=== PATIENT | male | born 1970 | race Caucasian/White ===

== ENCOUNTER → 2018-11-25 | Outpatient (CLI) | payer SELFPAY ==
--- NOTE | 2018-11-25 14:25 | Diagnostic Imaging Report ---
INDICATION: Right foot fracture. EXAMINATION: AP, oblique and lateral views of the right foot are obtained. FINDINGS: There is a mildly displaced oblique fracture to the distal shaft of fifth metatarsal. There is surrounding callus indicating partial healing. There is no evidence of intra-articular extension. No other fracture or malalignment is identified. IMPRESSION: Subacute, mildly displaced fracture involving the distal shaft of fifth metatarsal without other complicating feature identified. Dictated by: Dictated on workstation # [id number]
== END ==
LOC: RAD FS 08:48
PROVIDERS: ATTEND Nurse Practitioner
DX: S92.351A Displaced fracture of fifth metatarsal bone, right foot, initial encounter for closed fracture (principal)
CPT/HCPCS: 73630

== ENCOUNTER → 2018-12-16 | Outpatient (CLI) | payer SELFPAY ==
--- NOTE | 2018-12-16 11:23 | Diagnostic Imaging Report ---
INDICATION: Fracture followup. COMPARISON: 11/15/2018. TECHNIQUE: 3 views of right foot were obtained. FINDINGS: The oblique simple fracture in the mid to distal diaphysis of the fifth metatarsal maintain similar alignment and position. No interosseous bridging has occurred. The amount of periosteal callus formation has not substantially changed since prior examination. No new fracture. Bipartite medial hallux sesamoid. Degenerative changes of the tibiotalar joint are partially imaged. IMPRESSION: No progressive healing of the left fifth metatarsal diaphyseal fracture since prior exam. Dictated by: Dictated on workstation # [id number]
== END ==
LOC: RAD FS 10:59
PROVIDERS: ATTEND Nurse Practitioner
DX: S92.351D Displaced fracture of fifth metatarsal bone, right foot, subsequent encounter for fracture with routine healing (principal)
CPT/HCPCS: 73630

== ENCOUNTER → 2019-01-17 | Outpatient (CLI) | payer SELFPAY ==
--- NOTE | 2019-01-17 11:40 | Diagnostic Imaging Report ---
EXAMINATION: Right foot radiographs, 3 views. COMPARISON: December 16, 2017. HISTORY: 48-year-old male, history of fifth metatarsal fracture. Followup exam. FINDINGS: Redemonstrated displaced fracture involving the distal diaphysis of the fifth metatarsal. There is a persistent well visualized fracture line. There is very mild interval increase in periosteal reaction and bony callus bridging. Overall fracture alignment is unchanged. There is adjacent soft tissue swelling. There is a bipartite medial sesamoid. There is degenerative type calcaneal enthesopathy. There are tibiotalar degenerative changes. IMPRESSION: 1. Very mild interval healing response at site of displaced fracture of the fifth metatarsal. Dictated by: Dictated on workstation # [id number]
== END ==
LOC: RAD FS 11:18
PROVIDERS: ATTEND Nurse Practitioner
DX: S92.351D Displaced fracture of fifth metatarsal bone, right foot, subsequent encounter for fracture with routine healing (principal)
CPT/HCPCS: 73630

== ENCOUNTER → 2019-02-15 | Outpatient (CLI) | payer SELFPAY ==
--- NOTE | 2019-02-15 14:14 | Diagnostic Imaging Report ---
EXAMINATION: Right foot at 11:14 a.m. INDICATION: Fracture. FINDINGS: Three views were obtained. The prior exam of 01/17/2019 noted a healing displaced fracture of the distal shaft of the fifth metatarsal. On this study, there has been a slight increase in the amount of healing callus formation about the fracture site and the fracture line is also somewhat less conspicuous than noted on the prior study. The fracture fragments are displaced but unchanged in alignment when compared to the prior study. There is no fracture or acute bony abnormality appreciated. The soft tissues are unremarkable. IMPRESSION: 1. There has been slight further healing of the fracture of the distal third of the fifth metatarsal. The fracture line is still present however. A follow-up exam will be recommended for continued evaluation. 2. There is no sign of an acute bony abnormality. Dictated by: Dictated on workstation # [id number]
== END ==
LOC: RAD FS 10:50
PROVIDERS: ATTEND Nurse Practitioner
DX: S92.351D Displaced fracture of fifth metatarsal bone, right foot, subsequent encounter for fracture with routine healing (principal)
CPT/HCPCS: 73630

== ENCOUNTER 2019-04-28 06:23 | Emergency (ER) | payer SELFPAY, OTHER | END 2019-04-28 08:45 | disposition home or self-care (01) | LOC: ER 06:23 ==

== ENCOUNTER 2019-05-11 18:49 | Emergency (ER) | payer SELFPAY ==
[~2019-05-11] VITALS: Ht 195.6 cm; Wt 106.6 kg
[~2019-05-11 18:49] MED LIST: ONDA4TAB11 PO
[2019-05-11 18:57] VITALS: BP 126/96
--- NOTE | 2019-05-11 19:11 | NUR ---
Pt refuses blood draw from iv site. Pt states, "I can't allow that, its against my confucianism!" Provider notified.
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
[2019-05-11] MEDS ORDERED: LACTATED RINGERS 1,000 ML IV ONE (19:29)
[2019-05-11] MEDS ORDERED: KETOROLAC 30 MG/ML VIAL IVP ONE (19:30)
[2019-05-11] MEDS ORDERED: ONDANSETRON 4 MG/2 ML (SDV) Z0FRAN IVP ONE (19:30)
[2019-05-11] MEDS ORDERED: MECLIZINE 25 MG (ANTIVERT) TAB PO ONE (19:30)
[2019-05-11] MEDS ORDERED: LACTATED RINGERS 1,000 ML IV SCH (19:45)
--- NOTE | 2019-05-11 19:45 | Diagnostic Imaging Report ---
PROCEDURE: CT head without contrast. TECHNIQUE: Multiple contiguous axial images were obtained through the brain without the use of intravenous contrast. Auto Exposure Controls were utilized during the CT exam to meet ALARA standards for radiation dose reduction. INDICATION: Dizziness, syncope, and head pain of one month's duration, worsening today. COMPARISON: 04/28/2019. FINDINGS: There is no hemorrhage, hydrocephalus, edema, mass, mass effect, or evidence for elevated intracranial pressures. The basilar cisterns are patent. There is no sulcal effacement and no loss of the cortical dang-white matter differentiations. Orbits, sinuses, and calvarium appear nonacute. IMPRESSION: Stable CT head. Dictated by: Dictated on workstation # [id number]
[2019-05-11] MEDS ORDERED: MECL-106 PO (19:52)
--- NOTE | 2019-05-11 20:08 | NUR ---
Risks and benefits reviewed by Joseluis Condon APRN. Pt states, "I just can't stay here and wait for that whole bag of fluids to run in." Pt signed AMA form @ 2007 with provider in room. Pt expressed gratitude for care recieved. Pt amb out of ED care w/o difficulty. a&ox4.
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
== END 2019-05-11 20:08 | disposition left against medical advice (07) ==
LOC: EDUNIT# 18:49 → ER 18:51
DX: F07.81 Postconcussional syndrome (principal); G44.309 Post-traumatic headache, unspecified, not intractable; I10 Essential (primary) hypertension; Z77.22 Contact with and (suspected) exposure to environmental tobacco smoke (acute) (chronic)
CPT/HCPCS: 70450; 96374; 96375

== ENCOUNTER 2023-03-02 13:39 | Inpatient (IN) | payer OTHER ==
[~2023-03-02] VITALS: Ht 195 cm; Wt 144.5 kg
[~2023-03-02 13:39] MED LIST changes: +MECL-149 PO
[2023-03-02 14:19] LABS: BASOPHILS # (AUTO) 0.1 10^3/uL (0.0-0.1); BASOPHILS % (AUTO) 1 % (0-10); EOSINOPHILS # (AUTO) 0.1 10^3/uL (0.0-0.3); EOSINOPHILS % (AUTO) 1 % (0-10); HEMATOCRIT 38 % (40-54); LYMPHOCYTES # (AUTO) 1.4 10^3/uL (1.0-4.0); LYMPHOCYTES % (AUTO) 12 % (12-44); MEAN CORPUSCULAR HEMOGLOBIN 31 pg (25-34); MEAN CORPUSCULAR HGB CONC 32 g/dL (32-36); MEAN CORPUSCULAR VOLUME 100 fL (80-99); MEAN PLATELET VOLUME 9.4 fL (9.0-12.2); MONOCYTES # (AUTO) 0.9 10^3/uL (0.0-1.0); MONOCYTES % (AUTO) 7 % (0-12); NEUTROPHILS # (AUTO) 9.4 10^3/uL (1.8-7.8); NEUTROPHILS % (AUTO) 80 % (42-75); PLATELET COUNT 316 10^3/uL (130-400); WHITE BLOOD COUNT 11.8 10^3/uL (4.3-11.0)
--- NOTE | 2023-03-02 14:25 | ED GI ---
General Chief Complaint: Abdominal/GI Problems Stated Complaint: ABD SWELLING Nursing Triage Note: Patient has presented to ER with cc of abd pain and swelling. Patient reports that about a month he woke up with nausea, vomiting, and had diarrhea for about 3 days. Since that time he has had worsening swelling to his abd. The skin on his abd is red, a rash on the right side of his abd, and very swollen abd. Patient reports that he currently has no doctor. His symptoms were getting worse and he came to ER for evaluation. Patient reports that he was diagnosed in with alcoholic hepatitis while in [place]. He reports that he did stop drinking a month ago after he started to the have the swelling on the right side of his abd. He reports that he was drinking 1/5th of vodka, and 6 beers perday daily. He reports heavy drinking for the last 20 years. Source of Information: Patient History of Present Illness Date Seen by Provider: March 02, 2023 Time Seen by Provider: 13:42 Initial Comments [id number] male presenting with complaints of increasing abdominal pain and swelling over the last month. Reports that he had nausea vomiting and diarrhea for about 3 days 1 month ago. Since then he has had increasing swelling to his abdomen. The skin on the right side of his abdomen has erythematous spots to it. He denies any itching or pain to these areas. He typically drinks vodka and chases it with beer every day. He states that a month ago when he started having abdominal swelling he stopped drinking alcohol. He does not have a primary care provider. He also has been having increasing shortness of breath. He smokes at least a pack of cigarettes a day. He felt like he was getting more short of breath with the abdominal swelling. He denies having any dark tarry stools or blood in the stool. He states he had a bowel movement earlier today and it was normal. He denies any pain or burning with urination. He denies having fever but has felt hot. He has intermittently had some chills as well. He denies having nausea, vomiting, chest pain, headache, extremity pain. Timing/Duration: Getting Worse (Getting worse over the last month) Severity/Quality: Moderate, Aching (Left lower quadrant) Location: LLQ Radiation: Other (Generalized abdomen) Activities at Onset: None Modifying Factors: Worsens With Movement, Worsens With Palpation Associated Symptoms: No Back Pain, No Chest Pain, No Diaphoresis; Fever/Chills (Subjective), Fatigue; No Headache, No Heartburn, No Nausea/Vomiting; Rash (Right side of the abdominal wall), Shortness of Air, Swelling/Mass in Abdomen; No Syncope; Weakness (Generalized) Allergies and Home Medications Allergies Coded Allergies: No Known Drug Allergies (Unverified , 04/28/19) Patient Home Medication List Home Medication List Reviewed: Yes Meclizine HCl (Meclizine HCl) 25 Mg Tablet, 25 MG PO TID PRN for DIZZINESS Prescribed by: JUAN C GREEN on [birth year]191951 Ondansetron (Ondansetron Odt) 4 Mg Tab.rapdis, 4 MG PO Q6H PRN for NAUSEA/VOMITING Prescribed by: MANOJ OLIVEIRA on 04/28/19 0840 Review of Systems Review of Systems Constitutional: see HPI EENTM: No Symptoms Reported Respiratory: See HPI Cardiovascular: Denies Chest Pain; Palpitations Gastrointestinal: See HPI, Abdomen Distended, Abdominal Pain (Left lower quadrant); Denies Blood Streaked Stools, Denies Constipated, Denies Diarrhea; Poor Appetite; Denies Rectal Bleeding, Denies Vomiting Genitourinary: Denies Burning, Denies Pain Musculoskeletal: no symptoms reported Skin: see HPI, rash (Erythematous rash along the right side of his abdomen) Psychiatric/Neurological: See HPI Past Nfkyvhl-Wzyynp-Tgjsph Hx Patient Social History Tobacco Use?: Yes Tobacco type used: Cigarettes Smoking Status: Heavy Tobacco Smoker Use of E-Cig and/or Vaping dev: No Substance use?: No Alcohol Use?: Yes Alcohol type: Beer, Hard Liquor Alcohol Frequency: Daily Seasonal Allergies Seasonal Allergies: No Past Medical History Surgery/Hospitalization HX: Hypertension, alcohol hepatitis 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 0oz. 106.897811lp; 39.00 BMI Method:Stated General Appearance: mild distress, obese, other (Chronically ill-appearing) HEENT: PERRL/EOMI, pharynx normal Neck: non-tender, full range of motion, supple, normal inspection Respiratory: chest non-tender, decreased breath sounds, accessory muscle use; No rales, No rhonchi, No stridor, No wheezing Cardiovascular: normal peripheral pulses, tachycardia, irregularly irregular Peripheral Pulses: 2+ Carotid (R), 2+ Carotid (L), 2+ Radial Pulses (R), 2+ Radial Pulses (L) Gastrointestinal: normal bowel sounds, soft, no pulsatile mass, distended (Distended abdomen with fluid wave); No guarding, No rebound; tenderness (Mild diffuse tenderness worse in the left lower quadrant), other (Trace to 1+ pitting edema to the abdominal wall) Rectal: deferred Extremities: normal range of motion, non-tender, normal capillary refill Neurologic/Psychiatric: alert, oriented x 3 Skin: warm/dry, rash (Erythematous rash to the right side of the abdominal wall that appears consistent with a folliculitis appearing rash) Focused Exam Lactate Level 03/02/23 13:49: Lactic Acid Level 1.07 Lactic Acid Level Laboratory Tests Test 03/02/23 13:49 Lactic Acid Level 1.07 MMOL/L (0.50-2.00) Progress/Results/Core Measures Results/Orders Lab Results Laboratory Tests Test 03/02/23 13:49 03/02/23 14:29 Range/Units White Blood Count 11.8 H 4.3-11.0 10^3/uL Red Blood Count 3.82 L 4.30-5.52 10^6/uL Hemoglobin 12.0 L 13.3-17.7 g/dL Hematocrit 38 L 40-54 % Mean Corpuscular Volume 100 H 80-99 fL Mean Corpuscular Hemoglobin 31 25-34 pg Mean Corpuscular Hemoglobin Concent 32 32-36 g/dL Red Cell Distribution Width 15.4 H 10.0-14.5 % Platelet Count 316 130-400 10^3/uL Mean Platelet Volume 9.4 9.0-12.2 fL Immature Granulocyte % (Auto) 0 % Neutrophils (%) (Auto) 80 H 42-75 % Lymphocytes (%) (Auto) 12 12-44 % Monocytes (%) (Auto) 7 0-12 % Eosinophils (%) (Auto) 1 0-10 % Basophils (%) (Auto) 1 0-10 % Neutrophils # (Auto) 9.4 H 1.8-7.8 10^3/uL Lymphocytes # (Auto) 1.4 1.0-4.0 10^3/uL Monocytes # (Auto) 0.9 0.0-1.0 10^3/uL Eosinophils # (Auto) 0.1 0.0-0.3 10^3/uL Basophils # (Auto) 0.1 0.0-0.1 10^3/uL Immature Granulocyte # (Auto) 0.0 0.0-0.1 10^3/uL Prothrombin Time 15.3 H 12.2-14.7 SEC INR Comment 1.2 0.8-1.4 Activated Partial Thromboplast Time 29 24-35 SEC Sodium Level 136 135-145 MMOL/L Potassium Level 4.7 3.6-5.0 MMOL/L Chloride Level 102 98-107 MMOL/L Carbon Dioxide Level 23 21-32 MMOL/L Anion Gap 11 5-14 MMOL/L Blood Urea Nitrogen 20 H 7-18 MG/DL Creatinine 1.39 H 0.60-1.30 MG/DL Estimat Glomerular Filtration Rate 61 BUN/Creatinine Ratio 14 Glucose Level 100 70-105 MG/DL Lactic Acid Level 1.07 0.50-2.00 MMOL/L Calcium Level 9.1 8.5-10.1 MG/DL Corrected Calcium 9.6 8.5-10.1 MG/DL Magnesium Level 1.9 1.6-2.4 MG/DL Total Bilirubin 1.0 0.1-1.0 MG/DL Aspartate Amino Transf (AST/SGOT) 56 H 5-34 U/L Alanine Aminotransferase (ALT/SGPT) 37 0-55 U/L Alkaline Phosphatase 74 40-136 U/L Troponin I < 0.30 <0.30 NG/ML Pro-B-Type Natriuretic Peptide 3163.0 H <125.0 PG/ML Total Protein 7.5 6.4-8.2 GM/DL Albumin 3.4 3.2-4.5 GM/DL Lipase 55 8-78 U/L Serum Alcohol < 10 <10 MG/DL Blood Gas Puncture Site R RADIAL Blood Gas Patient Temperature 36.8C Arterial Blood pH 7.30 *L 7.37-7.43 Arterial Blood Partial Pressure CO2 54 H 35-45 MMHG Arterial Blood Partial Pressure O2 64 L 79-93 MMHG Arterial Blood HCO3 27 23-27 MMOL/L Arterial Blood Total CO2 28.3 21.0-31.0 MMOL/L Arterial Blood Oxygen Saturation 90 L 94-100 % Arterial Blood Base Excess -0.6 -2.5-2.5 MMOL/L [place] Test OK Blood Gas Ventilator Setting NO Blood Gas Inspired Oxygen 2 LITERS My Orders Orders - CORY MATA MD Comprehensive Metabolic Panel (03/02/23 14:09) Lipase (03/02/23 14:09) Ua Culture If Indicated (03/02/23 14:09) Ed Iv/Invasive Line Start (03/02/23 14:09) Cbc With Automated Diff (03/02/23 14:09) Ct Abdomen/Pelvis W (03/02/23 14:09) Protime With Inr (03/02/23 14:09) Partial Thromboplastin Time (03/02/23 14:09) Hepatitis Panel Acute (03/02/23 14:09) Ammonia (03/02/23 14:09) Lactic Acid Analyzer (03/02/23 14:09) Chest 1 View Ap/Pa Only (03/02/23 14:09) O2 (03/02/23 14:09) Ekg Tracing (03/02/23 14:09) Monitor-Rhythm Ecg Trace Only (03/02/23 14:09) Iohexol Injection (Omnipaque 350 Mg/Ml 1 (03/02/23 14:30) Received Contrast (Hold Metformin- Contr (03/02/23 14:30) Ns (Ivpb) (Sodium Chloride 0.9% Ivpb Bag (03/02/23 14:30) Arterial Blood Gas (03/02/23 14:22) Alcohol (03/02/23 14:25) Troponin I Fs (03/02/23 14:29) Probnp Fs (03/02/23 14:29) Magnesium (03/02/23 14:29) Diltiazem Injection (Cardizem Injection) (03/02/23 14:30) Ns (Ivpb) (Sodium C... W/Diltiazem Iv Fo (03/02/23 14:30) Diltiazem Drip Pre-Mix (Cardizem Drip Pr (03/02/23 14:41) Iohexol Injection (Omnipaque 350 Mg/Ml 1 (03/02/23 15:00) Received Contrast (Hold Metformin- Contr (03/02/23 15:00) Ns (Ivpb) (Sodium Chloride 0.9% Ivpb Bag (03/02/23 15:00) Blood Culture (03/02/23 15:07) Ed Admission (Communication) (03/02/23 15:25) Ceftriaxone Pre-Mix (Rocephin Pre-Mix) (03/02/23 15:27) Azithromycin Injection (Zithromax Inject (03/02/23 15:27) Apixaban Tablet (Eliquis Tablet) (03/02/23 15:33) Diltiazem Injection (Cardizem Injection) (03/02/23 15:35) Medications Given in ED Current Medications Medications Dose Ordered Sig/Adeola Route Start Time Stop Time Status Last Admin Dose Admin Diltiazem HCl 125 ml @ ud STK-MED ONCE IV 03/02/23 14:41 03/02/23 14:46 DC 03/02/23 14:48 10 MLS/HR Iohexol 100 ml ONCE ONCE IV 03/02/23 14:30 03/02/23 15:22 DC 03/02/23 15:11 100 ML Sodium Chloride 100 ml ONCE ONCE IV 03/02/23 15:00 03/02/23 15:01 DC 03/02/23 15:11 100 ML Vital Signs/I&O 03/02/23 03/02/23 03/02/23 14:00 14:47 14:48 Temp 36.8 Pulse 106 Resp 24 B/P (MAP) 120/95 (103) 139/115 139/115 Pulse Ox 86 O2 Delivery Room Air Blood Pressure Mean: 103 Admisison Planning May Need Admission (Planning): 13:50 Progress Progress Note #1: Progress Note Potential life-threatening diagnosis of pneumonia, sepsis, liver failure, alcohol cirrhosis, diverticulitis, ischemic bowel, congestive heart failure, myocardial infarction. On arrival patient appears chronically ill and to not be feeling well. His initial oxygen saturation was 86 to 87% on room air. His temperature was afebrile at 36.8. He was tachycardic with heart rate around 110 bpm on my auscultation. Heart rate was fast and irregularly irregular. He was started on supplemental oxygen by nasal cannula for his oxygen saturation. Obtain peripheral IV access and send labs for complete blood count, comprehensive metabolic profile, lipase, alcohol, magnesium, lactic acid, ABG, troponin, proBNP, ammonia, hepatitis panel, coagulation factors. Obtain urinalysis as well. Chest x-ray to look for infiltrate and/or effusion. CT scan of the abdomen pelvis to evaluate his distended abdomen and fluid wave. Ordered cardiac telemetry monitoring and his initial heart rate and rhythm showed in the 140s and irregular with a narrow QRS complex. Electrocardiogram obtained at 1417 and confirms atrial fibrillation with RVR. Will order Diltiazem 10 mg IV bolus and follow with Diltiazem drip starting at 5 mg/hr and titrate for heart rate <100. Hold for SBP <90. Progress Note #2: Time: 14:44 Progress Note On my personal review and interpretation of his 1 view chest x-ray he appears to have pulmonary vascular congestion with a left pleural effusion. His initial complete blood count showed white blood cells at upper limit of normal at 11.8. He had hemoglobin at lower limit of normal at 12. He had normal platelets at 316. His pro time was normal at 15.3 with INR of 1.2. His PTT was in the normal range at 29. His alcohol level was less than 10. His comprehensive metabolic profile showed a sodium of 136 with potassium of 4.7. His BUN was 20 with mild elevation of the creatinine to 1.39. Glucose was normal at 100. Lactic acid was negative at 1.07. His total bilirubin was normal at 1 with AST of 56 and ALT of 37. Lipase was was negative at 55. At 1436 the lab had called with critical results on his ABG as he had a pH that was low at 7.3. His PCO2 was elevated to 54. His PO2 was low at 64. This was on 2 L/min by nasal cannula with oxygen saturation of 90%. 1452 I reviewed the radiologist report on the 1 view chest x-ray. His report shows left pleural effusion and possible left lower lobe pneumonia. We will add on blood cultures with possible pneumonia and treat him with ceftriaxone and azithromycin. We will give ceftriaxone 1 g IV and azithromycin 500 mg IV. Progress Note #3: Time: 15:08 Progress Note Magnesium was normal at 1.9. Troponin was negative at less than 0.3. He does have an elevated proBNP of 3,163. [address] Franz the on-call hospitalist for [facility]. I reviewed the patient's presentation as well as his initial vital signs hypoxia needing supplemental oxygen. His blood gas showing some mild acidosis with elevated CO2 and PO2 level. His x-ray was showing signs of pleural effusion as well as left lower lobe pneumonia. His CT scan was showing ascites with liver cirrhosis on my personal interpretation of the CT scan of the abdomen and pelvis. His heart rate was tachycardic with atrial fibrillation with rapid ventricular response. He is on diltiazem as a drip and was given a 10 mg bolus. There is orders to titrate the diltiazem drip to try and get better control of his heart rate and rhythm. We will start him on Rocephin 1 g IV and azithromycin 500 mg IV for the pneumonia. Will start anticoagulation as well after speaking with Dr. Gonzalez with cardiology. He accepted him for admission to the ICU as inpatient and he will place acute orders. He did request that I speak with Dr. Gonzalez with cardiology so that he was aware of the patient coming in with atrial fibrillation with RVR and on a diltiazem drip. [address] Gonzalez the on-call manager product marketing. I advised him of the patient's presentation with history of noncompliance with blood pressure medicines and chronic alcohol and tobacco use. He has pneumonia with ascites and a left pleural effusion as well as a left lower lobe pneumonia. He is placed on a diltiazem drip and was given 10 mg IV diltiazem bolus. His heart rate was still fluctuating from the 110s to 140s. He recommended continuing Eliquis 5 mg twice daily since this would start working faster would be better than doing 150 mg of Lovenox every 12 hours. He recommended giving an additional 10 mg IV diltiazem bolus and making sure that he was up to 10 mg/h on the diltiazem drip. 1551 I have reviewed the radiologist report on the CT scan of the abdomen and pelvis with IV contrast. They reported cardiomegaly with bilateral pleural effusion and a left basilar infiltrate. They felt that he had nodular contour to his liver concerning for cirrhosis but no discrete liver mass. He has mild to moderate abdominal and pelvic ascites. He has nonspecific fluid-filled small bowel loops in the left lower abdomen there are normal caliber bowel loops in the right abdomen so possibility of a small bowel obstruction cannot be entirely excluded and possibly performing a small bowel study would be useful. He also has cholelithiasis with fluid surrounding the gallbladder. He is not having specific concerns for cholecystitis but they suggested a gallbladder ultrasound if needed for further evaluation. 1600 with his additional dose of diltiazem and increasing his diltiazem drip his heart rate was still fluctuating from 1 10-1 50. He continues to be in atrial fibrillation with RVR. Blood pressure was 145/112. He remains awake and alert. He was agreeable to transfer to [place] for further treatment. Counseled that he would need antibiotics and medication for his heart rate and irregular rhythm as well as the pneumonia. Likely that he will be started on diuretics to help with the ascites. He will be going to the ICU with his diltiazem drip as well as the hypoxia and pneumonia. Initial ECG Impression Date: March 02, 2023 Initial ECG Impression Time: 14:17 Initial ECG Rate: 154 Initial ECG Rhythm: A Fib/Flutter Initial ECG Comparisson: No Previous ECG Available Comment On my initial interpretation and review his electrocardiogram shows atrial fibrillation with rapid ventricular response and a heart rate of 154 bpm. He has low voltage QRS complex in the extremity leads. He had no acute ST elevation. He has global T wave flattening. QT interval 295 ms with a QTc interval 382 ms. He has no prior tracing available for comparison. Diagnostic Imaging Diagonstic Imaging: Xray Plain Films/CT/US/NM/MRI: chest Comments NAME: ANGEL SPENCER [employer] REC#: [id number] PT STATUS: REG ER : 1970 PHYSICIAN: CORY MATA MD ADMIT DATE: 03/02/23/ER FS Draft Date of Exam:03/02/23 CHEST 1 VIEW AP/PA ONLY INDICATION: Shortness of breath and tachycardia. FINDINGS: There is an infiltrate in the left lung base partially obscuring the left diaphragm. There is blunting of the left angle likely owing to a small left effusion. Heart size is mildly enlarged, and there is some prominence of the pulmonary vascularity. IMPRESSION: 1. Upper limits heart size and mild venous congestion but probable pneumonia in the left lower lobe with an adjacent pleural effusion. 2. No pneumothorax. Dictated on workstation # [id number] Dict: 03/02/23 1428 Trans: 03/02/23 1432 [id number] Interpreted by: RIKKI EDWARDS Electronically signed by: Reviewed: Reviewed by Me (I reviewed the radiologist report at 1451. They felt that he had a left lower lobe infiltrate in addition to the pleural effusion.) Diagonstic Imaging: CT Plain Films/CT/US/NM/MRI: abdomen, pelvis Comments NAME: ANGEL SPENCER REC#: [id number] PT STATUS: REG ER : 1970 PHYSICIAN: CORY MATA MD ADMIT DATE: 03/02/23/ER FS Signed Date of Exam:03/02/23 CT ABDOMEN/PELVIS W PROCEDURE: CT abdomen and pelvis with contrast. TECHNIQUE: Multiple contiguous axial images were obtained through the abdomen and pelvis after administration of intravenous contrast. Auto Exposure Controls were utilized during the CT exam to meet ALARA standards for radiation dose reduction. All CT scans use one or more of the following dose optimizing techniques: automated exposure control, MA and/or KvP adjustment based on patient size and exam type or iterative reconstruction. INDICATION: Abdominal swelling as well as left lower quadrant pain. COMPARISON: No prior studies are available for comparison. FINDINGS: Imaging through the lung bases demonstrates the heart to be enlarged. There are small bilateral pleural effusions, slightly greater on the left compared with the right. There are some areas of infiltrate or atelectasis in the left base as well. Liver does demonstrate somewhat of a nodular contour, raising question of cirrhosis. No discrete liver mass is identified. There are several stones in the gallbladder. No definite biliary ductal dilatation is seen. The pancreas and spleen are unremarkable. No adrenal mass is identified. The right kidney contains several cysts, largest in the lower pole at approximately 5 cm in size. There is no hydronephrosis. Aorta is nonaneurysmal. There is some moderate abdominal and pelvic ascites. There are some dilated and fluid-filled small bowel loops in the central and left abdomen. There are some normal-caliber small bowel loops in the right abdomen and the possibility of early small bowel obstruction cannot be entirely excluded. The colon is decompressed. There is a small fat-containing umbilical hernia. There is also a fat-containing left inguinal hernia. The bladder is unremarkable. Prostate is unremarkable. Bony structures are nonacute. IMPRESSION: 1. Cardiomegaly with bilateral pleural effusions and left basilar infiltrate or atelectasis. 2. Questionable nodular contour to the liver. Cirrhosis cannot be entirely excluded. No discrete liver mass is detected. 3. Sagv-aj-qvmdqoyv abdominal and pelvic ascites. 4. Nonspecific fluid-filled small bowel loops in the left abdomen. There are normal-caliber bowel loops in the right abdomen and possibility of small bowel obstruction cannot be entirely excluded. Small bowel study would be useful for further evaluation, if clinically indicated. 5. Cholelithiasis. There is fluid surrounding the gallbladder. If there is concern for cholecystitis, gallbladder ultrasound would be useful for further evaluation. Dictated by: Dictated on workstation # [id number] Dict: 03/02/23 1527 Trans: 03/02/23 1548 [id number] Interpreted by: AURELIANO COTA MD Electronically signed by: AURELIANO COTA MD 03/02/23 1548 Reviewed: Reviewed by Me Critical Care Note Critical Care Total Time (minutes) 60 minutes Progress I spent at least 60 minutes of critical care time with the patient. Time excludes separately billable procedures. Time was spent obtaining history from patient and his mother, ordering test and reviewing results, ordering interve ntions and reviewing response, discussion with consultants, discussion with patient and his mother, documentation in the chart. Patient was at risk of cardiovascular compromise and collapse as well as respiratory collapse due to his pneumonia and atrial fibrillation with rapid ventricular response requiring my immediate and direct intervention and management. Departure Communication (Admissions) Time/Spoke to Admitting Phy: 15:[address] Franz the on-call hospitalist for [facility]. I reviewed the patient's presentation as well as his initial vital signs hypoxia needing supplemental oxygen. His blood gas showing some mild acidosis with elevated CO2 and PO2 level. His x-ray was showing signs of pleural effusion as well as left lower lobe pneumonia. His CT scan was showing ascites with liver cirrhosis on my personal interpretation of the CT scan of the abdomen and pelvis. His heart rate was tachycardic with atrial fibrillation with rapid ventricular response. He is on diltiazem as a drip and was given a 10 mg bolus. There is orders to titrate the diltiazem drip to try and get better control of his heart rate and rhythm. We will start him on Rocephin 1 g IV and azithromycin 500 mg IV for the pneumonia. Will start anticoagulation as well after speaking with Dr. Gonzalez with cardiology. He accepted him for ad mission to the ICU as inpatient and he will place acute orders. He did request that I speak with Dr. Gonzalez with cardiology so that he was aware of the patient coming in with atrial fibrillation with RVR and on a diltiazem drip. Time/Spoke to Consulting Phy: 15:[address] Gonzalez the on-call manager product marketing. I advised him of the patient's presentation with history of noncompliance with blood pressure medicines and chronic alcohol and tobacco use. He has pneumonia with ascites and a left pleural effusion as well as a left lower lobe pneumonia. He is placed on a diltiazem drip and was given 10 mg IV diltiazem bolus. His heart rate was still fluctuating from the 110s to 140s. He recommended continuing Eliquis 5 mg twice daily since this would start working faster would be better than doing 150 mg of Lovenox every 12 hours. He recommended giving an additional 10 mg IV diltiazem bolus and making sure that he was up to 10 mg/h on the diltiazem drip. Impression Primary Impression: Pneumonia of left lower lobe due to infectious organism Additional Impressions: Pleural effusion, left Atrial fibrillation with rapid ventricular response Abdominal distention Hypoxia Left lower quadrant abdominal pain Ascites due to alcoholic cirrhosis Disposition: 30 STILL A PATIENT Condition: Critical Admissions Decision to Admit Reason: Admit from ER (General) Decision to Admit/Date: March 02, 2023 Time/Decision to Admit Time: 15:24 Departure-Patient Inst. Referrals: NO,LOCAL PHYSICIAN (PCP/Family) Primary Care Physician CORY MATA MD March 02, 2023 14:25
[2023-03-02] MEDS ORDERED: IOHEXOL 350 MG/ML 100 ML (OMNIPAQUE 350) VIAL IV ONE ×2 (14:30→15:00)
[2023-03-02] MEDS ORDERED: HOLD METFORMIN - RECEIVED CONTRAST 20 ML VIAL IV SCH ×2 (14:30→15:00)
[2023-03-02] MEDS ORDERED: NS 100 ML (IVPB) BAG IV ONE ×2 (14:30→15:00)
[2023-03-02 14:31] LABS: INR 1.2 (0.8-1.4); PROTHROMBIN TIME PATIENT 15.3 SEC (12.2-14.7)
--- NOTE | 2023-03-02 14:33 | Diagnostic Imaging Report ---
INDICATION: Shortness of breath and tachycardia. FINDINGS: There is an infiltrate in the left lung base partially obscuring the left diaphragm. There is blunting of the left angle likely owing to a small left effusion. Heart size is mildly enlarged, and there is some prominence of the pulmonary vascularity. IMPRESSION: 1. Upper limits heart size and mild venous congestion but probable pneumonia in the left lower lobe with an adjacent pleural effusion. 2. No pneumothorax. Dictated by: Dictated on workstation # [id number]
[2023-03-02 14:36] LABS: ABG PCO2 54 MMHG (35-45); ABG PO2 64 MMHG (79-93); ABG TCO2 28.3 MMOL/L (21.0-31.0)
[2023-03-02 14:37] LABS: ABG BASE EXCESS -0.6 MMOL/L (-2.5-2.5); ABG OXYGEN SATURATION 90 % (94-100); ALLENS TEST OK; INSPIRED O2 2 LITERS
[2023-03-02 14:38] LABS: POTASSIUM 4.7 MMOL/L (3.6-5.0)
[2023-03-02 14:38] LABS: PATIENT TEMP 36.8C; VENTILATOR NO
[2023-03-02 14:39] LABS: ALBUMIN 3.4 GM/DL (3.2-4.5); CALCIUM 9.1 MG/DL (8.5-10.1); CREATININE SERUM 1.39 MG/DL (0.60-1.30); TOTAL PROTEIN 7.5 GM/DL (6.4-8.2)
[2023-03-02] MEDS ORDERED: dilTIAZem DRIP PRE-MIX 125 ML IV ONE (14:41)
[2023-03-02 14:45] LABS: MAGNESIUM 1.9 MG/DL (1.6-2.4)
[2023-03-02] MEDS ORDERED: cefTRIAXone PRE-MIX 50 ML IV STA (15:27)
[2023-03-02] MEDS ORDERED: ENOXAPARIN INJECTION 30 MG/0.3 ML SYR SC STA (15:27)
[2023-03-02] MEDS ORDERED: AZITHROMYCIN INJECTION 500 MG in NS (IVPB) 250 ML IV STA (15:27)
[2023-03-02] MEDS ORDERED: ENOXAPARIN 60 MG/0.6 ML (LOVENOX) SYR SC STA (15:27)
[2023-03-02] MEDS ORDERED: APIXABAN 5 MG (ELIQUIS) TABLET PO STA (15:33)
--- NOTE | 2023-03-02 15:40 | Diagnostic Imaging Report ---
PROCEDURE: CT abdomen and pelvis with contrast. TECHNIQUE: Multiple contiguous axial images were obtained through the abdomen and pelvis after administration of intravenous contrast. Auto Exposure Controls were utilized during the CT exam to meet ALARA standards for radiation dose reduction. All CT scans use one or more of the following dose optimizing techniques: automated exposure control, MA and/or KvP adjustment based on patient size and exam type or iterative reconstruction. INDICATION: Abdominal swelling as well as left lower quadrant pain. COMPARISON: No prior studies are available for comparison. FINDINGS: Imaging through the lung bases demonstrates the heart to be enlarged. There are small bilateral pleural effusions, slightly greater on the left compared with the right. There are some areas of infiltrate or atelectasis in the left base as well. Liver does demonstrate somewhat of a nodular contour, raising question of cirrhosis. No discrete liver mass is identified. There are several stones in the gallbladder. No definite biliary ductal dilatation is seen. The pancreas and spleen are unremarkable. No adrenal mass is identified. The right kidney contains several cysts, largest in the lower pole at approximately 5 cm in size. There is no hydronephrosis. Aorta is nonaneurysmal. There is some moderate abdominal and pelvic ascites. There are some dilated and fluid-filled small bowel loops in the central and left abdomen. There are some normal-caliber small bowel loops in the right abdomen and the possibility of early small bowel obstruction cannot be entirely excluded. The colon is decompressed. There is a small fat-containing umbilical hernia. There is also a fat-containing left inguinal hernia. The bladder is unremarkable. Prostate is unremarkable. Bony structures are nonacute. IMPRESSION: 1. Cardiomegaly with bilateral pleural effusions and left basilar infiltrate or atelectasis. 2. Questionable nodular contour to the liver. Cirrhosis cannot be entirely excluded. No discrete liver mass is detected. 3. [id number] abdominal and pelvic ascites. 4. Nonspecific fluid-filled small bowel loops in the left abdomen. There are normal-caliber bowel loops in the right abdomen and possibility of small bowel obstruction cannot be entirely excluded. Small bowel study would be useful for further evaluation, if clinically indicated. 5. Cholelithiasis. There is fluid surrounding the gallbladder. If there is concern for cholecystitis, gallbladder ultrasound would be useful for further evaluation. Dictated by: Dictated on workstation # [id number]
[2023-03-02] MEDS ORDERED: MELATONIN 3 MG TABLET PO PRN (18:00)
[2023-03-02] MEDS ORDERED: ONDANSETRON 4 MG/2 ML (SDV) Z0FRAN IV PRN (18:00)
[2023-03-02] MEDS ORDERED: ANTACID SUSP 30 ML UDC (MYLANTA) PO PRN (18:00)
[2023-03-02] MEDS ORDERED: NS IV 500 ML 500 ML IV PRN (18:00)
[2023-03-02] MEDS ORDERED: diphenhydrAMINE 25 MG TAB (BENADRYL) PO PRN (18:00)
[2023-03-02] MEDS ORDERED: diphenhydrAMINE 50 MG/ML INJ (BENADRYL) IVP PRN (18:00)
[2023-03-02] MEDS ORDERED: BISACODYL 10 MG SUPP (DULCOLAX) PR PRN (18:00)
[2023-03-02] MEDS ORDERED: polyethylene glycoL POWDER 17 GM (MIRALAX) PACK PO PRN (18:00)
[2023-03-02] MEDS ORDERED: ONDANSETRON 4 MG (ZOFRAN) ORAL DISSOLVE TAB PO PRN (18:00)
[2023-03-02] MEDS ORDERED: NS IV 1000 ML 1,000 ML IV SCH (18:30)
[2023-03-02] MEDS: dilTIAZem DRIP PRE-MIX 125 ML IV SCH ×2 (18:49→22:42)
[2023-03-02] MEDS: DOCUSATE SODIUM 100 MG (COLACE) CAP PO SCH (20:15)
[2023-03-03 04:07] LABS: BASOPHILS # (AUTO) 0.1 10^3/uL (0.0-0.1); BASOPHILS % (AUTO) 0 % (0-10); EOSINOPHILS # (AUTO) 0.1 10^3/uL (0.0-0.3); EOSINOPHILS % (AUTO) 1 % (0-10); HEMATOCRIT 38 % (40-54); HEMOGLOBIN 11.9 g/dL (13.3-17.7); LYMPHOCYTES # (AUTO) 1.5 10^3/uL (1.0-4.0); LYMPHOCYTES % (AUTO) 10 % (12-44); MEAN CORPUSCULAR HEMOGLOBIN 32 pg (25-34); MEAN CORPUSCULAR HGB CONC 31 g/dL (32-36); MEAN CORPUSCULAR VOLUME 101 fL (80-99); MEAN PLATELET VOLUME 9.5 fL (9.0-12.2); MONOCYTES # (AUTO) 1.3 10^3/uL (0.0-1.0); MONOCYTES % (AUTO) 9 % (0-12); NEUTROPHILS # (AUTO) 11.7 10^3/uL (1.8-7.8); NEUTROPHILS % (AUTO) 79 % (42-75); PLATELET COUNT 324 10^3/uL (130-400); WHITE BLOOD COUNT 14.7 10^3/uL (4.3-11.0)
[2023-03-03 04:26] LABS: CALCIUM 8.6 MG/DL (8.5-10.1); CREATININE SERUM 1.66 MG/DL (0.60-1.30); MAGNESIUM 1.8 MG/DL (1.6-2.4); POTASSIUM 4.9 MMOL/L (3.6-5.0)
[2023-03-03] MEDS: MAGNESIUM 1 GM/100 ML IVPB 100 ML IV SCH ×3 (05:01→05:18)
[2023-03-03] MEDS: KCL 20 MEQ TAB (K-DUR) PO SCH (05:01)
[2023-03-03] MEDS: POTASSIUM CL 10MEQ/50ML IVPB 50 ML IV SCH ×3 (05:01→23:22)
[2023-03-03 05:08] LABS: EOSINOPHILS % (MANUAL) 1 %; LYMPHOCYTES % (MANUAL) 11 %; MONOCYTES % (MANUAL) 6 %; NEUTROPHILS % (MANUAL) 82 %
[2023-03-03] MEDS: ACETAMINOPHEN 325 MG TABLET PO PRN (06:17)
[2023-03-03] MEDS: dilTIAZem DRIP PRE-MIX 125 ML IV SCH ×2 (08:19→15:27)
[2023-03-03] MEDS ORDERED: FUROSEMIDE 40 MG/4 ML INJ (LASIX) IVP SCH (08:30)
[2023-03-03 08:31] LABS: ABG BASE EXCESS -2.7 MMOL/L (-2.5-2.5); ABG OXYGEN SATURATION 95 % (94-100); ABG PCO2 57 MMHG (35-45); ABG PO2 81 MMHG (79-93); ABG TCO2 25.6 MMOL/L (21.0-31.0)
--- NOTE | 2023-03-03 08:31 | Consultation-Cardiology ---
HPI-Cardiology Cardiology Consultation Date of Consultation 03/03/23 Date of Admission Time Seen by Provider: 08:25 Indication: Atrial fibrillation HPI 52-year-old gentleman with history of alcoholism, came into the emergency room with increasing abdominal distention and increasing swelling over the past month. Reporting nausea and vomiting and diarrhea. Reported that he has stopped drinking for the past month. He typically drink vodka daily until recently. He denied any chest pain, has been having shortness of breath. He is overall a poor historian. On my evaluation he was fairly short of breath, uncomfortable. Unable to pr ovide full history. Home Medications & Allergies Allergies: Coded Allergies: No Known Drug Allergies (Unverified , 04/28/19) Home Medication List Reviewed: Yes [id number] Hx Patient Social History Marital Status: Smoking Status: Current Everyday Smoker Type Used: Cigarettes 2nd Hand Smoke Exposure: Yes Recent Hopitalizations: No Have you traveled recently?: No Alcohol Use?: Yes Past Medical History Discussed below Family Medical History Significant Family History: No Pertinent Family Hx Review of Systems-General Review of Systems Constitutional: see HPI, malaise, weakness EENTM: see HPI, no symptoms reported Respiratory: see HPI; No cough; dyspnea on exertion; No hemoptysis, No orthopnea, No phlegm; short of breath; No stridor, No wheezing, No other Cardiovascular: see HPI; No chest pain; edema; No Hx of Intervention, No palpitations, No syncope, No vascular heart diseas, No other Gastrointestinal: no symptoms reported, see HPI, diarrhea, nausea, vomiting Genitourinary: no symptoms reported, see HPI Musculoskeletal: no symptoms reported Skin: see HPI, rash (Erythematous rash along the right side of his abdomen) Psychiatric/Neurological: See HPI Reviewed Test Results Reviewed Test Results Lab Laboratory Tests Test 03/02/23 13:49 03/02/23 14:29 03/03/23 03:32 Range/Units White Blood Count 11.8 H 14.7 H 4.3-11.0 10^3/uL Red Blood Count 3.82 L 3.78 L 4.30-5.52 10^6/uL Hemoglobin 12.0 L 11.9 L 13.3-17.7 g/dL Hematocrit 38 L 38 L 40-54 % Mean Corpuscular Volume 100 H 101 H 80-99 fL Mean Corpuscular Hemoglobin 31 32 25-34 pg Mean Corpuscular Hemoglobin Concent 32 31 L 32-36 g/dL Red Cell Distribution Width 15.4 H 15.4 H 10.0-14.5 % Platelet Count 316 324 130-400 10^3/uL Mean Platelet Volume 9.4 9.5 9.0-12.2 fL Immature Granulocyte % (Auto) 0 1 % Neutrophils (%) (Auto) 80 H 79 H 42-75 % Lymphocytes (%) (Auto) 12 10 L 12-44 % Monocytes (%) (Auto) 7 9 0-12 % Eosinophils (%) (Auto) 1 1 0-10 % Basophils (%) (Auto) 1 0 0-10 % Neutrophils # (Auto) 9.4 H 11.7 H 1.8-7.8 10^3/uL Lymphocytes # (Auto) 1.4 1.5 1.0-4.0 10^3/uL Monocytes # (Auto) 0.9 1.3 H 0.0-1.0 10^3/uL Eosinophils # (Auto) 0.1 0.1 0.0-0.3 10^3/uL Basophils # (Auto) 0.1 0.1 0.0-0.1 10^3/uL Immature Granulocyte # (Auto) 0.0 0.1 0.0-0.1 10^3/uL Prothrombin Time 15.3 H 12.2-14.7 SEC INR Comment 1.2 0.8-1.4 Activated Partial Thromboplast Time 29 24-35 SEC Sodium Level 136 131 L 135-145 MMOL/L Potassium Level 4.7 4.9 3.6-5.0 MMOL/L Chloride Level 102 101 98-107 MMOL/L Carbon Dioxide Level 23 18 L 21-32 MMOL/L Anion Gap 11 12 5-14 MMOL/L Blood Urea Nitrogen 20 H 22 H 7-18 MG/DL Creatinine 1.39 H 1.66 H 0.60-1.30 MG/DL Estimat Glomerular Filtration Rate 61 49 BUN/Creatinine Ratio 14 13 Glucose Level 100 117 H 70-105 MG/DL Lactic Acid Level 1.07 0.50-2.00 MMOL/L Calcium Level 9.1 8.6 8.5-10.1 MG/DL Corrected Calcium 9.6 8.5-10.1 MG/DL Magnesium Level 1.9 1.8 1.6-2.4 MG/DL Total Bilirubin 1.0 0.1-1.0 MG/DL Aspartate Amino Transf (AST/SGOT) 56 H 5-34 U/L Alanine Aminotransferase (ALT/SGPT) 37 0-55 U/L Alkaline Phosphatase 74 40-136 U/L Ammonia 43 H 11-32 UMOL/L Troponin I < 0.30 <0.30 NG/ML Pro-B-Type Natriuretic Peptide 3163.0 H <125.0 PG/ML Total Protein 7.5 6.4-8.2 GM/DL Albumin 3.4 3.2-4.5 GM/DL Lipase 55 8-78 U/L Serum Alcohol < 10 <10 MG/DL Blood Gas Puncture Site R RADIAL Blood Gas Patient Temperature 36.8C Arterial Blood pH 7.30 *L 7.37-7.43 Arterial Blood Partial Pressure CO2 54 H 35-45 MMHG Arterial Blood Partial Pressure O2 64 L 79-93 MMHG Arterial Blood HCO3 27 23-27 MMOL/L Arterial Blood Total CO2 28.3 21.0-31.0 MMOL/L Arterial Blood Oxygen Saturation 90 L 94-100 % Arterial Blood Base Excess -0.6 -2.5-2.5 MMOL/L [place] Test OK Blood Gas Ventilator Setting NO Blood Gas Inspired Oxygen 2 LITERS Neutrophils % (Manual) 82 % Lymphocytes % (Manual) 11 % Monocytes % (Manual) 6 % Eosinophils % (Manual) 1 % Macrocytosis SLIGHT Physical Exam Physical Exam Vital Signs Vital Signs - First Documented 03/02/23 03/02/23 14:00 17:00 Temp 36.8 Pulse 106 Resp 24 B/P (MAP) 120/95 (103) Pulse Ox 86 O2 Delivery Room Air O2 Flow Rate 6.00 Capillary Refill : Height, Weight, BMI Height: 6'5.00" Weight: 235lbs. 0oz. 106.823090bm; 39.76 BMI Method:Stated General Appearance: No Apparent Distress, WD/WN Eyes: Bilateral Eye Normal Inspection, Bilateral Eye PERRL, Bilateral Eye EOMI HEENT: PERRL/EOMI, TMs Normal, Normal ENT Inspection, Pharynx Normal, Moist Mucous Membranes Neck: Full Range of Motion, Normal Inspection, Non Tender, Supple, Carotid Bruit Respiratory: Chest Non Tender, Normal Breath Sounds, No Accessory Muscle Use, No Respiratory Distress Cardiovascular: No Gallop, No JVD, Normal Peripheral Pulses, Systolic Murmur, Irregularly Irregular, Tachycardia Gastrointestinal: Normal Bowel Sounds, No Organomegaly, No Pulsatile Mass, Non Tender, Soft Back: Normal Inspection, No CVA Tenderness, No Vertebral Tenderness Extremity: Normal Capillary Refill, Normal Inspection, Normal Range of Motion, Non Tender, No Calf Tenderness, No Pedal Edema Neurologic/Psychiatric: Alert, Oriented x3, No Motor/Sensory Deficits, Normal Mood/Affect Skin: Normal Color, Warm/Dry Lymphatic: No Adenopathy A/P-Cardiology Admission Diagnosis Atrial fibrillation Ascites Acute respiratory insufficiency Acute renal insufficiency Assessment/Plan Atrial fibrillation with rapid ventricular response, unknown duration Patient is asymptomatic with his atrial fibrillation Currently heart rate is better controlled on Cardizem drip I will try to switch him to oral Cardizem and oral Lopressor and evaluate tolerance and response [id number] score 2, started on Eliquis Ascites, nausea and vomiting Questionable underlying alcoholic liver disease. Will evaluate ultrasound of the abdomen and liver Congestive heart failure, unknown etiology, probably alcoholic heart disease Started on beta-norma, will monitor blood pressure and planning to add MACIEL inhibitor or ARB I will evaluate 2D echo Acute respiratory insufficiency. Patient is significantly dyspneic We will start Lasix cautiously and monitor his tolerance and response Planning to add Aldactone if he can tolerate it Morbid obesity, BMI 39 Heavy alcoholism, drinking vodka daily. He has stopped drinking for the past month. Advised to avoid alcohol Acute on chronic renal failure, monitor renal function. CIRA BROWN MD March 03, 2023 08:31
[2023-03-03 08:36] LABS: ABG PH 7.24 (7.37-7.43); INSPIRED O2 12; PATIENT TEMP 36.2; VENTILATOR NO
[2023-03-03] MEDS ORDERED: DexMEDEtomidine 250 ML DRIP 250 ML IV ONE (08:42)
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
[2023-03-03] MEDS: DexMEDEtomidine 250 ML DRIP 250 ML IV SCH ×3 (08:47→23:03)
[2023-03-03] MEDS: DOCUSATE SODIUM 100 MG (COLACE) CAP PO SCH ×2 (09:00→21:52)
[2023-03-03] MEDS: meTOprolol TARTRATE 25 MG (LOPRESSOR) TABLET PO SCH ×2 (09:00→21:52)
[2023-03-03] MEDS ORDERED: meTOprolol TARTRATE 25 MG (LOPRESSOR) TABLET PO SCH (09:00)
[2023-03-03] MEDS ORDERED: APIXABAN 5 MG (ELIQUIS) TABLET PO SCH (09:00)
[2023-03-03] MEDS ORDERED: NS IV 500 ML 500 ML IV SCH (10:15)
[2023-03-03] MEDS ORDERED: FUROSEMIDE 40 MG/4 ML INJ (LASIX) IVP ONE (10:15)
[2023-03-03 10:30] VITALS: BP 92/77
[2023-03-03] MEDS: DOBUTamine DRIP 250 ML IV SCH ×2 (10:49→21:33)
[2023-03-03] MEDS: PROPOFOL DRIP (ICU) 100 ML IV SCH ×3 (10:50→20:43)
--- NOTE | 2023-03-03 11:10 | Anesthesia-Procedure Note ---
Procedures/Interventions Procedure Start/Stop/Diagnosis Date of Procedure: March 03, 2023 Start Time: 10:30 Referring Physician: Maria M Preprocedural Diagnosis: Respiratory Failure, Alt LOC, A Fib Brief History Called by greenhouse florist for emergent intubation. Pt was admitted with A-Fib, Alt LOC and respiratory failure. Pt was on Bi Pap per RT at sats lows 80's and uncooperative. Pt was ventilated with BVM 100% 02 and inducted with Etomidate 10 mg, Propofol 40 mg, and Anectice 140mg. VL X1 attempt with Glidescope Grade 1 view. #8.0 passes easily and secured at 24cm Rt Lip. Color change on EZCap noted as well as coarse BS bilateral. Tube was secured pt RT with Tube south and Cent settings per RT @100% FiO2. Sats remained 80's on 100%. Left radial A-line started x2 attempts with U/S guidance. Good blood return and waveform present on monitor. Report to RN Stop Time: 11:00 Postprocedural Diagnosis: Resp Failure, Alt LOC, A-Fib Intubation RSI: Yes 100% pre-Ox, [id number]: Yes Videoscope used: Yes Medications: Etomidate, Propofol, Rocuronium, Succinylcholine Mask Ventilation: positive Positive End Tide CO2: Yes Breath Sounds after Intubation: bilateral-equal Intubated with ease: Yes Post Intubation Xray-done: Yes Arterial Line Arterial Line Catheter: 20G Type: Radial Location: Left Procedure: prepped, draped in sterile fashion, good wave-form was obtained, patient tolerated procedure well, no immediate complications, post procedure area cleaned, post procedure dressing applied JAYSON CHAVES CRNA March 03, 2023 11:10
--- NOTE | 2023-03-03 11:29 | History & Physical-Hospitalist ---
[facility] 03/03/23 1129: History of Present Illness HPI/Chief Complaint This is a 52 y/o M with PMH untreated HTN and alcohol use disorder who presented to the ED in [place] on 03/02 with LLQ abdominal pain and increasing abdominal distension over the past month. He has been taking Tylenol for the pain frequently over the past month. He has had issues with similar pain in the past and has gone to the hospital but not had anything done reportedly. He had nausea, vomiting and diarrhea for 3 days 1 month ago and swelling in abdomen has been increasing since. Pt quit drinking 1 month ago when abdominal pain started, previously heavy vodka and beer daily for past 20 years. He also has a brandon on right side of abdomen that does not itch or cause pain and has been there for the past few weeks. He notes the rash expands in size if he rubs it. Reports SOB at baseline that improves with sitting in leaned forward position worsening as distension increases. Smokes 1 ppd. Denies dark tarry stools or blood in stool. Denies urinary symptoms. Patient is a poor historian and fairly short of breath so unable to provide full history. Source: patient Exam Limitations: clinical condition Date Seen 03/03/23 Time Seen by a Provider: 08:20 Attending Physician No,Local Physician PCP Admitting Physician: Jose Newberry MD Attending Physician: Jose Newberry MD Referring Physician Date of Admission March 02, 2023 at 17:00 Home Medications & Allergies Home Medications Reviewed patient Home Medication Reconciliation performed by pharmacy medication reconciliations central sterile technician and/or nursing. Patients Allergies have been reviewed. Allergies Allergies Coded Allergies No Known Drug Allergies (Unverified04/28/19) Past Jcehmuk-Kroron-Blczzj Hx Patient Social History Tobacco Use?: Yes Tobacco type used: Cigarettes Smoking Status: Current Everyday Smoker Use of E-Cig and/or Vaping dev: No Substance use?: No Alcohol Use?: Yes Alcohol type: Beer, Hard Liquor (vodka) Alcohol Frequency: Daily Additional Alcohol Comments: Pt states he hasn't drank in a month Pt feels they are or have been: No Seasonal Allergies Seasonal Allergies: No Current Status Advance Directives: No Communicates: Verbally Primary Language: Austrian Preferred Spoken Language: Austrian Is interpretation needed?: No Implanted or Applied Medical D: None Past Medical History 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) Hypertension Family Medical History No Pertinent Family Hx Review of Systems Constitutional: No chills, No fever Respiratory: No cough; short of breath Cardiovascular: No chest pain; edema Gastrointestinal: LLQ, abdominal pain Genitourinary: No dysuria, No hematuria Skin: rash All Other Systems Reviewed Negative Unless Noted: Yes (Negative excepted noted.) Physical Exam Physical Exam Vital Signs Vital Signs - First Documented 03/02/23 03/02/23 14:00 17:00 Temp 36.8 Pulse 106 Resp 24 B/P (MAP) 120/95 (103) Pulse Ox 86 O2 Delivery Room Air O2 Flow Rate 6.00 Capillary Refill : Height, Weight, BMI Height: 6'5.00" Weight: 235lbs. 0oz. 106.862501sj; 39.76 BMI Method:Stated General Appearance: Moderate Distress, Obese HEENT: Pharynx Normal, Moist Mucous Membranes Neck: Non Tender, Supple Respiratory: Accessory Muscle Use, Crackles, Respiratory Distress Cardiovascular: Normal Peripheral Pulses, Irregularly Irregular, Tachycardia Gastrointestinal: Distended, Tenderness (diffuse mild TTP), Other (1+ pitting edema over abdomen) Extremity: Non Tender, Swelling (2+ b/l LE) Neurologic/Psychiatric: Oriented x3, Other (somnolent, easy to wake) Skin: Warm/Dry, Rash (right side of abdomen with petechial rash diffusely, nontender) Lymphatic: No Adenopathy Results Results/Procedures Labs Laboratory Tests 03/02/23 13:49 03/03/23 03:32 Patient resulted labs reviewed. Imaging: Reviewed Imaging Films, Reviewed Imaging Report Assessment/Plan Admission Diagnosis Acute respiratory failure with hypoxia Admission Status: Inpatient Order (span 2 midnights) Reason for Inpatient Admission: ventilatory support Assessment and Plan Acute respiratory failure with hypoxia LLL pneumonia-infiltrate seen on CT Continue antibitoics Intubated and sedated after my exam Afib with RVR Acute HFrER Cardiogenic shock CT with cardiomegaly, bilateral pleural effusions RVR resolved on Cardizem drip Echo with EF <10% Dobutamine drip Cardiology following and recommended transfer to for LVAD evaluation Ascites Alcohol use disorder CT with findings of questionable nodular contour to the liver, nfan-ym-wvqtiumj abdominal and pelvic ascites, fluid-filled small bowel loops in the left abdomen possibility of SBO, cholelithiasis with fluid surrounding the gallbladder Likely alcoholic liver disease, cirrhosis given CT findings Consider abdominal U/S to further categorize Started Lasix Surgery consulted Acute renal insufficiency Continue to monitor CMP DVT Prophylaxis: Eliquis Critical Care Critically Ill Patient JOSE NEWBERRY MD 03/03/23 1740: History of Present Illness Source: patient, family Exam Limitations: clinical condition Time Seen by a Provider: 10:00 Past Seormpn-Oblbbc-Gpcgfi Hx Family Medical History No Pertinent Family Hx Assessment/Plan Admission Diagnosis Admission Status: Inpatient Order (span 2 midnights) Reason for Inpatient Admission: Shock Multiorgan failure Respiratory failure Assessment and Plan Admitted with AFib with RVR and pneumonia. Started on antibiotics, fluids withheld due to hypervolemic status. Requiring minimal oxygen initially, rapidly worsening this morning. Requiring BiPAP on my evaluation, intubated shortly after. Echo with EF <10%. Case discussed with Dr. Gonzalez, recommended transferring to [facility] for advanced heart failure service. Declined transfer due to not being a candidate for advanced therapies with alcohol and tobacco use. Started on Dobutamine for cardiogenic shock. Low urine output, started on Lasix gtt. Rapidly progressing multi-organ failure. Poor prognosis and goals of care discussed with mother at bedside, she would like to continue full code status at this time. Critical Care Critically Ill Patient CC Start/Stop Time : Critical Care Start Date: March 03, 2023 Critical Care Start Time: 10:00 Stop date: March 03, 2023 Stop Time: 10:30 Diagnosis/Problems Diagnosis/Problems (1) Cardiogenic shock Status: Acute (2) Acute HFrEF (heart failure with reduced ejection fraction) Status: Acute (3) Acute respiratory failure with hypoxia and hypercapnia Status: Acute (4) Endotracheally intubated Status: Acute (5) MALIK (acute kidney injury) Status: Acute (6) PNA (pneumonia) Status: Acute (7) Sepsis Status: Acute (8) Alcohol abuse Status: Chronic (9) Tobacco abuse Status: Chronic (10) Obesity Status: Chronic (11) HTN (hypertension) Status: Chronic (12) Atrial fibrillation with rapid ventricular response Status: Acute Supervisory-Addendum Brief Verification & Attestation Participated in pt care: history, MDM, physical Personally performed: exam, history, MDM, supervision of care Care discussed with: Medical Student Procedures: n/a A medical student performed and documented this service in my presence. I reviewed and verified all information documented by the medical student and made modifications to such information, when appropriate. I personally performed the physical exam and medical decision making. CITLALY WICK March 03, 2023 11:29 JOSE NEWBERRY MD March 03, 2023 17:40
[2023-03-03] MEDS: NOREPINEPHRINE 8 MG/250 ML 250 ML IV SCH ×2 (11:56→20:10)
[2023-03-03] MEDS ORDERED: LORazepam INJ 2 MG/ML (ATIVAN) VIAL ONE (12:10)
--- NOTE | 2023-03-03 12:21 | Diagnostic Imaging Report ---
INDICATION: Postintubation. TECHNIQUE: Single view chest 10:54 AM. CORRELATION STUDY: 03/02/2023 FINDINGS: Endotracheal tube is placed tip projects over the trachea. This appears to be approximately 4.5 cm above the lalitha. Gastric tube has also been placed tip in the proximal body of the stomach. Side-port likely just at or proximal to the gastroesophageal junction. Extensive opacities have developed throughout both lung ruiz left greater than right. Given significant interval change is likely edema. Possibility of aspiration not excluded. Heart size largely obscured but appears enlarged and mediastinum is prominent. . IMPRESSION: 1. Interval intubation and placement gastric tube. Gastric tube tip likely in the proximal body stomach. 2. Development of extensive opacities left greater than right. Given significant interval change in a short time frame does raise concern for edema. Could also be reflective infiltrate and/or aspiration. Dictated by: Dictated on workstation # [id number]
[2023-03-03] MEDS ORDERED: LORazepam INJ 2 MG/ML (ATIVAN) VIAL IVP ONE (12:30)
[2023-03-03] MEDS ORDERED: FUROSEMIDE INJECTION 120 MG in D5W 100 ML IVPB 108 ML IV SCH (12:30)
[2023-03-03] MEDS ORDERED: MIDAZOLAM 5 MG/5 ML (VERSED) VIAL ONE ×2 (12:34→16:41)
[2023-03-03] MEDS ORDERED: MIDAZOLAM 5 MG/5 ML (VERSED) VIAL IVP ONE ×2 (12:45→17:00)
[2023-03-03] MEDS ORDERED: ENOXAPARIN 150 MG/ML (LOVENOX) SYR SQ SCH (13:00)
[2023-03-03 13:26] LABS: ABG BASE EXCESS -3.3 MMOL/L (-2.5-2.5); ABG OXYGEN SATURATION 92 % (94-100); ABG PCO2 39 MMHG (35-45); ABG PH 7.36 (7.37-7.43); ABG PO2 57 MMHG (79-93); ABG TCO2 22.8 MMOL/L (21.0-31.0)
[2023-03-03 13:27] LABS: ALLENS TEST ART LINE; INSPIRED O2 100%; PATIENT TEMP 35.5; VENTILATOR YES
[2023-03-03] MEDS: FUROSEMIDE INJECTION 120 MG in D5W 100 ML IVPB 108 ML IV SCH (14:04)
[2023-03-03 14:20] VITALS: BP 126/88
[2023-03-03] MEDS ORDERED: ETOMIDATE IV SOLN 20 MG/10 ML VIAL IV ONE (14:33)
[2023-03-03] MEDS ORDERED: proPOfol 200 MG/20 ML (DIPRIVAN) VIAL IV ONE (14:33)
[2023-03-03] MEDS ORDERED: SUCCINYLCHOLINE INJ 20 MG/1 ML 10 ML VIAL INJ ONE (14:33)
[2023-03-03] MEDS ORDERED: ROCURONIUM 50 MG/5 ML (ZEMURON) VIAL IV ONE (14:33)
--- NOTE | 2023-03-03 14:55 | Consultation - Surgery ---
ST[facility]ACK[facility] 03/03/23 1455: History of Present Illness History of Present Illness Patient Consulted On(star/time) 03/03/23 14:44 Date Seen by Provider: March 03, 2023 Time Seen by Provider: 14:25 Reason for Visit: GI/Abdominal distension History of Present Illness Consult for Dr. Franz CC: abdominal distension/Respiratory failure Pt is 52yo male with history of severe alcohol abuse and liver cirrhosis, pt was intubated when seen and was unable to provide a history. Pts mother was at bedside and said that before coming into the hospital he was not having nausea, vomiting, and was having normal stools and BM frequency for him. She says the abdominal distension and declining respiration was why they came into the hospital. CT shows mstf-zp-sklmkfzy abdominal and pelvic ascites, cholelithiasis, and left sided fluid-filled small bowel loops. 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) Respiratory History of Respiratory Disorde: No Cardiovascular History of Cardiac Disorders: Yes Cardiac Disorders: Hypertension Neurological History of Neurological Disord: No Genitourinary History of Genitourinary Disor: No Gastrointestinal History of Gastrointestinal Di: No Musculoskeletal History of Musculoskeletal Dis: No Endocrine History of Endocrine Disorders: No HEENT History of HEENT Disorders: No Cancer History of Cancer: No Psychosocial History of Psychiatric Problem: No Integumentary History of Skin or Integumenta: No Family Medical History Significant Family History: No Pertinent Family Hx Review of Systems-General ROS-Unable to Obtain: Patient was intubated/sedated Physical Exam-General Problems Physical Exam Vital Signs Vital Signs - First Documented 03/02/23 03/02/23 03/03/23 14:00 17:00 10:30 Temp 36.8 Pulse 106 Resp 24 B/P (MAP) 120/95 (103) Pulse Ox 86 O2 Delivery Room Air O2 Flow Rate 6.00 FiO2 100 Capillary Refill : General Appearance: WD/WN, obese, other (sedated/intubated) Neck: supple, other (on mechanical ventilation) Respiratory: respiratory distress, crackles (heard in LLL) Cardiovascular: no murmur, tachycardia, irregularly irregular Peripheral Pulses: 2+ Dorsalis Pedis (R), 2+ Left Dors-Pedis (L), 2+ Radial Pulses (R), 2+ Radial Pulses (L) Gastrointestinal: No soft; distended, other (abdominal pitting edema) Extremities: No inflammation, No pedal edema, No swelling Neurologic/Psychiatric: No alert; disoriented x 3 Skin: warm/dry, rash (large errythematous macular rash diffusely covering RUQ/RLQ of abdomin) Lymphatic: no adenopathy (anterior cervical) Data Review Labs Laboratory Tests 03/03/23 03:32: White Blood Count 14.7H, Red Blood Count 3.78L, Hemoglobin 11.9L, Hematocrit 38L , Mean Corpuscular Volume 101H, Mean Corpuscular Hemoglobin 32, Mean Corpuscular Hemoglobin Concent 31L, Red Cell Distribution Width 15.4H, Platelet Count 324, Mean Platelet Volume 9.5, Immature Granulocyte % (Auto) 1, Neutrophils (%) (Auto) 79H, Lymphocytes (%) (Auto) 10L, Monocytes (%) (Auto) 9, Eosinophils (%) (Auto) 1, Basophils (%) (Auto) 0, Neutrophils # (Auto) 11.7H, Lymphocytes # (Auto) 1.5, Monocytes # (Auto) 1.3H, Eosinophils # (Auto) 0.1, Basophils # (Auto) 0.1, Immature Granulocyte # (Auto) 0.1, Neutrophils % (Manual) 82, Lymphocytes % (Manual) 11, Monocytes % (Manual) 6, Eosinophils % (Manual) 1, Macrocytosis SLIGHT, Sodium Level 131L, Potassium Level 4.9, Chloride Level 101, Carbon Dioxide Level 18L, Anion Gap 12, Blood Urea Nitrogen 22H, Creatinine 1.66H, Estimat Glomerular Filtration Rate 49, BUN/Creatinine Ratio 13, Glucose Level 117H, Calcium Level 8.6, Magnesium Level 1.8, Troponin I 0.096H, Triglycerides Level 66 03/03/23 08:21: Blood Gas Puncture Site LEFT RADIAL, Blood Gas Patient Temperature 36.2, Arterial Blood pH 7.24*L, Arterial Blood Partial Pressure CO2 57H, Arterial Blood Partial Pressure O2 81, Arterial Blood HCO3 24, Arterial Blood Total CO2 25.6, Arterial Blood Oxygen Saturation 95, Arterial Blood Base Excess -2.7L, Clinton Test NA, Blood Gas Ventilator Setting NO, Blood Gas Inspired Oxygen 12 03/03/23 13:20: Blood Gas Puncture Site LT ART LINE, Blood Gas Patient Temperature 35.5, Arterial Blood pH 7.36L, Arterial Blood Partial Pressure CO2 39, Arterial Blood Partial Pressure O2 57L, Arterial Blood HCO3 22L, Arterial Blood Total CO2 22.8, Arterial Blood Oxygen Saturation 92L, Arterial Blood Base Excess -3.3L, Clinton Test ART LINE, Blood Gas Ventilator Setting YES, Blood Gas Inspired Oxygen 100% 03/03/23 13:35: Troponin I 0.070H, Lactic Acid Level 0.66 Microbiology 03/02/23 MRSA Screen - Final, Complete No growth Assessment/Plan Assessment/Plan Assessment/Plan Ascites Cholelithiasis alcholic liver cirrhosis Possible small bowel obstruction * Order abdominal US to evaluate optimal pocket of abdominal fluid for draining, and better visual of gallstones * Plan for parecentisis at bedside * SBO does not appear to be an issue according to History of recent bowel movements and flatus given by mother at bedside * history lacking n/v/f/c doesnt show real sign or indication of symptomatic gallbladder at this time CHFrEF A-Fib w/ RVR Left lung pnuemonia w/ pleural effusion Luekocytosis(14.7) Acute on Chronic renal disease Chronic substance abuse disorder * will continue to work with Cardiology and Internal Medicine * Pt is currently not a good candidate for surgery NIKKI CRAFT DO 03/03/23 1856: History of Present Illness History of Present Illness History of Present Illness Consult requested by Dr. Franz for cholecystitis possible bowel obstruction. Patient is intubated and sedated. His mother is at bedside. He has long histor y of significant daily alcohol use she states. His abdomen has gotten larger over the last month and then having increasing respiratory issues. She does not know of him having any medical issues prior to being admitted. Patient had 2d echo demonstrating ef less than 10%. Had ct scan abdomen and pelvis reviewed and demonstratin. Cardiomegaly with bilateral pleural effusions and left basilar infiltrate or atelectasis. 2. Questionable nodular contour to the liver. Cirrhosis cannot be entirely excluded. No discrete liver mass is detected. 3. Dezj-ef-kzbfjzst abdominal and pelvic ascites. 4. Nonspecific fluid-filled small bowel loops in the left abdomen. There are normal-caliber bowel loops in the right abdomen and possibility of small bowel obstruction cannot be entirely excluded. Small bowel study would be useful for further evaluation, if clinically indicated. 5. Cholelithiasis. There is fluid surrounding the gallbladder. If there is concern for cholecystitis, gallbladder ultrasound would be useful for further evaluation. Allergies and Home Medications Allergies Coded Allergies: No Known Drug Allergies (Unverified , 04/28/19) Patient Home Medication List Home Medication List Reviewed: Yes No Active Prescriptions or Reported Meds Past Zqsjpgp-Hlmzto-Dzgijh Hx Reviewed Nursing Assessment Reviewed/Agree w Nursing PMH: Yes Family Medical History Significant Family History: No Pertinent Family Hx Review of Systems-General ROS-Unable to Obtain: intubated/sedated Physical Exam-General Problems Physical Exam General Appearance: WD/WN, obese, other (sedated/intubated) HEENT: PERRL/EOMI, normal ENT inspection Neck: non-tender, supple, other (on mechanical ventilation) Respiratory: No respiratory distress; crackles (heard in LLL), other (equal chest rise) Cardiovascular: tachycardia, irregularly irregular Gastrointestinal: distended, other (abdominal pitting edema, rash right abdomen) Rectal: deferred Back: normal inspection Extremities: non-tender; No pedal edema, No swelling Neurologic/Psychiatric: No alert, No oriented x 3; disoriented x 3 (sedated) Skin: warm/dry, rash (large errythematous macular rash diffusely covering RUQ/RLQ of abdomen) Lymphatic: no adenopathy (anterior cervical) Assessment/Plan Assessment/Plan Assessment/Plan Ascites Cholelithiasis alcoholic liver cirrhosis Less likely Possible small bowel obstruction Alochol caridiomyopathy CHFrEF A-Fib w/ RVR Left lung pnuemonia w/ pleural effusion Luekocytosis(14.7) Acute on Chronic renal disease Chronic substance abuse disorder Patient with gallstones and liver cirrhosis. I do noth feel the gallbladder is an issue at this time. WIth his cardiac issues he is not a sugical candidate at this time anyways. He needs a central line for better venous access, a picc line was attempted ear lier but not successful, discussed with mother who is in agreement and consent was obtained. Overall poor prognosis. Ascited i do not feel enough to drain safely at this time. PROCEDURE: RIGHT IJ u/s guided central line placement right neck prepped and draped in sterile fashion u/s used to isolate right IJ. Local anesthetic 3 mL 1% lidocaine injected. Right IJ accessed using u/s guidance. Dark nonlpulsatile blood withdrawn. Wire one inserted and needle removed. 11 blade used to make skin incision. dilator advanced over wire and removed. Triple lumen catheter inserted and wire removed. All ports accessed and flushed withouth difficulty. Sutured in place and sterile bandage applied. Chest x ray pending. Supervisory-Addendum Brief Verification & Attestation Participated in pt care: history, MDM, physical Personally performed: exam, history, MDM, supervision of care Care discussed with: Medical Student Procedures: performed Results interpretation: Verified all documentation Verification and Attestation of Medical Student E/M Service A medical student performed and documented this service in my presence. I reviewed and verified all information documented by the medical student and made modifications to such information, when appropriate. I personally performed the physical exam and medical decision making. Nikki Craft, March 03, 2023,19:07 STU CHACKO March 03, 2023 14:55 NIKKI CRAFT DO March 03, 2023 18:56
[2023-03-03] MEDS: AZITHROMYCIN 250 MG TAB (ZITHROMAX) PO SCH (15:48)
--- NOTE | 2023-03-03 15:59 | Diagnostic Imaging Report ---
INDICATION: 52-year-old male, ascites. Abdominal swelling. TECHNIQUE: Multiple real-time grayscale sonographic images of the abdomen. CORRELATION STUDY: CT 03/02/2023. FINDINGS: LIVER: Liver size 17.7 x 10.7 cm. Slightly coarse heterogeneous echotexture. No definitive focal lesion. There is normal, hepatopetal direction of flow within the main portal vein. Upper abdominal vasculature overall appears to be somewhat dilated. GALLBLADDER: Abnormal gallbladder wall thickening at 1.2 cm. Gallstones are present. Sonographic Richardson's sign unable to be assessed given patient's mechanical ventilated state. COMMON BILE DUCT: Mildly dilated at 0.8 cm. PANCREAS: Somewhat heterogeneous appearance throughout the partially visualized pancreas. Nonspecific. SPLEEN: Mildly enlarged, 13.5 cm. Hyperechoic mass measures 2.9 x 2.2 cm. ABDOMINAL AORTA: Largely obscured by overlying bowel gas. INFERIOR VENA CAVA: Distended at 2.9 cm and non-collapsible. Maybe owing to increased intrathoracic pressure from mechanical ventilation. RIGHT KIDNEY: 12.5 x 6.3 x 5.5 cm. Probable cyst, 3.6 x 4 cm. No hydronephrosis. LEFT KIDNEY: 10.9 x 5.5 cm. Unremarkable. OTHER: Moderate abdominal ascites along with small right pleural effusion. IMPRESSION: 1. Abnormal abdominal ultrasound with multiple findings present. 2. At least moderate severity abdominal ascites with small right pleural effusion. Question early cirrhotic morphology of the liver. 3. Abnormally thickened gallbladder munguia with borderline dilatation of the common bile duct and cholelithiasis. Some of this may be attributed to apparent underlying liver disease and ascites with the possibility of cholecystitis not excluded. 4. Somewhat heterogeneous appearance about the pancreas. Nonspecific. Correlation for potential pancreatitis. 5. Indeterminate nearly 3 cm splenic mass. Not appreciated on recent CT imaging. Attention at short-term follow-up recommended. Dictated by: Dictated on workstation # [id number]
--- NOTE | 2023-03-03 17:22 | Diagnostic Imaging Report ---
EXAMINATION: Chest, one view. HISTORY: Line placement. COMPARISON: 03/03/2023. FINDINGS: Endotracheal tube is 4 cm above the lalitha. Gastric tube terminates below the diaphragm. There is a large left effusion with extensive airspace opacification in the left lung base. The right internal jugular catheter is in the superior vena cava. No pneumothorax is seen. IMPRESSION: 1. Large left effusion with extensive airspace opacities in the left lung. Dictated by: Dictated on workstation # [id number]
[2023-03-03] MEDS: cefTRIAXone IV/IM 1,000 MG in NS (IVPB) 50 ML IV SCH (18:03)
[2023-03-03 18:05] VITALS: BP 135/103
[2023-03-03 18:25] LABS: BILIRUBIN,URINE NEGATIVE (NEGATIVE); CLARITY,URINE CLEAR; COLOR,URINE YELLOW; GLUCOSE, URINE (UA) NEGATIVE (NEGATIVE); KETONES,URINE NEGATIVE (NEGATIVE); LEUKOCYTE ESTERASE ,URINE 1+ (NEGATIVE); NITRITE,URINE NEGATIVE (NEGATIVE); PH,URINE 5.5 (5-9); PROTEIN,URINE NEGATIVE (NEGATIVE)
[2023-03-03 18:39] LABS: BACTERIA,URINE LARGE /HPF; RBC,URINE 0-2 /HPF
--- NOTE | 2023-03-03 21:21 | Diagnostic Imaging Report ---
INDICATION: NG tube placement COMPARISON: Imaging from the same date TECHNIQUE: Two radiographs of the chest dated 03/03/2023. FINDINGS: Enteric catheter is identified. The distal tip is seen extending just inferior to the expected location of the GE junction, likely within the most proximal aspect of the stomach. Endotracheal tube is in place with the distal tip overlying the tracheal air column above the level of the lalitha. Right IJ central venous catheter is present with the distal tip overlying the superior aspect of the superior vena cava. The cardiac silhouette is enlarged. Large left and tiny right pleural parenchymal opacities are present. No pneumothorax. Osseous structures are stable. IMPRESSION: Enteric catheter is present with the distal tip extending to the most proximal aspect of the stomach. Persistent large left and small right pleural parenchymal opacities, related to a combination of pleural fluid with adjacent infiltrate and/or atelectasis. Persistent cardiomegaly. Additional lines and tubes as above, unchanged. Dictated by: Dictated on workstation # [id number]
[2023-03-03 21:44] LABS: CALCIUM 8.2 MG/DL (8.5-10.1); CREATININE SERUM 1.71 MG/DL (0.60-1.30); POTASSIUM 3.8 MMOL/L (3.6-5.0)
[2023-03-03 22:03] VITALS: BP 145/95
[2023-03-03 22:55] LABS: HEPATITIS C ANTIBODY C Reactive (Non-Reactive)
[2023-03-04] MEDS: FUROSEMIDE INJECTION 120 MG in D5W 100 ML IVPB 108 ML IV SCH ×2 (01:10→15:42)
[2023-03-04 01:42] VITALS: BP 117/72
[2023-03-04] MEDS: PROPOFOL DRIP (ICU) 100 ML IV SCH ×7 (01:52→22:45)
[2023-03-04 03:06] LABS: BASOPHILS % (AUTO) 1 % (0-10); EOSINOPHILS # (AUTO) 0.1 10^3/uL (0.0-0.3); EOSINOPHILS % (AUTO) 1 % (0-10); HEMATOCRIT 35 % (40-54); HEMOGLOBIN 11.7 g/dL (13.3-17.7); LYMPHOCYTES # (AUTO) 1.2 10^3/uL (1.0-4.0); LYMPHOCYTES % (AUTO) 16 % (12-44); MEAN CORPUSCULAR HEMOGLOBIN 31 pg (25-34); MEAN CORPUSCULAR HGB CONC 33 g/dL (32-36); MEAN CORPUSCULAR VOLUME 95 fL (80-99); MEAN PLATELET VOLUME 9.2 fL (9.0-12.2); MONOCYTES # (AUTO) 0.6 10^3/uL (0.0-1.0); MONOCYTES % (AUTO) 8 % (0-12); NEUTROPHILS # (AUTO) 5.9 10^3/uL (1.8-7.8); NEUTROPHILS % (AUTO) 75 % (42-75); PLATELET COUNT 229 10^3/uL (130-400); WHITE BLOOD COUNT 7.9 10^3/uL (4.3-11.0)
[2023-03-04 03:27] LABS: ALBUMIN 2.7 GM/DL (3.2-4.5); POTASSIUM 3.8 MMOL/L (3.6-5.0)
[2023-03-04 03:28] LABS: CALCIUM 8.3 MG/DL (8.5-10.1)
[2023-03-04 03:29] LABS: TOTAL PROTEIN 6.5 GM/DL (6.4-8.2)
[2023-03-04 03:32] LABS: PHOSPHORUS 3.4 MG/DL (2.3-4.7)
[2023-03-04 03:33] LABS: CREATININE SERUM 1.64 MG/DL (0.60-1.30)
[2023-03-04 03:36] LABS: MAGNESIUM 1.9 MG/DL (1.6-2.4)
[2023-03-04] MEDS: MAGNESIUM 1 GM/100 ML IVPB 100 ML IV SCH ×3 (04:07→05:49)
[2023-03-04] MEDS: POTASSIUM CL 10MEQ/50ML IVPB 50 ML IV SCH ×5 (04:08→23:06)
[2023-03-04] MEDS: NOREPINEPHRINE 8 MG/250 ML 250 ML IV SCH ×3 (04:09→21:52)
[2023-03-04 05:18] LABS: ABG BASE EXCESS -0.8 MMOL/L (-2.5-2.5); ABG OXYGEN SATURATION 94 % (94-100); ABG PCO2 33 MMHG (35-45); ABG PH 7.45 (7.37-7.43); ABG PO2 62 MMHG (79-93); ABG TCO2 23.9 MMOL/L (21.0-31.0); ALLENS TEST YES-POS; INSPIRED O2 100%; PATIENT TEMP 36.4; VENTILATOR NO
[2023-03-04] MEDS: DexMEDEtomidine 250 ML DRIP 250 ML IV SCH ×4 (05:33→23:42)
[2023-03-04] MEDS: ENOXAPARIN 150 MG/ML (LOVENOX) SYR SQ SCH ×2 (05:33→18:19)
[2023-03-04] MEDS: dilTIAZem DRIP PRE-MIX 125 ML IV SCH ×2 (05:34→18:19)
[2023-03-04] MEDS: KCL 20 MEQ TAB (K-DUR) PO SCH (05:49)
[2023-03-04 06:53] VITALS: BP 84/63
--- NOTE | 2023-03-04 07:20 | Progress Note - Surgery ---
[facility]COSTU 03/04/23 0720: Subjective Date Seen by a Provider: March 04, 2023 Time Seen by a Provider: 06:50 Subjective/Events-last exam Pt still intubated, Central line still in place and functioning, mother was seen sleeping next to bed. No other noticeable changes seen. Review of Systems unable to obtain due to sedation Focused Exam Lactate Level 03/02/23 13:49: Lactic Acid Level 1.07 03/03/23 13:35: Lactic Acid Level 0.66 Objective Exam Vital Signs Date Time Temp Pulse Resp B/P (MAP) Pulse Ox O2 Delivery O2 Flow Rate FiO2 03/04/23 06:53 74 18 94 100 03/04/23 06:00 80 18 93 03/04/23 05:44 69 18 99/89 (92) 90 Mechanical Ventilator 100.00 03/04/23 05:34 75 03/04/23 05:01 84 18 94 Mechanical Ventilator 100.00 03/04/23 04:09 95/65 03/04/23 04:05 36.4 71 118/99 (105) 03/04/23 04:05 03/04/23 04:00 36.4 75 18 93 Mechanical Ventilator 100.00 133/90 (104) 03/04/23 04:00 36.2 03/04/23 04:00 Mechanical Ventilator 100 03/04/23 04:00 100 03/04/23 03:00 64 18 91 03/04/23 02:00 88 18 94 03/04/23 01:42 88 18 94 100 03/04/23 01:00 90 03/04/23 01:00 96 18 94 03/04/23 00:08 36.4 03/04/23 00:00 Mechanical Ventilator 100 03/04/23 00:00 100 03/04/23 00:00 108 18 94 Mechanical Ventilator 100.00 03/03/23 23:00 98 18 94 03/03/23 22:30 98 18 94 03/03/23 22:03 124 18 94 100 03/03/23 22:00 108 18 94 03/03/23 21:33 97 124/84 03/03/23 21:30 117 18 94 03/03/23 21:00 121 18 94 03/03/23 20:30 115 18 94 03/03/23 20:00 100 03/03/23 20:00 109 18 93 Mechanical Ventilator 100.00 03/03/23 19:40 36.4 03/03/23 19:40 Mechanical Ventilator 100 03/03/23 19:30 105 18 93 03/03/23 19:00 123 03/03/23 19:00 124 18 94 Mechanical Ventilator 100.00 03/03/23 18:05 135 18 93 100 03/03/23 18:00 125 18 93 Mechanical Ventilator 100.00 03/03/23 17:00 115 94 Mechanical Ventilator 100.00 03/03/23 16:20 107 94 Mechanical Ventilator 100.00 03/03/23 16:15 110 95 Mechanical Ventilator 100.00 03/03/23 16:10 100 94 Mechanical Ventilator 100.00 03/03/23 16:05 85 94 Mechanical Ventilator 100.00 03/03/23 16:00 94 Mechanical Ventilator 100 03/03/23 16:00 101 94 Mechanical Ventilator 100.00 03/03/23 16:00 100 03/03/23 15:00 98 95 Mechanical Ventilator 100.00 03/03/23 14:20 98 18 93 100 03/03/23 14:00 86 93 Mechanical Ventilator 100.00 03/03/23 13:14 79 03/03/23 13:00 87 86 Mechanical Ventilator 100.00 03/03/23 12:00 88 Mechanical Ventilator 100 03/03/23 12:00 93 87 Mechanical Ventilator 100.00 03/03/23 11:47 35.5 03/03/23 11:45 110 88 Mechanical Ventilator 100.00 03/03/23 11:30 73 88 Mechanical Ventilator 100.00 03/03/23 11:15 66 89 Mechanical Ventilator 100.00 03/03/23 11:00 110 7 83 Mechanical Ventilator 100.00 Automatic Cuff 03/03/23 10:50 67 74/64 03/03/23 10:49 67 74/64 03/03/23 10:45 80 18 88/76 (80) 84 Mechanical Ventilator 100.00 03/03/23 10:30 70 18 85 100 03/03/23 10:30 57 46 95/30 (51) 79 Mechanical Ventilator 100.00 03/03/23 10:30 Mechanical Ventilator 100.00 03/03/23 10:15 67 16 74/64 (67) 96 NIV Bilevel 80.00 03/03/23 10:00 71 16 94/76 (82) 96 NIV Bilevel 80.00 03/03/23 09:45 61 23 91/81 (84) 98 NIV Bilevel 80.00 03/03/23 09:30 68 17 112/82 (92) 94 NIV Bilevel 80.00 03/03/23 09:15 77 19 84/69 (74) 96 NIV Bilevel 80.00 03/03/23 09:00 113 8 142/84 (103) 99 NIV Bilevel 80.00 03/03/23 08:54 89 23 95 80.00 03/03/23 08:53 NIV Bilevel 80.00 03/03/23 08:47 101 131/121 03/03/23 08:45 103 24 131/121 (124) 93 OxyMask 12.00 03/03/23 08:30 91 18 117/93 (101) 93 OxyMask 12.00 03/03/23 08:24 OxyMask 12.00 03/03/23 08:19 97 115/98 03/03/23 08:15 80 30 121/101 (108) 93 High Flow N/C 8.00 03/03/23 08:00 94 Nasal Cannula 6.00 03/03/23 07:48 36.2 03/03/23 07:30 135 15 115/98 (104) 90 High Flow N/C 8.00 03/03/23 07:19 117 I & O 03/04/23 07:00 Intake Total 2555 ml Output Total 3265 ml Balance -710 ml Capillary Refill : General Appearance: No Apparent Distress, WD/WN, Other (intubated) HEENT: Pharynx Normal, Moist Mucous Membranes Neck: Full Range of Motion, Normal Inspection, Non Tender, Supple, Carotid Bruit Respiratory: Chest Non Tender, Normal Breath Sounds, No Accessory Muscle Use, No Respiratory Distress Cardiovascular: Normal Peripheral Pulses, Systolic Murmur, Irregularly Irregular, Tachycardia Peripheral Pulses: 2+ Dorsalis Pedis (R), 2+ Left Dors-Pedis (L), 2+ Radial Pulses (R), 2+ Radial Pulses (L) Gastrointestinal: distended, other (abdominal pitting edema, rash right abdomen) Extremity: Normal Capillary Refill, No Pedal Edema Neurologic/Psychiatric: Aphasia, Other (sedated) Skin: Normal Color, Warm/Dry Lymphatic: No Adenopathy Results Lab Laboratory Tests 03/03/23 08:21: Blood Gas Puncture Site LEFT RADIAL, Blood Gas Patient Temperature 36.2, [place] rial Blood pH 7.24*L, Arterial Blood Partial Pressure CO2 57H, Arterial Blood Partial Pressure O2 81, Arterial Blood HCO3 24, Arterial Blood Total CO2 25.6, Arterial Blood Oxygen Saturation 95, Arterial Blood Base Excess -2.7L, [place] Test NA, Blood Gas Ventilator Setting NO, Blood Gas Inspired Oxygen 12 03/03/23 13:20: Blood Gas Puncture Site LT ART LINE, Blood Gas Patient Temperature 35.5, Arterial Blood pH 7.36L, Arterial Blood Partial Pressure CO2 39, Arterial Blood Partial Pressure O2 57L, Arterial Blood HCO3 22L, Arterial Blood Total CO2 22.8, Arterial Blood Oxygen Saturation 92L, Arterial Blood Base Excess -3.3L, [place] Test ART LINE, Blood Gas Ventilator Setting YES, Blood Gas Inspired Oxygen 100% 03/03/23 13:35: Lactic Acid Level 0.66, Troponin I 0.070H 03/03/23 18:00: Urine Color YELLOW, Urine Clarity CLEAR, Urine pH 5.5, Urine Specific Gillespie <=1.005, Urine Protein NEGATIVE, Urine Glucose (UA) NEGATIVE, Urine Ketones NEGATIVE, Urine Nitrite NEGATIVE, Urine Bilirubin NEGATIVE, Urine Urobilinogen 0.2, Urine Leukocyte Esterase 1+H, Urine RBC (Auto) 1+H, Urine RBC 0-2, Urine WBC 5-10H, Urine Crystals NONE, Urine Bacteria LARGEH, Urine Casts NONE, Urine Mucus NEGATIVE, Urine Culture Indicated YES 03/03/23 18:23: Glucometer 118H 03/03/23 18:45: Potassium Level 4.0, Magnesium Level 2.0 03/03/23 21:15: Potassium Level 3.8, Sodium Level 131L, Chloride Level 101, Carbon Dioxide Level 19L, Anion Gap 11, Blood Urea Nitrogen 24H, Creatinine 1.71H, Estimat Glomerular Filtration Rate 48, BUN/Creatinine Ratio 14, Glucose Level 116H, Calcium Level 8.2L 03/03/23 23:16: Glucometer 108 03/04/23 03:00: White Blood Count 7.9, Red Blood Count 3.73L, Hemoglobin 11.7L, Hematocrit 35L, Mean Corpuscular Volume 95, Mean Corpuscular Hemoglobin 31, Mean Corpuscular Hemoglobin Concent 33, Red Cell Distribution Width 14.8H, Platelet Count 229, Mean Platelet Volume 9.2, Immature Granulocyte % (Auto) 0, Neutrophils (%) (Auto) 75, Lymphocytes (%) (Auto) 16, Monocytes (%) (Auto) 8, Eosinophils (%) (Auto) 1, Basophils (%) (Auto) 1, Neutrophils # (Auto) 5.9, Lymphocytes # (Auto) 1.2, Monocytes # (Auto) 0.6, Eosinophils # (Auto) 0.1, Basophils # (Auto) 0.0, Immature Granulocyte # (Auto) 0.0, Sodium Level 133L, Potassium Level 3.8, Chloride Level 103, Carbon Dioxide Level 19L, Anion Gap 11, Blood Urea Nitrogen 24H, Creatinine 1.64H, Estimat Glomerular Filtration Rate 50, BUN/Creatinine Ratio 15, Glucose Level 116H, Calcium Level 8.3L, Corrected Calcium 9.3, Phosphorus Level 3.4, Magnesium Level 1.9, Total Bilirubin 1.0, Aspartate Amino Transf (AST/SGOT) 63H, Alanine Aminotransferase (ALT/SGPT) 35, Alkaline Phosphatase 55, Total Protein 6.5, Albumin 2.7L 03/04/23 05:00: Blood Gas Puncture Site LR, Blood Gas Patient Temperature 36.4, Arterial Blood pH 7.45H, Arterial Blood Partial Pressure CO2 33L, Arterial Blood Partial Pressure O2 62L, Arterial Blood HCO3 23, Arterial Blood Total CO2 23.9, Arterial Blood Oxygen Saturation 94, Arterial Blood Base Excess -0.8, [place] Test YES-POS, Blood Gas Ventilator Setting NO, Blood Gas Inspired Oxygen 100% 03/04/23 05:02: Glucometer 122H Microbiology 03/02/23 MRSA Screen - Final, Complete No growth 03/02/23 Blood Culture - Preliminary, Resulted No growth Assessment/Plan Assessment/Plan Assessment/Plan Ascites Cholelithiasis alcoholic liver cirrhosis Less likely Possible small bowel obstruction Alochol caridiomyopathy CHFrEF A-Fib w/ RVR Left lung pnuemonia w/ pleural effusion Acute on Chronic renal disease Chronic substance abuse disorder * currently no new indications for surgical procedures * Will continue to monitor and help with Internal Medicine * Continue current treatment plan as is NIKKI CRAFT DO 03/05/23 1014: Subjective Subjective/Events-last exam Intubated and sedated. No family at bedside. Urine output increased.WBC improved. Objective Exam General Appearance: Other (intubated and sedated) HEENT: PERRL/EOMI, Normal ENT Inspection Neck: Normal Inspection, Supple Respiratory: Other (equal chest rise) Cardiovascular: Irregularly Irregular, Tachycardia Gastrointestinal: non tender, distended (minimal), other (abdominal pitting edema, rash right abdomen) Extremity: Normal Capillary Refill, Pedal Edema (minimal) Neurologic/Psychiatric: No Alert, No Oriented x3; Other (sedated) Skin: Normal Color, Warm/Dry Lymphatic: No Adenopathy Assessment/Plan Assessment/Plan Assessment/Plan Ascites Cholelithiasis alcoholic liver cirrhosis Less likely Possible small bowel obstruction Alochol caridiomyopathy CHFrEF A-Fib w/ RVR Left lung pnuemonia w/ pleural effusion Acute on Chronic renal disease Chronic substance abuse disorder overall poor prognosis continue to try and improve overall status not enough fluid for paracentesis at this time will follow. Supervisory-Addendum Brief Verification & Attestation Participated in pt care: history, MDM, physical Personally performed: exam, history, MDM, supervision of care Care discussed with: Medical Student Procedures: n/a Results interpretation: Verified all documentation Verification and Attestation of Medical Student E/M Service A medical student performed and documented this service in my presence. I reviewed and verified all information documented by the medical student and made modifications to such information, when appropriate. I personally performed the physical exam and medical decision making. Nikki Craft, March 04, 2023,18:14 STU CHACKO March 04, 2023 07:20 NIKKI CRAFT DO March 05, 2023 10:14
[2023-03-04] MEDS: DOBUTamine DRIP 250 ML IV SCH ×3 (07:58→21:45)
[2023-03-04] MEDS: AZITHROMYCIN 250 MG TAB (ZITHROMAX) PO SCH (08:36)
[2023-03-04] MEDS: meTOprolol TARTRATE 25 MG (LOPRESSOR) TABLET PO SCH ×2 (08:36→21:08)
[2023-03-04 09:16] LABS: POTASSIUM 4.1 MMOL/L (3.6-5.0)
[2023-03-04 09:18] LABS: CALCIUM 8.3 MG/DL (8.5-10.1)
[2023-03-04 09:22] LABS: CREATININE SERUM 1.76 MG/DL (0.60-1.30)
[2023-03-04] MEDS: DOCUSATE SODIUM 100 MG (COLACE) CAP PO SCH ×2 (09:25→21:08)
--- NOTE | 2023-03-04 09:30 | Cardiology Progress Note ---
Subjective Date Seen by Provider: March 04, 2023 Time Seen by Provider: 09:28 Subjective/Events-last exam Patient was seen and evaluated, sedated and intubated Review of Systems General: Other (Unable to provide review of system) Focused Exam Lactate Level 03/02/23 13:49: Lactic Acid Level 1.07 03/03/23 13:35: Lactic Acid Level 0.66 Objective-Cardiology Exam Last Set of Vital Signs Vital Signs 03/04/23 03/04/23 03/04/23 07:53 07:58 09:00 Temp 36.0 Pulse 105 Resp 22 B/P (MAP) 84/63 Pulse Ox 93 O2 Delivery Mechanical Ventilator O2 Flow Rate 100.00 I&O Intake and Output 03/04/23 00:00 Intake Total 3030 ml Output Total 2915 ml Balance 115 ml Intake Oral 1400 ml IV Total 1550 ml Other 80 ml Output Urine Total 2915 ml General: Moderate Distress, Other (Sedated and intubated) HEENT: Atraumatic, PERRLA Neck: Supple, No JVD Lungs: Normal Air Movement, Other (Bilateral rhonchi) Heart: Normal S1, Normal S2, Other (Atrial fibrillation) Abdomen: Normal Bowel Sounds, Other (Distended abdomen) Extremities: No Clubbing, No Cyanosis Skin: No Rashes, No Breakdown Neuro: Other (Sedated and intubated) Psych/Mental Status: Other (Sedated and intubated) Results Lab Laboratory Tests 03/03/23 18:45 03/03/23 21:15 03/04/23 03:00 03/04/23 08:58 A/P-Cardiology Admission Diagnosis Atrial fibrillation Ascites Acute respiratory insufficiency Acute renal insufficiency Assessment/Plan Acute respiratory failure, flash pulmonary edema Intubated, ventilator dependent Continue with Lasix drip and monitor tolerance and response Atrial fibrillation, persistent Rate is controlled on Cardizem drip. Continue to monitor Congestive heart failure, acute left ventricular systolic dysfunction, unknown etiology Probably alcoholic heart disease, cannot exclude coronary artery disease Continue on diuretics and monitor Large ascites and moderate-sized pleural effusion Recommend paracentesis. CHADVASC score 2, started on Lovenox Morbid obesity, BMI 39 Heavy alcoholism, drinking vodka daily. He has stopped drinking for the past month. Advised to avoid alcohol Acute on chronic renal failure, monitor renal function. CIRA BROWN MD March 04, 2023 09:30
[2023-03-04 10:29] VITALS: BP 110/77
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
--- NOTE | 2023-03-04 13:48 | Progress Note - Hospitalist ---
[facility] 03/04/23 1348: Subjective HPI/CC On Admission Date Seen by Provider: March 04, 2023 Time Seen by Provider: 08:00 This is a 52 y/o M with PMH untreated HTN and alcohol use disorder who presented to the ED on 03/02 with LLQ abdominal pain and increasing abdominal distension over the past month. He had nausea, vomiting and diarrhea for 3 days 1 month ago and swelling in abdomen has been increasing since. Pt quit drinking 1 month ago when abdominal pain started, previously heavy vodka and beer daily for past 20 years. Reports SOB at baseline that improves with sitting in leaned forward position worsening as distension increases. Smokes 1 ppd. Admitted with AFib with RVR and pneumonia. Started on antibiotics, fluids withheld due to hypervolemic status. Requiring minimal oxygen initially, rapidly worsening requiring BiPAP and intubated shortly after. Echo with EF <10%. Case discussed with Dr. Gonzalez, recommended transferring to [facility] for advanced heart failure service. Declined transfer due to not being a candidate for advanced therapies with alcohol and tobacco use. Started on Dobutamine for cardiogenic shock. Low urine output, started on Lasix gtt. Rapidly progressing multi-organ failure. Poor prognosis and goals of care discussed with mother at bedside, she would like to continue full code status at this time. Subjective/Events-last exam Patient remains intubated and sedated. No family at bedside. No changes in status at this time. Review of Systems unable to obtain 2/2 clinical status Focused Exam Lactate Level 03/02/23 13:49: Lactic Acid Level 1.07 03/03/23 13:35: Lactic Acid Level 0.66 Objective Exam Vital Signs Vital Signs Date Time Temp Pulse Resp B/P (MAP) Pulse Ox O2 Delivery O2 Flow Rate FiO2 03/04/23 12:49 84 110/77 03/04/23 12:21 100 03/04/23 12:20 Mechanical Ventilator 03/04/23 12:00 36.6 03/04/23 12:00 19 93 100.00 Capillary Refill : General Appearance: WD/WN, Other (intubated and sedated) Respiratory: Other (mechanical ventilation, coarse lung sounds on right) Cardiovascular: No Murmur, Irregularly Irregular Gastrointestinal: Non Tender, Distended (improved from yesterday), Other (pitting edema over abdomen, rash on abdomen) Extremity: Swelling (1+ pitting edema b/l LE) Neurologic/Psychiatric: No Alert; Other (sedated) Results/Procedures Lab Laboratory Tests 03/03/23 18:45 03/03/23 21:15 03/04/23 03:00 03/04/23 08:58 Patient resulted labs reviewed. Imaging: Reviewed Imaging Films, Reviewed Imaging Report Assessment/Plan Assessment and Plan Assess & Plan/Chief Complaint Acute respiratory failure with hypoxia LLL pneumonia-infiltrate seen on CT Continue antibiotics Intubated and sedated - eICU recommend PEEP increased to 14 and weaning FiO2 as tolerated Afib with RVR Acute HFrER Cardiogenic shock CT with cardiomegaly, bilateral pleural effusions RVR resolved on Cardizem drip Echo with EF <10% Dobutamine drip, Levophed Cardiology following and recommended transfer to for LVAD evaluation- [facility] declined transfer Ascites Alcohol use disorder CT with findings of questionable nodular contour to the liver, [id number] abdominal and pelvic ascites, fluid-filled small bowel loops in the left abdomen possibility of SBO, cholelithiasis with fluid surrounding the gallbladder Likely alcoholic liver disease, cirrhosis given CT findings Surgery consulted- not proceeding with paracentesis at this time Acute renal insufficiency Continue Lasix drip BUN and Cr improving with diuresis Continue to monitor urine output Rapidly progressing multi-organ failure Poor prognosis and goals of care have been discussed with mother, she would like to continue full code status DVT Prophylaxis: lovenox Critical Care: Ventilator Management JOSE NEWBERRY MD 03/04/23 1617: Subjective HPI/CC On Admission Time Seen by Provider: 10:15 Assessment/Plan Assessment and Plan Assess & Plan/Chief Complaint Remains unstable. Started on Levophed. High oxygen requirements persist. Continue diuresis. Begin thiamine. Prognosis guarded. Critical Care: Critically Ill Patient Diagnosis/Problems Diagnosis/Problems (1) Cardiogenic shock Status: Acute (2) Acute respiratory failure with hypoxia and hypercapnia Status: Acute (3) Acute HFrEF (heart failure with reduced ejection fraction) Status: Acute (4) Endotracheally intubated Status: Acute (5) PNA (pneumonia) Status: Acute (6) MALIK (acute kidney injury) Status: Acute (7) HTN (hypertension) Status: Chronic (8) Obesity Status: Chronic (9) Tobacco abuse Status: Chronic (10) Atrial fibrillation with RVR Status: Acute (11) Ascites due to alcoholic cirrhosis Status: Acute (12) Alcohol abuse Status: Chronic Supervisory-Addendum Brief Verification & Attestation Participated in pt care: history, MDM, physical Personally performed: exam, history, MDM, supervision of care Care discussed with: Medical Student Procedures: n/a A medical student performed and documented this service in my presence. I reviewed and verified all information documented by the medical student and made modifications to such information, when appropriate. I personally performed the physical exam and medical decision making. CITLALY WICK March 04, 2023 13:48 JOSE NEWBERRY MD March 04, 2023 16:17
[2023-03-04 14:14] VITALS: BP 127/84
[2023-03-04] MEDS ORDERED: NS 1000 ML IV BAG IV ONE (14:35)
[2023-03-04] MEDS: cefTRIAXone IV/IM 1,000 MG in NS (IVPB) 50 ML IV SCH (15:42)
[2023-03-04 18:44] VITALS: BP 99/89
[2023-03-04 21:34] LABS: POTASSIUM 3.7 MMOL/L (3.6-5.0)
[2023-03-04 21:35] LABS: CALCIUM 8.2 MG/DL (8.5-10.1)
[2023-03-04 21:39] LABS: CREATININE SERUM 1.63 MG/DL (0.60-1.30)
[2023-03-04 21:44] VITALS: BP 131/101
[2023-03-05] MEDS: dilTIAZem DRIP PRE-MIX 125 ML IV SCH ×2 (02:28→14:08)
[2023-03-05] MEDS: PROPOFOL DRIP (ICU) 100 ML IV SCH ×9 (02:30→23:29)
[2023-03-05] MEDS: DOBUTamine DRIP 250 ML IV SCH ×5 (03:32→23:48)
[2023-03-05] MEDS: POTASSIUM CL 10MEQ/50ML IVPB 50 ML IV SCH ×2 (04:25→05:25)
[2023-03-05] MEDS: MAGNESIUM 1 GM/100 ML IVPB 100 ML IV SCH ×2 (04:25→05:25)
[2023-03-05] MEDS: DexMEDEtomidine 250 ML DRIP 250 ML IV SCH ×5 (05:15→23:29)
[2023-03-05] MEDS: ENOXAPARIN 150 MG/ML (LOVENOX) SYR SQ SCH ×2 (05:40→18:11)
[2023-03-05] MEDS: NOREPINEPHRINE 8 MG/250 ML 250 ML IV SCH ×2 (06:15→15:28)
[2023-03-05 07:08] LABS: BASOPHILS # (AUTO) 0.1 10^3/uL (0.0-0.1); BASOPHILS % (AUTO) 1 % (0-10); EOSINOPHILS # (AUTO) 0.1 10^3/uL (0.0-0.3); EOSINOPHILS % (AUTO) 1 % (0-10); HEMATOCRIT 38 % (40-54); HEMOGLOBIN 12.6 g/dL (13.3-17.7); LYMPHOCYTES # (AUTO) 1.6 10^3/uL (1.0-4.0); LYMPHOCYTES % (AUTO) 18 % (12-44); MEAN CORPUSCULAR HEMOGLOBIN 31 pg (25-34); MEAN CORPUSCULAR HGB CONC 33 g/dL (32-36); MEAN CORPUSCULAR VOLUME 94 fL (80-99); MEAN PLATELET VOLUME 9.2 fL (9.0-12.2); MONOCYTES # (AUTO) 0.7 10^3/uL (0.0-1.0); MONOCYTES % (AUTO) 8 % (0-12); NEUTROPHILS # (AUTO) 6.4 10^3/uL (1.8-7.8); NEUTROPHILS % (AUTO) 72 % (42-75); PLATELET COUNT 272 10^3/uL (130-400); WHITE BLOOD COUNT 8.9 10^3/uL (4.3-11.0)
[2023-03-05 07:17] LABS: ALBUMIN 2.6 GM/DL (3.2-4.5); BILIRUBIN,TOTAL 0.6 MG/DL (0.1-1.0); CREATININE SERUM 1.55 MG/DL (0.60-1.30); PHOSPHORUS 3.9 MG/DL (2.3-4.7); POTASSIUM 3.8 MMOL/L (3.6-5.0); TOTAL PROTEIN 6.4 GM/DL (6.4-8.2)
--- NOTE | 2023-03-05 07:54 | Progress Note - Surgery ---
[facility] CHACKO 03/05/23 0754: Subjective Date Seen by a Provider: March 05, 2023 Time Seen by a Provider: 06:50 Subjective/Events-last exam Pt was seen sedated and intubated, his general appearance remains stable, and abdomen has softened some. Mother was seen at bedside and had questions about al cohol induced myopathies, and if the condition is reversible, she still appears to be in some denial of his current state. Nursing denied any acute changes through the night. Review of Systems unable to obtain due to sedation Focused Exam Lactate Level 03/02/23 13:49: Lactic Acid Level 1.07 03/03/23 13:35: Lactic Acid Level 0.66 Objective Exam Vital Signs Date Time Temp Pulse Resp B/P (MAP) Pulse Ox O2 Delivery O2 Flow Rate FiO2 03/05/23 07:31 71 117/74 03/05/23 06:45 72 18 96 03/05/23 06:30 79 18 93 03/05/23 06:15 75 18 96 03/05/23 06:00 77 18 121/98 (104) 96 03/05/23 05:45 74 24 95 03/05/23 05:15 75 18 95 03/05/23 05:00 60.00 03/05/23 05:00 73 18 139/103 (117) 97 03/05/23 04:45 78 18 97 03/05/23 04:30 79 18 97 03/05/23 04:15 80 18 97 03/05/23 04:00 36.4 85 18 138/101 (116) 97 Mechanical Ventilator 70.00 03/05/23 03:53 70.00 03/05/23 03:45 84 18 98 03/05/23 03:15 70 18 98 03/05/23 03:00 75 18 146/95 (105) 98 03/05/23 02:45 75 18 98 03/05/23 02:30 74 18 98 03/05/23 02:15 89 18 98 03/05/23 02:00 82 18 147/96 (122) 98 03/05/23 01:45 83 18 98 03/05/23 01:30 90 18 98 03/05/23 01:15 84 18 98 03/05/23 01:00 82 18 141/107 (119) 98 5/25/23 00:45 78 18 98 03/05/23 00:30 86 18 98 03/05/23 00:15 80 18 98 03/05/23 00:00 36.7 84 18 126/95 (108) 98 Mechanical Ventilator 80.00 03/04/23 23:45 83 18 98 03/04/23 23:30 74 18 97 03/04/23 23:15 78 18 97 03/04/23 23:00 90 18 129/91 (106) 96 03/04/23 22:45 77 18 96 03/04/23 22:30 80 18 96 03/04/23 22:15 85 18 96 03/04/23 22:00 77 18 140/108 (119) 96 Mechanical Ventilator 80.00 103/69 (80) 03/04/23 21:45 90 18 95 03/04/23 21:45 84 106/70 03/04/23 21:44 109 19 95 80 03/04/23 21:30 87 19 95 03/04/23 21:15 94 18 94 03/04/23 21:00 93 18 131/101 (116) 96 03/04/23 20:30 87 18 95 03/04/23 20:15 93 18 95 03/04/23 20:08 93 19 130/88 (95) 95 03/04/23 20:00 Mechanical Ventilator 80 03/04/23 20:00 80 03/04/23 20:00 36.8 101 19 95 Mechanical Ventilator 80.00 03/04/23 19:45 114 18 95 03/04/23 19:30 109 18 95 03/04/23 19:15 94 18 95 03/04/23 19:00 108 18 95 03/04/23 19:00 87 03/04/23 18:44 95 20 94 80 03/04/23 18:20 102 127/84 03/04/23 18:19 102 127/84 03/04/23 18:19 102 127/84 03/04/23 18:00 102 19 94 Mechanical Ventilator 100.00 03/04/23 17:00 103 19 95 Mechanical Ventilator 100.00 03/04/23 16:49 112 127/84 03/04/23 16:03 100 03/04/23 16:00 37.0 03/04/23 16:00 112 25 94 Mechanical Ventilator 100.00 03/04/23 16:00 Mechanical Ventilator 100 5/24/23 15:59 123 127/84 03/04/23 15:58 123 127/84 03/04/23 15:30 123 127/84 03/04/23 15:00 108 15 94 Mechanical Ventilator 100.00 03/04/23 14:14 123 19 94 100 03/04/23 14:00 112 21 94 Mechanical Ventilator 100.00 03/04/23 13:00 112 23 93 Mechanical Ventilator 100.00 03/04/23 12:49 84 110/77 03/04/23 12:21 100 03/04/23 12:20 Mechanical Ventilator 100.00 03/04/23 12:20 Mechanical Ventilator 100 03/04/23 12:03 84 03/04/23 12:00 36.6 03/04/23 12:00 86 19 93 Mechanical Ventilator 100.00 03/04/23 11:30 96 110/77 03/04/23 11:00 96 20 94 Mechanical Ventilator 100.00 03/04/23 10:58 96 110/77 03/04/23 10:29 88 19 93 100 03/04/23 10:00 93 21 91 Mechanical Ventilator 100.00 03/04/23 09:33 96 110/77 03/04/23 09:00 105 22 93 Mechanical Ventilator 100.00 03/04/23 08:00 100 03/04/23 08:00 Mechanical Ventilator 100 03/04/23 08:00 92 19 94 Mechanical Ventilator 100.00 03/04/23 07:58 74 84/63 03/04/23 07:53 36.0 I & O 03/05/23 07:00 Intake Total 430 ml Output Total 3475 ml Balance -3045 ml Capillary Refill : General Appearance: WD/WN, Other (intubated and sedated) HEENT: Pharynx Normal, Moist Mucous Membranes Neck: Supple; No Lymphadenopathy (L), No Lymphadenopathy (R) Respiratory: No Accessory Muscle Use; Other (mechanical ventilation, lung sounds sound improved from yesterday, still heard some crackles on left lower lobe) Cardiovascular: No Murmur, Irregularly Irregular, Other (Edema throughout lower extremities and abdomen) Peripheral Pulses: 2+ Dorsalis Pedis (R), 2+ Left Dors-Pedis (L), 2+ Radial Pulses (R), 2+ Radial Pulses (L) Gastrointestinal: distended (slightly softer than yesterday), other (Still hasnt passed stool, per nurse report) Extremity: No Pedal Edema; No Inflammation; Swelling (1+ pitting edema b/l LE) Neurologic/Psychiatric: No Alert; Other (sedated) Skin: Normal Color, Warm/Dry Lymphatic: No Adenopathy Results Lab Laboratory Tests 03/04/23 08:58: Sodium Level 132L, Potassium Level 4.1, Chloride Level 102, Carbon Dioxide Level 20L, Anion Gap 10, Blood Urea Nitrogen 24H, Creatinine 1.76H, Estimat Glomerular Filtration Rate 46, BUN/Creatinine Ratio 14, Glucose Level 108H, Calcium Level 8.3L 03/04/23 13:04: Glucometer 116H 03/04/23 17:29: Glucometer 100 03/04/23 21:00: Sodium Level 136, Potassium Level 3.7, Chloride Level 104, Carbon Dioxide Level 21, Anion Gap 11, Blood Urea Nitrogen 22H, Creatinine 1.63H, Estimat Glomerular Filtration Rate 50, BUN/Creatinine Ratio 13, Glucose Level 115H, Calcium Level 8.2L 03/04/23 23:29: Glucometer 114H 03/05/23 03:05: White Blood Count 8.9, Red Blood Count 4.02L, Hemoglobin 12.6L, Hematocrit 38L, Mean Corpuscular Volume 94, Mean Corpuscular Hemoglobin 31, Mean Corpuscular Hemoglobin Concent 33, Red Cell Distribution Width 15.4H, Platelet Count 272, Mean Platelet Volume 9.2, Immature Granulocyte % (Auto) 0, Neutrophils (%) (Auto) 72, Lymphocytes (%) (Auto) 18, Monocytes (%) (Auto) 8, Eosinophils (%) (Auto) 1, Basophils (%) (Auto) 1, Neutrophils # (Auto) 6.4, Lymphocytes # (Auto) 1.6, Monocytes # (Auto) 0.7, Eosinophils # (Auto) 0.1, Basophils # (Auto) 0.1, Immature Granulocyte # (Auto) 0.0, Sodium Level 136, Potassium Level 3.8, Chloride Level 106, Carbon Dioxide Level 20L, Anion Gap 10, Blood Urea Nitrogen 21H, Creatinine 1.55H, Estimat Glomerular Filtration Rate 54, BUN/Creatinine Ratio 14, Glucose Level 123H, Calcium Level 8.0L, Corrected Calcium 9.1, Phosphorus Level 3.9, Magnesium Level 2.0, Total Bilirubin 0.6, Aspartate Amino Transf (AST/SGOT) 71H, Alanine Aminotransferase (ALT/SGPT) 37, Alkaline Phosphatase 52, Total Protein 6.4, Albumin 2.6L 03/05/23 05:37: Glucometer 127H Microbiology 03/03/23 Gram Stain - Final, Resulted 03/03/23 Sputum Culture - Preliminary, Resulted No growth 03/02/23 Blood Culture - Preliminary, Resulted No growth Assessment/Plan Assessment/Plan Assessment/Plan Ascites Cholelithiasis alcoholic liver cirrhosis Less likely Possible small bowel obstruction Alochol caridiomyopathy CHFrEF A-Fib w/ RVR Left lung pnuemonia w/ pleural effusion Acute on Chronic renal disease Chronic substance abuse disorder * currently no new indications for surgical procedures * serial imaging could be useful in monitoring GI progress * Will continue to monitor and help with Internal Medicine * Continue current treatment plan as is NIKKI CRAFT DO 03/06/23 1633: Subjective Subjective/Events-last exam Intubated and sedated. Mother at bedside. Patient abdomen about the same. Objective Exam General Appearance: WD/WN, Other (intubated and sedated) HEENT: Normal ENT Inspection, Moist Mucous Membranes Neck: Normal Inspection, Supple Respiratory: Other (mechanical ventilation, lung sounds sound improved from yesterday, still heard some crackles on left lower lobe equal chest rise) Cardiovascular: Irregularly Irregular, Other (Edema throughout lower extremities and abdomen) Gastrointestinal: soft, distended (slightly less than yesterday), other (Still hasnt passed stool, per nurse report) Extremity: Non Tender, Swelling (1+ pitting edema b/l LE) Neurologic/Psychiatric: No Alert, No Oriented x3; Other (sedated) Skin: Normal Color, Warm/Dry Lymphatic: No Adenopathy Assessment/Plan Assessment/Plan Assessment/Plan Ascites Cholelithiasis alcoholic liver cirrhosis Less likely Possible small bowel obstruction Alochol caridiomyopathy CHFrEF A-Fib w/ RVR Left lung pnuemonia w/ pleural effusion Acute on Chronic renal disease Chronic substance abuse disorder * currently no new indications for surgical procedures * Will continue to monitor * Overall likely poor prognosis. Supervisory-Addendum Brief Verification & Attestation Participated in pt care: history, MDM, physical Personally performed: exam, history, MDM, supervision of care Care discussed with: Medical Student Procedures: n/a Results interpretation: Verified all documentation Verification and Attestation of Medical Student E/M Service A medical student performed and documented this service in my presence. I reviewed and verified all information documented by the medical student and made modifications to such information, when appropriate. I personally performed the physical exam and medical decision making. Nikki Craft, March 05, 2023, 20:33 STU CHACKO March 05, 2023 07:54 NIKKI CRAFT DO March 06, 2023 16:33
[2023-03-05 08:02] VITALS: BP 121/98
[2023-03-05] MEDS: meTOprolol TARTRATE 25 MG (LOPRESSOR) TABLET PO SCH ×2 (08:05→21:21)
[2023-03-05] MEDS: AZITHROMYCIN 250 MG TAB (ZITHROMAX) PO SCH (08:05)
--- NOTE | 2023-03-05 08:09 | Cardiology Progress Note ---
Subjective Date Seen by Provider: March 05, 2023 Time Seen by Provider: 08:08 Subjective/Events-last exam Patient was seen at bedside, laying down comfortably. Sedated and intubated Review of Systems General: Other (Unable to provide review of system) Focused Exam Lactate Level 03/02/23 13:49: Lactic Acid Level 1.07 03/03/23 13:35: Lactic Acid Level 0.66 Objective-Cardiology Exam Last Set of Vital Signs Vital Signs 03/05/23 03/05/23 03/05/23 03/05/23 04:00 07:31 07:59 08:02 Temp 36.2 Pulse 81 Resp 19 B/P (MAP) 117/74 Pulse Ox 95 O2 Delivery Mechanical Ventilator FiO2 60 I&O Intake and Output 03/05/23 00:00 Intake Total 1655 ml Output Total 4525 ml Balance -2870 ml Intake Oral 0 ml IV Total 1575 ml Other 80 ml Output Urine Total 4275 ml Gastric Drainage Total 250 ml General: Moderate Distress, Other (Sedated and intubated) HEENT: Atraumatic, PERRLA Neck: Supple, No JVD Lungs: Normal Air Movement, Other (Bilateral rhonchi) Heart: Normal S1, Normal S2, Other (Atrial fibrillation) Abdomen: Normal Bowel Sounds, Other (Distended abdomen) Extremities: No Clubbing, No Cyanosis Skin: No Rashes, No Breakdown Neuro: Other (Sedated and intubated) Psych/Mental Status: Other (Sedated and intubated) Results Lab Laboratory Tests 03/04/23 08:58 03/04/23 21:00 03/05/23 03:05 A/P-Cardiology Admission Diagnosis Atrial fibrillation Ascites Acute respiratory insufficiency Acute renal insufficiency Assessment/Plan Acute respiratory failure, pulmonary edema Intubated, ventilator dependent Continue with Lasix drip and monitor tolerance and response Atrial fibrillation, persistent Rate is controlled on Cardizem drip. Continue to monitor Congestive heart failure, acute left ventricular systolic dysfunction, unknown etiology Probably alcoholic heart disease, cannot exclude coronary artery disease Tolerating dobutamine drip at 5 mcg/kg/min, I will increase the dose to 7.5 and stop the Levophed Continue on Lasix drip and monitor tolerance and response Large ascites and moderate-sized pleural effusion Recommend paracentesis. CHADVASC score 2, started on Lovenox Morbid obesity, BMI 39 Heavy alcoholism, drinking vodka daily. He has stopped drinking for the past month. Advised to avoid alcohol Acute on chronic renal failure, monitor renal function. CIRA BROWN MD March 05, 2023 08:09
[2023-03-05] MEDS: KCL 20 MEQ TAB (K-DUR) PO SCH (08:18)
[2023-03-05] MEDS: THIAMINE 100 MG/ML 2 ML (VITAMIN B-1) VIAL IV SCH (09:04)
[2023-03-05] MEDS: DOCUSATE SODIUM 100 MG (COLACE) CAP PO SCH (09:53)
--- NOTE | 2023-03-05 09:56 | Tele-ICU Progress Note ---
Subjective Date Seen by a Provider: March 05, 2023 Time Seen by a Provider: 09:56 Subjective/Events-last exam (Tele-ICU Physician , Progress Note ) Service provided via interactive audio and video telecommunications E-CARE system to a patient admitted to ICU bed in [facility]. Patient is seen today due to persistent need of ICU care Available chart/ vitals / labs / Images reviewed Video assessment done using teleICU camera, rest of exam as per RN Discussed with RN Events overnight : Afebrile hemodynamically stable Respiratory - 50 % I/O = nwg Drips: lasix drip 6mg/hr, cardizem 10 Pressors- dobutamine 2.5 mcg LEVO OFF VENT SETTINGS and ABG reviewed NOT CANDIDATE for SBTreviewed possible contraindications including Cardiovascular Stability /Sedation Score / FI02/PEEP / ABG / CXR/ secretions Sedation, discussed with RN, RASS on propofol 50 . precedex 1.2 Hospital course: (03/02) 52M Admitted with PNA, Afib RVR, Abdominal distension, and Ascites. (03/03) INTUBATED after becoming unresponsive 03/04- 100% , PEEP 10 , lasix drip 6mg/hr, levo 0.06 mcg, propofol 30 mcg, precedex 1.0 mcg dobutamine 2.5 mcg 03/05 - AC 18 TV 550, 50 % PEEP 15 , propofol 50 . precedex 1.2 lasix drip , levo OFF , dobutamine 7.5 mcg, cardizem gtt 10 A/P 1. acute hypoxic and hypoxic respiratory failure due to combination of acute and chronic systolic CHF and BRIANDA. - AC 18 TV 550 ,50 % PEEP 15, - improved - lasix drip Severe alcoholic cardiomyopathy with LV EF ,10%. - lasix drip 6mg/hr, dobutamine 2.5 mcg Shock - cardiogenioc and or septic shock. - levo OFF, dobutamine 7.5 mcg Afib with RVR -lovenox full dose -cardizem gtt 10 ID - possible pneumonia -Cholelithiasis. There is fluid surrounding the gallbladder, low concern for cholecystitis - Sx follow -?SBP - ? tap as per sx -diarrhoea resolved , and possible sepsis - iv Antibiotics until we know C/S= ceftriaxone + z max ETON abuse - reportedly quit 1 m [employer] - vitamins Lines : R IJ 03/03 , (Central Line Necessity Reviewed) Wright: + OG: Nutrition: tf to start throphic feeding Analgesia: Anxiety/ delirium VTE Prophylaxis: lovenox full dose Stress Ulcer Prophylaxis: Plans in collaboration with bedside consultants and IM MDs. Discussed with RN to reach out if any questions or concerns Case and care daily discussed on multidisciplinary rounds ( RN, PharmD, Java Groovy Developer , Respiratory Therapy, lime kiln worker ) A total of 37 minutes of critical care time was devoted to this patient today, required to treat and/or prevent further deterioration of critical care c ondition ( as above ) . I am remotely monitoring this patient from another state. I am unable to do the bedside exam, and history/physical and pertinent information is taken from other notes in the computer and bedside staff. Sepsis Event Evaluation Height, Weight, BMI Height: 6'5.00" Weight: 235lbs. 0oz. 106.117237ht; 39.65 BMI Method:Stated Focused Exam Lactate Level 03/02/23 13:49: Lactic Acid Level 1.07 03/03/23 13:35: Lactic Acid Level 0.66 Exam Exam Patient acknowledged, consented, and participated in this virtual visit which was conducted using real time audio/video Vital Signs Date Time Temp Pulse Resp B/P (MAP) Pulse Ox O2 Delivery O2 Flow Rate FiO2 03/05/23 09:30 79 119/78 03/05/23 09:00 87 18 132/104 (113) 95 Mechanical Ventilator 50.00 03/05/23 08:03 50 03/05/23 08:02 81 19 95 60 03/05/23 08:00 73 18 128/103 (111) 94 Mechanical Ventilator 50.00 03/05/23 08:00 96 Mechanical Ventilator 50 03/05/23 07:59 36.2 03/05/23 07:31 71 117/74 03/05/23 07:15 18 94 Mechanical Ventilator 50.00 03/05/23 07:05 70 03/05/23 07:00 79 18 127/91 (103) 95 Mechanical Ventilator 60.00 03/05/23 06:45 72 18 96 03/05/23 06:30 79 18 93 03/05/23 06:15 78 03/05/23 06:15 75 18 96 03/05/23 06:00 77 18 121/98 (104) 96 03/05/23 05:45 74 24 95 5/25/23 05:15 75 18 95 03/05/23 05:15 81 03/05/23 05:00 60.00 03/05/23 05:00 73 18 139/103 (117) 97 03/05/23 04:45 78 18 97 03/05/23 04:30 79 18 97 03/05/23 04:15 80 18 97 03/05/23 04:00 80 03/05/23 04:00 Mechanical Ventilator 70 03/05/23 04:00 36.4 85 18 138/101 (116) 97 Mechanical Ventilator 70.00 03/05/23 03:53 70.00 03/05/23 03:45 84 18 98 03/05/23 03:32 78 110/75 03/05/23 03:30 78 18 98 03/05/23 03:15 70 18 98 03/05/23 03:00 75 18 146/95 (105) 98 03/05/23 02:45 75 18 98 03/05/23 02:30 74 18 98 03/05/23 02:28 74 03/05/23 02:15 89 18 98 03/05/23 02:00 82 18 147/96 (122) 98 03/05/23 01:45 83 18 98 03/05/23 01:30 90 18 98 03/05/23 01:15 84 18 98 03/05/23 01:00 82 18 141/107 (119) 98 03/05/23 00:45 78 18 98 03/05/23 00:30 86 18 98 03/05/23 00:15 80 18 98 03/05/23 00:00 80 03/05/23 00:00 36.7 84 18 126/95 (108) 98 Mechanical Ventilator 80.00 03/05/23 00:00 Mechanical Ventilator 80 03/04/23 23:45 83 18 98 03/04/23 23:30 74 18 97 03/04/23 23:15 78 18 97 03/04/23 23:00 90 18 129/91 (106) 96 03/04/23 22:45 77 18 96 03/04/23 22:30 80 18 96 03/04/23 22:15 85 18 96 03/04/23 22:00 77 18 140/108 (119) 96 Mechanical Ventilator 80.00 103/69 (80) 03/04/23 21:45 90 18 95 03/04/23 21:45 84 106/70 03/04/23 21:44 109 19 95 80 03/04/23 21:30 87 19 95 03/04/23 21:15 94 18 94 03/04/23 21:00 93 18 131/101 (116) 96 03/04/23 20:30 87 18 95 03/04/23 20:15 93 18 95 03/04/23 20:08 93 19 130/88 (95) 95 03/04/23 20:00 Mechanical Ventilator 80 03/04/23 20:00 80 03/04/23 20:00 36.8 101 19 95 Mechanical Ventilator 80.00 03/04/23 19:45 114 18 95 03/04/23 19:30 109 18 95 03/04/23 19:15 94 18 95 03/04/23 19:00 108 18 95 03/04/23 19:00 87 03/04/23 18:44 95 20 94 80 03/04/23 18:20 102 127/84 03/04/23 18:19 102 127/84 03/04/23 18:19 102 127/84 03/04/23 18:00 102 19 94 Mechanical Ventilator 100.00 03/04/23 17:00 103 19 95 Mechanical Ventilator 100.00 03/04/23 16:49 112 127/84 03/04/23 16:03 100 03/04/23 16:00 37.0 03/04/23 16:00 112 25 94 Mechanical Ventilator 100.00 03/04/23 16:00 Mechanical Ventilator 100 03/04/23 15:59 123 127/84 03/04/23 15:58 123 127/84 03/04/23 15:30 123 127/84 03/04/23 15:00 108 15 94 Mechanical Ventilator 100.00 03/04/23 14:14 123 19 94 100 03/04/23 14:00 112 21 94 Mechanical Ventilator 100.00 03/04/23 13:00 112 23 93 Mechanical Ventilator 100.00 03/04/23 12:49 84 110/77 03/04/23 12:21 100 03/04/23 12:20 Mechanical Ventilator 100.00 03/04/23 12:20 Mechanical Ventilator 100 03/04/23 12:03 84 03/04/23 12:00 36.6 03/04/23 12:00 86 19 93 Mechanical Ventilator 100.00 03/04/23 11:30 96 110/77 03/04/23 11:00 96 20 94 Mechanical Ventilator 100.00 03/04/23 10:58 96 110/77 03/04/23 10:29 88 19 93 100 03/04/23 10:00 93 21 91 Mechanical Ventilator 100.00 I & O 03/05/23 07:00 Intake Total 2005 ml Output Total 5055 ml Balance -3050 ml Height & Weight Height: 6'5.00" Weight: 235lbs. 0oz. 106.942506mq; 39.65 BMI Method:Stated General Appearance: WD/WN, Other (intubated and sedated) HEENT: Pharynx Normal, Moist Mucous Membranes Neck: Supple; No Lymphadenopathy (L), No Lymphadenopathy (R) Respiratory: No Accessory Muscle Use; Other (mechanical ventilation, lung sounds sound improved from yesterday, still heard some crackles on left lower lobe) Cardiovascular: No Murmur, Irregularly Irregular, Other (Edema throughout lower extremities and abdomen) Peripheral Pulses: 2+ Dorsalis Pedis (R), 2+ Left Dors-Pedis (L), 2+ Radial Pulses (R), 2+ Radial Pulses (L) Gastrointestinal: distended (slightly softer than yesterday), other (Still hasnt passed stool, per nurse report) Extremity: No Pedal Edema; No Inflammation; Swelling (1+ pitting edema b/l LE) Neurologic/Psychiatric: No Alert; Other (sedated) Skin: Normal Color, Warm/Dry Lymphatic: No Adenopathy Results Lab Laboratory Tests 03/03/23 18:45 03/03/23 21:15 03/04/23 03:00 03/04/23 08:58 03/04/23 21:00 03/05/23 03:05 Assessment/Plan Assessment/Plan 1 FAHAD ARITA MD March 05, 2023 09:56
[2023-03-05 10:01] VITALS: BP 143/113
[2023-03-05] MEDS ORDERED: THIAMINE 100 MG/ML 2 ML (VITAMIN B-1) VIAL IV ONE (11:00)
[2023-03-05] MEDS: DOCUSATE SODIUM 10 MG/ML 10 ML UDC (COLACE) PO SCH ×2 (11:55→21:21)
--- NOTE | 2023-03-05 13:25 | Progress Note - Hospitalist ---
[facility] 03/05/23 1325: Subjective HPI/CC On Admission This is a 52 y/o M with PMH untreated HTN and alcohol use disorder who presented to the ED on 03/02 with LLQ abdominal pain and increasing abdominal distension over the past month. He had nausea, vomiting and diarrhea for 3 days 1 month ago and swelling in abdomen has been increasing since. Pt quit drinking 1 month ago when abdominal pain started, previously heavy vodka and beer daily for past 20 years. Reports SOB at baseline that improves with sitting in leaned forward position worsening as distension increases. Smokes 1 ppd. Admitted with AFib with RVR and pneumonia. Started on antibiotics, fluids withheld due to hypervolemic status. Requiring minimal oxygen initially, rapidly worsening requiring BiPAP and intubated shortly after. Echo with EF <10%. Case discussed with Dr. Gonzalez, recommended transferring to [facility] for advanced heart failure service. Declined transfer due to not being a candidate for advanced therapies with alcohol and tobacco use. Started on Dobutamine for cardiogenic shock. Low urine output, started on Lasix gtt. Rapidly progressing multi-organ failure. Poo r prognosis and goals of care discussed with mother at bedside, she would like to continue full code status at this time. Subjective/Events-last exam Patient remains intubated and sedated. Mother is at bedside. Review of Systems unable to obtain 2/2 clinical status Focused Exam Lactate Level 03/02/23 13:49: Lactic Acid Level 1.07 03/03/23 13:35: Lactic Acid Level 0.66 Objective Exam Vital Signs Vital Signs Date Time Temp Pulse Resp B/P (MAP) Pulse Ox O2 Delivery O2 Flow Rate FiO2 03/05/23 12:53 73 03/05/23 12:44 87/69 03/05/23 12:03 40 03/05/23 12:00 95 Mechanical Ventilator 03/05/23 11:00 18 40.00 03/05/23 07:59 36.2 Capillary Refill : General Appearance: WD/WN, Other (intubated/sedated) Respiratory: No Accessory Muscle Use, Other (mechanical ventilation, coarse lung sounds-improved from yesterday) Cardiovascular: No Murmur, Irregularly Irregular Gastrointestinal: Distended (softer than yesterday), Other (edema over abdomen) Extremity: Swelling (1+ pitting edema b/l LE) Neurologic/Psychiatric: No Alert; Other (sedated) Skin: Normal Color, Warm/Dry Results/Procedures Lab Laboratory Tests 03/04/23 21:00 03/05/23 03:05 Patient resulted labs reviewed. Imaging: Reviewed Imaging Films, Reviewed Imaging Report Assessment/Plan Assessment and Plan Assess & Plan/Chief Complaint Acute respiratory failure with hypoxia LLL pneumonia-infiltrate seen on CT Continue antibiotics Intubated and sedated - continue weaning FiO2 and PEEP as tolerated Afib with RVR Acute HFrER Cardiogenic shock CT with cardiomegaly, bilateral pleural effusions RVR resolved on Cardizem drip Echo with EF <10% Dobutamine drip, off Levophed Cardiology following and recommended transfer to for LVAD evaluation- [facility] declined transfer Ascites Alcohol use disorder Hep C Ab positive CT with findings of questionable nodular contour to the liver, [id number] abdominal and pelvic ascites, fluid-filled small bowel loops in the left abdomen possibility of SBO, cholelithiasis with fluid surrounding the gallbladder Likely alcoholic liver disease, cirrhosis given CT findings Surgery consulted- not proceeding with paracentesis at this time Pending Hep C PCR results Acute renal insufficiency Continue Lasix drip BUN and Cr improving with diuresis Continue to monitor urine output, currently down 3L Rapidly progressing multi-organ failure Prognosis and goals of care have been discussed with mother, she would like to continue full code status Nutrition Start tube feeds DVT Prophylaxis: lovenox Critical Care: Ventilator Management JOSE NEWBERRY MD 03/05/23 1513: Subjective HPI/CC On Admission Date Seen by Provider: March 05, 2023 Time Seen by Provider: 10:40 Assessment/Plan Assessment and Plan Assess & Plan/Chief Complaint Ventilator requirements improving. Pressor requirement decreased. Diuresing well, continue Lasix. Renal function improving. Starting tube feeds. Prognosis remains guarded. Plan discussed with mother at bedside. Critical Care: Critically Ill Patient Diagnosis/Problems Diagnosis/Problems (1) Cardiogenic shock Status: Acute (2) Acute HFrEF (heart failure with reduced ejection fraction) Status: Acute (3) Acute respiratory failure with hypoxia and hypercapnia Status: Acute (4) PNA (pneumonia) Status: Acute (5) Endotracheally intubated Status: Acute (6) Atrial fibrillation with RVR Status: Acute (7) MALIK (acute kidney injury) Status: Acute (8) Ascites due to alcoholic cirrhosis Status: Acute Supervisory-Addendum Brief Verification & Attestation Participated in pt care: history, MDM, physical Personally performed: exam, history, MDM, supervision of care Care discussed with: Medical Student Procedures: n/a A medical student performed and documented this service in my presence. I reviewed and verified all information documented by the medical student and made modifications to such information, when appropriate. I personally performed the physical exam and medical decision making. CITLALY WICK March 05, 2023 13:25 JOSE NEWBERRY MD March 05, 2023 15:13
[2023-03-05] MEDS ORDERED: NS (IVPB) 50 ML ONE (14:05)
[2023-03-05 15:08] VITALS: BP 130/100
[2023-03-05] MEDS: cefTRIAXone IV/IM 1,000 MG in NS (IVPB) 50 ML IV SCH (16:22)
[2023-03-05 19:27] VITALS: BP 153/115
[2023-03-05 21:59] LABS: POTASSIUM 3.5 MMOL/L (3.6-5.0)
[2023-03-05 22:04] LABS: CREATININE SERUM 1.39 MG/DL (0.60-1.30)
[2023-03-05 22:19] VITALS: BP 108/77
[2023-03-06] MEDS: NOREPINEPHRINE 8 MG/250 ML 250 ML IV SCH ×3 (00:05→18:12)
[2023-03-06] MEDS: FUROSEMIDE INJECTION 120 MG in D5W 100 ML IVPB 108 ML IV SCH (00:30)
[2023-03-06] MEDS: PROPOFOL DRIP (ICU) 100 ML IV SCH ×9 (02:06→22:56)
[2023-03-06 02:36] VITALS: BP 142/114
[2023-03-06] MEDS: dilTIAZem DRIP PRE-MIX 125 ML IV SCH ×2 (03:16→15:40)
[2023-03-06] MEDS: DOBUTamine DRIP 250 ML IV SCH ×6 (03:21→22:09)
[2023-03-06 04:28] LABS: BASOPHILS % (AUTO) 1 % (0-10); EOSINOPHILS # (AUTO) 0.1 10^3/uL (0.0-0.3); EOSINOPHILS % (AUTO) 1 % (0-10); HEMATOCRIT 37 % (40-54); HEMOGLOBIN 12.2 g/dL (13.3-17.7); LYMPHOCYTES % (AUTO) 16 % (12-44); MEAN CORPUSCULAR HEMOGLOBIN 31 pg (25-34); MEAN CORPUSCULAR HGB CONC 33 g/dL (32-36); MEAN CORPUSCULAR VOLUME 94 fL (80-99); MEAN PLATELET VOLUME 9.1 fL (9.0-12.2); MONOCYTES # (AUTO) 0.5 10^3/uL (0.0-1.0); MONOCYTES % (AUTO) 8 % (0-12); NEUTROPHILS # (AUTO) 4.5 10^3/uL (1.8-7.8); NEUTROPHILS % (AUTO) 74 % (42-75); PLATELET COUNT 243 10^3/uL (130-400); WHITE BLOOD COUNT 6.1 10^3/uL (4.3-11.0)
[2023-03-06 04:31] LABS: ABG BASE EXCESS 0.6 MMOL/L (-2.5-2.5); ABG OXYGEN SATURATION 93 % (94-100); ABG PCO2 34 MMHG (35-45); ABG PH 7.47 (7.37-7.43); ABG PO2 63 MMHG (79-93); ABG TCO2 25.1 MMOL/L (21.0-31.0)
[2023-03-06 04:32] LABS: ALLENS TEST YES-POS; INSPIRED O2 30%; PATIENT TEMP 36.3; VENTILATOR YES
[2023-03-06 04:40] LABS: POTASSIUM 2.7 MMOL/L (3.6-5.0)
[2023-03-06 04:41] LABS: CALCIUM 6.4 MG/DL (8.5-10.1)
[2023-03-06 04:42] LABS: TOTAL PROTEIN 4.9 GM/DL (6.4-8.2)
[2023-03-06 04:44] LABS: BILIRUBIN,TOTAL 0.4 MG/DL (0.1-1.0)
[2023-03-06 04:45] LABS: PHOSPHORUS 2.8 MG/DL (2.3-4.7)
[2023-03-06 04:46] LABS: CREATININE SERUM 0.98 MG/DL (0.60-1.30)
[2023-03-06 04:49] LABS: MAGNESIUM 1.5 MG/DL (1.6-2.4)
[2023-03-06] MEDS: KCL 20 MEQ TAB (K-DUR) PO SCH (05:10)
[2023-03-06] MEDS ORDERED: POTASSIUM CL 10MEQ/50ML IVPB 400 ML IV ONE (05:18)
[2023-03-06] MEDS ORDERED: MAGNESIUM 1 GM/100 ML IVPB 400 ML IV ONE (05:18)
[2023-03-06] MEDS: POTASSIUM CL 10MEQ/50ML IVPB 50 ML IV SCH ×8 (05:37→12:21)
[2023-03-06] MEDS: MAGNESIUM 1 GM/100 ML IVPB 100 ML IV SCH ×4 (05:37→08:37)
[2023-03-06] MEDS: ENOXAPARIN 150 MG/ML (LOVENOX) SYR SQ SCH ×2 (05:38→17:35)
[2023-03-06 06:33] VITALS: BP 129/71
[2023-03-06] MEDS: DexMEDEtomidine 250 ML DRIP 250 ML IV SCH ×3 (06:33→18:54)
[2023-03-06] MEDS ORDERED: POTASSIUM CL 10MEQ/50ML IVPB 50 ML IV SCH (08:15)
[2023-03-06] MEDS: meTOprolol TARTRATE 25 MG (LOPRESSOR) TABLET PO SCH ×2 (08:20→20:06)
[2023-03-06] MEDS: THIAMINE 100 MG/ML 2 ML (VITAMIN B-1) VIAL IV SCH (08:20)
[2023-03-06] MEDS: AZITHROMYCIN 250 MG TAB (ZITHROMAX) PO SCH (08:20)
[2023-03-06] MEDS: DOCUSATE SODIUM 10 MG/ML 10 ML UDC (COLACE) PO SCH ×2 (08:20→20:06)
[2023-03-06] MEDS: PANTOPRAZOLE 40 MG (PROTONIX) VIAL IV SCH (08:20)
--- NOTE | 2023-03-06 08:39 | Progress Note - Surgery ---
[facility] 03/06/23 0839: Subjective Date Seen by a Provider: March 06, 2023 Time Seen by a Provider: 06:50 Subjective/Events-last exam Pt still sedated, A&O x0, mother at bedside. Pt has still yet to pass a bowel movement, and mother is slowly coming to terms with severity of his condition. S he had questions about scrotal swelling found last night and if he was ever going to recover. She still wants full code. Review of Systems unable to obtain due to sedation Focused Exam Lactate Level 03/03/23 13:35: Lactic Acid Level 0.66 Objective Exam Vital Signs Date Time Temp Pulse Resp B/P (MAP) Pulse Ox O2 Delivery O2 Flow Rate FiO2 03/06/23 07:09 82 88/59 03/06/23 07:00 89 03/06/23 06:33 75 18 95 30 03/06/23 06:00 96 18 164/116 (132) 95 Mechanical Ventilator 40.00 03/06/23 05:00 73 20 166/110 (128) 95 Mechanical Ventilator 40.00 03/06/23 04:01 96 Mechanical Ventilator 30 03/06/23 04:01 30 03/06/23 04:00 36.3 03/06/23 04:00 92 19 142/97 (112) 96 Mechanical Ventilator 40.00 03/06/23 03:21 85 130/78 03/06/23 03:16 81 120/81 03/06/23 03:00 75 18 147/116 (126) 96 Mechanical Ventilator 40.00 03/06/23 02:36 85 18 96 30 03/06/23 02:00 79 18 142/114 (123) 96 Mechanical Ventilator 40.00 03/06/23 01:00 70 03/06/23 01:00 65 18 126/97 (107) 97 Mechanical Ventilator 40.00 03/06/23 00:00 62 18 119/104 (109) 98 Mechanical Ventilator 40.00 03/06/23 00:00 36.6 03/05/23 23:56 30 03/05/23 23:55 97 Mechanical Ventilator 30 03/05/23 23:48 66 91/69 03/05/23 23:00 75 18 132/111 (118) 96 Mechanical Ventilator 40.00 03/05/23 22:19 88 18 95 30 03/05/23 22:00 67 18 127/113 (118) 96 Mechanical Ventilator 40.00 03/05/23 21:00 66 18 145/99 (114) 94 Mechanical Ventilator 40.00 03/05/23 20:00 Mechanical Ventilator 30 03/05/23 20:00 30 03/05/23 20:00 69 18 113/83 (93) 95 Mechanical Ventilator 40.00 03/05/23 19:58 74 100/61 03/05/23 19:27 90 18 94 30 03/05/23 19:02 36.3 03/05/23 19:00 94 03/05/23 19:00 77 18 153/115 (128) 94 Mechanical Ventilator 40.00 03/05/23 18:00 72 19 162/109 (126) 93 Mechanical Ventilator 40.00 03/05/23 17:00 88 18 151/110 (124) 94 Mechanical Ventilator 40.00 03/05/23 16:03 30 03/05/23 16:00 73 18 148/103 (118) 94 Mechanical Ventilator 40.00 03/05/23 16:00 95 Mechanical Ventilator 40 03/05/23 15:08 65 18 96 30 03/05/23 15:00 66 18 130/100 (110) 96 Mechanical Ventilator 40.00 03/05/23 14:08 68 108/77 03/05/23 14:00 70 18 129/102 (111) 96 Mechanical Ventilator 40.00 03/05/23 13:00 69 18 126/88 (101) 95 Mechanical Ventilator 40.00 03/05/23 12:53 73 03/05/23 12:44 73 87/69 03/05/23 12:03 40 03/05/23 12:00 35.9 03/05/23 12:00 77 18 133/115 (121) 95 Mechanical Ventilator 40.00 03/05/23 12:00 95 Mechanical Ventilator 40 03/05/23 11:00 69 18 148/104 (119) 94 Mechanical Ventilator 40.00 03/05/23 10:01 98 18 93 50 03/05/23 10:00 81 18 143/113 (123) 95 Mechanical Ventilator 40.00 03/05/23 09:30 79 119/78 03/05/23 09:00 87 18 132/104 (113) 95 Mechanical Ventilator 50.00 I & O 03/06/23 07:00 Intake Total 3345 ml Output Total 3885 ml Balance -540 ml Capillary Refill : General Appearance: WD/WN, Other (intubated/sedated) HEENT: PERRL/EOMI, Normal ENT Inspection Neck: Normal Inspection, Supple Respiratory: No Accessory Muscle Use, Other (mechanical ventilation, coarse lung sounds-improved from yesterday, RLL crackles ) Cardiovascular: No Murmur, Irregularly Irregular Peripheral Pulses: 2+ Dorsalis Pedis (R), 2+ Left Dors-Pedis (L), 2+ Radial Pulses (R), 2+ Radial Pulses (L) Gastrointestinal: non tender, distended (minimal), other (abdominal pitting edema, rash right abdomen) Extremity: Swelling (1+ pitting edema b/l LE) Neurologic/Psychiatric: No Alert, No Oriented x3; Other (sedated/intubated) Skin: Normal Color, Warm/Dry, Rash, Other (Moderate-severe scrotal swelling, transilluminates) Lymphatic: No Adenopathy Results Lab Laboratory Tests 03/05/23 11:42: Glucometer 117H 03/05/23 17:16: Glucometer 114H 03/05/23 21:30: Sodium Level 139, Potassium Level 3.5L, Chloride Level 106, Carbon Dioxide Level 22, Anion Gap 11, Blood Urea Nitrogen 17, Creatinine 1.39H, Estimat Glomerular Filtration Rate 61, BUN/Creatinine Ratio 12, Glucose Level 94, Calcium Level 8.0L 03/06/23 00:20: Glucometer 109 03/06/23 04:15: White Blood Count 6.1, Red Blood Count 3.94L, Hemoglobin 12.2L, Hematocrit 37L, Mean Corpuscular Volume 94, Mean Corpuscular Hemoglobin 31, Mean Corpuscular Hemoglobin Concent 33, Red Cell Distribution Width 15.6H, Platelet Count 243, Mean Platelet Volume 9.1, Immature Granulocyte % (Auto) 0, Neutrophils (%) (Auto) 74, Lymphocytes (%) (Auto) 16, Monocytes (%) (Auto) 8, Eosinophils (%) (Auto) 1, Basophils (%) (Auto) 1, Neutrophils # (Auto) 4.5, Lymphocytes # (Auto) 1.0, Monocytes # (Auto) 0.5, Eosinophils # (Auto) 0.1, Basophils # (Auto) 0.0, Immature Granulocyte # (Auto) 0.0, Blood Gas Puncture Site LRAD, Blood Gas Patient Temperature 36.3, Arterial Blood pH 7.47H, Arterial Blood Partial Pressure CO2 34L, Arterial Blood Partial Pressure O2 63L, Arterial Blood HCO3 24, Arterial Blood Total CO2 25.1, Arterial Blood Oxygen Saturation 93L, Arterial Blood Base Excess 0.6, [place] Test YES-POS, Blood Gas Ventilator Setting YES, Blood Gas Inspired Oxygen 30%, Sodium Level 140, Potassium Level 2.7L, Chloride Level 114H, Carbon Dioxide Level 17L, Anion Gap 9, Blood Urea Nitrogen 14, Creatinine 0.98, Estimat Glomerular Filtration Rate 93, BUN/Creatinine Ratio 14, Glucose Level 94, Calcium Level 6.4L, Corrected Calcium 8.0L, Phosphorus L evel 2.8, Magnesium Level 1.5L, Total Bilirubin 0.4, Aspartate Amino Transf (AST/SGOT) 48H, Alanine Aminotransferase (ALT/SGPT) 26, Alkaline Phosphatase 42, Total Protein 4.9L, Albumin 2.0L Microbiology 03/03/23 Urine Culture - Final, Complete NO GROWTH 03/03/23 Gram Stain - Final, Complete 03/03/23 Sputum Culture - Final, Complete No growth 03/02/23 Blood Culture - Preliminary, Resulted No growth Assessment/Plan Assessment/Plan Assessment/Plan Ascites Cholelithiasis alcoholic liver cirrhosis Less likely Possible small bowel obstruction Alcohol caridiomyopathy CHFrEF A-Fib w/ RVR Left lung pnuemonia w/ pleural effusion Acute on Chronic renal disease Chronic substance abuse disorder Scrotal hydrocele overall poor prognosis continue to try and improve overall status not enough fluid for paracentesis at this time will follow. BENJAMÍN CRAFT DO 03/06/23 1636: Subjective Subjective/Events-last exam Remains intubated and sedated. Mother at bedside. Objective Exam General Appearance: WD/WN, Other (intubated/sedated) HEENT: Normal ENT Inspection Neck: Normal Inspection, Supple Respiratory: Other (mechanical ventilation, equal chest rise) Cardiovascular: No JVD, Irregularly Irregular Gastrointestinal: non tender, distended (same as yesterday), other (abdominal pitting edema, rash right abdomen) Extremity: Swelling (1+ pitting edema b/l LE) Neurologic/Psychiatric: No Alert, No Oriented x3; Other (sedated/intubated) Skin: Normal Color, Warm/Dry, Rash, Other (Moderate scrotal swelling) Lymphatic: No Adenopathy Assessment/Plan Assessment/Plan Assessment/Plan Ascites Cholelithiasis alcoholic liver cirrhosis Less likely Possible small bowel obstruction Alcohol caridiomyopathy CHFrEF A-Fib w/ RVR Left lung pnuemonia w/ pleural effusion Acute on Chronic renal disease Chronic substance abuse disorder Scrotal swelling from ascites likely overall poor prognosis continue to try and improve overall status not enough fluid for paracentesis at this time will follow periodically, call me if needed. Supervisory-Addendum Brief Verification & Attestation Participated in pt care: history, MDM, physical Personally performed: exam, history, MDM, supervision of care Care discussed with: Medical Student Procedures: n/a Results interpretation: Verified all documentation Verification and Attestation of Medical Student E/M Service A medical student performed and documented this service in my presence. I reviewed and verified all information documented by the medical student and made modifications to such information, when appropriate. I personally performed the physical exam and medical decision making. Benjamín Craft, March 06, 2023,16:36 STU CHACKO March 06, 2023 08:39 BENJAMÍN CRAFT DO March 06, 2023 16:36
--- NOTE | 2023-03-06 10:01 | Tele-ICU Progress Note ---
Subjective Date Seen by a Provider: March 06, 2023 Time Seen by a Provider: 10:00 Subjective/Events-last exam (Tele-ICU Physician , Progress Note ) Service provided via interactive audio and video tele[employer] E-CARE system to a patient admitted to ICU bed in [facility]. Patient is seen today due to persistent need of ICU care Available chart/ vitals / labs / Images reviewed Video assessment done using teleICU camera, rest of exam as per RN Discussed with RN Events overnight : Afebrile hemodynamically stable Respiratory - 30 % I/O = nwg Drips: lasix drip 6mg/hr, cardizem 10 Pressors- dobutamine 2.5 mcg LEVO OFF VENT SETTINGS and ABG reviewed NOT CANDIDATE for SBTreviewed possible contraindications including Cardiovascular Stability /Sedation Score / FI02/PEEP / ABG / CXR/ secretions Sedation, discussed with RN, RASS on propofol 50 . precedex 1.2 Hospital course: (03/02) 52M Admitted with PNA, Afib RVR, Abdominal distension, and Ascites. (03/03) INTUBATED after becoming unresponsive 03/04- 100% , PEEP 10 , lasix drip 6mg/hr, levo 0.06 mcg, propofol 30 mcg, precedex 1.0 mcg dobutamine 2.5 mcg 03/05 - AC 18 TV 550, 50 % PEEP 15 , propofol 50 . precedex 1.2 lasix drip , levo OFF , dobutamine 7.5 mcg, cardizem gtt 10 03/06-AC 16 TV 550 30 % PEEP 8 propofol 45 . precedex 1.0 lasix drip 0.5 , dobutamine 7.5 mcg, cardizem gtt 10 A/P 1. acute hypoxic and hypoxic respiratory failure due to combination of acute and chronic systolic CHF and BRIANDA. - AC 18 TV 550 30 % PEEP 8, - improved - lasix drip to cont ( with all drips getting 200 ml /h - aiming for negatibve balance of at least 100 cc / h -- UO shold be at least 3000-350 ml- or as cards advised Severe alcoholic cardiomyopathy with LV EF ,10%. - lasix drip , dobutamine 2.5 mcg Shock - cardiogenioc and or septic shock. - levo OFF, dobutamine 7.5 mcg Afib with RVR -lovenox full dose -cardizem gtt 10 m metoprolol 25 bid po ID - possible pneumonia -Cholelithiasis. There is fluid surrounding the gallbladder, low concern for cholecystitis - Sx follow -?SBP - ? tap as per sx -diarrhoea resolved , and possible sepsis - iv Antibiotics until we know C/S= ceftriaxone + z max ETON abuse - reportedly quit 1 m CHIP TESTER - vitamins nitritions - TF trophic 10 cc/h Lines : R IJ 03/03 , (Central Line Necessity Reviewed) Wright: + OG: Nutrition: tf to start throphic feeding Analgesia: Anxiety/ delirium VTE Prophylaxis: lovenox full dose Stress Ulcer Prophylaxis: Plans in collaboration with bedside consultants and IM MDs. Discussed with RN to reach out if any questions or concerns Case and care daily discussed on multidisciplinary rounds ( RN, PharmD, Fire Support Man , Respiratory Therapy, kettle worker ) A total of 37 minutes of critical care time was devoted to this patient today, required to treat and/or prevent further deterioration of critical care condition ( as above ) . I am remotely monitoring this patient from another state. I am unable to do the bedside exam, and history/physical and pertinent information is taken from other notes in the computer and bedside staff. Sepsis Event Evaluation Height, Weight, BMI Height: 6'5.00" Weight: 235lbs. 0oz. 106.363140li; 40.31 BMI Method:Stated Focused Exam Lactate Level 03/03/23 13:35: Lactic Acid Level 0.66 Exam Exam Patient acknowledged, consented, and participated in this virtual visit which was conducted using real time audio/video Vital Signs Date Time Temp Pulse Resp B/P (MAP) Pulse Ox O2 Delivery O2 Flow Rate FiO2 03/06/23 09:00 98 18 96 Mechanical Ventilator 40.00 03/06/23 08:00 86 18 94 Mechanical Ventilator 40.00 03/06/23 08:00 95 Mechanical Ventilator 30 03/06/23 07:09 82 88/59 03/06/23 07:00 95 18 94 Mechanical Ventilator 40.00 03/06/23 07:00 89 03/06/23 06:33 75 18 95 30 03/06/23 06:00 96 18 164/116 (132) 95 Mechanical Ventilator 40.00 03/06/23 05:00 73 20 166/110 (128) 95 Mechanical Ventilator 40.00 03/06/23 04:01 96 Mechanical Ventilator 30 03/06/23 04:01 30 03/06/23 04:00 36.3 03/06/23 04:00 92 19 142/97 (112) 96 Mechanical Ventilator 40.00 03/06/23 03:21 85 130/78 03/06/23 03:16 81 120/81 03/06/23 03:00 75 18 147/116 (126) 96 Mechanical Ventilator 40.00 03/06/23 02:36 85 18 96 30 03/06/23 02:00 79 18 142/114 (123) 96 Mechanical Ventilator 40.00 03/06/23 01:00 70 03/06/23 01:00 65 18 126/97 (107) 97 Mechanical Ventilator 40.00 03/06/23 00:00 62 18 119/104 (109) 98 Mechanical Ventilator 40.00 03/06/23 00:00 36.6 03/05/23 23:56 30 03/05/23 23:55 97 Mechanical Ventilator 30 03/05/23 23:48 66 91/69 03/05/23 23:00 75 18 132/111 (118) 96 Mechanical Ventilator 40.00 03/05/23 22:19 88 18 95 30 03/05/23 22:00 67 18 127/113 (118) 96 Mechanical Ventilator 40.00 03/05/23 21:00 66 18 145/99 (114) 94 Mechanical Ventilator 40.00 03/05/23 20:00 Mechanical Ventilator 30 03/05/23 20:00 30 03/05/23 20:00 69 18 113/83 (93) 95 Mechanical Ventilator 40.00 03/05/23 19:58 74 100/61 03/05/23 19:27 90 18 94 30 03/05/23 19:02 36.3 03/05/23 19:00 94 03/05/23 19:00 77 18 153/115 (128) 94 Mechanical Ventilator 40.00 03/05/23 18:00 72 19 162/109 (126) 93 Mechanical Ventilator 40.00 03/05/23 17:00 88 18 151/110 (124) 94 Mechanical Ventilator 40.00 03/05/23 16:03 30 03/05/23 16:00 73 18 148/103 (118) 94 Mechanical Ventilator 40.00 03/05/23 16:00 95 Mechanical Ventilator 40 03/05/23 15:08 65 18 96 30 03/05/23 15:00 66 18 130/100 (110) 96 Mechanical Ventilator 40.00 03/05/23 14:08 68 108/77 03/05/23 14:00 70 18 129/102 (111) 96 Mechanical Ventilator 40.00 03/05/23 13:00 69 18 126/88 (101) 95 Mechanical Ventilator 40.00 03/05/23 12:53 73 03/05/23 12:44 73 87/69 03/05/23 12:03 40 03/05/23 12:00 35.9 03/05/23 12:00 77 18 133/115 (121) 95 Mechanical Ventilator 40.00 03/05/23 12:00 95 Mechanical Ventilator 40 03/05/23 11:00 69 18 148/104 (119) 94 Mechanical Ventilator 40.00 03/05/23 10:01 98 18 93 50 I & O 03/06/23 07:00 Intake Total 3345 ml Output Total 3885 ml Balance -540 ml Height & Weight Height: 6'5.00" Weight: 235lbs. 0oz. 106.769840bx; 40.31 BMI Method:Stated General Appearance: WD/WN, Other (intubated/sedated) HEENT: PERRL/EOMI, Normal ENT Inspection Neck: Normal Inspection, Supple Respiratory: No Accessory Muscle Use, Other (mechanical ventilation, coarse lung sounds-improved from yesterday, RLL crackles ) Cardiovascular: No Murmur, Irregularly Irregular Peripheral Pulses: 2+ Dorsalis Pedis (R), 2+ Left Dors-Pedis (L), 2+ Radial Pulses (R), 2+ Radial Pulses (L) Gastrointestinal: non tender, distended (minimal), other (abdominal pitting edema, rash right abdomen) Extremity: Swelling (1+ pitting edema b/l LE) Neurologic/Psychiatric: No Alert, No Oriented x3; Other (sedated/intubated) Skin: Normal Color, Warm/Dry, Rash, Other (Moderate-severe scrotal swelling, transilluminates) Lymphatic: No Adenopathy Results Lab Laboratory Tests 03/04/23 21:00 03/05/23 03:05 03/05/23 21:30 03/06/23 04:15 Assessment/Plan Assessment/Plan 1 FAHAD ARITA MD March 06, 2023 10:01
[2023-03-06 10:56] VITALS: BP 92/62
[2023-03-06] MEDS ORDERED: CALC GLUC 1 GM/100 ML IVPB 100 ML IV ONE (12:30)
[2023-03-06] MEDS ORDERED: KCL 20 MEQ TAB (K-DUR) PO ONE (12:30)
[2023-03-06] MEDS: FUROSEMIDE 40 MG/4 ML INJ (LASIX) IVP SCH ×2 (13:03→20:06)
--- NOTE | 2023-03-06 13:03 | Cardiology Progress Note ---
Cardiology SOAP Progress Note Subjective: Intubated/ventilated Objective: I&O/Vital Signs 03/07/23 03/07/23 03/07/23 03/07/23 01:00 01:00 01:54 02:00 Pulse 80 80 74 68 Resp 18 18 B/P (MAP) 90/65 Pulse Ox 95 94 O2 Delivery Mechanical Ventilator Mechanical Ventilator O2 Flow Rate 30.00 30.00 03/07/23 03/07/23 03/07/23 03/07/23 02:27 03:00 03:27 04:00 Pulse 79 74 80 Resp 18 14 B/P (MAP) 128/76 Pulse Ox 95 95 O2 Delivery Mechanical Ventilator O2 Flow Rate 30.00 FiO2 30 30 03/07/23 03/07/23 03/07/23 03/07/23 04:00 04:00 05:00 05:42 Pulse 90 81 108 Resp 14 14 B/P (MAP) 160/122 (135) 119/69 Pulse Ox 95 95 94 O2 Delivery Mechanical Ventilator Mechanical Ventilator Mechanical Ventilator O2 Flow Rate 30.00 30.00 FiO2 30 03/07/23 03/07/23 03/07/23 03/07/23 06:00 06:40 07:00 07:00 Pulse 102 100 91 84 Resp 16 17 21 B/P (MAP) Pulse Ox 94 95 94 O2 Delivery Mechanical Ventilator Mechanical Ventilator O2 Flow Rate 30.00 30.00 FiO2 30 03/07/23 03/07/23 03/07/23 03/07/23 07:43 07:53 08:00 08:00 Temp 36.9 Pulse 91 105 Resp 18 B/P (MAP) 148/76 Pulse Ox 95 94 O2 Delivery Mechanical Ventilator Mechanical Ventilator O2 Flow Rate 30.00 FiO2 30 03/07/23 03/07/23 03/07/23 03/07/23 08:03 08:23 09:00 09:26 Pulse 105 120 110 Resp 17 B/P (MAP) 148/76 148/76 Pulse Ox 95 O2 Delivery Mechanical Ventilator O2 Flow Rate 30.00 FiO2 30 03/07/23 03/07/23 03/07/23 03/07/23 09:55 10:00 10:11 10:37 Pulse 72 72 72 72 Resp 18 B/P (MAP) 148/76 148/76 148/76 Pulse Ox 93 O2 Delivery Mechanical Ventilator O2 Flow Rate 30.00 03/07/23 03/07/23 03/07/23 03/07/23 11:00 11:01 11:13 11:29 Temp 36.6 Pulse 95 86 86 Resp 16 17 B/P (MAP) 132/76 Pulse Ox 96 95 O2 Delivery Mechanical Ventilator O2 Flow Rate 30.00 FiO2 30 03/07/23 03/07/23 03/07/23 03/07/23 12:00 12:00 12:22 12:25 Pulse 74 74 Resp 16 B/P (MAP) 154/128 (134) 154/128 Pulse Ox 95 94 O2 Delivery Mechanical Ventilator Mechanical Ventilator O2 Flow Rate 30.00 FiO2 30 30 03/07/23 12:41 Pulse 65 03/07/23 00:00 Intake Total 2120 ml Output Total 4050 ml Balance -1930 ml Weight (Pounds): 235 Weight (Ounces): 0 Weight (Calculated Kilograms): [id number] Constitutional: other (Intubated/ventilated) Respiratory: lungs clear to auscultation Cardiovascular: irregularly irregular, S1 and S2 Gastrointestional: soft Extremities: pedal edema Neurologic/Psychiatric: other (Intubated/ventilated) Skin: normal color Results/Procedures: Labs Laboratory Tests 03/06/23 19:07: Glucometer 97 03/07/23 00:27: Glucometer 100 03/07/23 04:45: White Blood Count 7.1, Red Blood Count 3.93L, Hemoglobin 12.2L, Hematocrit 37L, Mean Corpuscular Volume 95, Mean Corpuscular Hemoglobin 31, Mean Corpuscular Hemoglobin Concent 33, Red Cell Distribution Width 15.7H, Platelet Count 235, Mean Platelet Volume 8.8L, Immature Granulocyte % (Auto) 0, Neutrophils (%) (Auto) 74, Lymphocytes (%) (Auto) 17, Monocytes (%) (Auto) 7, Eosinophils (%) (Auto) 2, Basophils (%) (Auto) 1, Neutrophils # (Auto) 5.3, Lymphocytes # (Auto) 1.2, Monocytes # (Auto) 0.5, Eosinophils # (Auto) 0.1, Basophils # (Auto) 0.0, Immature Granulocyte # (Auto) 0.0, Sodium Level 141, Potassium Level 3.9, Chloride Level 108H, Carbon Dioxide Level 22, Anion Gap 11, Blood Urea Nitrogen 14, Creatinine 1.29, Estimat Glomerular Filtration Rate 67, BUN/Creatinine Ratio 11, Glucose Level 99, Calcium Level 8.0L, Corrected Calcium 9.1, Phosphorus Level 3.1, Magnesium Level 1.9, Total Bilirubin 0.5, Aspartate Amino Transf (AST/SGOT) 50H, Alanine Aminotransferase (ALT/SGPT) 30, Alkaline Phosphatase 51, Total Protein 6.4, Albumin 2.6L 03/07/23 11:03: Triglycerides Level 94 03/07/23 11:25: Glucometer 112H Microbiology 03/03/23 Urine Culture - Final, Complete NO GROWTH 03/03/23 Gram Stain - Final, Complete 03/03/23 Sputum Culture - Final, Complete No growth 03/02/23 Blood Culture - Preliminary, Resulted No growth A/P: Assessment/Dx: Persistent Atrial fibrillation Ascites Acute respiratory insufficiency Acute renal insufficiency Acute on chronic systolic congestive heart failure Plan: Acute respiratory failure, pulmonary edema Intubated, ventilator dependent - Defer to telemetry ICU for possible extubation plan. Continue with Lasix drip and monitor tolerance and response Atrial fibrillation, persistent Rate is controlled on Cardizem drip. Continue to monitor Congestive heart failure, acute left ventricular systolic dysfunction, unknown etiology Probably alcoholic heart disease, cannot exclude coronary artery disease Tolerating inotropes. However will gradually taper off Large ascites and moderate-sized pleural effusion Recommend paracentesis. CHADVASC score 2, started on Lovenox Morbid obesity, BMI 39 Heavy alcoholism, drinking vodka daily. He has stopped drinking for the past month. Advised to avoid alcohol Acute on chronic renal failure, monitor renal function. Thank you for your consultation. Please call me if you have any questions. [place] Etienne MD, FACP, FACC, FSCAI, FHRS, CCDS Interventional Cardiology Cardiac Electrophysiology Vascular Medicine and Endovascular Interventions Focused Exam Lactate Level Ryan ETIENNE MD March 06, 2023 13:03
--- NOTE | 2023-03-06 13:28 | Progress Note - Hospitalist ---
[facility] 03/06/23 1328: Subjective HPI/CC On Admission Date Seen by Provider: March 06, 2023 Time Seen by Provider: 08:30 This is a 52 y/o M with PMH untreated HTN and alcohol use disorder who presented to the ED on 03/02 with LLQ abdominal pain and increasing abdominal distension over the past month. He had nausea, vomiting and diarrhea for 3 days 1 month ago and swelling in abdomen has been increasing since. Pt quit drinking 1 month ago when abdominal pain started, previously heavy vodka and beer daily for past 20 years. Reports SOB at baseline that improves with sitting in leaned forward position worsening as distension increases. Smokes 1 ppd. Admitted with AFib with RVR and pneumonia. Started on antibiotics, fluids withheld due to hypervolemic status. Requiring minimal oxygen initially, rapidly worsening requiring BiPAP and intubated shortly after. Echo with EF <10%. Case discussed with Dr. Gonzalez, recommended transferring to [facility] for advanced heart failure service. Declined transfer due to not being a candidate for advanced therapies with alcohol and tobacco use. Started on Dobutamine for cardiogenic shock. Low urine output, started on Lasix gtt. Rapidly progressing multi-organ failure. Poor prognosis and goals of care discussed with mother at bedside, she would like to continue full code status at this time. Subjective/Events-last exam Remains intubated and sedated, mother at bedside. Review of Systems unable to obtain 2/2 clinical status Focused Exam Lactate Level 03/03/23 13:35: Lactic Acid Level 0.66 Objective Exam Vital Signs Vital Signs Date Time Temp Pulse Resp B/P (MAP) Pulse Ox O2 Delivery O2 Flow Rate FiO2 03/06/23 13:00 80 18 96 Mechanical Ventilator 30.00 03/06/23 12:03 30 03/06/23 04:00 36.3 Capillary Refill : General Appearance: WD/WN, Other (intubated/sedated) HEENT: Moist Mucous Membranes, Other (intubated) Respiratory: Other (coarse breath sounds, mechanical ventilation) Cardiovascular: Irregularly Irregular Gastrointestinal: Distended (similar to yesterday) Genital/Rectal: Other (scrotal swelling) Extremity: Swelling (2+ b/l LE) Neurologic/Psychiatric: Other (sedated) Skin: Normal Color, Warm/Dry Results/Procedures Lab Laboratory Tests 03/05/23 21:30 03/06/23 04:15 Patient resulted labs reviewed. Imaging: Reviewed Imaging Films, Reviewed Imaging Report Assessment/Plan Assessment and Plan Assess & Plan/Chief Complaint Acute respiratory failure with hypoxia LLL pneumonia-infiltrate seen on CT Continue antibiotics Intubated and sedated - continue weaning FiO2 and PEEP as tolerated Trial weaning sedation Afib with RVR Acute HFrER Cardiogenic shock CT with cardiomegaly, bilateral pleural effusions RVR resolved on Cardizem drip Echo with EF <10% Dobutamine drip, off Levophed Cardiology following and recommended transfer to for LVAD evaluation- [facility] declined transfer Ascites Alcohol use disorder Hep C Ab positive CT with findings of questionable nodular contour to the liver, [id number] abdominal and pelvic ascites, fluid-filled small bowel loops in the left abdomen possibility of SBO, cholelithiasis with fluid surrounding the gallbladder Likely alcoholic liver disease, cirrhosis given CT findings Surgery consulted- not proceeding with paracentesis at this time Pending Hep C PCR results Acute renal insufficiency Switch to Lasix 40mg q8h BUN and Cr improving with diuresis Continue to monitor urine output Scrotal swelling Discussed with mother likely due to volume overload Continue diuresis Rapidly progressing multi-organ failure Prognosis and goals of care have been discussed with mother, she would like to continue full code status Nutrition Tube feeds DVT Prophylaxis: lovenox Critical Care: Ventilator Management JOSE NEWBERRY MD 03/06/23 1449: Subjective HPI/CC On Admission Time Seen by Provider: 09:50 Assessment/Plan Assessment and Plan Assess & Plan/Chief Complaint Continue diuresis, transition off drip to IV push Lasix. Continue dobutamine for cardiogenic shock. Ventilator requirements continue to decrease, wean PEEP today, consider sedation vacation. Continue tube feeds. Critical Care: Critically Ill Patient Diagnosis/Problems Diagnosis/Problems (1) Cardiogenic shock Status: Acute (2) Acute respiratory failure with hypoxia and hypercapnia Status: Acute (3) Acute HFrEF (heart failure with reduced ejection fraction) Status: Acute (4) Endotracheally intubated Status: Acute (5) PNA (pneumonia) Status: Acute (6) Atrial fibrillation with RVR Status: Acute (7) Ascites due to alcoholic cirrhosis Status: Acute (8) MALIK (acute kidney injury) Status: Acute (9) Obesity Status: Chronic Supervisory-Addendum Brief Verification & Attestation Participated in pt care: history, MDM, physical Personally performed: exam, history, MDM, supervision of care Care discussed with: Medical Student Procedures: n/a A medical student performed and documented this service in my presence. I reviewed and verified all information documented by the medical student and made modifications to such information, when appropriate. I personally performed the physical exam and medical decision making. CITLALY WICK March 06, 2023 13:28 JOSE NEWBERRY MD March 06, 2023 14:49
[2023-03-06 14:49] VITALS: BP 118/70
[2023-03-06] MEDS: cefTRIAXone IV/IM 1,000 MG in NS (IVPB) 50 ML IV SCH (15:40)
[2023-03-06 18:16] VITALS: BP 147/108
[2023-03-06] MEDS ORDERED: KCL 20 MEQ TAB (K-DUR) PO SCH (21:00)
[2023-03-06] MEDS: POTASSIUM BICARB 20 MEQ (EFFER-K) TABLET PO SCH (21:58)
[2023-03-06 22:18] VITALS: BP 172/112
[2023-03-07] MEDS: DexMEDEtomidine 250 ML DRIP 250 ML IV SCH ×4 (00:31→15:41)
[2023-03-07] MEDS: PROPOFOL DRIP (ICU) 100 ML IV SCH ×10 (01:06→22:40)
[2023-03-07] MEDS: NOREPINEPHRINE 8 MG/250 ML 250 ML IV SCH ×3 (01:54→20:49)
[2023-03-07] MEDS: DOBUTamine DRIP 250 ML IV SCH ×7 (01:54→23:08)
[2023-03-07 02:27] VITALS: BP 156/117
[2023-03-07] MEDS: dilTIAZem DRIP PRE-MIX 125 ML IV SCH ×2 (03:27→16:46)
[2023-03-07 04:54] LABS: BASOPHILS % (AUTO) 1 % (0-10); EOSINOPHILS # (AUTO) 0.1 10^3/uL (0.0-0.3); EOSINOPHILS % (AUTO) 2 % (0-10); HEMATOCRIT 37 % (40-54); HEMOGLOBIN 12.2 g/dL (13.3-17.7); LYMPHOCYTES # (AUTO) 1.2 10^3/uL (1.0-4.0); LYMPHOCYTES % (AUTO) 17 % (12-44); MEAN CORPUSCULAR HEMOGLOBIN 31 pg (25-34); MEAN CORPUSCULAR HGB CONC 33 g/dL (32-36); MEAN CORPUSCULAR VOLUME 95 fL (80-99); MEAN PLATELET VOLUME 8.8 fL (9.0-12.2); MONOCYTES # (AUTO) 0.5 10^3/uL (0.0-1.0); MONOCYTES % (AUTO) 7 % (0-12); NEUTROPHILS # (AUTO) 5.3 10^3/uL (1.8-7.8); NEUTROPHILS % (AUTO) 74 % (42-75); PLATELET COUNT 235 10^3/uL (130-400); WHITE BLOOD COUNT 7.1 10^3/uL (4.3-11.0)
[2023-03-07 05:04] LABS: ALBUMIN 2.6 GM/DL (3.2-4.5); POTASSIUM 3.9 MMOL/L (3.6-5.0)
[2023-03-07 05:07] LABS: TOTAL PROTEIN 6.4 GM/DL (6.4-8.2)
[2023-03-07 05:08] LABS: BILIRUBIN,TOTAL 0.5 MG/DL (0.1-1.0)
[2023-03-07 05:10] LABS: CREATININE SERUM 1.29 MG/DL (0.60-1.30); PHOSPHORUS 3.1 MG/DL (2.3-4.7)
[2023-03-07 05:13] LABS: MAGNESIUM 1.9 MG/DL (1.6-2.4)
[2023-03-07] MEDS ORDERED: MAGNESIUM 1 GM/100 ML IVPB 200 ML IV ONE (05:27)
[2023-03-07] MEDS ORDERED: POTASSIUM CL 10MEQ/50ML IVPB 100 ML IV ONE (05:27)
[2023-03-07] MEDS: ENOXAPARIN 150 MG/ML (LOVENOX) SYR SQ SCH ×2 (05:32→17:45)
[2023-03-07] MEDS: POTASSIUM CL 10MEQ/50ML IVPB 50 ML IV SCH ×3 (05:32→05:55)
[2023-03-07] MEDS: MAGNESIUM 1 GM/100 ML IVPB 100 ML IV SCH ×3 (05:32→06:35)
[2023-03-07] MEDS: KCL 20 MEQ TAB (K-DUR) PO SCH (05:45)
[2023-03-07 06:40] VITALS: BP 148/76
[2023-03-07] MEDS: PANTOPRAZOLE 40 MG (PROTONIX) VIAL IV SCH (08:16)
[2023-03-07] MEDS: POTASSIUM BICARB 20 MEQ (EFFER-K) TABLET PO SCH ×2 (08:16→20:30)
[2023-03-07] MEDS: THIAMINE 100 MG/ML 2 ML (VITAMIN B-1) VIAL IV SCH (08:16)
[2023-03-07] MEDS: meTOprolol TARTRATE 25 MG (LOPRESSOR) TABLET PO SCH ×2 (08:16→20:31)
[2023-03-07] MEDS: DOCUSATE SODIUM 10 MG/ML 10 ML UDC (COLACE) PO SCH ×2 (08:16→20:31)
[2023-03-07] MEDS: FUROSEMIDE 40 MG/4 ML INJ (LASIX) IVP SCH ×2 (08:47→17:43)
--- NOTE | 2023-03-07 09:47 | Tele-ICU Progress Note ---
Subjective Date Seen by a Provider: March 07, 2023 Time Seen by a Provider: 09:47 Subjective/Events-last exam (Tele-ICU Physician , Progress Note ) Service provided via interactive audio and video telecommunNomanini E-CARE system to a patient admitted to ICU bed in [facility]. Patient is seen today due to persistent need of ICU care Available chart/ vitals / labs / Images reviewed Video assessment done using teleICU camera, rest of exam as per RN Discussed with RN Events overnight : Afebrile hemodynamically stable Respiratory - 30 % I/O = nwg 1.5 L Drips: lasix drip OFF , cardizem 15 Pressors- dobutamine 7.5 mcg LEVO OFF VENT SETTINGS and ABG reviewed NOT CANDIDATE for SBTreviewed possible contraindications including Cardiovascular Stability /Sedation Score / FI02/PEEP / ABG / CXR/ secretions Sedation, discussed with RN, RASS on propofol 45 . precedex 1.2 Hospital course: (03/02) 52M Admitted with PNA, Afib RVR, Abdominal distension, and Ascites. (03/03) INTUBATED after becoming unresponsive 03/04- 100% , PEEP 10 , lasix drip 6mg/hr, levo 0.06 mcg, propofol 30 mcg, precedex 1.0 mcg dobutamine 2.5 mcg 03/05 - AC 18 TV 550, 50 % PEEP 15 , propofol 50 . precedex 1.2 lasix drip , levo OFF , dobutamine 7.5 mcg, cardizem gtt 10 03/06-AC 16 TV 550 30 % PEEP 8 propofol 45 . precedex 1.0 lasix drip 0.5 , dobutamine 7.5 mcg, cardizem gtt 10 03/07 - 03/06-AC 16 TV 550 30 % PEEP 8 propofol 45 . precedex 1.2 RASS -2 , lasix drip OFF , dobutamine 7.5 mcg, cardizem gtt 15 A/P 1. acute hypoxic and hypoxic respiratory failure due to combination of acute and chronic systolic CHF and BRIANDA. - AC 18 TV 550 30 % PEEP 8, - improved - lasix drip off , KEEP negative volume status , add albumin prior to lasix given anasrca Severe alcoholic cardiomyopathy with LV EF ,10%. - lasix drip , dobutamine 2.5 mcg Shock - cardiogenioc and or septic shock. - levo OFF, dobutamine 7.5 mcg- titration as per cards Afib with RVR -lovenox full dose -cardizem gtt 10 m metoprolol 25 bid po ID - possible pneumonia -Cholelithiasis. There is fluid surrounding the gallbladder, low concern for cholecystitis - Sx follow -?SBP - ? 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 Discussed with RN to reach out if any questions or concerns Case and care daily discussed on multidisciplinary rounds ( RN, PharmD, Bookkeeping Service Sales Agent , Respiratory Therapy, nursery worker ) A total of 37 minutes of critical care time was devoted to this patient today, required to treat and/or prevent further deterioration of critical care condition ( as above ) . I am remotely monitoring this patient from another state. I am unable to do the bedside exam, and history/physical and pertinent information is taken from other notes in the computer and bedside staff. Sepsis Event Evaluation Height, Weight, BMI Height: 6'5.00" Weight: 235lbs. 0oz. 106.604658ip; 40.26 BMI Method:Stated Exam Exam Patient acknowledged, consented, and participated in this virtual visit which was conducted using real time audio/video Vital Signs Date Time Temp Pulse Resp B/P (MAP) Pulse Ox O2 Delivery O2 Flow Rate FiO2 03/07/23 09:26 110 148/76 03/07/23 09:00 120 17 95 Mechanical Ventilator 30.00 03/07/23 08:23 105 148/76 03/07/23 08:00 105 18 95 Mechanical Ventilator 30.00 03/07/23 07:53 36.9 03/07/23 07:43 91 148/76 03/07/23 07:00 84 21 94 Mechanical Ventilator 30.00 03/07/23 07:00 91 03/07/23 06:40 100 17 95 30 03/07/23 06:00 102 16 94 Mechanical Ventilator 30.00 03/07/23 05:42 108 119/69 03/07/23 05:00 81 14 94 Mechanical Ventilator 30.00 03/07/23 04:00 90 14 160/122 (135) 95 Mechanical Ventilator 30.00 03/07/23 04:00 95 Mechanical Ventilator 30 03/07/23 04:00 30 03/07/23 03:27 80 128/76 03/07/23 03:00 74 14 95 Mechanical Ventilator 30.00 03/07/23 02:27 79 18 95 30 03/07/23 02:00 68 18 94 Mechanical Ventilator 30.00 03/07/23 01:54 74 90/65 03/07/23 01:00 80 03/07/23 01:00 80 18 95 Mechanical Ventilator 30.00 03/07/23 00:17 30 03/07/23 00:17 96 Mechanical Ventilator 30 03/07/23 00:00 80 18 156/117 (130) 95 Mechanical Ventilator 30.00 03/07/23 00:00 36.5 03/06/23 23:00 72 17 95 Mechanical Ventilator 30.00 03/06/23 22:18 61 20 94 30 03/06/23 22:09 66 86/61 03/06/23 22:00 68 16 93 Mechanical Ventilator 30.00 03/06/23 21:00 68 17 92 Mechanical Ventilator 30.00 03/06/23 20:00 93 Mechanical Ventilator 30 03/06/23 20:00 30 03/06/23 20:00 36.3 03/06/23 20:00 100 15 172/112 (132) 96 Mechanical Ventilator 30.00 03/06/23 19:00 85 15 95 Mechanical Ventilator 30.00 03/06/23 19:00 75 03/06/23 18:16 74 20 94 30 03/06/23 18:07 94 147/79 03/06/23 18:00 89 12 95 Mechanical Ventilator 30.00 03/06/23 17:00 75 16 93 Mechanical Ventilator 30.00 03/06/23 16:03 30 03/06/23 16:00 93 Mechanical Ventilator 30 03/06/23 16:00 82 18 147/108 (121) 95 Mechanical Ventilator 30.00 03/06/23 15:40 85 124/74 03/06/23 15:00 101 18 95 Mechanical Ventilator 30.00 03/06/23 14:49 84 20 95 30 03/06/23 14:38 85 123/76 03/06/23 14:00 66 18 95 Mechanical Ventilator 30.00 03/06/23 13:00 80 18 96 Mechanical Ventilator 30.00 03/06/23 13:00 96 03/06/23 12:03 30 03/06/23 12:00 96 Mechanical Ventilator 30 03/06/23 12:00 80 18 137/101 (113) 95 Mechanical Ventilator 30.00 03/06/23 11:00 72 18 96 Mechanical Ventilator 30.00 03/06/23 10:56 63 18 96 30 03/06/23 10:46 70 92/68 03/06/23 10:00 79 18 95 Mechanical Ventilator 30.00 I & O 03/07/23 07:00 Intake Total 3725 ml Output Total 5750 ml Balance -2025 ml Height & Weight Height: 6'5.00" Weight: 235lbs. 0oz. 106.866460be; 40.26 BMI Method:Stated General Appearance: WD/WN, Other (intubated/sedated) HEENT: Normal ENT Inspection Neck: Normal Inspection, Supple Respiratory: Other (mechanical ventilation, equal chest rise) Cardiovascular: No JVD, Irregularly Irregular Peripheral Pulses: 2+ Dorsalis Pedis (R), 2+ Left Dors-Pedis (L), 2+ Radial Pulses (R), 2+ Radial Pulses (L) Gastrointestinal: non tender, distended (same as yesterday), other (abdominal pitting edema, rash right abdomen) Extremity: Swelling (1+ pitting edema b/l LE) Neurologic/Psychiatric: No Alert, No Oriented x3; Other (sedated/intubated) Skin: Normal Color, Warm/Dry, Rash, Other (Moderate scrotal swelling) Lymphatic: No Adenopathy Results Lab Laboratory Tests 03/05/23 21:30 03/06/23 04:15 03/07/23 04:45 Assessment/Plan Assessment/Plan 1 FAHAD ARITA MD March 07, 2023 09:47
[2023-03-07 11:01] VITALS: BP 132/76
--- NOTE | 2023-03-07 14:25 | Cardiology Progress Note ---
Cardiology SOAP Progress Note Subjective: Intubated/ventilated. Objective: I&O/Vital Signs 03/07/23 03/07/23 03/07/23 03/07/23 02:27 03:00 03:27 04:00 Pulse 79 74 80 Resp 18 14 B/P (MAP) 128/76 Pulse Ox 95 95 O2 Delivery Mechanical Ventilator O2 Flow Rate 30.00 FiO2 30 30 03/07/23 03/07/23 03/07/23 03/07/23 04:00 04:00 05:00 05:42 Pulse 90 81 108 Resp 14 14 B/P (MAP) 160/122 (135) 119/69 Pulse Ox 95 95 94 O2 Delivery Mechanical Ventilator Mechanical Ventilator Mechanical Ventilator O2 Flow Rate 30.00 30.00 FiO2 30 03/07/23 03/07/23 03/07/23 03/07/23 06:00 06:40 07:00 07:00 Pulse 102 100 91 84 Resp 16 17 21 B/P (MAP) Pulse Ox 94 95 94 O2 Delivery Mechanical Ventilator Mechanical Ventilator O2 Flow Rate 30.00 30.00 FiO2 30 03/07/23 03/07/23 03/07/23 03/07/23 07:43 07:53 08:00 08:00 Temp 36.9 Pulse 91 105 Resp 18 B/P (MAP) 148/76 Pulse Ox 95 94 O2 Delivery Mechanical Ventilator Mechanical Ventilator O2 Flow Rate 30.00 FiO2 30 03/07/23 03/07/23 03/07/23 03/07/23 08:03 08:23 09:00 09:26 Pulse 105 120 110 Resp 17 B/P (MAP) 148/76 148/76 Pulse Ox 95 O2 Delivery Mechanical Ventilator O2 Flow Rate 30.00 FiO2 30 03/07/23 03/07/23 03/07/23 03/07/23 09:55 10:00 10:11 10:37 Pulse 72 72 72 72 Resp 18 B/P (MAP) 148/76 148/76 148/76 Pulse Ox 93 O2 Delivery Mechanical Ventilator O2 Flow Rate 30.00 03/07/23 03/07/23 03/07/23 03/07/23 11:00 11:01 11:13 11:29 Temp 36.6 Pulse 95 86 86 Resp 16 17 B/P (MAP) 132/76 Pulse Ox 96 95 O2 Delivery Mechanical Ventilator O2 Flow Rate 30.00 FiO2 30 03/07/23 03/07/23 03/07/23 03/07/23 12:00 12:00 12:22 12:25 Pulse 74 74 Resp 16 B/P (MAP) 154/128 (134) 154/128 Pulse Ox 95 94 O2 Delivery Mechanical Ventilator Mechanical Ventilator O2 Flow Rate 30.00 FiO2 30 30 03/07/23 03/07/23 03/07/23 03/07/23 12:41 13:00 13:56 14:00 Pulse 65 96 96 112 Resp 17 16 B/P (MAP) 154/128 Pulse Ox 95 96 O2 Delivery Mechanical Ventilator Mechanical Ventilator O2 Flow Rate 30.00 30.00 03/07/23 00:00 Intake Total 2120 ml Output Total 4050 ml Balance -1930 ml Weight (Pounds): 235 Weight (Ounces): 0 Weight (Calculated Kilograms): 106.904766 Constitutional: other (Intubated/ventilated) Respiratory: lungs clear to auscultation Cardiovascular: irregularly irregular, S1 and S2 Gastrointestional: soft Extremities: pedal edema Neurologic/Psychiatric: other (Intubated/ventilated) Skin: normal color Results/Procedures: Labs Laboratory Tests 03/06/23 19:07: Glucometer 97 03/07/23 00:27: Glucometer 100 03/07/23 04:45: White Blood Count 7.1, Red Blood Count 3.93L, Hemoglobin 12.2L, Hematocrit 37L, Mean Corpuscular Volume 95, Mean Corpuscular Hemoglobin 31, Mean Corpuscular Hemoglobin Concent 33, Red Cell Distribution Width 15.7H, Platelet Count 235, Mean Platelet Volume 8.8L, Immature Granulocyte % (Auto) 0, Neutrophils (%) (Auto) 74, Lymphocytes (%) (Auto) 17, Monocytes (%) (Auto) 7, Eosinophils (%) (Auto) 2, Basophils (%) (Auto) 1, Neutrophils # (Auto) 5.3, Lymphocytes # (Auto) 1.2, Monocytes # (Auto) 0.5, Eosinophils # (Auto) 0.1, Basophils # (Auto) 0.0, Immature Granulocyte # (Auto) 0.0, Sodium Level 141, Potassium Level 3.9, Chloride Level 108H, Carbon Dioxide Level 22, Anion Gap 11, Blood Urea Nitrogen 14, Creatinine 1.29, Estimat Glomerular Filtration Rate 67, BUN/Creatinine Ratio 11, Glucose Level 99, Calcium Level 8.0L, Corrected Calcium 9.1, Phosphorus Level 3.1, Magnesium Level 1.9, Total Bilirubin 0.5, Aspartate Amino Transf (AST/SGOT) 50H, Alanine Aminotransferase (ALT/SGPT) 30, Alkaline Phosphatase 51, Total Protein 6.4, Albumin 2.6L 03/07/23 11:03: Triglycerides Level 94 03/07/23 11:25: Glucometer 112H Microbiology 03/03/23 Urine Culture - Final, Complete NO GROWTH 03/03/23 Gram Stain - Final, Complete 03/03/23 Sputum Culture - Final, Complete No growth 03/02/23 Blood Culture - Preliminary, Resulted No growth A/P: Assessment/Dx: Persistent Atrial fibrillation Ascites Acute respiratory insufficiency Acute renal insufficiency Acute on chronic systolic congestive heart failure Plan: Acute respiratory failure, pulmonary edema Intubated, ventilator dependent - Defer to telemetry ICU for possible extubation plan. Continue with Lasix drip and monitor tolerance and response Atrial fibrillation, persistent Rate is controlled on Cardizem drip. Continue to monitor Congestive heart failure, acute left ventricular systolic dysfunction, unknown etiology Probably alcoholic heart disease, cannot exclude coronary artery disease. Likely coronary angiography when more stable. Tolerating inotropes. However will gradually taper off Large ascites and moderate-sized pleural effusion Recommend paracentesis. CHADVASC score 2, started on Lovenox Morbid obesity, BMI 39 Heavy alcoholism, drinking vodka daily. He has stopped drinking for the past month. Advised to avoid alcohol Acute on chronic renal failure, monitor renal function. Thank you for your consultation. Please call me if you have any questions. [place] Etienne MD, FACP, FACC, FSCAI, FHRS, CCDS Interventional Cardiology Cardiac Electrophysiology Vascular Medicine and Endovascular Interventions Ryan ETIENNE MD March 07, 2023 14:25
[2023-03-07 14:45] VITALS: BP 134/87
[2023-03-07] MEDS: ALBUMIN 25% 25 GM/100 ML 50 ML IV SCH (16:36)
[2023-03-07 18:45] VITALS: BP 172/140
--- NOTE | 2023-03-07 20:50 | Progress Note - Hospitalist ---
Subjective HPI/CC On Admission Date Seen by Provider: March 07, 2023 Time Seen by Provider: 09:30 This is a 52 y/o M with PMH untreated HTN and alcohol use disorder who presented to the ED on 03/02 with LLQ abdominal pain and increasing abdominal distension over the past month. He had nausea, vomiting and diarrhea for 3 days 1 month ago and swelling in abdomen has been increasing since. Pt quit drinking 1 month ago when abdominal pain started, previously heavy vodka and beer daily for past 20 years. Reports SOB at baseline that improves with sitting in leaned forward position worsening as distension increases. Smokes 1 ppd. Admitted with AFib with RVR and pneumonia. Started on antibiotics, fluids withheld due to hy pervolemic status. Requiring minimal oxygen initially, rapidly worsening requiring BiPAP and intubated shortly after. Echo with EF <10%. Case discussed with Dr. Gonzalez, recommended transferring to [facility] for advanced heart failure service. Declined transfer due to not being a candidate for advanced therapies with alcohol and tobacco use. Started on Dobutamine for cardiogenic shock. Low urine output, started on Lasix gtt. Rapidly progressing multi-organ failure. Poor prognosis and goals of care discussed with mother at bedside, she would like to continue full code status at this time. Subjective/Events-last exam He remains intubated and sedated. His mother is at the bedside and was updated. Objective Exam Vital Signs Vital Signs Date Time Temp Pulse Resp B/P (MAP) Pulse Ox O2 Delivery O2 Flow Rate FiO2 03/07/23 20:00 84 18 96 Mechanical Ventilator 30.00 03/07/23 19:58 36.3 03/07/23 18:45 30 Capillary Refill : General Appearance: No Apparent Distress, Obese Respiratory: Lungs Clear, No Respiratory Distress, Other (intubated and mechanically ventilated) Cardiovascular: Regular Rate, Rhythm, No Murmur Gastrointestinal: Normal Bowel Sounds, Soft Extremity: No Inflammation; Swelling Neurologic/Psychiatric: Other (sedated) Skin: Normal Color, Warm/Dry Results/Procedures Lab Laboratory Tests 03/07/23 04:45 Patient resulted labs reviewed. Imaging: Reviewed Imaging Films, Reviewed Imaging Report Assessment/Plan Assessment and Plan Assess & Plan/Chief Complaint Cardogenic shock Acute HFrEF Acute respiratory failure with hypoxia Endotracheally intubated Pneumonia Afib with RVR MALIK Cardiology following TeleICU following Continue diuresis Ventilator requirements improving, decrease PEEP this morning BP increased, decrease Dobutamine Antibiotics Lovenox for stroke prophylaxis Tube feeds Ascites Cirrhosis Alcohol abuse Hepatitis C Surgery following, not enough ascitic fluid for paracentesis Hep C RNA elevated Outpatient referral to Hepatology for Hep C treatment Critical Care Critically Ill Patient Diagnosis/Problems Diagnosis/Problems (1) Cardiogenic shock Status: Acute (2) Acute respiratory failure with hypoxia and hypercapnia Status: Acute (3) Acute HFrEF (heart failure with reduced ejection fraction) Status: Acute (4) Endotracheally intubated Status: Acute (5) PNA (pneumonia) Status: Acute (6) Atrial fibrillation with RVR Status: Acute (7) Ascites due to alcoholic cirrhosis Status: Acute (8) Hepatitis C Status: Acute Qualifiers: Viral hepatitis chronicity: acute Hepatic coma status: without hepatic coma Qualified Codes: B17.10 - Acute hepatitis C without hepatic coma (9) MALIK (acute kidney injury) Status: Acute (10) Obesity Status: Chronic JOSE NEWBERRY MD March 07, 2023 20:50
[2023-03-07] MEDS ORDERED: ALBUMIN 25% 25 GM/100 ML 50 ML IV SCH (21:00)
[2023-03-07 23:22] VITALS: BP 173/106
[2023-03-08] MEDS: DexMEDEtomidine 250 ML DRIP 250 ML IV SCH ×5 (00:08→18:35)
[2023-03-08] MEDS: PROPOFOL DRIP (ICU) 100 ML IV SCH ×9 (00:32→22:46)
[2023-03-08 02:00] VITALS: BP 138/89
[2023-03-08 04:52] LABS: BASOPHILS % (AUTO) 1 % (0-10); EOSINOPHILS # (AUTO) 0.1 10^3/uL (0.0-0.3); EOSINOPHILS % (AUTO) 2 % (0-10); HEMATOCRIT 38 % (40-54); HEMOGLOBIN 12.3 g/dL (13.3-17.7); LYMPHOCYTES # (AUTO) 1.1 10^3/uL (1.0-4.0); LYMPHOCYTES % (AUTO) 17 % (12-44); MEAN CORPUSCULAR HEMOGLOBIN 31 pg (25-34); MEAN CORPUSCULAR HGB CONC 33 g/dL (32-36); MEAN CORPUSCULAR VOLUME 95 fL (80-99); MONOCYTES # (AUTO) 0.5 10^3/uL (0.0-1.0); MONOCYTES % (AUTO) 8 % (0-12); NEUTROPHILS # (AUTO) 4.5 10^3/uL (1.8-7.8); NEUTROPHILS % (AUTO) 72 % (42-75); PLATELET COUNT 215 10^3/uL (130-400); WHITE BLOOD COUNT 6.2 10^3/uL (4.3-11.0)
[2023-03-08] MEDS: NOREPINEPHRINE 8 MG/250 ML 250 ML IV SCH ×3 (04:53→22:46)
[2023-03-08 05:18] LABS: CALCIUM 8.2 MG/DL (8.5-10.1); CREATININE SERUM 1.14 MG/DL (0.60-1.30); MAGNESIUM 1.9 MG/DL (1.6-2.4); POTASSIUM 3.7 MMOL/L (3.6-5.0)
[2023-03-08] MEDS: KCL 20 MEQ TAB (K-DUR) PO SCH (05:40)
[2023-03-08] MEDS: POTASSIUM CL 10MEQ/50ML IVPB 50 ML IV SCH ×3 (05:40→07:39)
[2023-03-08] MEDS: MAGNESIUM 1 GM/100 ML IVPB 100 ML IV SCH ×3 (05:40→07:40)
[2023-03-08] MEDS ORDERED: MAGNESIUM 1 GM/100 ML IVPB 200 ML IV ONE (05:47)
[2023-03-08] MEDS ORDERED: POTASSIUM CL 10MEQ/50ML IVPB 100 ML IV ONE (05:47)
[2023-03-08] MEDS: ALBUMIN 25% 25 GM/100 ML 50 ML IV SCH ×2 (05:50→16:07)
[2023-03-08] MEDS: ENOXAPARIN 150 MG/ML (LOVENOX) SYR SQ SCH ×2 (05:50→17:49)
[2023-03-08] MEDS: dilTIAZem DRIP PRE-MIX 125 ML IV SCH ×2 (06:40→18:36)
[2023-03-08 06:45] VITALS: BP 130/86
[2023-03-08] MEDS: FUROSEMIDE 40 MG/4 ML INJ (LASIX) IVP SCH ×2 (06:52→16:40)
--- NOTE | 2023-03-08 07:47 | Tele-ICU Progress Note ---
Subjective Date Seen by a Provider: March 08, 2023 Time Seen by a Provider: 07:40 Subjective/Events-last exam (Tele-ICU Physician , Progress Note ) Service provided via interactive audio and video telecommunications E-CARE system to a patient admitted to ICU bed in [facility]. Patient is seen today due to persistent need of ICU care Available chart/ vitals / labs / Images reviewed Video assessment done using teleICU camera, rest of exam as per RN Discussed with RN 52 yo M admitted with hypoxic resp failure due to CHF, has severe EtOH CMP on vent, AC 18, Vt 550, FiO2 30%, PEEP 8 Last CXR 03/03 shows enalarged heart and severe congestion, will repeat LVEF is 10%, on IV dobutamine @ 3.0, IV Lasix IVP 40 bid, is making urine, good UO, was on IV levophed, now off, sedation is IV Propofol @ 35 and Precedex @ 1.0, will wake up if stimulated, has weak cough There is also concern for GB infection,m has fluid around GB, On IV azithromycin and Rocephin, concern also for SBP-no tap Has right IJ, placed 03/03 WBC 6.2, Hb stable at 12.3 Other problmes include Hx of Hep C EtOH abuse, quit one month ago Sepsis Event Evaluation Height, Weight, BMI Height: 6'5.00" Weight: 235lbs. 0oz. 106.741166sj; 40.05 BMI Method:Stated Exam Exam Patient acknowledged, consented, and participated in this virtual visit which was conducted using real time audio/video Vital Signs Date Time Temp Pulse Resp B/P (MAP) Pulse Ox O2 Delivery O2 Flow Rate FiO2 03/08/23 07:36 36.4 03/08/23 07:00 89 03/08/23 06:45 76 16 93 30 03/08/23 06:40 66 128/81 03/08/23 06:00 73 16 96 Mechanical Ventilator 30.00 03/08/23 05:00 82 16 96 Mechanical Ventilator 30.00 03/08/23 04:00 72 16 97 Mechanical Ventilator 30.00 03/08/23 03:45 30 03/08/23 03:44 97 Mechanical Ventilator 30 03/08/23 03:10 36.8 03/08/23 03:00 75 16 96 Mechanical Ventilator 30.00 03/08/23 02:00 96 16 97 30 03/08/23 02:00 77 16 97 Mechanical Ventilator 30.00 03/08/23 01:00 67 16 96 Mechanical Ventilator 30.00 03/08/23 00:28 30 03/08/23 00:26 97 Mechanical Ventilator 30 03/08/23 00:00 73 16 148/127 (134) 97 Mechanical Ventilator 30.00 03/08/23 00:00 73 03/07/23 23:22 83 16 97 30 03/07/23 23:18 36.7 03/07/23 23:08 73 118/82 03/07/23 23:00 79 16 97 Mechanical Ventilator 30.00 03/07/23 22:00 64 16 95 Mechanical Ventilator 30.00 03/07/23 21:00 78 16 96 Mechanical Ventilator 30.00 03/07/23 20:00 30 03/07/23 20:00 96 Mechanical Ventilator 30 03/07/23 20:00 84 18 96 Mechanical Ventilator 30.00 03/07/23 19:58 36.3 03/07/23 19:08 78 03/07/23 19:00 80 16 96 Mechanical Ventilator 30.00 03/07/23 18:45 83 16 97 30 03/07/23 18:15 79 172/82 03/07/23 18:05 79 172/140 03/07/23 18:00 73 18 95 Mechanical Ventilator 30.00 03/07/23 17:00 79 16 95 Mechanical Ventilator 30.00 03/07/23 16:46 87 172/140 03/07/23 16:00 30 03/07/23 16:00 94 Mechanical Ventilator 30 03/07/23 16:00 36.8 03/07/23 16:00 87 17 172/140 (152) 95 Mechanical Ventilator 30.00 03/07/23 15:59 84 134/87 03/07/23 15:58 96 140/84 03/07/23 15:41 84 134/87 03/07/23 15:13 84 134/87 03/07/23 15:00 84 16 93 Mechanical Ventilator 30.00 03/07/23 14:45 78 16 95 30 03/07/23 14:45 84 134/87 03/07/23 14:37 84 134/87 03/07/23 14:36 112 154/128 03/07/23 14:00 112 16 96 Mechanical Ventilator 30.00 03/07/23 13:56 96 154/128 03/07/23 13:00 96 17 95 Mechanical Ventilator 30.00 03/07/23 12:41 65 03/07/23 12:25 74 154/128 03/07/23 12:22 30 03/07/23 12:00 94 Mechanical Ventilator 30 03/07/23 12:00 74 16 154/128 (134) 95 Mechanical Ventilator 30.00 03/07/23 11:29 36.6 03/07/23 11:13 86 132/76 03/07/23 11:01 86 17 95 30 03/07/23 11:00 95 16 96 Mechanical Ventilator 30.00 03/07/23 10:37 72 148/76 03/07/23 10:11 72 148/76 03/07/23 10:00 72 18 93 Mechanical Ventilator 30.00 03/07/23 09:55 72 148/76 03/07/23 09:26 110 148/76 03/07/23 09:00 120 17 95 Mechanical Ventilator 30.00 03/07/23 08:23 105 148/76 03/07/23 08:03 30 03/07/23 08:00 94 Mechanical Ventilator 30 03/07/23 08:00 105 18 95 Mechanical Ventilator 30.00 03/07/23 07:53 36.9 03/07/23 07:43 91 148/76 I & O 03/08/23 07:00 Intake Total 3095 ml Output Total 5850 ml Balance -2755 ml Height & Weight Height: 6'5.00" Weight: 235lbs. 0oz. 106.345461nk; 40.05 BMI Method:Stated General Appearance: No Apparent Distress, Obese HEENT: Normal ENT Inspection Neck: Normal Inspection, Supple Respiratory: Lungs Clear, No Respiratory Distress, Rhonci, Other (intubated and mechanically ventilated, more rhonchi today) Cardiovascular: No Murmur, Irregularly Irregular Peripheral Pulses: 2+ Dorsalis Pedis (R), 2+ Left Dors-Pedis (L), 2+ Radial Pulses (R), 2+ Radial Pulses (L) Gastrointestinal: non tender, distended (same as yesterday), other (abdominal pitting edema, rash right abdomen) Extremity: No Inflammation; Pedal Edema (trace edema), Swelling Neurologic/Psychiatric: Other (sedated) Skin: Normal Color, Warm/Dry Lymphatic: No Adenopathy Results Lab Laboratory Tests 03/07/23 04:45 03/08/23 04:30 Assessment/Plan Assessment/Plan Severe CHF due to EtOH CPM with very low LVEF, will continue IV dobutamine, IV Lasix, wait for CXR to improve continue abx, repeat CXR shows same enlarged HS, moderate congestion, I do not think is candidate for SBT Will leave on full vent support. Critical Care: Ventilator Management Time spent with patient (mins): 25 ELISEO PONCE MD March 08, 2023 07:47
[2023-03-08] MEDS: PANTOPRAZOLE 40 MG (PROTONIX) VIAL IV SCH (08:15)
[2023-03-08] MEDS: POTASSIUM BICARB 20 MEQ (EFFER-K) TABLET PO SCH ×2 (08:15→20:17)
[2023-03-08] MEDS: DOCUSATE SODIUM 10 MG/ML 10 ML UDC (COLACE) PO SCH ×2 (08:15→20:17)
[2023-03-08] MEDS: meTOprolol TARTRATE 25 MG (LOPRESSOR) TABLET PO SCH ×2 (08:15→20:17)
[2023-03-08 09:32] VITALS: BP 104/71
--- NOTE | 2023-03-08 09:32 | Diagnostic Imaging Report ---
CHEST 1 VIEW, AP/PA ONLY Indication: Acute respiratory failure Comparison: 03/03/2023 Findings: Stable ET and enteric tubes. Stable right central venous catheter. Bilateral perihilar opacities are unchanged. Layering pleural effusions are likely stable. No pneumothorax. Stable marked enlargement of cardiac silhouette. Impression: 1. Well-positioned support devices. 2. No change in perihilar opacities that could be due to combination of edema and/or atelectasis. 3. Small pleural effusions are unchanged. Dictated by: Dictated on workstation # [id number]
[2023-03-08] MEDS: DOBUTamine DRIP 250 ML IV SCH ×2 (10:25→22:10)
--- NOTE | 2023-03-08 13:30 | Progress Note - Hospitalist ---
[facility] 03/08/23 1330: Subjective HPI/CC On Admission This is a 52 y/o M with PMH untreated HTN and alcohol use disorder who presented to the ED on 03/02 with LLQ abdominal pain and increasing abdominal distension over the past month. He had nausea, vomiting and diarrhea for 3 days 1 month ago and swelling in abdomen has been increasing since. Pt quit drinking 1 month ago when abdominal pain started, previously heavy vodka and beer daily for past 20 years. Reports SOB at baseline that improves with sitting in leaned forward position worsening as distension increases. Smokes 1 ppd. Admitted with AFib with RVR and pneumonia. Started on antibiotics, fluids withheld due to hypervolemic status. Requiring minimal oxygen initially, rapidly worsening requiring BiPAP and intubated shortly after. Echo with EF <10%. Case discussed with Dr. Gonzalez, recommended transferring to [facility] for advanced heart failure service. Declined transfer due to not being a candidate for advanced therapies with alcohol and tobacco use. Started on Dobutamine for cardiogenic shock. Low urine output, started on Lasix gtt. Rapidly progressing multi-organ failure. Poo r prognosis and goals of care discussed with mother at bedside, she would like to continue full code status at this time. Subjective/Events-last exam Patient remains intubated and sedated. Mother is at bedside Review of Systems unable to obtain 2/2 clinical status Objective Exam Vital Signs Vital Signs Date Time Temp Pulse Resp B/P (MAP) Pulse Ox O2 Delivery O2 Flow Rate FiO2 03/08/23 13:00 116 18 93 Mechanical Ventilator 30.00 03/08/23 12:00 30 03/08/23 11:59 36.4 Capillary Refill : General Appearance: No Apparent Distress, Obese Respiratory: Lungs Clear, No Respiratory Distress, Other (intubated and mechanically ventilated) Cardiovascular: No Murmur, Irregularly Irregular Gastrointestinal: Normal Bowel Sounds, Soft, Distended Extremity: Normal Capillary Refill, Swelling Neurologic/Psychiatric: Other (sedated) Skin: Normal Color, Warm/Dry Results/Procedures Lab Laboratory Tests 03/08/23 04:30 Patient resulted labs reviewed. Imaging: Reviewed Imaging Films, Reviewed Imaging Report Assessment/Plan Assessment and Plan Assess & Plan/Chief Complaint Cardogenic shock Acute HFrEF Acute respiratory failure with hypoxia Endotracheally intubated Pneumonia Afib with RVR MALIK Cardiology following TeleICU following Continue diuresis Ventilator requirements improving, decrease FiO2 this morning Continue Dobutamine titration Antibiotics Lovenox for stroke prophylaxis Tube feeds Ascites Cirrhosis Alcohol abuse Hepatitis C Surgery following, not enough ascitic fluid for paracentesis Hep C RNA elevated Outpatient referral to Hepatology for Hep C treatment Critical Care: Ventilator Management JOSE NEWBERRY MD 03/08/23 1728: Subjective HPI/CC On Admission Date Seen by Provider: March 08, 2023 Time Seen by Provider: 10:30 Assessment/Plan Assessment and Plan Assess & Plan/Chief Complaint Responding well to diuresis, negative 9L over past 5 days. Continue weaning oxygen and dobutamine as able. Critical Care: Critically Ill Patient Diagnosis/Problems Diagnosis/Problems (1) Cardiogenic shock Status: Acute (2) Acute HFrEF (heart failure with reduced ejection fraction) Status: Acute (3) Acute respiratory failure with hypoxia and hypercapnia Status: Acute (4) Endotracheally intubated Status: Acute (5) PNA (pneumonia) Status: Acute (6) MALIK (acute kidney injury) Status: Acute (7) Atrial fibrillation with RVR Status: Acute (8) Ascites due to alcoholic cirrhosis Status: Acute (9) Hepatitis C Status: Acute Qualifiers: Qualified Codes: B17.10 - Acute hepatitis C without hepatic coma (10) HTN (hypertension) Status: Chronic (11) Obesity Status: Chronic (12) Tobacco abuse Status: Chronic (13) Alcohol abuse Status: Chronic Supervisory-Addendum Brief Verification & Attestation Participated in pt care: history, MDM, physical Personally performed: exam, history, MDM, supervision of care Care discussed with: Medical Student Procedures: n/a A medical student performed and documented this service in my presence. I reviewed and verified all information documented by the medical student and made modifications to such information, when appropriate. I personally performed the physical exam and medical decision making. CITLALY WICK March 08, 2023 13:30 JOSE NEWBERRY MD March 08, 2023 17:28
[2023-03-08 14:44] VITALS: BP 129/82
--- NOTE | 2023-03-08 16:08 | Cardiology Progress Note ---
Cardiology SOAP Progress Note Subjective: intubated/ventilated Objective: I&O/Vital Signs 03/08/23 03/08/23 03/08/23 03/08/23 05:00 06:00 06:40 06:45 Pulse 82 73 66 76 Resp 16 16 16 B/P (MAP) 128/81 Pulse Ox 96 96 93 O2 Delivery Mechanical Ventilator Mechanical Ventilator O2 Flow Rate 30.00 30.00 FiO2 30 03/08/23 03/08/23 03/08/23 03/08/23 07:00 07:00 07:36 07:40 Temp 36.4 Pulse 81 89 89 Resp 16 B/P (MAP) 130/86 Pulse Ox 95 O2 Delivery Mechanical Ventilator O2 Flow Rate 30.00 03/08/23 03/08/23 03/08/23 03/08/23 08:00 08:00 08:32 08:40 Pulse 81 81 Resp 13 B/P (MAP) 130/86 Pulse Ox 96 97 O2 Delivery Mechanical Ventilator Mechanical Ventilator O2 Flow Rate 30.00 FiO2 30 30 03/08/23 03/08/23 03/08/23 03/08/23 08:42 09:00 09:32 09:59 Pulse 81 89 77 77 Resp 16 17 B/P (MAP) 130/86 104/71 Pulse Ox 91 95 O2 Delivery Mechanical Ventilator O2 Flow Rate 30.00 FiO2 30 03/08/23 03/08/23 03/08/23 03/08/23 10:00 10:25 11:00 11:34 Pulse 75 75 107 107 B/P (MAP) 104/71 104/71 Pulse Ox 95 91 O2 Delivery Mechanical Ventilator Mechanical Ventilator O2 Flow Rate 30.00 30.00 03/08/23 03/08/23 03/08/23 03/08/23 11:59 12:00 12:00 12:00 Temp 36.4 Pulse 125 Resp 16 B/P (MAP) 161/131 (142) Pulse Ox 97 93 O2 Delivery Mechanical Ventilator Mechanical Ventilator O2 Flow Rate 30.00 FiO2 21 30 03/08/23 03/08/23 03/08/23 03/08/23 12:40 12:42 12:46 13:00 Pulse 116 116 112 116 Resp 18 B/P (MAP) 131/82 131/82 Pulse Ox 93 O2 Delivery Mechanical Ventilator O2 Flow Rate 30.00 03/08/23 03/08/23 03/08/23/28/23 13:41 13:42 14:00 14:27 Pulse 116 116 87 87 Resp 16 B/P (MAP) 161/131 131/82 131/82 Pulse Ox 93 O2 Delivery Mechanical Ventilator O2 Flow Rate 30.00 03/08/23 03/08/23 03/08/23 03/08/23 14:44 15:00 15:04 15:47 Temp 36.3 Pulse 93 99 99 Resp 16 19 B/P (MAP) 129/82 Pulse Ox 93 93 O2 Delivery Mechanical Ventilator O2 Flow Rate 30.00 FiO2 21 03/08/23 16:00 Pulse 76 Resp 17 B/P (MAP) 156/113 (126) Pulse Ox 92 O2 Delivery Mechanical Ventilator O2 Flow Rate 30.00 03/08/23 00:00 Intake Total 1255 ml Output Total 3950 ml Balance -2695 ml Weight (Pounds): 235 Weight (Ounces): 0 Weight (Calculated Kilograms): 106.902808 Constitutional: other (Intubated/ventilated) Respiratory: lungs clear to auscultation Cardiovascular: irregularly irregular, S1 and S2 Gastrointestional: soft Extremities: pedal edema Neurologic/Psychiatric: other (Intubated/ventilated) Skin: normal color Results/Procedures: Labs Laboratory Tests 03/07/23 17:41: Glucometer 94 03/07/23 23:17: Glucometer 80 03/08/23 04:30: White Blood Count 6.2, Red Blood Count 3.95L, Hemoglobin 12.3L, Hematocrit 38L, Mean Corpuscular Volume 95, Mean Corpuscular Hemoglobin 31, Mean Corpuscular Hemoglobin Concent 33, Red Cell Distribution Width 15.8H, Platelet Count 215, Mean Platelet Volume 9.0, Immature Granulocyte % (Auto) 0, Neutrophils (%) (Auto) 72, Lymphocytes (%) (Auto) 17, Monocytes (%) (Auto) 8, Eosinophils (%) (Auto) 2, Basophils (%) (Auto) 1, Neutrophils # (Auto) 4.5, Lymphocytes # (Auto) 1.1, Monocytes # (Auto) 0.5, Eosinophils # (Auto) 0.1, Basophils # (Auto) 0.0, Immature Granulocyte # (Auto) 0.0, Sodium Level 142, Potassium Level 3.7, Chloride Level 107, Carbon Dioxide Level 25, Anion Gap 10, Blood Urea Nitrogen 12, Creatinine 1.14, Estimat Glomerular Filtration Rate 77, BUN/Creatinine Ratio 11, Glucose Level 101, Calcium Level 8.2L, Magnesium Level 1.9 03/08/23 11:47: Glucometer 98 Microbiology 03/03/23 Urine Culture - Final, Complete NO GROWTH 03/03/23 Gram Stain - Final, Complete 03/03/23 Sputum Culture - Final, Complete No growth 03/02/23 Blood Culture - Final, Complete No growth A/P: Assessment/Dx: Persistent Atrial fibrillation Ascites Acute respiratory insufficiency Acute renal insufficiency Acute on chronic systolic congestive heart failure Plan: Acute respiratory failure, pulmonary edema Intubated, ventilator dependent - Defer to telemetry ICU for possible extubation plan. Continue with Lasix drip and monitor tolerance and response Atrial fibrillation, persistent Rate is controlled on Cardizem drip. gradually decrease cardizem infusion. Continue to monitor Congestive heart failure, acute left ventricular systolic dysfunction, unknown etiology Probably alcoholic heart disease, cannot exclude coronary artery disease. Likely coronary angiography when more stable. Tolerating inotropes. However will gradually taper off Large ascites and moderate-sized pleural effusion Recommend paracentesis. CHADVASC score 2, started on Lovenox Morbid obesity, BMI 39 Heavy alcoholism, drinking vodka daily. He has stopped drinking for the past month. Advised to avoid alcohol Acute on chronic renal failure, monitor renal function. Thank you for your consultation. Please call me if you have any questions. [place] Etienne MD, FACP, FACC, FSCAI, FHRS, CCDS Interventional Cardiology Cardiac Electrophysiology Vascular Medicine and Endovascular Interventions Ryan ETIENNE MD March 08, 2023 16:08
[2023-03-08 18:39] VITALS: BP 137/79
[2023-03-08 21:38] VITALS: BP 137/90
[2023-03-09] MEDS: DexMEDEtomidine 250 ML DRIP 250 ML IV SCH ×4 (01:25→19:06)
[2023-03-09 02:10] VITALS: BP 134/87
[2023-03-09] MEDS: PROPOFOL DRIP (ICU) 100 ML IV SCH ×9 (02:24→22:01)
[2023-03-09] MEDS ORDERED: fentaNYL INJ 100 MCG/2 ML AMP IVP PRN (02:45)
[2023-03-09 03:09] LABS: BASOPHILS % (AUTO) 0 % (0-10); EOSINOPHILS # (AUTO) 0.2 10^3/uL (0.0-0.3); EOSINOPHILS % (AUTO) 3 % (0-10); HEMATOCRIT 38 % (40-54); HEMOGLOBIN 12.5 g/dL (13.3-17.7); LYMPHOCYTES # (AUTO) 1.2 10^3/uL (1.0-4.0); LYMPHOCYTES % (AUTO) 17 % (12-44); MEAN CORPUSCULAR HEMOGLOBIN 31 pg (25-34); MEAN CORPUSCULAR HGB CONC 33 g/dL (32-36); MEAN CORPUSCULAR VOLUME 95 fL (80-99); MEAN PLATELET VOLUME 9.2 fL (9.0-12.2); MONOCYTES # (AUTO) 0.5 10^3/uL (0.0-1.0); MONOCYTES % (AUTO) 8 % (0-12); NEUTROPHILS # (AUTO) 4.9 10^3/uL (1.8-7.8); NEUTROPHILS % (AUTO) 72 % (42-75); PLATELET COUNT 204 10^3/uL (130-400); WHITE BLOOD COUNT 6.8 10^3/uL (4.3-11.0)
[2023-03-09 03:13] LABS: POTASSIUM 3.8 MMOL/L (3.6-5.0)
[2023-03-09 03:15] LABS: CALCIUM 8.5 MG/DL (8.5-10.1)
[2023-03-09 03:19] LABS: CREATININE SERUM 1.19 MG/DL (0.60-1.30)
[2023-03-09 03:21] LABS: MAGNESIUM 1.8 MG/DL (1.6-2.4)
[2023-03-09] MEDS: KCL 20 MEQ TAB (K-DUR) PO SCH (03:24)
[2023-03-09] MEDS: MAGNESIUM 1 GM/100 ML IVPB 100 ML IV SCH ×2 (03:37→05:25)
[2023-03-09] MEDS: ENOXAPARIN 150 MG/ML (LOVENOX) SYR SQ SCH ×2 (05:25→17:45)
[2023-03-09] MEDS: POTASSIUM CL 10MEQ/50ML IVPB 50 ML IV SCH ×3 (05:25→05:34)
[2023-03-09] MEDS: ALBUMIN 25% 25 GM/100 ML 50 ML IV SCH (05:26)
[2023-03-09] MEDS: FUROSEMIDE 40 MG/4 ML INJ (LASIX) IVP SCH ×2 (06:14→16:23)
[2023-03-09 06:35] VITALS: BP 111/80
--- NOTE | 2023-03-09 07:31 | Tele-ICU Progress Note ---
Subjective Date Seen by a Provider: March 09, 2023 Time Seen by a Provider: 07:26 Subjective/Events-last exam (Tele-ICU Physician , Progress Note ) Service provided via interactive audio and video telecommunications E-[facility] system to a patient admitted to ICU bed in [facility]. Patient is seen today due to persistent need of ICU care Available chart/ vitals / labs / Images reviewed Video assessment done using teleICU camera, rest of exam as per RN Discussed with RN Continues on vent, AC 16 Vt 550 FiO2 25% PEEP 5, continue on IV dobutamine @ 9, Cardizem @ 10, IV Propofol @ 45,IV Precedex @ 1 RASS is -3 CXR from yesterday shows congestion, high diaphragms probably from obesity, enlarged heart CBC and BMP today ok, Mg 1.8 Has active Hep C right IJ placed 03/03-as has alf need, would place PICC line if to be on IV dobutamine for a 3-4 more days BC from 03/02 show no growth Sepsis Event Evaluation Height, Weight, BMI Height: 6'5.00" Weight: 235lbs. 0oz. 106.858237db; 39.71 BMI Method:Stated Exam Exam Patient acknowledged, consented, and participated in this virtual visit which was conducted using real time audio/video Vital Signs Date Time Temp Pulse Resp B/P (MAP) Pulse Ox O2 Delivery O2 Flow Rate FiO2 03/09/23 06:58 89 113/78 03/09/23 06:35 80 17 95 25 03/09/23 06:20 88 111/76 03/09/23 06:00 98 16 94 Mechanical Ventilator 25.00 03/09/23 05:34 93 118/84 03/09/23 05:00 109 22 93 Mechanical Ventilator 25.00 03/09/23 04:56 95 132/84 03/09/23 04:45 18 92 Mechanical Ventilator 25.00 03/09/23 04:00 90 18 92 Mechanical Ventilator 21.00 03/09/23 03:39 36.1 03/09/23 03:22 91 Mechanical Ventilator 21 03/09/23 03:22 30 03/09/23 03:00 101 18 92 Mechanical Ventilator 21.00 03/09/23 03:00 93 127/86 03/09/23 02:27 134 149/94 03/09/23 02:26 147 142/94 03/09/23 02:26 141 138/81 03/09/23 02:24 134 142/85 03/09/23 02:10 126 17 90 21 03/09/23 02:00 151 18 91 Mechanical Ventilator 21.00 03/09/23 01:25 112 116/76 03/09/23 01:23 120 97/63 03/09/23 01:00 87 03/09/23 01:00 87 18 93 Mechanical Ventilator 21.00 03/09/23 00:31 105 120/85 03/09/23 00:10 36.4 03/09/23 00:09 93 Mechanical Ventilator 21 03/09/23 00:08 30 03/09/23 00:00 105 18 94 Mechanical Ventilator 21.00 03/08/23 23:00 90 18 94 Mechanical Ventilator 21.00 03/08/23 22:46 115 133/91 03/08/23 22:46 105 141/90 03/08/23 22:10 112 147/93 03/08/23 22:00 121 20 93 Mechanical Ventilator 21.00 03/08/23 21:38 120 17 92 21 03/08/23 21:00 121 16 92 Mechanical Ventilator 21.00 03/08/23 21:00 128 142/90 03/08/23 20:17 105 142/90 03/08/23 20:00 115 18 156/126 (133) 92 Mechanical Ventilator 21.00 03/08/23 19:56 36.3 03/08/23 19:47 93 Mechanical Ventilator 21 03/08/23 19:46 30 03/08/23 19:45 97 122/78 03/08/23 19:45 106 118/77 03/08/23 19:00 122 16 97 Mechanical Ventilator 30.00 03/08/23 19:00 122 03/08/23 18:39 89 16 93 21 03/08/23 18:36 87 129/86 03/08/23 18:35 87 129/86 03/08/23 18:00 87 17 93 Mechanical Ventilator 30.00 03/08/23 17:42 80 129/86 03/08/23 17:41 80 129/86 03/08/23 17:00 80 16 93 Mechanical Ventilator 30.00 03/08/23 16:43 76 129/86 03/08/23 16:03 21 03/08/23 16:00 76 17 156/113 (126) 92 Mechanical Ventilator 30.00 03/08/23 16:00 97 Mechanical Ventilator 30 03/08/23 15:47 99 129/82 03/08/23 15:04 36.3 03/08/23 15:00 99 19 93 Mechanical Ventilator 30.00 03/08/23 14:44 93 16 93 21 03/08/23 14:27 87 131/82 03/08/23 14:00 87 16 93 Mechanical Ventilator 30.00 03/08/23 13:42 116 131/82 03/08/23 13:41 116 161/131 03/08/23 13:00 116 18 93 Mechanical Ventilator 30.00 03/08/23 12:46 112 03/08/23 12:42 116 131/82 03/08/23 12:40 116 131/82 03/08/23 12:00 125 16 161/131 (142) 93 Mechanical Ventilator 30.00 03/08/23 12:00 97 Mechanical Ventilator 30 03/08/23 12:00 21 03/08/23 11:59 36.4 03/08/23 11:34 107 104/71 03/08/23 11:00 107 91 Mechanical Ventilator 30.00 03/08/23 10:25 75 104/71 03/08/23 10:00 75 95 Mechanical Ventilator 30.00 03/08/23 09:59 77 104/71 03/08/23 09:32 77 17 95 30 03/08/23 09:00 89 16 91 Mechanical Ventilator 30.00 03/08/23 08:42 81 130/86 03/08/23 08:40 81 130/86 03/08/23 08:32 30 03/08/23 08:00 97 Mechanical Ventilator 30 03/08/23 08:00 81 13 96 Mechanical Ventilator 30.00 03/08/23 07:40 89 130/86 03/08/23 07:36 36.4 I & O 03/09/23 07:00 Intake Total 3205 ml Output Total 5525 ml Balance -2320 ml Height & Weight Height: 6'5.00" Weight: 235lbs. 0oz. 106.873283qd; 39.71 BMI Method:Stated General Appearance: No Apparent Distress, Obese HEENT: Normal ENT Inspection Neck: Normal Inspection, Supple Respiratory: Lungs Clear, No Respiratory Distress, Rhonci, Other (intubated and mechanically ventilated) Cardiovascular: No Murmur, Irregularly Irregular, Other (V rate is in 70-90) Peripheral Pulses: 2+ Dorsalis Pedis (R), 2+ Left Dors-Pedis (L), 2+ Radial Pulses (R), 2+ Radial Pulses (L) Gastrointestinal: normal bowel sounds, non tender, distended (same as yesterday), other (abdominal pitting edema, rash right abdomen) Extremity: Normal Capillary Refill, Pedal Edema (+1 in legs), Swelling, Other (hypoactive BS) Neurologic/Psychiatric: Other (sedated) Skin: Normal Color, Warm/Dry Lymphatic: No Adenopathy Results Lab Laboratory Tests 03/08/23 04:30 03/09/23 02:54 Assessment/Plan Assessment/Plan EtOH CPM with very low LVEF, on vent, IV dobutamine, will try to cut back on sedation [propofol] and try SBT Would place PICC line for probable termite exterminator need for IV infusions, Critical Care: Ventilator Management Time spent with patient (mins): 25 ELISEO PONCE MD March 09, 2023 07:31
[2023-03-09] MEDS: NOREPINEPHRINE 8 MG/250 ML 250 ML IV SCH ×2 (07:36→16:42)
--- NOTE | 2023-03-09 09:17 | Progress Note - Hospitalist ---
Subjective HPI/CC On Admission Date Seen by Provider: March 09, 2023 This is a 52 y/o M with PMH untreated HTN and alcohol use disorder who presented to the ED on 03/02 with LLQ abdominal pain and increasing abdominal distension over the past month. He had nausea, vomiting and diarrhea for 3 days 1 month ago and swelling in abdomen has been increasing since. Pt quit drinking 1 month ago when abdominal pain started, previously heavy vodka and beer daily for past 20 years. Reports SOB at baseline that improves with sitting in leaned forward p osition worsening as distension increases. Smokes 1 ppd. Admitted with AFib with RVR and pneumonia. Started on antibiotics, fluids withheld due to hypervolemic status. Requiring minimal oxygen initially, rapidly worsening requiring BiPAP and intubated shortly after. Echo with EF <10%. Case discussed with Dr. Gonzalez, recommended transferring to [facility] for advanced heart failure service. Declined transfer due to not being a candidate for advanced therapies with alcohol and tobacco use. Started on Dobutamine for cardiogenic shock. Low urine output, started on Lasix gtt. Rapidly progressing multi-organ failure. Poor prognosis and goals of care discussed with mother at bedside, she would like to continue full code status at this time. Subjective/Events-last exam Pt remains sedated and intubated. No family at bedside. No concerns per RN. No ROS possible. Objective Exam Vital Signs Vital Signs Date Time Temp Pulse Resp B/P (MAP) Pulse Ox O2 Delivery O2 Flow Rate FiO2 03/09/23 08:00 73 12 95 Mechanical Ventilator 25.00 03/09/23 07:55 36.2 03/09/23 06:35 25 Capillary Refill : General Appearance: Chronically ill, Obese, Other (sedated on vent) Respiratory: Lungs Clear, Other (on vent) Cardiovascular: No Murmur, Irregularly Irregular Gastrointestinal: Normal Bowel Sounds, Non Tender, Soft Extremity: Other (trace pedal edema) Neurologic/Psychiatric: Other (sedated, appears comfortbale) Results/Procedures Lab Laboratory Tests 03/09/23 02:54 Patient resulted labs reviewed. Imaging: Reviewed Imaging Films, Reviewed Imaging Report Assessment/Plan Assessment and Plan Assess & Plan/Chief Complaint Cardogenic shock Acute HFrEF Acute respiratory failure with hypoxia Endotracheally intubated Pneumonia Afib with RVR MALIK Cardiology following TeleICU following for vent management, appreciate recs Continue diuresis (-9L total so far and 2L yesterday) BP increased, wean Dobutamine Antibiotics Lovenox for stroke prophylaxis Tube feeds Ascites Cirrhosis Alcohol abuse Hepatitis C Surgery following, not enough ascitic fluid for paracentesis Hep C RNA elevated Outpatient referral to Hepatology for Hep C treatment Critical Care Ventilator Management NORMA ZAPATA MD March 09, 2023 09:17
[2023-03-09] MEDS: meTOprolol TARTRATE 25 MG (LOPRESSOR) TABLET PO SCH ×2 (10:13→21:24)
[2023-03-09] MEDS: PANTOPRAZOLE 40 MG (PROTONIX) VIAL IV SCH (10:13)
[2023-03-09] MEDS: DOCUSATE SODIUM 10 MG/ML 10 ML UDC (COLACE) PO SCH ×2 (10:13→21:24)
[2023-03-09] MEDS: POTASSIUM BICARB 20 MEQ (EFFER-K) TABLET PO SCH ×2 (10:13→21:24)
[2023-03-09 10:54] VITALS: BP 111/73
[2023-03-09] MEDS: dilTIAZem DRIP PRE-MIX 125 ML IV SCH (12:34)
--- NOTE | 2023-03-09 14:37 | Cardiology Progress Note ---
Cardiology SOAP Progress Note Subjective: intubated/ventilated Objective: I&O/Vital Signs 03/09/23 03/09/23 03/09/23 03/09/23 03:00 03:00 03:22 03:22 Pulse 93 101 Resp 18 B/P (MAP) 127/86 Pulse Ox 92 91 O2 Delivery Mechanical Ventilator Mechanical Ventilator O2 Flow Rate 21.00 FiO2 30 21 03/09/23 03/09/23 03/09/23 03/09/23 03:39 04:00 04:45 04:56 Temp 36.1 Pulse 90 95 Resp 18 18 B/P (MAP) 132/84 Pulse Ox 92 92 O2 Delivery Mechanical Ventilator Mechanical Ventilator O2 Flow Rate 21.00 25.00 03/09/23 03/09/23 03/09/23 03/09/23 05:00 05:34 06:00 06:20 Pulse 109 93 98 88 Resp 22 16 B/P (MAP) 118/84 111/76 Pulse Ox 93 94 O2 Delivery Mechanical Ventilator Mechanical Ventilator O2 Flow Rate 25.00 25.00 03/09/23 03/09/23 03/09/23 03/09/23 06:35 06:58 07:00 07:00 Pulse 80 89 92 100 Resp 17 22 B/P (MAP) 113/78 Pulse Ox 95 95 O2 Delivery Mechanical Ventilator O2 Flow Rate 25.00 FiO2 25 03/09/23 03/09/23 03/09/23 03/09/23 07:55 08:00 08:00 08:03 Temp 36.2 Pulse 73 Resp 12 B/P (MAP) Pulse Ox 95 95 O2 Delivery Mechanical Ventilator Mechanical Ventilator O2 Flow Rate 25.00 FiO2 25 25 03/09/23 03/09/23 03/09/23 03/09/23 09:00 09:24 10:00 10:54 Pulse 88 73 75 77 Resp 16 16 16 B/P (MAP) 113/78 Pulse Ox 91 87 95 O2 Delivery Mechanical Ventilator Mechanical Ventilator O2 Flow Rate 25.00 25.00 FiO2 25 03/09/23 03/09/23 03/09/23 03/09/23 11:00 12:00 12:00 12:00 Temp 36.3 Pulse 77 82 Resp 16 18 B/P (MAP) Pulse Ox 95 94 94 O2 Delivery Mechanical Ventilator Mechanical Ventilator Mechanical Ventilator O2 Flow Rate 25.00 25.00 FiO2 25 03/09/23 03/09/23 03/09/23 12:03 12:34 13:00 Pulse 76 76 B/P (MAP) 101/72 FiO2 25 03/09/23 00:00 Intake Total 1240 ml Output Total 3475 ml Balance -2235 ml Weight (Pounds): 235 Weight (Ounces): 0 Weight (Calculated Kilograms): 106.368513 Constitutional: other (Intubated/ventilated) Respiratory: lungs clear to auscultation Cardiovascular: irregularly irregular, S1 and S2 Gastrointestional: soft Extremities: pedal edema Neurologic/Psychiatric: other (Intubated/ventilated) Skin: normal color Results/Procedures: Labs Laboratory Tests 03/08/23 17:23: Glucometer 102 03/09/23 00:12: Glucometer 97 03/09/23 02:54: White Blood Count 6.8, Red Blood Count 4.03L, Hemoglobin 12.5L, Hematocrit 38L, Mean Corpuscular Volume 95, Mean Corpuscular Hemoglobin 31, Mean Corpuscular Hemoglobin Concent 33, Red Cell Distribution Width 15.4H, Platelet Count 204, Mean Platelet Volume 9.2, Immature Granulocyte % (Auto) 0, Neutrophils (%) (Auto) 72, Lymphocytes (%) (Auto) 17, Monocytes (%) (Auto) 8, Eosinophils (%) (Auto) 3, Basophils (%) (Auto) 0, Neutrophils # (Auto) 4.9, Lymphocytes # (Auto) 1.2, Monocytes # (Auto) 0.5, Eosinophils # (Auto) 0.2, Basophils # (Auto) 0.0, Immature Granulocyte # (Auto) 0.0, Sodium Level 142, Potassium Level 3.8, Chloride Level 106, Carbon Dioxide Level 25, Anion Gap 11, Blood Urea Nitrogen 11, Creatinine 1.19, Estimat Glomerular Filtration Rate 73, BUN/Creatinine Ratio 9, Glucose Level 99, Calcium Level 8.5, Magnesium Level 1.8 03/09/23 11:36: Glucometer 87 Microbiology 03/03/23 Urine Culture - Final, Complete NO GROWTH 03/03/23 Gram Stain - Final, Complete 03/03/23 Sputum Culture - Final, Complete No growth 03/02/23 Blood Culture - Final, Complete No growth A/P: Assessment/Dx: Persistent Atrial fibrillation Ascites Acute respiratory insufficiency Acute renal insufficiency Acute on chronic systolic congestive heart failure Plan: Acute respiratory failure, pulmonary edema Intubated, ventilator dependent - Defer to telemetry ICU for possible extubation plan. Continue with Lasix drip and monitor tolerance and response Atrial fibrillation, persistent Rate is controlled on Cardizem drip. gradually decrease cardizem infusion to 5mg. Continue to monitor Congestive heart failure, acute left ventricular systolic dysfunction, unknown etiology Probably alcoholic heart disease, cannot exclude coronary artery disease. coronary evaluation in the future. Tolerating inotropes. However will gradually taper off to 1mg Large ascites and moderate-sized pleural effusion Recommend paracentesis. CHADVASC score 2, started on Lovenox Morbid obesity, BMI 39 Heavy alcoholism, drinking vodka daily. He has stopped drinking for the past month. Advised to avoid alcohol Acute on chronic renal failure, monitor renal function. Thank you for your consultation. Please call me if you have any questions. [place] Etienne MD, FACP, FACC, FSCAI, FHRS, CCDS Interventional Cardiology Cardiac Electrophysiology Vascular Medicine and Endovascular Interventions Ryan ETIENNE MD March 09, 2023 14:37
[2023-03-09 15:20] VITALS: BP 118/78
[2023-03-09 18:25] VITALS: BP 122/79
[2023-03-09] MEDS: DOBUTamine DRIP 250 ML IV SCH (22:01)
[2023-03-09 22:19] VITALS: BP 103/69
[2023-03-10] MEDS: PROPOFOL DRIP (ICU) 100 ML IV SCH ×8 (00:33→22:00)
[2023-03-10] MEDS: DOBUTamine DRIP 250 ML IV SCH (00:34)
[2023-03-10] MEDS: NOREPINEPHRINE 8 MG/250 ML 250 ML IV SCH ×3 (01:17→18:21)
[2023-03-10] MEDS: DexMEDEtomidine 250 ML DRIP 250 ML IV SCH ×4 (01:49→21:15)
[2023-03-10 02:11] VITALS: BP 117/76
[2023-03-10 04:32] LABS: BASOPHILS # (AUTO) 0.1 10^3/uL (0.0-0.1); BASOPHILS % (AUTO) 1 % (0-10); EOSINOPHILS # (AUTO) 0.2 10^3/uL (0.0-0.3); EOSINOPHILS % (AUTO) 2 % (0-10); HEMATOCRIT 40 % (40-54); HEMOGLOBIN 13.1 g/dL (13.3-17.7); LYMPHOCYTES # (AUTO) 1.5 10^3/uL (1.0-4.0); LYMPHOCYTES % (AUTO) 20 % (12-44); MEAN CORPUSCULAR HEMOGLOBIN 31 pg (25-34); MEAN CORPUSCULAR HGB CONC 32 g/dL (32-36); MEAN CORPUSCULAR VOLUME 95 fL (80-99); MEAN PLATELET VOLUME 9.5 fL (9.0-12.2); MONOCYTES # (AUTO) 0.6 10^3/uL (0.0-1.0); MONOCYTES % (AUTO) 7 % (0-12); NEUTROPHILS # (AUTO) 5.3 10^3/uL (1.8-7.8); NEUTROPHILS % (AUTO) 70 % (42-75); PLATELET COUNT 196 10^3/uL (130-400); WHITE BLOOD COUNT 7.6 10^3/uL (4.3-11.0)
[2023-03-10 04:45] LABS: CALCIUM 8.7 MG/DL (8.5-10.1); CREATININE SERUM 1.27 MG/DL (0.60-1.30)
[2023-03-10] MEDS: ACETAMINOPHEN 325 MG TABLET PO PRN (05:08)
[2023-03-10] MEDS: ENOXAPARIN 150 MG/ML (LOVENOX) SYR SQ SCH (05:29)
[2023-03-10] MEDS: POTASSIUM CL 10MEQ/50ML IVPB 50 ML IV SCH (05:50)
[2023-03-10] MEDS: MAGNESIUM 1 GM/100 ML IVPB 100 ML IV SCH (05:50)
[2023-03-10] MEDS: KCL 20 MEQ TAB (K-DUR) PO SCH (05:50)
[2023-03-10] MEDS: FUROSEMIDE 40 MG/4 ML INJ (LASIX) IVP SCH ×2 (06:20→16:07)
[2023-03-10 06:50] VITALS: BP 124/72
[2023-03-10] MEDS: POTASSIUM BICARB 20 MEQ (EFFER-K) TABLET PO SCH ×2 (08:27→20:57)
[2023-03-10] MEDS: meTOprolol TARTRATE 25 MG (LOPRESSOR) TABLET PO SCH ×2 (08:27→20:58)
[2023-03-10] MEDS: PANTOPRAZOLE 40 MG (PROTONIX) VIAL IV SCH (08:27)
[2023-03-10] MEDS: DOCUSATE SODIUM 10 MG/ML 10 ML UDC (COLACE) PO SCH ×2 (08:27→20:57)
--- NOTE | 2023-03-10 08:31 | Cardiology Progress Note ---
Subjective Date Seen by Provider: March 10, 2023 Time Seen by Provider: 08:31 Subjective/Events-last exam Patient is sedated and intubated Review of Systems General: Other (Unable to provide review of system) Objective-Cardiology Exam Last Set of Vital Signs Vital Signs 03/10/23 03/10/23 03/10/23 03/10/23 07:00 07:35 07:44 08:26 Temp 36.5 Pulse 108 Resp 18 B/P (MAP) 119/79 Pulse Ox 94 O2 Delivery FI02 O2 Flow Rate 25.00 FiO2 25 I&O Intake and Output 03/10/23 00:00 Intake Total 2155 ml Output Total 2575 ml Balance -420 ml Intake Oral 20 ml IV Total 1425 ml Tube Feeding 480 ml Enteral Flush 60 ml Other 170 ml Output Urine Total 2575 ml General: Moderate Distress, Other (Sedated and intubated) HEENT: Atraumatic, PERRLA Neck: Supple, No JVD Lungs: Normal Air Movement, Other (Bilateral rhonchi) Heart: Normal S1, Normal S2, Other (Atrial fibrillation) Abdomen: Normal Bowel Sounds, Other (Distended abdomen) Extremities: No Clubbing, No Cyanosis Skin: No Rashes, No Breakdown Neuro: Other (Sedated and intubated) Psych/Mental Status: Other (Sedated and intubated) Results Lab Laboratory Tests 03/10/23 04:10 A/P-Cardiology Admission Diagnosis Atrial fibrillation Ascites Acute respiratory insufficiency Acute renal insufficiency Assessment/Plan Acute respiratory failure, pulmonary edema Intubated, ventilator dependent Continue with Lasix drip Atrial fibrillation, persistent Rate is controlled on Cardizem drip. Continue to monitor Congestive heart failure, acute left ventricular systolic dysfunction, unknown etiology Probably alcoholic heart disease, cannot exclude coronary artery disease Tolerating dobutamine drip at 5 mcg/kg/min, I will increase the dose to 7.5 and stop the Levophed I will repeat 2D echo Large ascites and moderate-sized pleural effusion Recommend paracentesis. CHADVASC score 2, started on Lovenox Morbid obesity, BMI 39 Heavy alcoholism, drinking vodka daily. He has stopped drinking for the past month. Advised to avoid alcohol Acute on chronic renal failure, monitor renal function. CIRA BROWN MD March 10, 2023 08:31
[2023-03-10 09:59] VITALS: BP 133/83
[2023-03-10] MEDS: dilTIAZem DRIP PRE-MIX 125 ML IV SCH ×2 (10:50→23:12)
--- NOTE | 2023-03-10 11:43 | Progress Note - Hospitalist ---
Subjective HPI/CC On Admission Date Seen by Provider: March 10, 2023 This is a 52 y/o M with PMH untreated HTN and alcohol use disorder who presented to the ED on 03/02 with LLQ abdominal pain and increasing abdominal distension over the past month. He had nausea, vomiting and diarrhea for 3 days 1 month ago and swelling in abdomen has been increasing since. Pt quit drinking 1 month ago when abdominal pain started, previously heavy vodka and beer daily for past 20 years. Reports SOB at baseline that improves with sitting in leaned forward p osition worsening as distension increases. Smokes 1 ppd. Admitted with AFib with RVR and pneumonia. Started on antibiotics, fluids withheld due to hypervolemic status. Requiring minimal oxygen initially, rapidly worsening requiring BiPAP and intubated shortly after. Echo with EF <10%. Case discussed with Dr. Gonzalez, recommended transferring to [facility] for advanced heart failure service. Declined transfer due to not being a candidate for advanced therapies with alcohol and tobacco use. Started on Dobutamine for cardiogenic shock. Low urine output, started on Lasix gtt. Rapidly progressing multi-organ failure. Poor prognosis and goals of care discussed with mother at bedside, she would like to continue full code status at this time. Subjective/Events-last exam Pt remains intubated and sedated. No family at bedside. RN reports off dobutamine but pressures soft now. No other concerns. Objective Exam Vital Signs Vital Signs Date Time Temp Pulse Resp B/P (MAP) Pulse Ox O2 Delivery O2 Flow Rate FiO2 03/10/23 11:28 36.9 Mechanical Ventilator 25.00 03/10/23 11:00 96 24 93 03/10/23 09:59 25 Capillary Refill : General Appearance: Chronically ill, Obese Respiratory: No Crackles; Decreased Breath Sounds, Other (on vent) Cardiovascular: No Murmur, Irregularly Irregular Genital/Rectal: Other (herman) Extremity: Swelling (2+ pitting to calves) Neurologic/Psychiatric: Other (sedated, appears comfortable) Results/Procedures Lab Laboratory Tests 03/10/23 04:10 Patient resulted labs reviewed. Imaging: Reviewed Imaging Films, Reviewed Imaging Report Assessment/Plan Assessment and Plan Assess & Plan/Chief Complaint Cardogenic shock Acute HFrEF Acute respiratory failure with hypoxia Endotracheally intubated Pneumonia Afib with RVR MALIK Cardiology following TeleICU following for vent management, appreciate recs Continue diuresis (-10.5L total so far and -0.5L yesterday) Off dobutamine- defer to cardiology Antibiotics Lovenox for stroke prophylaxis Tube feeds Ascites Cirrhosis Alcohol abuse Hepatitis C Surgery following, not enough ascitic fluid for paracentesis Hep C RNA elevated Outpatient referral to Hepatology for Hep C treatment Critical Care Ventilator Management NORMA ZAPATA MD March 10, 2023 11:43
--- NOTE | 2023-03-10 14:24 | Tele-ICU Progress Note ---
Subjective Date Seen by a Provider: March 10, 2023 Time Seen by a Provider: 14:21 Subjective/Events-last exam Tele-ICU Physician , Progress Note ) Service provided via interactive audio and video telecommunications E-CARE sys tem to a patient admitted to ICU bed in [facility]. Patient is seen today due to persistent need of ICU care Available chart/ vitals / labs / Images reviewed Video assessment done using teleICU camera, rest of exam as per RN Discussed with RN Sub: events overnight. This AM MAPs dropped to 60s and was restarted on Dobutamine 2.5mg. HR improved but remains on cardizem gtt. Cards planning for repeat TTE. Unable to wean sedation 2/2 agitation A/P Neuro: Intubated and sedated on precedex and propofol -Wean sedation as tolerated Resp: acute hypoxic and hypoxic respiratory failure due to combination of acute and chronic systolic CHF and BRIANDA. - AC 18 TV 550 25 % PEEP 5, -Minimal settings. Unable to SBT 2/2 agitation. -Cont to wean sedation as tolerated. Reassess for SBT in AM CV:Mixed septic/Cardiogenic Shock -Currently on Dobutamine 2.5mg. Cards following. -Repeat TTE today -Mixed venous Afib with RVR -lovenox full dose -cardizem gtt ID: - Blood cultures neg. no source of infection. Currently not on antibiotics. Endo: NTD Renal: No active issues GI: Hx of Hep C -chronic , active FEN: TF trophic 20 cc/h. Will switch to glucerna Lines : IJ, (Central Line Necessity Reviewed) Wright: Y Nutrition: Tube feeds VTE Prophylaxis: Lovenox Stress Ulcer Prophylaxis: Protonix Plans in collaboration with bedside consultants and IM MDs. Discussed with RN to reach out if any questions or concerns A total of 32 minutes of critical care time was devoted to this patient today, required to treat and/or prevent further deterioration of critical care condition (as above ) Sepsis Event Evaluation Height, Weight, BMI Height: 6'5.00" Weight: 235lbs. 0oz. 106.508564ky; 39.23 BMI Method:Stated Exam Exam Patient acknowledged, consented, and participated in this virtual visit which was conducted using real time audio/video Vital Signs Date Time Temp Pulse Resp B/P (MAP) Pulse Ox O2 Delivery O2 Flow Rate FiO2 03/10/23 13:38 105 109/74 03/10/23 13:00 91 18 91 Mechanical Ventilator 25.00 03/10/23 12:51 105 03/10/23 12:05 96 109/74 03/10/23 12:00 98 17 93 Mechanical Ventilator 25.00 03/10/23 12:00 36.9 Mechanical Ventilator 25.00 03/10/23 11:59 96 109/74 03/10/23 11:59 93 Mechanical Ventilator 25 03/10/23 11:53 25 03/10/23 11:28 36.9 Mechanical Ventilator 25.00 03/10/23 11:00 96 24 93 Mechanical Ventilator 25.00 03/10/23 10:50 122 109/74 03/10/23 10:49 122 109/74 03/10/23 10:43 110 109/74 03/10/23 10:15 125 108/72 03/10/23 10:00 129 93 Mechanical Ventilator 25.00 03/10/23 09:59 129 23 93 25 03/10/23 09:56 140 140/80 03/10/23 09:45 97 82/54 03/10/23 09:42 102 84/48 03/10/23 09:33 93 81/51 03/10/23 09:20 93 81/51 03/10/23 09:00 85 90 Mechanical Ventilator 25.00 03/10/23 08:26 108 119/79 03/10/23 08:26 87 86/52 03/10/23 08:04 96 124/72 03/10/23 08:00 93 Mechanical Ventilator 25 03/10/23 08:00 107 Mechanical Ventilator 25.00 03/10/23 08:00 36.5 Mechanical Ventilator 25.00 03/10/23 07:57 96 124/72 03/10/23 07:57 96 124/72 03/10/23 07:44 25 03/10/23 07:35 36.5 FI02 25.00 03/10/23 07:15 96 03/10/23 07:00 98 18 94 Mechanical Ventilator 25.00 03/10/23 06:50 109 18 92 25 03/10/23 06:00 101 18 93 Mechanical Ventilator 25.00 03/10/23 05:38 38.2 03/10/23 05:08 38.4 03/10/23 05:00 94 18 94 Mechanical Ventilator 25.00 03/10/23 04:00 96 Mechanical Ventilator 25 03/10/23 04:00 25 03/10/23 04:00 101 18 95 Mechanical Ventilator 25.00 03/10/23 03:50 38.1 03/10/23 03:00 121 18 95 Mechanical Ventilator 25.00 03/10/23 02:11 97 18 95 25 03/10/23 02:00 99 18 95 Mechanical Ventilator 25.00 03/10/23 01:00 88 18 95 Mechanical Ventilator 25.00 03/10/23 01:00 111 03/10/23 00:34 99 117/80 03/10/23 00:00 121 18 94 Mechanical Ventilator 25.00 03/09/23 23:57 25 03/09/23 23:55 95 Mechanical Ventilator 25 03/09/23 23:35 37.9 03/09/23 23:00 101 18 94 Mechanical Ventilator 25.00 03/09/23 22:19 90 18 94 25 03/09/23 22:00 99 18 94 Mechanical Ventilator 25.00 03/09/23 21:00 89 18 94 Mechanical Ventilator 25.00 03/09/23 20:12 25 03/09/23 20:09 94 Mechanical Ventilator 25 03/09/23 20:00 105 18 93 Mechanical Ventilator 25.00 03/09/23 19:32 37.0 03/09/23 19:00 102 18 94 Mechanical Ventilator 25.00 03/09/23 19:00 102 03/09/23 18:25 94 18 94 25 03/09/23 18:00 92 17 94 Mechanical Ventilator 25.00 03/09/23 17:00 83 18 95 Mechanical Ventilator 25.00 03/09/23 16:03 25 03/09/23 16:00 87 16 94 Mechanical Ventilator 25.00 03/09/23 16:00 94 Mechanical Ventilator 25 03/09/23 15:54 37.1 03/09/23 15:20 79 18 95 25 03/09/23 15:00 82 18 94 Mechanical Ventilator 25.00 I & O 03/10/23 07:00 Intake Total 2185 ml Output Total 2475 ml Balance -290 ml Height & Weight Height: 6'5.00" Weight: 235lbs. 0oz. 106.628775jf; 39.23 BMI Method:Stated General Appearance: Chronically ill, Obese HEENT: Normal ENT Inspection Neck: Normal Inspection, Supple Respiratory: No Crackles; Decreased Breath Sounds, Other (on vent) Cardiovascular: No Murmur, Irregularly Irregular Peripheral Pulses: 2+ Dorsalis Pedis (R), 2+ Left Dors-Pedis (L), 2+ Radial Pul ses (R), 2+ Radial Pulses (L) Gastrointestinal: normal bowel sounds, non tender, distended (same as yesterday), other (abdominal pitting edema, rash right abdomen) Extremity: Swelling (2+ pitting to calves) Neurologic/Psychiatric: Other (sedated, appears comfortable) Skin: Normal Color, Warm/Dry Lymphatic: No Adenopathy Results Lab Laboratory Tests 03/09/23 02:54 03/10/23 04:10 Assessment/Plan Assessment/Plan . FILIPE RUFFIN MD March 10, 2023 14:24
[2023-03-10 14:32] VITALS: BP 101/68
--- NOTE | 2023-03-10 16:42 | Diagnostic Imaging Report ---
PROCEDURE: US Abdomen, limited. TECHNIQUE: Multiple realtime grayscale images were obtained over the abdomen in various projections. INDICATION: Ascites. IMPRESSION: A small amount of ascites is present. The largest pocket is in the right upper quadrant adjacent to the liver. Dictated by: Dictated on workstation # [id number]
[2023-03-10 18:53] VITALS: BP 106/85
[2023-03-10 22:39] VITALS: BP 90/61
--- NOTE | 2023-03-10 22:48 | Progress Note - Surgery ---
Subjective Date Seen by a Provider: March 10, 2023 Time Seen by a Provider: 15:20 Subjective/Events-last exam Patient remains intubated. No family present at this time. Abdomen seems slightly larger. Objective Exam Vital Signs Date Time Temp Pulse Resp B/P (MAP) Pulse Ox O2 Delivery O2 Flow Rate FiO2 03/10/23 22:39 93 19 91 25 03/10/23 20:26 25 03/10/23 20:24 93 Mechanical Ventilator 25 03/10/23 18:53 112 20 92 25 03/10/23 18:21 115 97/61 03/10/23 18:00 115 20 93 Mechanical Ventilator 25.00 03/10/23 17:16 93 97/61 03/10/23 17:14 93 97/61 03/10/23 17:00 111 20 93 Mechanical Ventilator 25.00 03/10/23 16:15 37.3 03/10/23 16:14 93 80/60 03/10/23 16:12 92 Mechanical Ventilator 25 03/10/23 16:00 104 19 93 Mechanical Ventilator 25.00 03/10/23 15:34 25 03/10/23 15:00 101 18 94 Mechanical Ventilator 25.00 03/10/23 14:51 93 88/64 03/10/23 14:51 87 101/68 03/10/23 14:35 87 101/68 03/10/23 14:32 87 20 90 25 03/10/23 14:00 95 19 90 Mechanical Ventilator 25.00 03/10/23 13:38 105 109/74 03/10/23 13:00 91 18 91 Mechanical Ventilator 25.00 03/10/23 12:51 105 03/10/23 12:43 91 112/70 03/10/23 12:05 96 109/74 03/10/23 12:00 98 17 93 Mechanical Ventilator 25.00 03/10/23 12:00 36.9 Mechanical Ventilator 25.00 03/10/23 11:59 96 109/74 03/10/23 11:59 93 Mechanical Ventilator 25 03/10/23 11:53 25 03/10/23 11:28 36.9 Mechanical Ventilator 25.00 03/10/23 11:00 96 24 93 Mechanical Ventilator 25.00 03/10/23 10:50 122 109/74 03/10/23 10:49 122 109/74 03/10/23 10:43 110 109/74 03/10/23 10:15 125 108/72 03/10/23 10:00 129 93 Mechanical Ventilator 25.00 03/10/23 09:59 129 23 93 25 03/10/23 09:56 140 140/80 03/10/23 09:45 97 82/54 03/10/23 09:42 102 84/48 03/10/23 09:33 93 81/51 03/10/23 09:20 93 81/51 03/10/23 09:00 85 90 Mechanical Ventilator 25.00 03/10/23 08:26 108 119/79 03/10/23 08:26 87 86/52 03/10/23 08:04 96 124/72 03/10/23 08:00 93 Mechanical Ventilator 25 03/10/23 08:00 107 Mechanical Ventilator 25.00 03/10/23 08:00 36.5 Mechanical Ventilator 25.00 03/10/23 07:57 96 124/72 03/10/23 07:57 96 124/72 03/10/23 07:44 25 03/10/23 07:35 36.5 FI02 25.00 03/10/23 07:15 96 03/10/23 07:00 98 18 94 Mechanical Ventilator 25.00 03/10/23 06:50 109 18 92 25 03/10/23 06:00 101 18 93 Mechanical Ventilator 25.00 03/10/23 05:38 38.2 03/10/23 05:08 38.4 03/10/23 05:00 94 18 94 Mechanical Ventilator 25.00 03/10/23 04:00 96 Mechanical Ventilator 25 03/10/23 04:00 25 03/10/23 04:00 101 18 95 Mechanical Ventilator 25.00 03/10/23 03:50 38.1 03/10/23 03:00 121 18 95 Mechanical Ventilator 25.00 03/10/23 02:11 97 18 95 25 03/10/23 02:00 99 18 95 Mechanical Ventilator 25.00 03/10/23 01:00 88 18 95 Mechanical Ventilator 25.00 03/10/23 01:00 111 03/10/23 00:34 99 117/80 03/10/23 00:00 121 18 94 Mechanical Ventilator 25.00 03/09/23 23:57 25 03/09/23 23:55 95 Mechanical Ventilator 25 03/09/23 23:35 37.9 03/09/23 23:00 101 18 94 Mechanical Ventilator 25.00 I & O 03/10/23 07:00 Intake Total 2185 ml Output Total 2475 ml Balance -290 ml Capillary Refill : General Appearance: Chronically ill, Obese, Other (intubated sedated) HEENT: Other (ET tube) Neck: Normal Inspection, Supple Respiratory: No Crackles; Other (on vent, equal chest rise) Cardiovascular: No JVD, Irregularly Irregular Peripheral Pulses: 2+ Dorsalis Pedis (R), 2+ Left Dors-Pedis (L), 2+ Radial Pulses (R), 2+ Radial Pulses (L) Gastrointestinal: distended, other (abdominal pitting edema, rash right abdomen) Extremity: Swelling (2+ pitting to calves) Neurologic/Psychiatric: No Alert, No Oriented x3; Other (sedated, appears comfortable) Skin: Normal Color, Warm/Dry Lymphatic: No Adenopathy Results Lab Laboratory Tests 03/09/23 23:18: Glucometer 103 03/10/23 04:10: White Blood Count 7.6, Red Blood Count 4.24L, Hemoglobin 13.1L, Hematocrit 40, Mean Corpuscular Volume 95, Mean Corpuscular Hemoglobin 31, Mean Corpuscular Hemoglobin Concent 32, Red Cell Distribution Width 15.7H, Platelet Count 196, Mean Platelet Volume 9.5, Immature Granulocyte % (Auto) 0, Neutrophils (%) (Auto) 70, Lymphocytes (%) (Auto) 20, Monocytes (%) (Auto) 7, Eosinophils (%) (Auto) 2, Basophils (%) (Auto) 1, Neutrophils # (Auto) 5.3, Lymphocytes # (Auto) 1.5, Monocytes # (Auto) 0.6, Eosinophils # (Auto) 0.2, Basophils # (Auto) 0.1, Immature Granulocyte # (Auto) 0.0, Sodium Level 140, Potassium Level 4.0, Chloride Level 105, Carbon Dioxide Level 25, Anion Gap 10, Blood Urea Nitrogen 12, Creatinine 1.27, Estimat Glomerular Filtration Rate 68, BUN/Creatinine Ratio 9, Glucose Level 105, Calcium Level 8.7, Magnesium Level 2.0 03/10/23 11:30: Glucometer 101 03/10/23 17:51: Glucometer 107 Microbiology 03/03/23 Urine Culture - Final, Complete NO GROWTH 03/03/23 Gram Stain - Final, Complete 03/03/23 Sputum Culture - Final, Complete No growth 03/02/23 Blood Culture - Final, Complete No growth Assessment/Plan Assessment/Plan Assessment/Plan Ascites Cholelithiasis alcoholic liver cirrhosis Less likely Possible small bowel obstruction Alcohol caridiomyopathy CHFrEF A-Fib w/ RVR Left lung pnuemonia w/ pleural effusion Acute on Chronic renal disease Chronic substance abuse disorder Scrotal swelling from ascites likely will repeat u/s to see if window for paracentesis to do tomorrow, will need to hold Lovenox if possibly drainable NIKKI RODRIGUEZ DO March 10, 2023 22:48
[2023-03-11] MEDS: DOBUTamine DRIP 250 ML IV SCH ×2 (00:27→04:25)
[2023-03-11] MEDS: PROPOFOL DRIP (ICU) 100 ML IV SCH ×8 (01:12→23:54)
[2023-03-11] MEDS: NOREPINEPHRINE 8 MG/250 ML 250 ML IV SCH ×3 (03:45→21:17)
[2023-03-11 04:59] LABS: BASOPHILS % (AUTO) 1 % (0-10); EOSINOPHILS # (AUTO) 0.1 10^3/uL (0.0-0.3); EOSINOPHILS % (AUTO) 2 % (0-10); HEMATOCRIT 39 % (40-54); HEMOGLOBIN 12.4 g/dL (13.3-17.7); LYMPHOCYTES # (AUTO) 1.3 10^3/uL (1.0-4.0); LYMPHOCYTES % (AUTO) 15 % (12-44); MEAN CORPUSCULAR HEMOGLOBIN 31 pg (25-34); MEAN CORPUSCULAR HGB CONC 32 g/dL (32-36); MEAN CORPUSCULAR VOLUME 95 fL (80-99); MONOCYTES # (AUTO) 0.7 10^3/uL (0.0-1.0); MONOCYTES % (AUTO) 9 % (0-12); NEUTROPHILS # (AUTO) 6.3 10^3/uL (1.8-7.8); NEUTROPHILS % (AUTO) 73 % (42-75); PLATELET COUNT 164 10^3/uL (130-400); WHITE BLOOD COUNT 8.6 10^3/uL (4.3-11.0)
[2023-03-11 05:09] LABS: CALCIUM 8.5 MG/DL (8.5-10.1); CREATININE SERUM 1.28 MG/DL (0.60-1.30); MAGNESIUM 1.8 MG/DL (1.6-2.4); POTASSIUM 3.9 MMOL/L (3.6-5.0)
[2023-03-11] MEDS: KCL 20 MEQ TAB (K-DUR) PO SCH (05:16)
[2023-03-11] MEDS: MAGNESIUM 1 GM/100 ML IVPB 100 ML IV SCH ×3 (05:16→06:28)
[2023-03-11] MEDS: POTASSIUM CL 10MEQ/50ML IVPB 50 ML IV SCH ×3 (05:16→05:56)
[2023-03-11] MEDS ORDERED: POTASSIUM CL 10MEQ/50ML IVPB 100 ML IV ONE (05:23)
[2023-03-11] MEDS ORDERED: MAGNESIUM 1 GM/100 ML IVPB 200 ML IV ONE (05:23)
[2023-03-11] MEDS: DexMEDEtomidine 250 ML DRIP 250 ML IV SCH ×3 (05:40→18:44)
[2023-03-11 06:25] VITALS: BP 143/86
[2023-03-11] MEDS: FUROSEMIDE 40 MG/4 ML INJ (LASIX) IVP SCH ×2 (06:28→16:10)
[2023-03-11 07:34] LABS: ABG BASE EXCESS 3.7 MMOL/L (-2.5-2.5); ABG OXYGEN SATURATION 88 % (94-100); ABG PCO2 39 MMHG (35-45); ABG PH 7.46 (7.37-7.43); ABG PO2 52 MMHG (79-93); ABG TCO2 28.6 MMOL/L (21.0-31.0); ALLENS TEST YES-POS; PATIENT TEMP 36.7; VENTILATOR YES
--- NOTE | 2023-03-11 08:36 | Tele-ICU Progress Note ---
Subjective Date Seen by a Provider: March 11, 2023 Time Seen by a Provider: 08:35 Subjective/Events-last exam Tele-ICU Physician , Progress Note ) Service provided via interactive audio and video telecommunications E-CARE system to a patient admitted to ICU bed in [facility]. Patient is seen today due to persistent need of ICU care Available chart/ vitals / labs / Images reviewed Video assessment done using teleICU camera, rest of exam as per RN Discussed with RN VENT SETTINGS and ABG reviewed NOT CANDIDATE for SBTreviewed possible contraindications including Cardiovascular Stability /Sedation Score / FI02/PEEP / ABG / CXR/ secretions Sub: events overnight. Hospital course: (03/02) 52M Admitted with PNA, Afib RVR, Abdominal distension, and Ascites. (03/03) INTUBATED after becoming unresponsive 03/04- 100% , PEEP 10 , lasix drip 6mg/hr, levo 0.06 mcg, propofol 30 mcg, precedex 1.0 mcg dobutamine 2.5 mcg 03/05 - AC 18 TV 550, 50 % PEEP 15 , propofol 50 . precedex 1.2 lasix drip , levo OFF , dobutamine 7.5 mcg, cardizem gtt 10 03/06-AC 16 TV 550 30 % PEEP 8 propofol 45 . precedex 1.0 lasix drip 0.5 , dobutamine 7.5 mcg, cardizem gtt 10 03/07 - 03/06-AC 16 TV 550 30 % PEEP 8 propofol 45 . precedex 1.2 RASS -2 , lasix drip OFF , dobutamine 7.5 mcg, cardizem gtt 15 03/10- Unable to SBT 2/2 agitation 03/11- AC 25 % +5 . dobutamine 1.0 mcg, propofol 45 . precedex 1.0 RASS -2 , cardizem gtt 10, plans for paracentesis and card cath A/P 1. acute hypoxic and hypoxic respiratory failure due to combination of acute and chronic systolic CHF and BRIANDA. - AC 18 TV 550 25 % PEEP 8, - improved Minimal settings. Unable to SBT 2/2 agitation. 03/10 -Cont to wean sedation as tolerated. -NOT CANDIDATE for SBT-plans for paracentesis and card cath Severe alcoholic cardiomyopathy with LV EF ,10%. =repeated ECHO - EF 15-20 % - possible card cath today -, dobutamine 1.0 mcg Shock - cardiogenioc and or septic shock. - levo OFF, dobutamine 1.0 mcg- titration as per cards Afib with RVR -lovenox full dose -cardizem gtt 10 metoprolol 25 bid po ID - possible pneumonia on admission -Cholelithiasis. There is fluid surrounding the gallbladder, low concern for cholecystitis - Sx follow -?SBP - ? tap as per sx -diarrhoea resolved , and possible sepsis - iv Antibiotics until we know C/S= ceftriaxone + z max - FINISHED COURSE - paracentesis 03/11 ETON abuse - reportedly quit 1 m [employer] - vitamins nitritions - TF at 60 today tolerates well HEP C -chronic , active - Anasarca with all above - plans for paracentesis 03/11 Lines : R IJ 03/03 , (Central Line Necessity Reviewed) Wright: + OG: Nutrition: tf Analgesia: Anxiety/ delirium VTE Prophylaxis: lovenox full dose Stress Ulcer Prophylaxis: Plans in collaboration with bedside consultants and IM MDs. Discussed with RN to reach out if any questions or concerns Case and care daily discussed on multidisciplinary rounds ( RN, PharmD, Calender Roll Operator , Respiratory Therapy, home health care social worker ) A total of 37 minutes of critical care time was devoted to this patient today, required to treat and/or prevent further deterioration of critical care condition ( as above ) . I am remotely monitoring this patient from another state. I am unable to do the bedside exam, and history/physical and pertinent information is taken from other notes in the computer and bedside staff. Sepsis Event Evaluation Height, Weight, BMI Height: 6'5.00" Weight: 235lbs. 0oz. 106.802498tq; 38.79 BMI Method:Stated Exam Exam Patient acknowledged, consented, and participated in this virtual visit which was conducted using real time audio/video Vital Signs Date Time Temp Pulse Resp B/P (MAP) Pulse Ox O2 Delivery O2 Flow Rate FiO2 03/11/23 08:10 25 03/11/23 08:00 99 17 96 Mechanical Ventilator 25.00 03/11/23 07:48 36.9 Mechanical Ventilator 25.00 03/11/23 07:37 101 113/77 03/11/23 07:30 101 03/11/23 07:00 98 19 96 Mechanical Ventilator 25.00 5/31/23 06:25 96 17 95 25 03/11/23 06:00 93 20 96 Mechanical Ventilator 25.00 03/11/23 05:00 93 20 95 Mechanical Ventilator 25.00 03/11/23 04:25 90 121/75 03/11/23 04:00 37.6 03/11/23 04:00 90 20 95 Mechanical Ventilator 25.00 03/11/23 04:00 95 Mechanical Ventilator 25 03/11/23 04:00 25 03/11/23 03:53 86 18 94 25 03/11/23 03:00 101 20 95 Mechanical Ventilator 25.00 03/11/23 02:00 100 20 94 Mechanical Ventilator 25.00 03/11/23 01:00 124 20 92 Mechanical Ventilator 25.00 03/11/23 01:00 124 03/11/23 00:21 93 Mechanical Ventilator 25 03/11/23 00:04 117 20 92 Mechanical Ventilator 25.00 03/10/23 23:44 37.9 03/10/23 23:26 25 03/10/23 23:12 109 93/59 03/10/23 23:07 103 20 92 Mechanical Ventilator 25.00 03/10/23 22:39 93 19 91 25 03/10/23 22:00 93 20 91 Mechanical Ventilator 25.00 03/10/23 21:00 105 20 92 Mechanical Ventilator 25.00 03/10/23 20:26 25 03/10/23 20:24 93 Mechanical Ventilator 25 03/10/23 20:00 104 20 92 Mechanical Ventilator 25.00 03/10/23 19:00 113 20 92 Mechanical Ventilator 25.00 03/10/23 19:00 113 03/10/23 18:53 112 20 92 25 03/10/23 18:21 115 97/61 03/10/23 18:00 115 20 93 Mechanical Ventilator 25.00 03/10/23 17:16 93 97/61 03/10/23 17:14 93 97/61 03/10/23 17:00 111 20 93 Mechanical Ventilator 25.00 03/10/23 16:15 37.3 03/10/23 16:14 93 80/60 03/10/23 16:12 92 Mechanical Ventilator 25 03/10/23 16:00 104 19 93 Mechanical Ventilator 25.00 03/10/23 15:34 25 03/10/23 15:00 101 18 94 Mechanical Ventilator 25.00 03/10/23 14:51 93 88/64 03/10/23 14:51 87 101/68 03/10/23 14:35 87 101/68 03/10/23 14:32 87 20 90 25 03/10/23 14:00 95 19 90 Mechanical Ventilator 25.00 03/10/23 13:38 105 109/74 03/10/23 13:00 91 18 91 Mechanical Ventilator 25.00 03/10/23 12:51 105 03/10/23 12:43 91 112/70 03/10/23 12:05 96 109/74 03/10/23 12:00 98 17 93 Mechanical Ventilator 25.00 03/10/23 12:00 36.9 Mechanical Ventilator 25.00 03/10/23 11:59 96 109/74 03/10/23 11:59 93 Mechanical Ventilator 25 03/10/23 11:53 25 03/10/23 11:28 36.9 Mechanical Ventilator 25.00 03/10/23 11:00 96 24 93 Mechanical Ventilator 25.00 03/10/23 10:50 122 109/74 03/10/23 10:49 122 109/74 03/10/23 10:43 110 109/74 03/10/23 10:15 125 108/72 03/10/23 10:00 129 93 Mechanical Ventilator 25.00 03/10/23 09:59 129 23 93 25 03/10/23 09:56 140 140/80 03/10/23 09:45 97 82/54 03/10/23 09:42 102 84/48 03/10/23 09:33 93 81/51 03/10/23 09:20 93 81/51 03/10/23 09:00 85 90 Mechanical Ventilator 25.00 I & O 03/11/23 07:00 Intake Total 6580 ml Output Total 3900 ml Balance 2680 ml Height & Weight Height: 6'5.00" Weight: 235lbs. 0oz. 106.957125gh; 38.79 BMI Method:Stated General Appearance: Chronically ill, Obese, Other (intubated sedated) HEENT: Other (ET tube) Neck: Normal Inspection, Supple Respiratory: No Crackles; Other (on vent, equal chest rise) Cardiovascular: No JVD, Irregularly Irregular Peripheral Pulses: 2+ Dorsalis Pedis (R), 2+ Left Dors-Pedis (L), 2+ Radial Pulses (R), 2+ Radial Pulses (L) Gastrointestinal: distended, other (abdominal pitting edema, rash right abdomen) Extremity: Swelling (2+ pitting to calves) Neurologic/Psychiatric: No Alert, No Oriented x3; Other (sedated, appears comfortable) Skin: Normal Color, Warm/Dry Lymphatic: No Adenopathy Results Lab Laboratory Tests 03/10/23 04:10 03/11/23 04:30 Assessment/Plan Assessment/Plan 1 FAHAD ARITA MD March 11, 2023 08:35
[2023-03-11] MEDS: meTOprolol TARTRATE 25 MG (LOPRESSOR) TABLET PO SCH ×2 (08:55→20:59)
[2023-03-11] MEDS: DOCUSATE SODIUM 10 MG/ML 10 ML UDC (COLACE) PO SCH ×2 (08:56→20:59)
[2023-03-11] MEDS: POTASSIUM BICARB 20 MEQ (EFFER-K) TABLET PO SCH ×2 (08:56→20:59)
[2023-03-11] MEDS: PANTOPRAZOLE 40 MG (PROTONIX) VIAL IV SCH (08:56)
[2023-03-11] MEDS ORDERED: LIDOCAINE 1% INJ 20 ML VIAL ONE ×2 (09:18→16:27)
--- NOTE | 2023-03-11 09:48 | Cardiology Progress Note ---
Subjective Date Seen by Provider: March 11, 2023 Time Seen by Provider: 09:47 Subjective/Events-last exam Patient is sedated and intubated Review of Systems General: Other (Unable to provide review of system) Objective-Cardiology Exam Last Set of Vital Signs Vital Signs 03/11/23 03/11/23 03/11/23 03/11/23 03/11/23 07:48 08:10 09:00 09:42 09:46 Temp 36.9 Pulse 86 Resp 17 B/P (MAP) 113/77 Pulse Ox 96 O2 Delivery Mechanical Ventilator O2 Flow Rate 35.00 FiO2 25 I&O Intake and Output 03/11/23 00:00 Intake Total 5185 ml Output Total 3800 ml Balance 1385 ml Intake Oral 0 ml IV Total 2100 ml Tube Feeding 1045 ml Enteral Flush 1080 ml Other 960 ml Output Urine Total 3800 ml General: Moderate Distress, Other (Sedated and intubated) HEENT: Atraumatic, PERRLA Neck: Supple, No JVD Lungs: Normal Air Movement, Other (Bilateral rhonchi) Heart: Normal S1, Normal S2, Other (Atrial fibrillation) Abdomen: Normal Bowel Sounds, Other (Distended abdomen) Extremities: No Clubbing, No Cyanosis Skin: No Rashes, No Breakdown Neuro: Other (Sedated and intubated) Psych/Mental Status: Other (Sedated and intubated) Results Lab Laboratory Tests 03/11/23 04:30 A/P-Cardiology Admission Diagnosis Atrial fibrillation Ascites Acute respiratory insufficiency Acute renal insufficiency Assessment/Plan Acute respiratory failure, pulmonary edema Intubated, ventilator dependent Received Lasix drip with good urine output, currently on Lasix 40 IV BID Atrial fibrillation, persistent Rate is controlled on Cardizem drip. Continue to monitor Congestive heart failure, acute left ventricular systolic dysfunction, unknown etiology Probably alcoholic heart disease, cannot exclude coronary artery disease Tolerating dobutamine drip at 5 mcg/kg/min, I will increase the dose to 7.5 and stop the Levophed Repeat 2D echo was done on March 10, 2023 showing ejection fraction 15 to 20%. I am planning to proceed with cardiac catheterization to evaluate for any underlying coronary artery disease as a cause for his heart failure Ascites and moderate-sized pleural effusion Improved, repeat ultrasound showed small ascites CHADVASC score 2, started on Lovenox Morbid obesity, BMI 39 Heavy alcoholism, drinking vodka daily. He has stopped drinking for the past month. Advised to avoid alcohol Acute on chronic renal failure, monitor renal function. CIRA BROWN MD March 11, 2023 09:48
[2023-03-11 10:14] VITALS: BP 98/68
--- NOTE | 2023-03-11 10:52 | Progress Note - Hospitalist ---
Subjective HPI/CC On Admission Date Seen by Provider: March 11, 2023 This is a 52 y/o M with PMH untreated HTN and alcohol use disorder who presented to the ED on 03/02 with LLQ abdominal pain and increasing abdominal distension over the past month. He had nausea, vomiting and diarrhea for 3 days 1 month ago and swelling in abdomen has been increasing since. Pt quit drinking 1 month ago when abdominal pain started, previously heavy vodka and beer daily for past 20 years. Reports SOB at baseline that improves with sitting in leaned forward p osition worsening as distension increases. Smokes 1 ppd. Admitted with AFib with RVR and pneumonia. Started on antibiotics, fluids withheld due to hypervolemic status. Requiring minimal oxygen initially, rapidly worsening requiring BiPAP and intubated shortly after. Echo with EF <10%. Case discussed with Dr. Gonzalez, recommended transferring to [facility] for advanced heart failure service. Declined transfer due to not being a candidate for advanced therapies with alcohol and tobacco use. Started on Dobutamine for cardiogenic shock. Low urine output, started on Lasix gtt. Rapidly progressing multi-organ failure. Poor prognosis and goals of care discussed with mother at bedside, she would like to continue full code status at this time. Subjective/Events-last exam Pt remains intubated and sedated. No family at bedside. RN reports back on dobutamine. Objective Exam Vital Signs Vital Signs Date Time Temp Pulse Resp B/P (MAP) Pulse Ox O2 Delivery O2 Flow Rate FiO2 03/11/23 10:14 100 16 94 35 03/11/23 10:12 113/77 03/11/23 10:00 Mechanical Ventilator 35.00 03/11/23 07:48 36.9 Capillary Refill : General Appearance: Chronically ill, Obese, Other (sedated, on vent) Respiratory: No Crackles; Decreased Breath Sounds; No Wheezing; Other (on vent) Cardiovascular: Tachycardia Extremity: Pedal Edema, Swelling (+1 pitting to calves) Neurologic/Psychiatric: Other (sedated, appears comfortable) Results/Procedures Lab Laboratory Tests 03/11/23 04:30 Patient resulted labs reviewed. Imaging: Reviewed Imaging Films, Reviewed Imaging Report Assessment/Plan Assessment and Plan Assess & Plan/Chief Complaint Cardogenic shock Acute HFrEF Acute respiratory failure with hypoxia Endotracheally intubated Pneumonia Afib with RVR MALIK Cardiology following TeleICU following for vent management, appreciate recs Continue diuresis as able, was positive yesterday but still produced 3.8L of urine and weight is down Back on dobutamine Completed Antibiotics, cultures with NGTD Lovenox for stroke prophylaxis Tube feeds- increased yesterday Plan for cath todayper cardiology Ascites Cirrhosis Alcohol abuse Hepatitis C Surgery following, not enough ascitic fluid for paracentesis- planning today Hep C RNA elevated Outpatient referral to Hepatology for Hep C treatment Critical Care Ventilator Management NORMA ZAPATA MD March 11, 2023 10:52
[2023-03-11] MEDS: dilTIAZem DRIP PRE-MIX 125 ML IV SCH (12:02)
--- NOTE | 2023-03-11 12:07 | Diagnostic Imaging Report ---
CLINICAL INDICATION: Evaluate for ascites. EXAM: Limited ultrasound of the abdomen in all 4 quadrants to evaluate for ascites. COMPARISON: Limited ultrasound of the abdomen dated 03/10/2023. FINDINGS AND IMPRESSION: There is very minimal ascites seen, predominantly in the left lower quadrant. The amount of ascites appears smaller when compared to the prior study. Dictated by: Dictated on workstation # [id number]
[2023-03-11 14:20] VITALS: BP 117/80
--- NOTE | 2023-03-11 14:41 | Progress Note - Surgery ---
Subjective Date Seen by a Provider: March 11, 2023 Time Seen by a Provider: 08:25 Subjective/Events-last exam Intubated and sedated. No family at bedside. U/s yesterday small volume ascites. Objective Exam Vital Signs Date Time Temp Pulse Resp B/P (MAP) Pulse Ox O2 Delivery O2 Flow Rate FiO2 03/11/23 14:28 30 03/11/23 14:25 83 98/68 03/11/23 14:20 92 19 97 35 03/11/23 14:00 89 18 98 Mechanical Ventilator 35.00 03/11/23 13:31 83 98/68 03/11/23 13:09 83 03/11/23 13:00 91 18 97 Mechanical Ventilator 35.00 03/11/23 12:02 100 98/68 03/11/23 12:02 100 98/68 03/11/23 12:00 37.6 Mechanical Ventilator 35.00 03/11/23 12:00 101 18 97 Mechanical Ventilator 35.00 03/11/23 11:23 90 Mechanical Ventilator 35 03/11/23 11:23 100 98/68 03/11/23 11:22 35 03/11/23 11:00 92 21 92 Mechanical Ventilator 35.00 03/11/23 10:14 100 16 94 35 03/11/23 10:12 76 113/77 03/11/23 10:00 76 17 90 Mechanical Ventilator 35.00 03/11/23 09:46 86 113/77 03/11/23 09:42 Mechanical Ventilator 35.00 03/11/23 09:00 86 17 96 Mechanical Ventilator 25.00 03/11/23 08:55 99 113/77 03/11/23 08:10 25 03/11/23 08:00 99 17 96 Mechanical Ventilator 25.00 03/11/23 08:00 96 Mechanical Ventilator 25 03/11/23 07:48 36.9 Mechanical Ventilator 25.00 03/11/23 07:37 101 113/77 03/11/23 07:30 101 03/11/23 07:00 98 19 96 Mechanical Ventilator 25.00 03/11/23 06:25 96 17 95 25 03/11/23 06:00 93 20 96 Mechanical Ventilator 25.00 03/11/23 05:00 93 20 95 Mechanical Ventilator 25.00 03/11/23 04:25 90 121/75 03/11/23 04:00 37.6 03/11/23 04:00 90 20 95 Mechanical Ventilator 25.00 03/11/23 04:00 95 Mechanical Ventilator 25 03/11/23 04:00 25 03/11/23 03:53 86 18 94 25 03/11/23 03:00 101 20 95 Mechanical Ventilator 25.00 03/11/23 02:00 100 20 94 Mechanical Ventilator 25.00 03/11/23 01:00 124 20 92 Mechanical Ventilator 25.00 03/11/23 01:00 124 03/11/23 00:21 93 Mechanical Ventilator 25 03/11/23 00:04 117 20 92 Mechanical Ventilator 25.00 03/10/23 23:44 37.9 03/10/23 23:26 25 03/10/23 23:12 109 93/59 03/10/23 23:07 103 20 92 Mechanical Ventilator 25.00 03/10/23 22:39 93 19 91 25 03/10/23 22:00 93 20 91 Mechanical Ventilator 25.00 03/10/23 21:00 105 20 92 Mechanical Ventilator 25.00 03/10/23 20:26 25 03/10/23 20:24 93 Mechanical Ventilator 25 03/10/23 20:00 104 20 92 Mechanical Ventilator 25.00 03/10/23 19:00 113 20 92 Mechanical Ventilator 25.00 03/10/23 19:00 113 03/10/23 18:53 112 20 92 25 03/10/23 18:21 115 97/61 03/10/23 18:00 115 20 93 Mechanical Ventilator 25.00 03/10/23 17:16 93 97/61 03/10/23 17:14 93 97/61 03/10/23 17:00 111 20 93 Mechanical Ventilator 25.00 03/10/23 16:15 37.3 03/10/23 16:14 93 80/60 03/10/23 16:12 92 Mechanical Ventilator 25 03/10/23 16:00 104 19 93 Mechanical Ventilator 25.00 03/10/23 15:34 25 03/10/23 15:00 101 18 94 Mechanical Ventilator 25.00 03/10/23 14:51 93 88/64 03/10/23 14:51 87 101/68 I & O 03/11/23 07:00 Intake Total 6580 ml Output Total 3900 ml Balance 2680 ml Capillary Refill : General Appearance: Chronically ill, Obese, Other (sedated, on vent) HEENT: Other (ET tube) Neck: Normal Inspection, Supple Respiratory: No Crackles, No Wheezing; Other (on vent equal chest rise) Cardiovascular: Regular Rate, Rhythm Peripheral Pulses: 2+ Dorsalis Pedis (R), 2+ Left Dors-Pedis (L), 2+ Radial Pulses (R), 2+ Radial Pulses (L) Gastrointestinal: soft, distended (less than yesterday), other (abdominal pitting edema, rash right abdomen) Extremity: Pedal Edema, Swelling (+1 pitting to calves) Neurologic/Psychiatric: Alert, Oriented x3, Other (sedated, appears comfortable) Skin: Normal Color, Warm/Dry Lymphatic: No Adenopathy Results Lab Laboratory Tests 03/10/23 17:51: Glucometer 107 03/10/23 23:31: Glucometer 103 03/11/23 04:30: White Blood Count 8.6, Red Blood Count 4.07L, Hemoglobin 12.4L, Hematocrit 39L, Mean Corpuscular Volume 95, Mean Corpuscular Hemoglobin 31, Mean Corpuscular Hemoglobin Concent 32, Red Cell Distribution Width 15.6H, Platelet Count 164, Mean Platelet Volume 10.0, Immature Granulocyte % (Auto) 1, Neutrophils (%) (Auto) 73, Lymphocytes (%) (Auto) 15, Monocytes (%) (Auto) 9, Eosinophils (%) (Auto) 2, Basophils (%) (Auto) 1, Neutrophils # (Auto) 6.3, Lymphocytes # (Auto) 1.3, Monocytes # (Auto) 0.7, Eosinophils # (Auto) 0.1, Basophils # (Auto) 0.0, Immature Granulocyte # (Auto) 0.1, Sodium Level 139, Potassium Level 3.9, Chloride Level 104, Carbon Dioxide Level 25, Anion Gap 10, Blood Urea Nitrogen 16, Creatinine 1.28, Estimat Glomerular Filtration Rate 67, BUN/Creatinine Ratio 13, Glucose Level 118H, Calcium Level 8.5, Magnesium Level 1.8 03/11/23 06:30: Blood Gas Puncture Site L RADIAL, Blood Gas Patient Temperature 36.7, Arterial Blood pH 7.46H, Arterial Blood Partial Pressure CO2 39, Arterial Blood Partial Pressure O2 52L, Arterial Blood HCO3 27, Arterial Blood Total CO2 28.6, Arterial Blood Oxygen Saturation 88L, Arterial Blood Base Excess 3.7H, [place] Test YES- POS, Blood Gas Ventilator Setting YES, Blood Gas Inspired Oxygen 03/11/23 11:27: Glucometer 111H Microbiology 03/03/23 Urine Culture - Final, Complete NO GROWTH 03/03/23 Gram Stain - Final, Complete 03/03/23 Sputum Culture - Final, Complete No growth 03/02/23 Blood Culture - Final, Complete No growth Assessment/Plan Assessment/Plan Assessment/Plan Ascites Cholelithiasis alcoholic liver cirrhosis Less likely Possible small bowel obstruction Alcohol caridiomyopathy CHFrEF A-Fib w/ RVR Left lung pnuemonia w/ pleural effusion Acute on Chronic renal disease Chronic substance abuse disorder Scrotal swelling from ascites likely had u/s look again today for drainable fluid- no drainable fluid pocket can restart Lovenox from my standpoint. heart cath planned today overall feel poor prognosis NIKKI RODRIGUEZ DO March 11, 2023 14:41
[2023-03-11] MEDS ORDERED: HEParin 1000 UNIT/ML (10ML VIAL) FOR BOLUS ONE (16:27)
[2023-03-11] MEDS ORDERED: MIDAZOLAM 5 MG/5 ML (VERSED) VIAL ONE (16:27)
[2023-03-11] MEDS ORDERED: HEParin (CATH LAB) 2,000 ML IV ONE (16:28)
[2023-03-11] MEDS ORDERED: NS IV 1000 ML 1,000 ML ONE (16:28)
[2023-03-11] MEDS ORDERED: NITRO DRIP 25000 MCG/D5W 250 ML IV ONE (16:28)
[2023-03-11] MEDS ORDERED: fentaNYL INJ 100 MCG/2 ML AMP ONE (16:29)
[2023-03-11] MEDS ORDERED: VERAPAMIL 5 MG/2 ML (CALAN) VIAL IV ONE (16:29)
--- NOTE | 2023-03-11 17:42 | Cardiac Procedure Note-CS/ASA ---
Pre-Procedure Note Pre-Op Procedure Note Date of Available H&P: March 11, 2023 Date H&P Reviewed: March 03, 2023 Time H&P Reviewed: 15:00 History & Physical: H&P Reviewed, Patient Examed, No changes noted Moderate Sedation PreProcedure Time 15:00 ASA Score 5 Airway Lungs Heart ASA score ASA 1: a normal healthy patient ASA 2: a patient with a mild systemic disease (mid diabetes, controlled hypertension, obesity ASA 3: a patient with a severe systemic disease that limits activity (angina, COPD, prior Myocardial infarction) ASA 4: a patient with an incapacitating disease that is a constant threat to life (CHF, renal failure) ASA 5: a moribund patient not expected to survive 24 hrs. (ruptured aneurysm) ASA 6: a declared brain- patient whose organs are being harvested. For emergent operations, add the letter E after the classification Mallampati Classification Grade 3 Sedation Plan Analgesia, Amnesia, Plan communicated to team members, Discussed options with patient/fam, Discussed risks with patient/fam The patient is an appropriate candidate to undergo the planned procedure, sedation, and anesthesia. The patient immediately re-assessed prior to indication. CIRA BROWN MD March 11, 2023 17:42
--- NOTE | 2023-03-11 17:47 | Cardiac Cath Report ---
Cardiac Cath Report Physician (s)/Handbook Writer (s) Physician CIRA BROWN MD Pre-Procedure Diagnosis Pre-Procedure Diagnosis: Congestive heart failure Post-Procedure Note Procedure Start Date: March 11, 2023 Name of Procedure: Left heart catheterization Aortic arch angiogram Findings/Procedure Note PROCEDURE NOTE: 52-year-old gentleman in respiratory failure, severe cardiomyopathy and cardiogenic shock, has been dependent on dobutamine. Failed weaning multiple times. Ventilator dependent. I decided to proceed with coronary angiogram. Procedure was explained to the mother who signed the consent. All pros and cons were explained. Patient was placed on the cardiac catheterization laboratory, radial access was acquired then 6 Austrian sheath was placed, [place] catheter was advanced to the left ventricular cavity, pressure was measured, pullback LV to aorta was done, engage the left coronary system then exchanged the catheter [place] right catheter and did angiogram to the right coronary system then pulled the catheter up to the aortic arch and aortic arch angiogram was done. At the end of the procedure the sheath was removed. Vascular band was used FINDINGS: Hemodynamics LV 86/21, end-diastolic pressure of 21 Aorta 83/64 mean of 70 ANATOMY: Left Main is free of obstructive disease Left Anterior Descending has moderate ectasia with slow flow due to low cardiac output Left Circumflex has moderate ectasia with 50% stenosis in the mid circumflex artery, slow flow due to the low cardiac output Right Coronary Artery dominant artery with diffuse ectasia and slow flow due to low cardiac output LV Gram was not done, ejection fraction was 10 to 15% per echocardiogram Aorta evaluation done with aortic arch angiogram showing normal aortic arch size, no dissection or aneurysm, normal brachiocephalic artery left carotid and left subclavian arteries CONCLUSION: Diffuse coronary ectasia with slow flow due to low cardiac output, mild to moderate disease nonobstructive disease Elevated left ventricular end-diastolic pressure, known low ejection fraction with up to 15% Normal aortic arch and great vessels of the neck DISCUSSION AND RECOMMENDATION: Nonischemic cardiomyopathy, continue to maximize medical therapy Anesthesia Type: Conscious Sedation Estimated blood loss (mL): 10 ml Contrast Amount: 70 ml Post-Procedure Diagnosis Post-operative diagnosis: Cardiogenic shock Acute left ventricular systolic dysfunction, nonischemic cardiomyopathy Acute respiratory failure Atrial fibrillation CIRA BROWN MD March 11, 2023 17:47
[2023-03-11 18:40] VITALS: BP 156/126
[2023-03-11] MEDS: ENOXAPARIN 150 MG/ML (LOVENOX) SYR SQ SCH (18:43)
[2023-03-11 22:03] VITALS: BP 156/126
[2023-03-12] MEDS: PROPOFOL DRIP (ICU) 100 ML IV SCH ×7 (02:32→23:55)
[2023-03-12] MEDS: DexMEDEtomidine 250 ML DRIP 250 ML IV SCH ×6 (03:14→23:55)
[2023-03-12] MEDS: DOBUTamine DRIP 250 ML IV SCH ×2 (04:10→17:18)
[2023-03-12] MEDS: MAGNESIUM 1 GM/100 ML IVPB 100 ML IV SCH (04:11)
[2023-03-12] MEDS: POTASSIUM CL 10MEQ/50ML IVPB 50 ML IV SCH ×3 (04:11→05:15)
[2023-03-12] MEDS: KCL 20 MEQ TAB (K-DUR) PO SCH (04:11)
[2023-03-12] MEDS: NOREPINEPHRINE 8 MG/250 ML 250 ML IV SCH ×3 (04:12→23:55)
[2023-03-12] MEDS: dilTIAZem DRIP PRE-MIX 125 ML IV SCH (04:18)
[2023-03-12 04:30] LABS: BASOPHILS % (AUTO) 1 % (0-10); EOSINOPHILS # (AUTO) 0.2 10^3/uL (0.0-0.3); EOSINOPHILS % (AUTO) 3 % (0-10); HEMATOCRIT 38 % (40-54); HEMOGLOBIN 12.2 g/dL (13.3-17.7); LYMPHOCYTES # (AUTO) 1.2 10^3/uL (1.0-4.0); LYMPHOCYTES % (AUTO) 15 % (12-44); MEAN CORPUSCULAR HEMOGLOBIN 31 pg (25-34); MEAN CORPUSCULAR HGB CONC 33 g/dL (32-36); MEAN CORPUSCULAR VOLUME 95 fL (80-99); MONOCYTES # (AUTO) 0.6 10^3/uL (0.0-1.0); MONOCYTES % (AUTO) 8 % (0-12); NEUTROPHILS # (AUTO) 5.6 10^3/uL (1.8-7.8); NEUTROPHILS % (AUTO) 73 % (42-75); PLATELET COUNT 157 10^3/uL (130-400); WHITE BLOOD COUNT 7.6 10^3/uL (4.3-11.0)
[2023-03-12 04:38] LABS: POTASSIUM 3.9 MMOL/L (3.6-5.0)
[2023-03-12 04:39] LABS: CALCIUM 8.5 MG/DL (8.5-10.1)
[2023-03-12 04:44] LABS: CREATININE SERUM 1.1 MG/DL (0.60-1.30)
[2023-03-12 04:47] LABS: ABG OXYGEN SATURATION 91 % (94-100); ABG PCO2 40 MMHG (35-45); ABG PH 7.47 (7.37-7.43); ABG PO2 58 MMHG (79-93)
[2023-03-12 04:48] LABS: ALLENS TEST YES-POS; INSPIRED O2 30%; PATIENT TEMP 36.7; VENTILATOR YES
[2023-03-12] MEDS ORDERED: POTASSIUM CL 10MEQ/50ML IVPB 100 ML IV ONE (04:57)
[2023-03-12] MEDS: ENOXAPARIN 150 MG/ML (LOVENOX) SYR SQ SCH ×2 (05:14→17:01)
[2023-03-12 06:13] VITALS: BP 156/126
[2023-03-12] MEDS: DOCUSATE SODIUM 10 MG/ML 10 ML UDC (COLACE) PO SCH ×2 (08:02→20:06)
[2023-03-12] MEDS: meTOprolol TARTRATE 25 MG (LOPRESSOR) TABLET PO SCH ×2 (08:03→20:06)
--- NOTE | 2023-03-12 08:30 | Cardiology Progress Note ---
Subjective Date Seen by Provider: Mar 12, 2023 Time Seen by Provider: 08:29 Subjective/Events-last exam Patient is sedated, ventilator dependent Review of Systems General: Other (Unable to provide review of system) Objective-Cardiology Exam Last Set of Vital Signs Vital Signs 03/12/23 03/12/23 03/12/23 03/12/23 03/12/23 04:18 06:13 07:00 07:23 07:51 Temp 36.4 Pulse 83 Resp 22 B/P (MAP) 97/55 Pulse Ox 93 O2 Delivery Mechanical Ventilator O2 Flow Rate 30.00 FiO2 30 I&O Intake and Output 03/12/23 00:00 Intake Total 5380 ml Output Total 3675 ml Balance 1705 ml Intake Oral 0 ml IV Total 2225 ml Tube Feeding 900 ml Enteral Flush 900 ml Other 1355 ml Output Urine Total 3675 ml General: Moderate Distress, Other (Sedated and intubated) HEENT: Atraumatic, PERRLA Neck: Supple, No JVD Lungs: Normal Air Movement, Other (Bilateral rhonchi) Heart: Normal S1, Normal S2, Other (Atrial fibrillation) Abdomen: Normal Bowel Sounds, Other (Distended abdomen) Extremities: No Clubbing, No Cyanosis Skin: No Rashes, No Breakdown Neuro: Other (Sedated and intubated) Psych/Mental Status: Other (Sedated and intubated) Results Lab Laboratory Tests 03/12/23 04:20 A/P-Cardiology Admission Diagnosis Atrial fibrillation Ascites Acute respiratory insufficiency Acute renal insufficiency Assessment/Plan Acute respiratory failure, pulmonary edema Intubated, ventilator dependent Received Lasix drip with good urine output, currently on Lasix 40 IV BID, I will switch him back to Lasix drip Atrial fibrillation, persistent Rate is controlled on Cardizem drip. Continue to monitor Congestive heart failure, acute left ventricular systolic dysfunction, unknown etiology Probably alcoholic heart disease, cannot exclude coronary artery disease Tolerating dobutamine drip at 5 mcg/kg/min, I will increase the dose to 7.5 and stop the Levophed Repeat 2D echo was done on March 10, 2023 showing ejection fraction 15 to 20%. Cardiac catheterization done on March 11, 2023 with slow flow in the coronary system and coronary ectasia, nonobstructive disease Nonischemic cardiomyopathy Ascites and moderate-sized pleural effusion Improved, repeat ultrasound showed small ascites CHADVASC score 2, started on Lovenox Morbid obesity, BMI 39 Heavy alcoholism, drinking vodka daily. He has stopped drinking for the past month. Advised to avoid alcohol Acute on chronic renal failure, monitor renal function. Overall poor prognosis, patient is not a suitable candidate for heart transplant CIRA BROWN MD Mar 12, 2023 08:30
--- NOTE | 2023-03-12 09:25 | Tele-ICU Progress Note ---
Subjective Date Seen by a Provider: Mar 12, 2023 Subjective/Events-last exam This virtual visit was conducted using real time audio/video. Thank you for asking us to see this patient for respiratory insufficiency due to acute on chronic CHF, alcoholic CMP, pna, afib/RVR PE: VSS. O2 sat 96% on AC16/550/30%/+5. HEENT: No obvious masses, adenopathy or JVD. Chest: coarse on auscultation. CV: IrregS1 S2 No murmur or added sounds. Abd: Non-tender. Bowel sounds Y. : Unremarkable. Wright Y. CHIEF OPERATIONS OFFICER/psychiatric: Grossly intact. No obvious focal findings. Extremities: 1+ edema. Capillary refill < 3 seconds. Skin: unremarkable. Results: Elevated BG 112. Decreased hb 12.2. AB.47/40/58 on 30%. CXR: Cardiomeg., congested.. Available chart/ vitals / labs / images reviewed. Video assessment done using teleICU camera, rest of exam as per RN. A/P: Respiratory insufficiency: Continue present management with vent., Prec., Prop. Wean sedation and try SBT today. Not hopeful re chances and may need Palliative Care. Critical Care: critically ill patient. Cont. Pepe., Levo., Dilt., PPI, lasix, metop. Discussed with RN Enma. Asked RN to reach out to eICU if any questions or concerns later. Time spent with patient/coordination of care with other health professionals (mins): 28 Sepsis Event Evaluation Height, Weight, BMI Height: 6'5.00" Weight: 235lbs. 0oz. 106.582032mo; 38.47 BMI Method:Stated Exam Exam Patient acknowledged, consented, and participated in this virtual visit which was conducted using real time audio/video Vital Signs Date Time Temp Pulse Resp B/P (MAP) Pulse Ox O2 Delivery O2 Flow Rate FiO2 03/12/23 09:00 86 19 96 Mechanical Ventilator 30.00 03/12/23 08:00 81 18 96 Mechanical Ventilator 30.00 03/12/23 07:51 36.4 03/12/23 07:23 83 03/12/23 07:00 84 22 93 Mechanical Ventilator 30.00 03/12/23 06:13 100 21 92 30 03/12/23 06:00 85 12 90 Mechanical Ventilator 30.00 03/12/23 05:00 90 17 95 Mechanical Ventilator 30.00 03/12/23 04:18 99 97/55 03/12/23 04:00 107 20 94 Mechanical Ventilator 30.00 03/12/23 04:00 95 Mechanical Ventilator 30 03/12/23 03:51 36.7 03/12/23 03:23 30 03/12/23 03:00 107 18 94 Mechanical Ventilator 30.00 03/12/23 02:10 115 21 93 30 03/12/23 02:00 105 16 93 Mechanical Ventilator 30.00 03/12/23 01:00 98 03/12/23 01:00 90 15 95 Mechanical Ventilator 30.00 03/12/23 00:06 95 Mechanical Ventilator 30 03/12/23 00:06 30 03/12/23 00:00 83 16 95 Mechanical Ventilator 30.00 03/11/23 23:51 36.8 03/11/23 23:00 79 17 95 Mechanical Ventilator 30.00 03/11/23 22:03 76 16 96 30 03/11/23 22:00 74 23 95 Mechanical Ventilator 30.00 03/11/23 21:00 80 17 96 Mechanical Ventilator 30.00 03/11/23 20:34 30 03/11/23 20:00 96 Mechanical Ventilator 30 03/11/23 20:00 78 16 96 Mechanical Ventilator 30.00 03/11/23 19:49 36.3 03/11/23 19:00 73 03/11/23 19:00 79 20 94 Mechanical Ventilator 30.00 03/11/23 18:44 77 106/70 03/11/23 18:40 75 16 93 30 03/11/23 18:26 77 106/70 03/11/23 18:15 87 16 94 Mechanical Ventilator 30.00 03/11/23 17:00 86 16 97 Mechanical Ventilator 30.00 03/11/23 16:33 93 104/71 03/11/23 16:08 93 104/71 03/11/23 16:00 87 16 96 Mechanical Ventilator 30.00 03/11/23 16:00 93 Mechanical Ventilator 30 03/11/23 15:34 30 03/11/23 15:26 37.3 03/11/23 15:14 Mechanical Ventilator 30.00 03/11/23 15:01 93 104/71 03/11/23 15:00 90 18 96 Mechanical Ventilator 35.00 03/11/23 14:28 30 03/11/23 14:25 83 98/68 03/11/23 14:20 92 19 97 35 03/11/23 14:00 89 18 98 Mechanical Ventilator 35.00 03/11/23 13:31 83 98/68 03/11/23 13:09 83 03/11/23 13:00 91 18 97 Mechanical Ventilator 35.00 03/11/23 12:02 100 /03/11/23 12:02 100 98/03/11/23 12:00 37.6 Mechanical Ventilator 35.00 03/11/23 12:00 101 18 97 Mechanical Ventilator 35.00 03/11/23 11:23 90 Mechanical Ventilator 35 03/11/23 11:23 100 /03/11/23 11:22 35 03/11/23 11:00 92 21 92 Mechanical Ventilator 35.00 03/11/23 10:14 100 16 94 35 03/11/23 10:12 76 113/77 03/11/23 10:00 76 17 90 Mechanical Ventilator 35.00 03/11/23 09:46 86 113/03/11/23 09:42 Mechanical Ventilator 35.00 I & O 03/12/23 07:00 Intake Total 4605 ml Output Total 3625 ml Balance 980 ml Height & Weight Height: 6'5.00" Weight: 235lbs. 0oz. 106.943174kq; 38.47 BMI Method:Stated General Appearance: Chronically ill, Obese, Other (sedated, on vent) HEENT: Other (ET tube) Neck: Normal Inspection, Supple Respiratory: No Crackles, No Wheezing; Other (on vent equal chest rise) Cardiovascular: Regular Rate, Rhythm Capillary Refill: Less Than 3 Seconds Peripheral Pulses: 2+ Dorsalis Pedis (R), 2+ Left Dors-Pedis (L), 2+ Radial Pulses (R), 2+ Radial Pulses (L) Gastrointestinal: soft, distended (less than yesterday), other (abdominal pi tting edema, rash right abdomen) Extremity: Pedal Edema, Swelling (+1 pitting to calves) Neurologic/Psychiatric: Alert, Oriented x3, Other (sedated, appears comfortable) Skin: Normal Color, Warm/Dry Lymphatic: No Adenopathy Results Lab Laboratory Tests 03/11/23 04:30 03/12/23 04:20 Assessment/Plan Assessment/Plan See free text. Critical Care: Ventilator Management TRAMAINE TAYLOR MD Mar 12, 2023 09:25
[2023-03-12] MEDS: POTASSIUM BICARB 20 MEQ (EFFER-K) TABLET PO SCH ×2 (09:33→20:09)
[2023-03-12] MEDS: PANTOPRAZOLE 40 MG (PROTONIX) VIAL IV SCH (09:33)
[2023-03-12] MEDS: FUROSEMIDE INJECTION 120 MG in D5W 100 ML IVPB 108 ML IV SCH (09:34)
[2023-03-12 09:45] VITALS: BP 93/64
[2023-03-12 09:54] VITALS: BP 84/75
--- NOTE | 2023-03-12 10:33 | Progress Note - Hospitalist ---
Subjective HPI/CC On Admission Date Seen by Provider: Mar 12, 2023 This is a 52 y/o M with PMH untreated HTN and alcohol use disorder who presented to the ED on 03/02 with LLQ abdominal pain and increasing abdominal distension over the past month. He had nausea, vomiting and diarrhea for 3 days 1 month ago and swelling in abdomen has been increasing since. Pt quit drinking 1 month ago when abdominal pain started, previously heavy vodka and beer daily for past 20 years. Reports SOB at baseline that improves with sitting in leaned forward po sition worsening as distension increases. Smokes 1 ppd. Admitted with AFib with RVR and pneumonia. Started on antibiotics, fluids withheld due to hypervolemic status. Requiring minimal oxygen initially, rapidly worsening requiring BiPAP and intubated shortly after. Echo with EF <10%. Case discussed with Dr. Gonzalez, recommended transferring to [facility] for advanced heart failure service. Declined transfer due to not being a candidate for advanced therapies with alcohol and tobacco use. Started on Dobutamine for cardiogenic shock. Low urine output, started on Lasix gtt. Rapidly progressing multi-organ failure. Poor prognosis and goals of care discussed with mother at bedside, she would like to continue full code status at this time. Subjective/Events-last exam Pt remains intubated and sedated. No family at bedside. Attempted to call mother and no answer. Spoke with Dr Gonzalez regarding cath results. Objective Exam Vital Signs Vital Signs Date Time Temp Pulse Resp B/P (MAP) Pulse Ox O2 Delivery O2 Flow Rate FiO2 03/12/23 09:54 125 23 96 30 03/12/23 09:37 37.2 03/12/23 09:21 88/62 03/12/23 09:00 Mechanical Ventilator 30.00 Capillary Refill : Less Than 3 Seconds General Appearance: No Apparent Distress, Chronically ill, Obese Respiratory: Lungs Clear, No Respiratory Distress Cardiovascular: No Murmur, Irregularly Irregular Gastrointestinal: Normal Bowel Sounds, Soft Results/Procedures Lab Laboratory Tests 03/12/23 04:20 Patient resulted labs reviewed. Imaging: Reviewed Imaging Films, Reviewed Imaging Report Assessment/Plan Assessment and Plan Assess & Plan/Chief Complaint Cardiogenic shock Acute HFrEF Acute respiratory failure with hypoxia Endotracheally intubated Pneumonia Afib with RVR MALIK Cardiology following- reports not a candidate for heart transplant and recommends palliative care EF remains ~10% TeleICU following for vent management, appreciate recs Continue diuresis, started on lasix gtt Off dobutamine Completed Antibiotics, cultures with NGTD Lovenox for stroke prophylaxis Tube feeds Attempted to call mom to discuss goals of care- no answer Ascites Cirrhosis Alcohol abuse Hepatitis C Surgery following, not enough ascitic fluid for paracentesis- planning today Hep C RNA elevated Outpatient referral to Hepatology for Hep C treatment Critical Care Ventilator Management NORMA ZAPATA MD Mar 12, 2023 10:33
--- NOTE | 2023-03-12 10:45 | Diagnostic Imaging Report ---
INDICATION: Respiratory failure Portable chest 10:00 AM There is an ET tube projects over the trachea. NG tube enters the stomach. Right IJ central line tip projects over the SVC. There is cardiomegaly. Vascularity is normal. There is bilateral perihilar atelectasis. IMPRESSION: Bilateral perihilar atelectasis. Overall aeration appears slightly improved compared to 03/08/2023. Dictated by: Dictated on workstation # [id number]
[2023-03-12 14:02] VITALS: BP 95/65
[2023-03-12] MEDS ORDERED: DOPamine DRIP 250 ML IV PRN (14:15)
--- NOTE | 2023-03-12 15:26 | Progress Note - Surgery ---
Subjective Date Seen by a Provider: Mar 12, 2023 Time Seen by a Provider: 15:21 Subjective/Events-last exam Patient remains intubated and sedated. Mother at bedside. Heart rate went bradycardic but has now increased. Unable to extubate this morning Objective Exam Vital Signs Date Time Temp Pulse Resp B/P (MAP) Pulse Ox O2 Delivery O2 Flow Rate FiO2 03/12/23 15:07 97 77/45 03/12/23 14:35 98 90/62 03/12/23 14:05 98 90/62 03/12/23 14:05 101 90/57 03/12/23 14:02 99 18 93 30 03/12/23 14:00 81 13 94 Mechanical Ventilator 30.00 03/12/23 13:18 94 03/12/23 13:00 100 22 94 Mechanical Ventilator 30.00 03/12/23 12:59 101 85/55 03/12/23 12:03 30 03/12/23 12:00 101 17 93 Mechanical Ventilator 30.00 03/12/23 12:00 95 Mechanical Ventilator 30 03/12/23 11:27 36.3 03/12/23 11:00 106 19 93 Mechanical Ventilator 30.00 03/12/23 10:35 106 85/55 03/12/23 10:00 109 20 95 Mechanical Ventilator 30.00 03/12/23 09:54 125 23 96 30 03/12/23 09:45 118 28 96 30 03/12/23 09:37 37.2 03/12/23 09:21 95 88/62 03/12/23 09:00 86 19 96 Mechanical Ventilator 30.00 03/12/23 08:03 30 03/12/23 08:00 81 18 96 Mechanical Ventilator 30.00 03/12/23 08:00 95 Mechanical Ventilator 30 03/12/23 07:51 36.4 03/12/23 07:23 83 03/12/23 07:14 86 91/63 03/12/23 07:00 84 22 93 Mechanical Ventilator 30.00 03/12/23 06:13 100 21 92 30 03/12/23 06:00 85 12 90 Mechanical Ventilator 30.00 03/12/23 05:00 90 17 95 Mechanical Ventilator 30.00 03/12/23 04:18 99 97/55 03/12/23 04:00 107 20 94 Mechanical Ventilator 30.00 03/12/23 04:00 95 Mechanical Ventilator 30 03/12/23 03:51 36.7 03/12/23 03:23 30 03/12/23 03:00 107 18 94 Mechanical Ventilator 30.00 03/12/23 02:10 115 21 93 30 03/12/23 02:00 105 16 93 Mechanical Ventilator 30.00 03/12/23 01:00 98 03/12/23 01:00 90 15 95 Mechanical Ventilator 30.00 03/12/23 00:06 95 Mechanical Ventilator 30 03/12/23 00:06 30 03/12/23 00:00 83 16 95 Mechanical Ventilator 30.00 03/11/23 23:51 36.8 03/11/23 23:00 79 17 95 Mechanical Ventilator 30.00 03/11/23 22:03 76 16 96 30 03/11/23 22:00 74 23 95 Mechanical Ventilator 30.00 03/11/23 21:00 80 17 96 Mechanical Ventilator 30.00 03/11/23 20:34 30 03/11/23 20:00 96 Mechanical Ventilator 30 03/11/23 20:00 78 16 96 Mechanical Ventilator 30.00 03/11/23 19:49 36.3 03/11/23 19:00 73 03/11/23 19:00 79 20 94 Mechanical Ventilator 30.00 03/11/23 18:44 77 106/70 03/11/23 18:40 75 16 93 30 03/11/23 18:26 77 106/70 03/11/23 18:15 87 16 94 Mechanical Ventilator 30.00 03/11/23 17:00 86 16 97 Mechanical Ventilator 30.00 03/11/23 16:33 93 104/71 03/11/23 16:08 93 104/71 03/11/23 16:00 87 16 96 Mechanical Ventilator 30.00 03/11/23 16:00 93 Mechanical Ventilator 30 03/11/23 15:34 30 03/11/23 15:26 37.3 I & O 03/12/23 06:59 Intake Total 4605 ml Output Total 3625 ml Balance 980 ml Capillary Refill : Less Than 3 Seconds General Appearance: No Apparent Distress, Chronically ill, Obese, Other (ET tube) HEENT: Other (ET tube) Neck: Normal Inspection, Supple Respiratory: Lungs Clear, No Respiratory Distress Cardiovascular: No Murmur, Irregularly Irregular Peripheral Pulses: 2+ Dorsalis Pedis (R), 2+ Left Dors-Pedis (L), 2+ Radial Pulses (R), 2+ Radial Pulses (L) Gastrointestinal: soft, distended (same as yesterday.), other (abdominal pitting edema, rash right abdomen) Extremity: Pedal Edema, Swelling (+1 pitting to calves) Neurologic/Psychiatric: Alert, Oriented x3, Other (sedated, appears comfortable) Skin: Normal Color, Warm/Dry Lymphatic: No Adenopathy Results Lab Laboratory Tests 03/11/23 18:15: Glucometer 112H 03/11/23 23:32: Glucometer 117H 03/12/23 04:20: White Blood Count 7.6, Red Blood Count 3.96L, Hemoglobin 12.2L, Hematocrit 38L, Mean Corpuscular Volume 95, Mean Corpuscular Hemoglobin 31, Mean Corpuscular Hemoglobin Concent 33, Red Cell Distribution Width 15.6H, Platelet Count 157, Mean Platelet Volume 10.0, Immature Granulocyte % (Auto) 0, Neutrophils (%) (Auto) 73, Lymphocytes (%) (Auto) 15, Monocytes (%) (Auto) 8, Eosinophils (%) (Auto) 3, Basophils (%) (Auto) 1, Neutrophils # (Auto) 5.6, Lymphocytes # (Auto) 1.2, Monocytes # (Auto) 0.6, Eosinophils # (Auto) 0.2, Basophils # (Auto) 0.0, Immature Granulocyte # (Auto) 0.0, Blood Gas Puncture Site LRAD, Blood Gas Patient Temperature 36.7, Arterial Blood pH 7.47H, Arterial Blood Partial Pressure CO2 40, Arterial Blood Partial Pressure O2 58L, Arterial Blood HCO3 29H , Arterial Blood Total CO2 30.0, Arterial Blood Oxygen Saturation 91L, Arterial Blood Base Excess 5.0H, [place] Test YES-POS, Blood Gas Ventilator Setting YES, Blood Gas Inspired Oxygen 30%, Sodium Level 138, Potassium Level 3.9, Chloride Level 105, Carbon Dioxide Level 25, Anion Gap 8, Blood Urea Nitrogen 17, Creatinine 1.10, Estimat Glomerular Filtration Rate 81, BUN/Creatinine Ratio 15, Glucose Level 112H, Calcium Level 8.5, Phosphorus Level 3.0, Magnesium Level 2.0 03/12/23 12:03: Glucometer 113H Microbiology 03/03/23 Urine Culture - Final, Complete NO GROWTH 03/03/23 Gram Stain - Final, Complete 03/03/23 Sputum Culture - Final, Complete No growth 03/02/23 Blood Culture - Final, Complete No growth Assessment/Plan Assessment/Plan Assessment/Plan Ascites Cholelithiasis alcoholic liver cirrhosis Less likely Possible small bowel obstruction Alcohol caridiomyopathy CHFrEF A-Fib w/ RVR Left lung pnuemonia w/ pleural effusion Acute on Chronic renal disease Chronic substance abuse disorder Scrotal swelling from ascites likely overall feel poor prognosis i had 30 minute discussion with patient mother about goals of care. she states she cannot take him off of the machines and kill him. We discussed his care currently and about his overall prognosis, nurses present during discussion If going to continue to be on vent may need trach and peg. I will sign off, call if needed. NIKKI RODRIGUEZ DO Mar 12, 2023 15:26
[2023-03-12] MEDS ORDERED: DIGOXIN 0.25 MG/ML (LANOXIN) 2 ML AMP IV ONE (16:45)
[2023-03-12 19:12] VITALS: BP 110/73
[2023-03-13] MEDS: dilTIAZem DRIP PRE-MIX 125 ML IV SCH (02:21)
[2023-03-13 02:54] VITALS: BP 126/81
[2023-03-13] MEDS: PROPOFOL DRIP (ICU) 100 ML IV SCH ×7 (03:27→22:09)
[2023-03-13 03:59] LABS: ABG BASE EXCESS 4.7 MMOL/L (-2.5-2.5); ABG OXYGEN SATURATION 95 % (94-100); ABG PCO2 41 MMHG (35-45); ABG PH 7.46 (7.37-7.43); ABG PO2 72 MMHG (79-93); ABG TCO2 29.8 MMOL/L (21.0-31.0); BASOPHILS # (AUTO) 0.1 10^3/uL (0.0-0.1); BASOPHILS % (AUTO) 1 % (0-10); EOSINOPHILS # (AUTO) 0.2 10^3/uL (0.0-0.3); EOSINOPHILS % (AUTO) 4 % (0-10); HEMATOCRIT 39 % (40-54); HEMOGLOBIN 12.6 g/dL (13.3-17.7); LYMPHOCYTES # (AUTO) 1.3 10^3/uL (1.0-4.0); LYMPHOCYTES % (AUTO) 21 % (12-44); MEAN CORPUSCULAR HEMOGLOBIN 31 pg (25-34); MEAN CORPUSCULAR HGB CONC 32 g/dL (32-36); MEAN CORPUSCULAR VOLUME 94 fL (80-99); MEAN PLATELET VOLUME 10.3 fL (9.0-12.2); MONOCYTES # (AUTO) 0.6 10^3/uL (0.0-1.0); MONOCYTES % (AUTO) 9 % (0-12); NEUTROPHILS # (AUTO) 3.8 10^3/uL (1.8-7.8); NEUTROPHILS % (AUTO) 65 % (42-75); PLATELET COUNT 168 10^3/uL (130-400); WHITE BLOOD COUNT 5.9 10^3/uL (4.3-11.0)
[2023-03-13] MEDS: DexMEDEtomidine 250 ML DRIP 250 ML IV SCH ×5 (03:59→21:59)
[2023-03-13 04:02] LABS: ALLENS TEST ART LINE; INSPIRED O2 60%; PATIENT TEMP 36.8; VENTILATOR YES
[2023-03-13 04:25] LABS: POTASSIUM 4.4 MMOL/L (3.6-5.0)
[2023-03-13 04:26] LABS: CALCIUM 8.7 MG/DL (8.5-10.1)
[2023-03-13 04:30] LABS: CREATININE SERUM 1.09 MG/DL (0.60-1.30)
[2023-03-13 04:32] LABS: MAGNESIUM 1.8 MG/DL (1.6-2.4)
[2023-03-13] MEDS: KCL 20 MEQ TAB (K-DUR) PO SCH (05:37)
[2023-03-13] MEDS: POTASSIUM CL 10MEQ/50ML IVPB 50 ML IV SCH (05:37)
[2023-03-13] MEDS: MAGNESIUM 1 GM/100 ML IVPB 100 ML IV SCH ×2 (05:37→05:41)
[2023-03-13] MEDS: ENOXAPARIN 150 MG/ML (LOVENOX) SYR SQ SCH ×2 (05:41→17:16)
[2023-03-13 06:47] VITALS: BP 113/61
[2023-03-13] MEDS: NOREPINEPHRINE 8 MG/250 ML 250 ML IV SCH ×2 (07:55→17:13)
[2023-03-13] MEDS: DOBUTamine DRIP 250 ML IV SCH ×2 (07:55→20:32)
[2023-03-13] MEDS: POTASSIUM BICARB 20 MEQ (EFFER-K) TABLET PO SCH ×2 (08:48→20:31)
[2023-03-13] MEDS: PANTOPRAZOLE 40 MG (PROTONIX) VIAL IV SCH (08:48)
--- NOTE | 2023-03-13 09:45 | Tele-ICU Progress Note ---
Subjective Date Seen by a Provider: Mar 13, 2023 Subjective/Events-last exam This virtual visit was conducted using real time audio/video. Thank you for asking us to see this patient for respiratory insufficiency due to acute on chronic CHF, alcoholic CMP, pna, afib/RVR Failed SBT 03/12, 03/11. PE: VSS. O2 sat 95% on AC16/550/30%/+5. HEENT: No obvious masses, adenopathy or JVD. Chest: coarse on auscultation. CV: Irreg. S1 S2 No murmur or added sounds. Abd: Non-tender. Bowel sounds Y. : Unremarkable. Wright Y. [employer]/psychiatric: Grossly intact. No obvious focal findings. Extremities: 1+ edema. Capillary refill < 3 seconds. Skin: unremarkable. Results: Elevated BG 112. Decreased hb 12.2. AB.47/40/58 on 30%. CXR: Cardiomeg., congested. Available chart/ vitals / labs / images reviewed. Video assessment done using teleICU camera, rest of exam as per RN. A/P: Respiratory insufficiency: Continue present management with vent., Prec., Prop. Seen by Palliative Care. Critical Care: critically ill patient. Cont. Pepe., Levo., Dilt., PPI, lasix, metop. Discussed with RN Bernadette. Asked RN to reach out to eICU if any questions or concerns later. Time spent with patient/coordination of care with other health professionals (mins): 20 Sepsis Event Evaluation Height, Weight, BMI Height: 6'5.00" Weight: 235lbs. 0oz. 106.755693kt; 39.57 BMI Method:Stated Exam Exam Patient acknowledged, consented, and participated in this virtual visit which was conducted using real time audio/video Vital Signs Date Time Temp Pulse Resp B/P (MAP) Pulse Ox O2 Delivery O2 Flow Rate FiO2 03/13/23 09:00 96 26 91 Mechanical Ventilator 60.00 03/13/23 08:56 84 113/61 03/13/23 08:49 60 03/13/23 08:48 84 113/61 03/13/23 08:00 90 19 93 Mechanical Ventilator 60.00 03/13/23 08:00 37.2 03/13/23 07:55 84 113/61 03/13/23 07:00 92 20 96 Mechanical Ventilator 60.00 03/13/23 07:00 92 03/13/23 06:47 84 19 96 60 03/13/23 06:23 87 110/73 03/13/23 06:00 87 20 94 Mechanical Ventilator 60.00 03/13/23 05:00 95 19 94 Mechanical Ventilator 60.00 03/13/23 04:10 36.8 03/13/23 04:00 95 Mechanical Ventilator 60 03/13/23 04:00 87 18 95 Mechanical Ventilator 60.00 03/13/23 03:59 88 110/73 03/13/23 03:58 88 110/73 03/13/23 03:58 88 110/73 03/13/23 03:30 60 03/13/23 03:27 88 110/73 03/13/23 03:00 90 24 95 Mechanical Ventilator 60.00 03/13/23 02:54 81 17 96 60 03/13/23 02:21 88 110/73 03/13/23 02:00 84 21 95 Mechanical Ventilator 60.00 03/13/23 01:00 92 03/13/23 01:00 84 18 95 Mechanical Ventilator 60.00 03/13/23 00:09 88 110/73 03/13/23 00:03 60 03/13/23 00:00 93 17 96 Mechanical Ventilator 60.00 03/13/23 00:00 96 Mechanical Ventilator 60 03/12/23 23:55 88 110/73 03/12/23 23:55 88 110/73 03/12/23 23:55 88 110/73 03/12/23 23:35 36.9 03/12/23 23:00 88 16 96 Mechanical Ventilator 60.00 03/12/23 22:33 79 110/73 03/12/23 22:00 85 16 96 Mechanical Ventilator 60.00 03/12/23 21:00 84 16 95 Mechanical Ventilator 60.00 03/12/23 20:09 79 110/73 03/12/23 20:03 60 03/12/23 20:00 95 Mechanical Ventilator 60 03/12/23 20:00 83 16 95 Mechanical Ventilator 60.00 03/12/23 20:00 36.6 03/12/23 19:12 79 17 94 30 03/12/23 19:00 90 03/12/23 19:00 88 16 95 Mechanical Ventilator 60.00 03/12/23 18:44 Mechanical Ventilator 60.00 03/12/23 18:34 92 116/74 03/12/23 18:33 96 124/75 03/12/23 18:05 107 114/75 03/12/23 18:05 90 125/76 03/12/23 18:00 96 19 92 Mechanical Ventilator 30.00 03/12/23 17:00 106 16 95 Mechanical Ventilator 30.00 03/12/23 16:03 60 03/12/23 16:00 37.7 03/12/23 16:00 95 Mechanical Ventilator 60 03/12/23 16:00 129 21 91 Mechanical Ventilator 30.00 03/12/23 15:17 108 112/69 03/12/23 15:07 97 77/45 03/12/23 15:00 89 16 90 Mechanical Ventilator 30.00 03/12/23 14:35 98 90/62 03/12/23 14:05 98 90/62 03/12/23 14:05 101 90/57 03/12/23 14:02 99 18 93 30 03/12/23 14:00 81 13 94 Mechanical Ventilator 30.00 03/12/23 13:18 94 03/12/23 13:00 100 22 94 Mechanical Ventilator 30.00 03/12/23 12:59 101 85/55 03/12/23 12:03 30 03/12/23 12:00 101 17 93 Mechanical Ventilator 30.00 03/12/23 12:00 95 Mechanical Ventilator 30 03/12/23 11:27 36.3 03/12/23 11:00 106 19 93 Mechanical Ventilator 30.00 03/12/23 10:35 106 85/55 03/12/23 10:00 109 20 95 Mechanical Ventilator 30.00 03/12/23 09:54 125 23 96 30 03/12/23 09:45 118 28 96 30 I & O 03/13/23 07:00 Intake Total 5815 ml Output Total 1525 ml Balance 4290 ml Height & Weight Height: 6'5.00" Weight: 235lbs. 0oz. 106.199716cc; 39.57 BMI Method:Stated General Appearance: No Apparent Distress, Chronically ill, Obese, Other (ET tube) HEENT: Other (ET tube) Neck: Normal Inspection, Supple Respiratory: Lungs Clear, No Respiratory Distress Cardiovascular: No Murmur, Irregularly Irregular Capillary Refill: Less Than 3 Seconds Peripheral Pulses: 2+ Dorsalis Pedis (R), 2+ Left Dors-Pedis (L), 2+ Radial Pulses (R), 2+ Radial Pulses (L) Gastrointestinal: soft, distended (same as yesterday.), other (abdominal pitting edema, rash right abdomen) Extremity: Pedal Edema, Swelling (+1 pitting to calves) Neurologic/Psychiatric: Alert, Oriented x3, Other (sedated, appears comfortable) Skin: Normal Color, Warm/Dry Lymphatic: No Adenopathy Results Lab Laboratory Tests 03/12/23 04:20 03/13/23 03:52 Assessment/Plan Assessment/Plan See free text. Critical Care: Ventilator Management TRAMAINE TAYLOR MD Mar 13, 2023 09:45
[2023-03-13] MEDS: DOCUSATE SODIUM 10 MG/ML 10 ML UDC (COLACE) PO SCH ×2 (10:05→20:31)
[2023-03-13] MEDS: FUROSEMIDE INJECTION 120 MG in D5W 100 ML IVPB 108 ML IV SCH (10:05)
[2023-03-13 10:55] VITALS: BP 108/66
--- NOTE | 2023-03-13 11:04 | Progress Note - Hospitalist ---
Subjective HPI/CC On Admission Date Seen by Provider: Mar 13, 2023 This is a 52 y/o M with PMH untreated HTN and alcohol use disorder who presented to the ED on 03/02 with LLQ abdominal pain and increasing abdominal distension over the past month. He had nausea, vomiting and diarrhea for 3 days 1 month ago and swelling in abdomen has been increasing since. Pt quit drinking 1 month ago when abdominal pain started, previously heavy vodka and beer daily for past 20 years. Reports SOB at baseline that improves with sitting in leaned forward po sition worsening as distension increases. Smokes 1 ppd. Admitted with AFib with RVR and pneumonia. Started on antibiotics, fluids withheld due to hypervolemic status. Requiring minimal oxygen initially, rapidly worsening requiring BiPAP and intubated shortly after. Echo with EF <10%. Case discussed with Dr. Gonzalez, recommended transferring to [facility] for advanced heart failure service. Declined transfer due to not being a candidate for advanced therapies with alcohol and tobacco use. Started on Dobutamine for cardiogenic shock. Low urine output, started on Lasix gtt. Rapidly progressing multi-organ failure. Poor prognosis and goals of care discussed with mother at bedside, she would like to continue full code status at this time. Subjective/Events-last exam Pt remains intubated and sedated. Mother at bedside. Discussed prognosis and plan. She reports she is hoping for a miracle and is not ready to stop pursuing current treatment yet. Objective Exam Vital Signs Vital Signs Date Time Temp Pulse Resp B/P (MAP) Pulse Ox O2 Delivery O2 Flow Rate FiO2 03/13/23 10:55 95 113/61 03/13/23 10:55 18 93 60 03/13/23 10:00 Mechanical Ventilator 60.00 03/13/23 08:00 37.2 Capillary Refill : Less Than 3 Seconds General Appearance: Chronically ill, Obese Respiratory: Decreased Breath Sounds; No Rhonci, No Wheezing Cardiovascular: Irregularly Irregular; No Tachycardia Gastrointestinal: Normal Bowel Sounds, Soft Neurologic/Psychiatric: Other (sedated, appears comfortable) Results/Procedures Lab Laboratory Tests 03/13/23 03:52 Patient resulted labs reviewed. Imaging: Reviewed Imaging Films, Reviewed Imaging Report Assessment/Plan Assessment and Plan Assess & Plan/Chief Complaint Cardiogenic shock Acute HFrEF Acute respiratory failure with hypoxia Endotracheally intubated Pneumonia Afib with RVR MALIK Cardiology following- reports not a candidate for heart transplant and recommends palliative care EF remains ~10% TeleICU following for vent management, appreciate recs Continue lasix gtt Off dobutamine still On cardizem gtt Lovenox for stroke prophylaxis Tube feeds Have spoken with mom twice now and grave prognosis and the likely realities if pt does survive this current illness (trach, peg, etc) she expresss understanding but states she is not ready to pursue comfort care though. She is agreeable to DNR status palliative care consult Ascites Cirrhosis Alcohol abuse Hepatitis C Surgery following, not enough ascitic fluid for paracentesis- signed off Hep C RNA elevated Outpatient referral to Hepatology for Hep C treatment Critical Care Ventilator Management NORMA ZAPATA MD Mar 13, 2023 11:04
--- NOTE | 2023-03-13 11:23 | Progress Note - Cardiology ---
Cardiology SOAP Progress Note Subjective: Intubated and sedated Objective: I&O/Vital Signs 03/16/23 03/16/23 03/16/23 03/16/23 20:57 21:01 22:00 22:12 Pulse 90 80 77 78 Resp 16 16 B/P (MAP) 106/62 100/63 Pulse Ox 97 97 O2 Delivery Mechanical Ventilator Mechanical Ventilator O2 Flow Rate 50.00 50.00 03/16/23 03/16/23 03/16/23 03/17/23 22:35 23:00 23:20 00:00 Pulse 86 98 77 88 Resp 21 16 16 B/P (MAP) 99/60 Pulse Ox 97 97 97 O2 Delivery Mechanical Ventilator Mechanical Ventilator O2 Flow Rate 50.00 50.00 FiO2 50 03/17/23 03/17/23 03/17/23 03/17/23 00:03 00:15 00:30 00:45 Temp 35.5 Pulse 82 92 Resp 16 18 B/P (MAP) Pulse Ox 98 97 97 O2 Delivery Mechanical Ventilator Mechanical Ventilator Mechanical Ventilator O2 Flow Rate 50.00 50.00 FiO2 50 50 03/17/23 03/17/23 03/17/23 03/17/23 00:46 01:00 01:00 01:05 Pulse 78 94 80 85 Resp 18 B/P (MAP) 99/59 95/59 Pulse Ox 97 O2 Delivery Mechanical Ventilator O2 Flow Rate 50.00 03/17/23 03/17/23 03/17/23 03/17/23 01:05 01:07 01:14 01:15 Pulse 85 94 90 Resp 18 B/P (MAP) 95/59 96/59 Pulse Ox 97 O2 Delivery Mechanical Ventilator O2 Flow Rate 50.00 FiO2 50 03/17/23 03/17/23 03/17/23 03/17/23 01:30 01:45 02:00 02:00 Pulse 86 84 95 92 Resp 17 16 16 18 B/P (MAP) Pulse Ox 96 96 96 97 O2 Delivery Mechanical Ventilator Mechanical Ventilator Mechanical Ventilator Mechanical Ventilator O2 Flow Rate 50.00 50.00 50.00 50.00 03/17/23 03/17/23 03/17/23 03/17/23 02:12 02:27 02:29 03:00 Pulse 90 86 99 91 Resp 22 16 16 B/P (MAP) 95/56 Pulse Ox 97 96 96 O2 Delivery Mechanical Ventilator Mechanical Ventilator O2 Flow Rate 40.00 40.00 FiO2 50 03/17/23 03/17/23 03/17/23 03/17/23 03:51 04:00 04:15 04:22 Temp 36.5 Pulse 92 84 90 Resp 16 16 B/P (MAP) 110/67 Pulse Ox 97 97 O2 Delivery Mechanical Ventilator Mechanical Ventilator O2 Flow Rate 40.00 40.00 FiO2 40 03/17/23 03/17/23 03/17/23 03/17/23 04:24 04:30 05:00 05:12 Pulse 80 96 93 Resp 16 15 B/P (MAP) 102/54 Pulse Ox 97 97 96 O2 Delivery Mechanical Ventilator Mechanical Ventilator Mechanical Ventilator O2 Flow Rate 40.00 40.00 FiO2 40 03/17/23 03/17/23 03/17/23 03/17/23 05:13 05:24 06:00 06:10 Pulse 82 90 78 92 Resp 16 B/P (MAP) 104/54 109/54 103/60 Pulse Ox 96 O2 Delivery Mechanical Ventilator O2 Flow Rate 40.00 03/17/23 03/17/23 03/17/23 03/17/23 07:00 07:00 07:17 08:00 Pulse 96 98 85 92 Resp 23 17 17 B/P (MAP) Pulse Ox 82 96 91 O2 Delivery Mechanical Ventilator Mechanical Ventilator O2 Flow Rate 40.00 40.00 FiO2 40 03/17/23 08:00 Temp 36.9 03/17/23 00:00 Intake Total 1544 ml Output Total 2525 ml Balance -981 ml Weight (Pounds): 235 Weight (Ounces): 0 Weight (Calculated Kilograms): 106.352907 Constitutional: other (Intubated/ventilated) Respiratory: other (fair air entry) Cardiovascular: irregularly irregular, S1 and S2 Gastrointestional: soft Extremities: pedal edema Neurologic/Psychiatric: other (Intubated/ventilated) Skin: normal color; No rash on exposed areas, No ulcerations on exposed areas Results/Procedures: Labs Laboratory Tests 03/16/23 11:50: Glucometer 111H 03/16/23 21:00: Vancomycin Level Trough 20.0 03/17/23 00:23: Glucometer 119H 03/17/23 04:12: White Blood Count 4.6, Red Blood Count 4.25L, Hemoglobin 12.8L, Hematocrit 40, Mean Corpuscular Volume 93, Mean Corpuscular Hemoglobin 30, Mean Corpuscular Hemoglobin Concent 32, Red Cell Distribution Width 15.2H, Platelet Count 176, Mean Platelet Volume 11.9, Immature Granulocyte % (Auto) 0, Neutrophils (%) (Auto) 68, Lymphocytes (%) (Auto) 20, Monocytes (%) (Auto) 6, Eosinophils (%) (Auto) 5, Basophils (%) (Auto) 1, Neutrophils # (Auto) 3.1, Lymphocytes # (Auto) 0.9L, Monocytes # (Auto) 0.3, Eosinophils # (Auto) 0.2, Basophils # (Auto) 0.0, Immature Granulocyte # (Auto) 0.0, Blood Gas Puncture Site ARTLINE, Blood Gas Patient Temperature 36.5, Arterial Blood pH 7.49H, Arterial Blood Partial Pressure CO2 44, Arterial Blood Partial Pressure O2 61L, Arterial Blood HCO3 33H , Arterial Blood Total CO2 34.8H, Arterial Blood Oxygen Saturation 92L, Arterial Blood Base Excess 9.4H, [place] Test ARTLINE, Blood Gas Ventilator Setting YES, Blood Gas Inspired Oxygen 40%, Sodium Level 137, Potassium Level 3.8, Chloride Level 98, Carbon Dioxide Level 30, Anion Gap 9, Blood Urea Nitrogen 19H, Creatinine 0.85, Estimat Glomerular Filtration Rate 105, BUN/Creatinine Ratio 22, Glucose Level 126H, Calcium Level 8.8, Phosphorus Level 3.1, Magnesium Level 1.6 03/17/23 06:05: Glucometer 139H Microbiology 03/15/23 Gram Stain - Final, Resulted 03/15/23 Sputum Culture - Preliminary, Resulted Usual upper respiratory zora 03/15/23 Urine Culture - Final, Complete NO GROWTH 03/15/23 Blood Culture - Preliminary, Resulted No growth A/P: Assessment: Acute respiratory failure, muliti-factorial d/t pneumonia, acute systolic CHF and likely obesity-hypoventilation syndrome - Intubated, ventilator dependent - Lasix drip for HF Management of pneumonia per medical services Atrial fibrillation, persistent - Rate is controlled on Cardizem drip - Lovenox for stroke prophylaxis Congestive heart failure, acute left ventricular systolic dysfunction, unknown etiology - Probably alcoholic heart disease, cannot exclude coronary artery disease - Dobutamine has been transitioned off - Repeat 2D echo was done on March 10, 2023 showing ejection fraction 15 to 20%. - Cardiac catheterization done on March 11, [address] Gonzalez with slow flow in the coronary system and coronary ectasia, nonobstructive disease Nonischemic cardiomyopathy (see above) Ascites and moderate-sized pleural effusion Improved, repeat ultrasound showed small ascites CHADVASC score 2, started on Lovenox Morbid obesity, BMI 39 Heavy alcoholism, drinking vodka daily. He has stopped drinking for the past month. Advised to avoid alcohol Acute on chronic renal failure, monitor renal function. Overall poor prognosis, patient is not a suitable candidate for heart transplant per Dr. Gonzalez's note of 03-12-23 Plan: Acute resp failure (reasons noted above) - requiring intubation Systolic CHF - Lasix gtt for HF Tx of pneumonia per medical/eICU services Hypotension - had been requiring pressor support - currently off A-fib - controlled HR on Cardizem gtt - Continue Lovenox for stroke prophylaxis Monitor lab closely Replace electrolytes as indicated Dr. Gonzalez's notes have been reviewed in detail KYLEE ROMAN Mar 13, 2023 11:23
[2023-03-13] MEDS: meTOprolol TARTRATE 25 MG (LOPRESSOR) TABLET PO SCH ×2 (11:24→20:34)
[2023-03-13 14:38] VITALS: BP 124/77
[2023-03-13 18:42] VITALS: BP 156/126
--- NOTE | 2023-03-13 19:23 | Progress Note - Cardiology ---
Cardiology SOAP Progress Note [facility]ive[facility] Objective: I&O/Vital Signs 03/13/23 03/13/23 03/13/23 03/13/23 07:55 08:00 08:00 08:00 Temp 37.2 Pulse 84 90 Resp 19 B/P (MAP) 113/61 Pulse Ox 93 97 O2 Delivery Mechanical Ventilator Mechanical Ventilator O2 Flow Rate 60.00 FiO2 60 03/13/23 03/13/23 03/13/23 03/13/23 08:48 08:49 08:56 09:00 Pulse 84 84 96 Resp 26 B/P (MAP) 113/61 113/61 Pulse Ox 91 O2 Delivery Mechanical Ventilator O2 Flow Rate 60.00 FiO2 60 03/13/23 03/13/23 03/13/23 03/13/23 10:00 10:08 10:55 10:55 Pulse 95 95 87 95 Resp 14 18 B/P (MAP) 113/61 113/61 Pulse Ox 93 93 O2 Delivery Mechanical Ventilator O2 Flow Rate 60.00 FiO2 60 03/13/23 03/13/23 03/13/23 03/13/23 11:00 11:25 11:27 12:00 Temp 37.5 Pulse 90 98 91 Resp 35 35 B/P (MAP) 97/64 Pulse Ox 93 93 O2 Delivery Mechanical Ventilator Mechanical Ventilator O2 Flow Rate 60.00 60.00 03/13/23 03/13/23 03/13/23 03/13/23 12:00 12:03 12:04 12:55 Temp 37.5 Pulse 98 B/P (MAP) 97/64 Pulse Ox 92 O2 Delivery Mechanical Ventilator FiO2 60 60 03/13/23 03/13/23 03/13/23 03/13/23 13:00 13:00 13:00 13:01 Pulse 98 84 87 98 Resp 42 B/P (MAP) 97/64 97/64 Pulse Ox 94 O2 Delivery Mechanical Ventilator O2 Flow Rate 60.00 03/13/23 03/13/23 03/13/23 03/13/23 14:00 14:25 14:38 15:00 Pulse 94 98 85 92 Resp 20 18 17 B/P (MAP) 97/64 Pulse Ox 95 93 94 O2 Delivery Mechanical Ventilator Mechanical Ventilator O2 Flow Rate 60.00 60.00 FiO2 60 03/13/23 03/13/23 03/13/23 03/13/23 15:38 16:00 16:00 16:03 Temp 36.7 36.7 Pulse 87 92 Resp 20 B/P (MAP) 124/77 Pulse Ox 90 O2 Delivery Mechanical Ventilator O2 Flow Rate 60.00 03/13/23 03/13/23 03/13/23 03/13/23 16:05 16:05 17:00 17:13 Pulse 89 92 Resp 22 B/P (MAP) 124/77 Pulse Ox 95 95 O2 Delivery Mechanical Ventilator Mechanical Ventilator O2 Flow Rate 60.00 FiO2 60 60 03/13/23 03/13/23 03/13/23 03/13/23 17:13 17:27 18:00 18:42 Pulse 92 92 75 86 Resp 21 17 B/P (MAP) 124/77 124/77 Pulse Ox 95 96 O2 Delivery Mechanical Ventilator O2 Flow Rate 60.00 FiO2 60 03/12/23 23:59 Intake Total 2970 ml Output Total 800 ml Balance 2170 ml Weight (Pounds): 235 Weight (Ounces): 0 Weight (Calculated Kilograms): 106.992577 Constitutional: other (Intubated/ventilated) Respiratory: other (fair air entry) Cardiovascular: irregularly irregular, S1 and S2 Gastrointestional: soft Extremities: pedal edema Neurologic/Psychiatric: other (Intubated/ventilated) Skin: normal color; No rash on exposed areas, No ulcerations on exposed areas Results/Procedures: Labs Laboratory Tests 03/12/23 23:34: Glucometer 113H 03/13/23 03:52: White Blood Count 5.9, Red Blood Count 4.12L, Hemoglobin 12.6L, Hematocrit 39L, Mean Corpuscular Volume 94, Mean Corpuscular Hemoglobin 31, Mean Corpuscular Hemoglobin Concent 32, Red Cell Distribution Width 15.6H, Platelet Count 168, Mean Platelet Volume 10.3, Immature Granulocyte % (Auto) 0, Neutrophils (%) (Auto) 65, Lymphocytes (%) (Auto) 21, Monocytes (%) (Auto) 9, Eosinophils (%) (Auto) 4, Basophils (%) (Auto) 1, Neutrophils # (Auto) 3.8, Lymphocytes # (Auto) 1.3, Monocytes # (Auto) 0.6, Eosinophils # (Auto) 0.2, Basophils # (Auto) 0.1, Immature Granulocyte # (Auto) 0.0, Blood Gas Puncture Site RT ARTLINE, Blood Gas Patient Temperature 36.8, Arterial Blood pH 7.46H, Arterial Blood Partial Pressure CO2 41, Arterial Blood Partial Pressure O2 72L, Arterial Blood HCO3 29H , Arterial Blood Total CO2 29.8, Arterial Blood Oxygen Saturation 95, Arterial Blood Base Excess 4.7H, [place] Test ART LINE, Blood Gas Ventilator Setting YES, Blood Gas Inspired Oxygen 60%, Sodium Level 137, Potassium Level 4.4, Chloride Level 104, Carbon Dioxide Level 25, Anion Gap 8, Blood Urea Nitrogen 17, Creatinine 1.09, Estimat Glomerular Filtration Rate 82, BUN/Creatinine Ratio 16, Glucose Level 122H, Calcium Level 8.7, Magnesium Level 1.8 03/13/23 12:19: Glucometer 121H 03/13/23 17:47: Glucometer 124H Microbiology 03/03/23 Urine Culture - Final, Complete NO GROWTH 03/03/23 Gram Stain - Final, Complete 03/03/23 Sputum Culture - Final, Complete No growth 03/02/23 Blood Culture - Final, Complete No growth Laboratory Tests 03/12/23 04:20 03/13/23 03:52 A/P: Assessment: Acute respiratory failure, muliti-factorial d/t pneumonia, acute systolic CHF and likely obesity-hypoventilation syndrome - Intubated, ventilator dependent - Lasix drip for HF Management of pneumonia per medical services Atrial fibrillation, persistent - Rate is controlled on Cardizem drip - Lovenox for stroke prophylaxis Congestive heart failure, acute left ventricular systolic dysfunction, unknown etiology - Probably alcoholic heart disease, cannot exclude coronary artery disease - Dobutamine has been transitioned off - Repeat 2D echo was done on March 10, 2023 showing ejection fraction 15 to 20%. - Cardiac catheterization done on March 11, [address] Gonzalez with slow flow in the coronary system and coronary ectasia, nonobstructive disease Nonischemic cardiomyopathy (see above) Ascites and moderate-sized pleural effusion Improved, repeat ultrasound showed small ascites CHADVASC score 2, started on Lovenox Morbid obesity, BMI 39 Heavy alcoholism, drinking vodka daily. He has stopped drinking for the past month. Advised to avoid alcohol Acute on chronic renal failure, monitor renal function. Overall poor prognosis, patient is not a suitable candidate for heart transplant per Dr. Gonzalez's note of 03-12-23 Plan: Acute resp failure (reasons noted above) - requiring intubation Systolic CHF - Lasix gtt for HF Tx of pneumonia per medical/eICU services Hypotension - had been requiring pressor support - currently off A-fib - controlled HR on Cardizem gtt - Continue Lovenox for stroke prophylaxis Monitor lab closely Replace electrolytes as indicated We reviewed Dr. Gonzalez's notes in detail OG BRAXTON MD [facility] Mar 13, 2023 19:23
[2023-03-13 22:46] VITALS: BP 156/126
[2023-03-14] MEDS: PROPOFOL DRIP (ICU) 100 ML IV SCH ×10 (00:09→23:24)
[2023-03-14] MEDS: DexMEDEtomidine 250 ML DRIP 250 ML IV SCH ×6 (02:12→23:25)
[2023-03-14] MEDS: NOREPINEPHRINE 8 MG/250 ML 250 ML IV SCH ×3 (02:13→21:10)
[2023-03-14] MEDS: dilTIAZem DRIP PRE-MIX 125 ML IV SCH (02:13)
[2023-03-14 02:40] VITALS: BP 119/75
[2023-03-14 04:26] LABS: ABG BASE EXCESS 3.5 MMOL/L (-2.5-2.5); ABG OXYGEN SATURATION 94 % (94-100); ABG PCO2 41 MMHG (35-45); ABG PH 7.44 (7.37-7.43); ABG PO2 68 MMHG (79-93); ABG TCO2 28.8 MMOL/L (21.0-31.0)
[2023-03-14 04:29] LABS: ALLENS TEST ART LINE; BASOPHILS # (AUTO) 0.1 10^3/uL (0.0-0.1); BASOPHILS % (AUTO) 1 % (0-10); EOSINOPHILS # (AUTO) 0.2 10^3/uL (0.0-0.3); EOSINOPHILS % (AUTO) 3 % (0-10); HEMATOCRIT 38 % (40-54); HEMOGLOBIN 12.3 g/dL (13.3-17.7); INSPIRED O2 60%; LYMPHOCYTES # (AUTO) 1.6 10^3/uL (1.0-4.0); LYMPHOCYTES % (AUTO) 26 % (12-44); MEAN CORPUSCULAR HEMOGLOBIN 31 pg (25-34); MEAN CORPUSCULAR HGB CONC 33 g/dL (32-36); MEAN CORPUSCULAR VOLUME 94 fL (80-99); MEAN PLATELET VOLUME 10.7 fL (9.0-12.2); MONOCYTES # (AUTO) 0.5 10^3/uL (0.0-1.0); MONOCYTES % (AUTO) 9 % (0-12); NEUTROPHILS # (AUTO) 3.8 10^3/uL (1.8-7.8); NEUTROPHILS % (AUTO) 62 % (42-75); PATIENT TEMP 36.7; PLATELET COUNT 174 10^3/uL (130-400); VENTILATOR YES; WHITE BLOOD COUNT 6.1 10^3/uL (4.3-11.0)
[2023-03-14 04:39] LABS: POTASSIUM 4.2 MMOL/L (3.6-5.0)
[2023-03-14 04:41] LABS: CALCIUM 8.4 MG/DL (8.5-10.1)
[2023-03-14 04:45] LABS: CREATININE SERUM 1.21 MG/DL (0.60-1.30); PHOSPHORUS 2.7 MG/DL (2.3-4.7)
[2023-03-14 04:47] LABS: MAGNESIUM 1.8 MG/DL (1.6-2.4)
[2023-03-14] MEDS: POTASSIUM CL 10MEQ/50ML IVPB 50 ML IV SCH (05:20)
[2023-03-14] MEDS: KCL 20 MEQ TAB (K-DUR) PO SCH (05:21)
[2023-03-14] MEDS: MAGNESIUM 1 GM/100 ML IVPB 100 ML IV SCH ×3 (05:21→05:33)
[2023-03-14] MEDS: ENOXAPARIN 150 MG/ML (LOVENOX) SYR SQ SCH ×2 (05:30→17:21)
[2023-03-14 06:20] VITALS: BP 125/73
[2023-03-14] MEDS ORDERED: METOLAZONE 2.5 MG (ZAROXOLYN) TAB NG ONE (07:30)
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
[2023-03-14] MEDS: THIAMINE 100 MG/ML 2 ML (VITAMIN B-1) VIAL IV SCH (08:18)
[2023-03-14] MEDS: PANTOPRAZOLE 40 MG (PROTONIX) VIAL IV SCH (08:18)
[2023-03-14] MEDS: meTOprolol TARTRATE 25 MG (LOPRESSOR) TABLET PO SCH ×2 (08:18→21:10)
[2023-03-14] MEDS: POTASSIUM BICARB 20 MEQ (EFFER-K) TABLET PO SCH ×2 (08:18→21:10)
[2023-03-14] MEDS: DOCUSATE SODIUM 10 MG/ML 10 ML UDC (COLACE) PO SCH ×2 (08:18→21:10)
--- NOTE | 2023-03-14 08:25 | Diagnostic Imaging Report ---
INDICATION: On a ventilator. CHF, follow-up EXAMINATION: Chest 03/14/2023 COMPARISON: 03/12/2023 FINDINGS: There is cardiomegaly and pulmonary vascular congestion. Bibasilar infiltrates, left worse than right. Likely left effusion. Findings of edema seen throughout both lungs with low lung volumes noted. Right jugular line tip ends in the SVC. There is an enteric tube which courses beneath diaphragm. ET tube unremarkable. IMPRESSION: 1. Bibasilar infiltrates, left worse than right, with left effusion suspected. 2. Findings of CHF. Dictated by: Dictated on workstation # [id number]
[2023-03-14] MEDS: DOBUTamine DRIP 250 ML IV SCH ×2 (10:16→23:17)
[2023-03-14 10:51] VITALS: BP 113/54
--- NOTE | 2023-03-14 10:59 | Progress Note - Hospitalist ---
Subjective HPI/CC On Admission Date Seen by Provider: Mar 14, 2023 This is a 52 y/o M with PMH untreated HTN and alcohol use disorder who presented to the ED on 03/02 with LLQ abdominal pain and increasing abdominal distension over the past month. He had nausea, vomiting and diarrhea for 3 days 1 month ago and swelling in abdomen has been increasing since. Pt quit drinking 1 month ago when abdominal pain started, previously heavy vodka and beer daily for past 20 years. Reports SOB at baseline that improves with sitting in leaned forward po sition worsening as distension increases. Smokes 1 ppd. Admitted with AFib with RVR and pneumonia. Started on antibiotics, fluids withheld due to hypervolemic status. Requiring minimal oxygen initially, rapidly worsening requiring BiPAP and intubated shortly after. Echo with EF <10%. Case discussed with Dr. Gonzalez, recommended transferring to [facility] for advanced heart failure service. Declined transfer due to not being a candidate for advanced therapies with alcohol and tobacco use. Started on Dobutamine for cardiogenic shock. Low urine output, started on Lasix gtt. Rapidly progressing multi-organ failure. Poor prognosis and goals of care discussed with mother at bedside, she would like to continue full code status at this time. Subjective/Events-last exam Pt remains intubated and sedated. No ROS possible. Mom at bedside. Discussed increasing oxygen requirement. We discussed that if we continue with aggressive measures that we will need to consider trach/peg in the next few days. She states both that she doesn't want to see him like this and also isn't ready to give up hope yet. Objective Exam Vital Signs Vital Signs Date Time Temp Pulse Resp B/P (MAP) Pulse Ox O2 Delivery O2 Flow Rate FiO2 03/14/23 10:00 37.9 96 18 127/58 (81) 93 Mechanical Ventilator 60.00 03/14/23 08:03 60 Capillary Refill : Less Than 3 Seconds General Appearance: Chronically ill, Obese Respiratory: Decreased Breath Sounds, Other (on vent) Cardiovascular: No Murmur, Irregularly Irregular Gastrointestinal: Normal Bowel Sounds, Other (protuberant but soft abd) Genital/Rectal: Other (catheter) Extremity: Pedal Edema, Swelling (1+ bilaterally) Neurologic/Psychiatric: Other (sedated, appears comfortable) Results/Procedures Lab Laboratory Tests 03/14/23 04:16 Patient resulted labs reviewed. Imaging: Reviewed Imaging Films, Reviewed Imaging Report Assessment/Plan Assessment and Plan Assess & Plan/Chief Complaint Cardiogenic shock Acute HFrEF Acute respiratory failure with hypoxia Endotracheally intubated Pneumonia Afib with RVR MALIK Cardiology following- reports not a candidate for heart transplant and recommends palliative care EF remains ~10% TeleICU following for vent management, appreciate recs Continue lasix gtt Metolazone add by eICU as well Off dobutamine still On cardizem gtt- defer to cardiology on switching to pills via OG tube Lovenox for stroke prophylaxis Tube feeds palliative care consult Poor prognosis, increasing oxygen requirement, not a candidate for heart transplant Ascites Cirrhosis Alcohol abuse Hepatitis C Surgery following, not enough ascitic fluid for paracentesis- signed off Hep C RNA elevated Outpatient referral to Hepatology for Hep C treatment if he survives Critical Care Ventilator Management NORMA ZAPATA MD Mar 14, 2023 10:58
[2023-03-14 14:23] VITALS: BP 111/67
--- NOTE | 2023-03-14 15:02 | Progress Note - Cardiology ---
Cardiology SOAP Progress Note Subjective: Unresponsive Objective: I&O/Vital Signs 03/14/23 03/14/23 03/14/23 03/14/23 03:59 04:00 04:00 04:01 Temp 36.7 Pulse 88 Resp 23 B/P (MAP) Pulse Ox 93 93 O2 Delivery Mechanical Ventilator Mechanical Ventilator O2 Flow Rate 60.00 FiO2 60 60 03/14/23 03/14/23 03/14/23 03/14/23 04:09 05:00 05:22 06:00 Pulse 86 93 93 92 Resp 19 19 B/P (MAP) 119/75 119/75 Automatic Cuff Pulse Ox 93 95 O2 Delivery Mechanical Ventilator Mechanical Ventilator O2 Flow Rate 60.00 60.00 03/14/23 03/14/23 03/14/23 03/14/23 06:13 06:13 06:13 06:20 Pulse 93 93 93 102 Resp 19 B/P (MAP) 119/75 119/75 119/75 Pulse Ox 95 FiO2 60 03/14/23 03/14/23 03/14/23 03/14/23 07:00 07:00 08:00 08:00 Pulse 89 92 80 Resp 19 B/P (MAP) Pulse Ox 95 94 92 O2 Delivery Mechanical Ventilator Mechanical Ventilator Mechanical Ventilator O2 Flow Rate 60.00 60.00 FiO2 60 03/14/23 03/14/23 03/14/23 03/14/23 08:03 09:00 09:36 10:00 Pulse 83 93 85 B/P (MAP) 131/62 Pulse Ox 94 92 O2 Delivery Mechanical Ventilator Mechanical Ventilator O2 Flow Rate 60.00 60.00 FiO2 60 03/14/23 03/14/23 03/14/23 03/14/23 10:00 10:51 11:00 12:00 Temp 37.9 Pulse 96 89 93 Resp 18 19 B/P (MAP) 127/58 (81) Pulse Ox 93 92 91 93 O2 Delivery Mechanical Ventilator Mechanical Ventilator Mechanical Ventilator O2 Flow Rate 60.00 60.00 FiO2 60 60 03/14/23 03/14/23 03/14/23 03/14/23 12:00 12:03 13:00 13:00 Pulse 90 91 95 B/P (MAP) Pulse Ox 92 93 O2 Delivery Mechanical Ventilator Mechanical Ventilator O2 Flow Rate 60.00 60.00 FiO2 60 03/14/23 03/14/23 14:00 14:23 Pulse 100 89 Resp 18 B/P (MAP) Pulse Ox 93 93 O2 Delivery Mechanical Ventilator O2 Flow Rate 60.00 FiO2 60 03/14/23 00:00 Intake Total 3190 ml Output Total 950 ml Balance 2240 ml Weight (Pounds): 235 Weight (Ounces): 0 Weight (Calculated Kilograms): 106.533240 Constitutional: other (Intubated/ventilated) Respiratory: other (fair air entry) Cardiovascular: irregularly irregular, S1 and S2 Gastrointestional: soft Extremities: pedal edema Neurologic/Psychiatric: other (Intubated/ventilated) Skin: normal color; No rash on exposed areas, No ulcerations on exposed areas Results/Procedures: Labs Laboratory Tests 03/13/23 17:47: Glucometer 124H 03/13/23 23:51: Glucometer 114H 03/14/23 04:16: White Blood Count 6.1, Red Blood Count 4.00L, Hemoglobin 12.3L, Hematocrit 38L, Mean Corpuscular Volume 94, Mean Corpuscular Hemoglobin 31, Mean Corpuscular Hemoglobin Concent 33, Red Cell Distribution Width 15.2H, Platelet Count 174, Mean Platelet Volume 10.7, Immature Granulocyte % (Auto) 0, Neutrophils (%) (Auto) 62, Lymphocytes (%) (Auto) 26, Monocytes (%) (Auto) 9, Eosinophils (%) (Auto) 3, Basophils (%) (Auto) 1, Neutrophils # (Auto) 3.8, Lymphocytes # (Auto) 1.6, Monocytes # (Auto) 0.5, Eosinophils # (Auto) 0.2, Basophils # (Auto) 0.1, Immature Granulocyte # (Auto) 0.0, Blood Gas Puncture Site ARTLINE, Blood Gas Patient Temperature 36.7, Arterial Blood pH 7.44H, Arterial Blood Partial Pressure CO2 41, Arterial Blood Partial Pressure O2 68L, Arterial Blood HCO3 28H , Arterial Blood Total CO2 28.8, Arterial Blood Oxygen Saturation 94, Arterial Blood Base Excess 3.5H, [place] Test ART LINE, Blood Gas Ventilator Setting YES, Blood Gas Inspired Oxygen 60%, Sodium Level 136, Potassium Level 4.2, Chloride Level 104, Carbon Dioxide Level 24, Anion Gap 8, Blood Urea Nitrogen 18, Creatinine 1.21, Estimat Glomerular Filtration Rate 72, BUN/Creatinine Ratio 15, Glucose Level 118H, Calcium Level 8.4L, Phosphorus Level 2.7, Magnesium Level 1.8 03/14/23 12:15: Glucometer 100 Microbiology 03/03/23 Urine Culture - Final, Complete NO GROWTH 03/03/23 Gram Stain - Final, Complete 03/03/23 Sputum Culture - Final, Complete No growth 03/02/23 Blood Culture - Final, Complete No growth Laboratory Tests 03/13/23 03:52 03/14/23 04:16 A/P: Assessment: Acute respiratory failure, muliti-factorial d/t pneumonia, acute systolic CHF and likely obesity-hypoventilation syndrome - Intubated, ventilator dependent - Lasix drip for HF Management of pneumonia per medical services Atrial fibrillation, persistent - Rate is controlled on Cardizem drip - Lovenox for stroke prophylaxis Congestive heart failure, acute left ventricular systolic dysfunction, unknown etiology - Probably alcoholic heart disease, cannot exclude coronary artery disease - Dobutamine has been transitioned off - Repeat 2D echo was done on March 10, 2023 showing ejection fraction 15 to 20%. - Cardiac catheterization done on March 11, [address] Gonzalez with slow flow in the coronary system and coronary ectasia, nonobstructive disease Nonischemic cardiomyopathy (see above) Ascites and moderate-sized pleural effusion Improved, repeat ultrasound showed small ascites CHADVASC score 2, started on Lovenox Morbid obesity, BMI 39 Heavy alcoholism, drinking vodka daily. He has stopped drinking for the past month. Advised to avoid alcohol Acute on chronic renal failure, monitor renal function. Overall poor prognosis, patient is not a suitable candidate for heart transplant per Dr. Gonzalez's note of 03-12-23 Plan: Acute resp failure (reasons noted above) - requiring intubation Systolic CHF - Lasix gtt for HF Tx of pneumonia per Medical/eICU services Hypotension - had been requiring pressor support - currently off A-fib - controlled HR on Cardizem gtt - Continue Lovenox for stroke prophylaxis Monitor lab closely Replace electrolytes as indicated OG BRAXTON MD FACP [facility] Mar 14, 2023 15:02
[2023-03-14] MEDS: ACETAMINOPHEN 325 MG TABLET PO PRN (17:38)
[2023-03-14 18:18] VITALS: BP 115/65
[2023-03-14 22:41] VITALS: BP 96/62
[2023-03-15] MEDS: PROPOFOL DRIP (ICU) 100 ML IV SCH ×10 (01:28→22:45)
[2023-03-15 01:43] VITALS: BP 99/61
[2023-03-15] MEDS: dilTIAZem DRIP PRE-MIX 125 ML IV SCH ×2 (01:54→22:49)
[2023-03-15 03:11] LABS: ABG BASE EXCESS 5.9 MMOL/L (-2.5-2.5); ABG OXYGEN SATURATION 90 % (94-100); ABG PCO2 43 MMHG (35-45); ABG PH 7.46 (7.37-7.43); ABG PO2 58 MMHG (79-93); ABG TCO2 31.2 MMOL/L (21.0-31.0)
[2023-03-15 03:12] LABS: BASOPHILS # (AUTO) 0.1 10^3/uL (0.0-0.1); BASOPHILS % (AUTO) 1 % (0-10); EOSINOPHILS # (AUTO) 0.1 10^3/uL (0.0-0.3); EOSINOPHILS % (AUTO) 2 % (0-10); HEMATOCRIT 39 % (40-54); HEMOGLOBIN 12.5 g/dL (13.3-17.7); LYMPHOCYTES # (AUTO) 1.9 10^3/uL (1.0-4.0); LYMPHOCYTES % (AUTO) 26 % (12-44); MEAN CORPUSCULAR HEMOGLOBIN 30 pg (25-34); MEAN CORPUSCULAR HGB CONC 33 g/dL (32-36); MEAN CORPUSCULAR VOLUME 93 fL (80-99); MEAN PLATELET VOLUME 10.8 fL (9.0-12.2); MONOCYTES # (AUTO) 0.6 10^3/uL (0.0-1.0); MONOCYTES % (AUTO) 8 % (0-12); NEUTROPHILS # (AUTO) 4.5 10^3/uL (1.8-7.8); NEUTROPHILS % (AUTO) 63 % (42-75); PLATELET COUNT 173 10^3/uL (130-400); WHITE BLOOD COUNT 7.2 10^3/uL (4.3-11.0)
[2023-03-15 03:13] LABS: ALLENS TEST ARTLINE; INSPIRED O2 90%; VENTILATOR YES
[2023-03-15 03:14] LABS: PATIENT TEMP 36.8
[2023-03-15] MEDS: DexMEDEtomidine 250 ML DRIP 250 ML IV SCH ×5 (03:14→21:38)
[2023-03-15 03:23] LABS: CALCIUM 8.5 MG/DL (8.5-10.1)
[2023-03-15 03:27] LABS: PHOSPHORUS 3.4 MG/DL (2.3-4.7)
[2023-03-15 03:28] LABS: CREATININE SERUM 1.25 MG/DL (0.60-1.30)
[2023-03-15 03:30] LABS: MAGNESIUM 1.9 MG/DL (1.6-2.4)
[2023-03-15] MEDS: NOREPINEPHRINE 8 MG/250 ML 250 ML IV SCH ×3 (04:23→22:35)
[2023-03-15] MEDS: MAGNESIUM 1 GM/100 ML IVPB 100 ML IV SCH ×3 (05:23→05:39)
[2023-03-15] MEDS: POTASSIUM CL 10MEQ/50ML IVPB 50 ML IV SCH (05:39)
[2023-03-15] MEDS: KCL 20 MEQ TAB (K-DUR) PO SCH (05:39)
[2023-03-15] MEDS: ENOXAPARIN 150 MG/ML (LOVENOX) SYR SQ SCH ×2 (06:14→17:06)
[2023-03-15 06:18] VITALS: BP 105/60
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
[2023-03-15] MEDS ORDERED: VANCOMYCIN 1250MG/250ML PREMIX 250 ML IV SCH (08:15)
--- NOTE | 2023-03-15 08:31 | Diagnostic Imaging Report ---
INDICATION: Respiratory failure. COMPARISON: 03/14/2023 FINDINGS: Single frontal radiographic view of the chest was obtained and demonstrates interval development of complete opacification of the left hemithorax. Indwelling endotracheal tube is present with tip at the clavicular heads. Gastric tube extends inferiorly on the frontal view. Right internal jugular central venous catheter is also seen with tip likely in the high SVC versus innominate vein. Lungs also show low inspiratory volumes. No large effusion or pneumothorax is seen on the right. Cardiac silhouette is mostly obscured. IMPRESSION: 1. Interval development of complete opacification left hemithorax concerning for atelectasis. Progression of pneumonia may have a similar appearance. Dictated by: Dictated on workstation # [id number]
[2023-03-15 08:36] LABS: ABG BASE EXCESS 7.3 MMOL/L (-2.5-2.5); ABG OXYGEN SATURATION 87 % (94-100); ABG PCO2 41 MMHG (35-45); ABG PH 7.49 (7.37-7.43); ABG PO2 52 MMHG (79-93); ABG TCO2 32.4 MMOL/L (21.0-31.0)
[2023-03-15 08:38] LABS: ALLENS TEST ART LINE; INSPIRED O2 90; PATIENT TEMP 36.6; VENTILATOR YES
[2023-03-15] MEDS ORDERED: VANCOMYCIN 2000 MG/NS 500 ML IVPB IV NR ×2 (09:00)
[2023-03-15] MEDS: PANTOPRAZOLE 40 MG (PROTONIX) VIAL IV SCH (09:02)
[2023-03-15] MEDS: THIAMINE 100 MG/ML 2 ML (VITAMIN B-1) VIAL IV SCH (09:03)
[2023-03-15] MEDS: DOCUSATE SODIUM 10 MG/ML 10 ML UDC (COLACE) PO SCH ×2 (09:04→20:13)
[2023-03-15] MEDS: POTASSIUM BICARB 20 MEQ (EFFER-K) TABLET PO SCH ×2 (09:04→20:13)
[2023-03-15] MEDS: meTOprolol TARTRATE 25 MG (LOPRESSOR) TABLET PO SCH ×2 (09:04→20:13)
[2023-03-15] MEDS: METOLAZONE 2.5 MG (ZAROXOLYN) TAB NG SCH (09:04)
[2023-03-15 10:22] VITALS: BP 124/72
[2023-03-15] MEDS: MEROPENEM 500 MG in NS (IVPB) 100 ML IV SCH ×3 (10:45→20:13)
[2023-03-15] MEDS: FUROSEMIDE INJECTION 120 MG in D5W 100 ML IVPB 108 ML IV SCH ×2 (10:46→12:21)
--- NOTE | 2023-03-15 11:08 | Progress Note - Hospitalist ---
Subjective HPI/CC On Admission Date Seen by Provider: Mar 15, 2023 This is a 52 y/o M with PMH untreated HTN and alcohol use disorder who presented to the ED on 03/02 with LLQ abdominal pain and increasing abdominal distension over the past month. He had nausea, vomiting and diarrhea for 3 days 1 month ago and swelling in abdomen has been increasing since. Pt quit drinking 1 month ago when abdominal pain started, previously heavy vodka and beer daily for past 20 years. Reports SOB at baseline that improves with sitting in leaned forward po sition worsening as distension increases. Smokes 1 ppd. Admitted with AFib with RVR and pneumonia. Started on antibiotics, fluids withheld due to hypervolemic status. Requiring minimal oxygen initially, rapidly worsening requiring BiPAP and intubated shortly after. Echo with EF <10%. Case discussed with Dr. Gonzalez, recommended transferring to [facility] for advanced heart failure service. Declined transfer due to not being a candidate for advanced therapies with alcohol and tobacco use. Started on Dobutamine for cardiogenic shock. Low urine output, started on Lasix gtt. Rapidly progressing multi-organ failure. Poor prognosis and goals of care discussed with mother at bedside, she would like to continue full code status at this time. Subjective/Events-last exam Pt remains intubated and sedated. No family at bedside. RN reports PEEP increased yesterday. Focused Exam Lactate Level 03/15/23 08:51: Lactic Acid Level 0.83 Lactic Acid Level Laboratory Tests Test 03/15/23 08:51 Lactic Acid Level 0.83 MMOL/L (0.50-2.00) Objective Exam Vital Signs Vital Signs Date Time Temp Pulse Resp B/P (MAP) Pulse Ox O2 Delivery O2 Flow Rate FiO2 03/15/23 10:22 75 20 85 90 03/15/23 10:00 Mechanical Ventilator 90.00 03/15/23 07:38 37.3 Capillary Refill : Less Than 3 Seconds General Appearance: Chronically ill, Obese, Other (intubated and sedated) Respiratory: Decreased Breath Sounds (R>L); No Rhonci, No Wheezing; Other (on vent) Cardiovascular: No Murmur, Irregularly Irregular Gastrointestinal: Normal Bowel Sounds, Soft, Other (protuberant) Extremity: Other (pitting edema of left lower extremity) Neurologic/Psychiatric: Other (sedated, appears comfortable) Results/Procedures Lab Laboratory Tests 03/15/23 03:03 Patient resulted labs reviewed. Imaging: Reviewed Imaging Films, Reviewed Imaging Report Assessment/Plan Assessment and Plan Assess & Plan/Chief Complaint Cardiogenic shock Acute HFrEF Acute respiratory failure with hypoxia Endotracheally intubated Pneumonia Afib with RVR MALIK Cardiology following- reports not a candidate for heart transplant and recommends palliative care EF remains ~10% TeleICU following for vent management, appreciate recs Continue lasix gtt and metolazone (-1520ml yesterday) On cardizem gtt- defer to cardiology on switching to pills via OG tube Lovenox for stroke prophylaxis Tube feeds palliative care consult Poor prognosis, increasing oxygen requirement and now PEEP, not a candidate for heart transplant left leg swelling so usg ordered (but already covered with Lovenox) CXR with complete opacification, Vanc added by eICU Spoke with surgery to evaluate for possible effusion, appreciate assistance Ascites Cirrhosis Alcohol abuse Hepatitis C Surgery following, not enough ascitic fluid for paracentesis- signed off Hep C RNA elevated Outpatient referral to Hepatology for Hep C treatment if he survives Critical Care Ventilator Management NORMA ZAPATA MD Mar 15, 2023 11:08
[2023-03-15] MEDS: DOBUTamine DRIP 250 ML IV SCH (13:26)
[2023-03-15 14:27] VITALS: BP 99/56
--- NOTE | 2023-03-15 14:42 | Progress Note - Cardiology ---
Cardiology SOAP Progress Note [facility] Un[facility] Objective: I&O/Vital Signs 03/15/23 03/15/23 03/15/23 03/15/23 03:00 03:14 03:15 03:17 Pulse 76 89 Resp 16 B/P (MAP) 99/61 Pulse Ox 94 90 O2 Delivery Mechanical Ventilator Mechanical Ventilator O2 Flow Rate 90.00 FiO2 90 90 03/15/23 03/15/23 03/15/23 03/15/23 03:18 03:24 03:25 04:00 Pulse 89 79 79 79 Resp 19 B/P (MAP) 99/61 99/61 99/61 Pulse Ox 93 O2 Delivery Mechanical Ventilator O2 Flow Rate 90.00 03/15/23 03/15/23 03/15/23 03/15/23 04:23 05:00 05:24 05:28 Pulse 79 80 80 80 Resp 18 B/P (MAP) 99/61 99/61 99/61 Pulse Ox 93 O2 Delivery Mechanical Ventilator O2 Flow Rate 90.00 03/15/23 03/15/23 03/15/23 03/15/23 06:00 06:18 07:00 07:00 Pulse 74 75 80 74 Resp 17 17 B/P (MAP) Pulse Ox 92 91 91 O2 Delivery Mechanical Ventilator Mechanical Ventilator O2 Flow Rate 90.00 90.00 FiO2 90 03/15/23 03/15/23 03/15/23 03/15/23 07:38 07:55 08:00 08:00 Temp 37.3 Pulse 84 80 B/P (MAP) 95/51 Pulse Ox 93 93 O2 Delivery Mechanical Ventilator Mechanical Ventilator O2 Flow Rate 90.00 FiO2 90 03/15/23 03/15/23 03/15/23 03/15/23 08:03 09:00 09:12 10:00 Pulse 75 77 89 Resp 17 19 B/P (MAP) 97/56 Pulse Ox 92 96 O2 Delivery Mechanical Ventilator Mechanical Ventilator O2 Flow Rate 90.00 90.00 FiO2 90 03/15/23 03/15/23 03/15/23 03/15/23 10:22 11:00 11:39 12:00 Temp 37.0 Pulse 75 85 87 Resp 20 17 16 B/P (MAP) Pulse Ox 85 98 96 O2 Delivery Mechanical Ventilator Mechanical Ventilator O2 Flow Rate 90.00 90.00 FiO2 90 6/4/03/15/23 03/15/23 03/15/23 12:00 12:03 12:48 13:00 Pulse 99 100 Resp 16 B/P (MAP) Pulse Ox 93 95 O2 Delivery Mechanical Ventilator Mechanical Ventilator O2 Flow Rate 75.00 FiO2 90 75 03/15/23 03/15/23 14:00 14:27 Pulse 86 104 Resp 19 18 B/P (MAP) Pulse Ox 97 96 O2 Delivery Mechanical Ventilator O2 Flow Rate 75.00 FiO2 70 03/15/23 00:00 Intake Total 2100 ml Output Total 4125 ml Balance -5 ml Weight (Pounds): 235 Weight (Ounces): 0 Weight (Calculated Kilograms): 106.679101 Constitutional: other (Intubated/ventilated) Respiratory: other (fair air entry) Cardiovascular: irregularly irregular, S1 and S2 Gastrointestional: soft Extremities: pedal edema Neurologic/Psychiatric: other (Intubated/ventilated) Skin: normal color; No rash on exposed areas, No ulcerations on exposed areas Results/Procedures: Labs Laboratory Tests 03/14/23 18:23: Glucometer 120H 03/14/23 23:38: Glucometer 126H 03/15/23 03:03: White Blood Count 7.2, Red Blood Count 4.13L, Hemoglobin 12.5L, Hematocrit 39L, Mean Corpuscular Volume 93, Mean Corpuscular Hemoglobin 30, Mean Corpuscular Hem oglobin Concent 33, Red Cell Distribution Width 15.1H, Platelet Count 173, Mean Platelet Volume 10.8, Immature Granulocyte % (Auto) 0, Neutrophils (%) (Auto) 63, Lymphocytes (%) (Auto) 26, Monocytes (%) (Auto) 8, Eosinophils (%) (Auto) 2, Basophils (%) (Auto) 1, Neutrophils # (Auto) 4.5, Lymphocytes # (Auto) 1.9, Monocytes # (Auto) 0.6, Eosinophils # (Auto) 0.1, Basophils # (Auto) 0.1, Immature Granulocyte # (Auto) 0.0, Blood Gas Puncture Site LT RAD, Blood Gas Patient Temperature 36.8, Arterial Blood pH 7.46H, Arterial Blood Partial Pressure CO2 43, Arterial Blood Partial Pressure O2 58L, Arterial Blood HCO3 30H , Arterial Blood Total CO2 31.2H, Arterial Blood Oxygen Saturation 90L, Arterial Blood Base Excess 5.9H, [place] Test ARTLINE, Blood Gas Ventilator Setting YES, Blood Gas Inspired Oxygen 90%, Sodium Level 136, Potassium Level 4.0, Chloride Level 101, Carbon Dioxide Level 25, Anion Gap 10, Blood Urea Nitrogen 20H, Creatinine 1.25, Estimat Glomerular Filtration Rate 69, BUN/Creatinine Ratio 16, Glucose Level 135H, Calcium Level 8.5, Phosphorus Level 3.4, Magnesium Level 1.9 03/15/23 08:33: Blood Gas Puncture Site LEFT RADIAL, Blood Gas Patient Temperature 36.6, [place] rial Blood pH 7.49H, Arterial Blood Partial Pressure CO2 41, Arterial Blood Partial Pressure O2 52L, Arterial Blood HCO3 31H, Arterial Blood Total CO2 32.4H , Arterial Blood Oxygen Saturation 87L, Arterial Blood Base Excess 7.3H, [place] Test ART LINE, Blood Gas Ventilator Setting YES, Blood Gas Inspired Oxygen 90 03/15/23 08:51: Lactic Acid Level 0.83 Microbiology 03/03/23 Urine Culture - Final, Complete NO GROWTH 03/03/23 Gram Stain - Final, Complete 03/03/23 Sputum Culture - Final, Complete No growth 03/02/23 Blood Culture - Final, Complete No growth A/P: Assessment: Acute respiratory failure, muliti-factorial d/t pneumonia, acute systolic CHF and likely obesity-hypoventilation syndrome - Intubated, ventilator dependent - Lasix drip for HF Management of pneumonia per medical services Atrial fibrillation, persistent - Rate is controlled on Cardizem drip - Lovenox for stroke prophylaxis Congestive heart failure, acute left ventricular systolic dysfunction, unknown etiology - Probably alcoholic heart disease, cannot exclude coronary artery disease - Dobutamine has been transitioned off - Repeat 2D echo was done on March 10, 2023 showing ejection fraction 15 to 20%. - Cardiac catheterization done on March 11, [address] Gonzalez with slow flow in the coronary system and coronary ectasia, nonobstructive disease Nonischemic cardiomyopathy (see above) Ascites and moderate-sized pleural effusion Improved, repeat ultrasound showed small ascites CHADVASC score 2, started on Lovenox Morbid obesity, BMI 39 Heavy alcoholism, drinking vodka daily. He has stopped drinking for the past month. Advised to avoid alcohol Acute on chronic renal failure, monitor renal function. Overall poor prognosis, patient is not a suitable candidate for heart transplant per Dr. Gonzalez's note of 03-12-23 Plan: Acute resp failure (reasons noted above) - requiring intubation Systolic CHF - Lasix gtt for HF Tx of pneumonia per Medical/eICU services Hypotension - had been requiring pressor support - currently off A-fib - controlled HR on Cardizem gtt - Continue Lovenox for stroke prophylaxis Monitor lab closely Replace electrolytes as indicated OG BRAXTON MD FACP [facility] Mar 15, 2023 14:42
[2023-03-15 18:02] VITALS: BP 113/66
[2023-03-15] MEDS: ACETAMINOPHEN 325 MG TABLET PO PRN (19:54)
[2023-03-15] MEDS: VANCOMYCIN 1,750 MG/NS 500 ML IVPB IV SCH ×2 (21:35)
[2023-03-15 22:27] VITALS: BP 121/79
[2023-03-16] MEDS: PROPOFOL DRIP (ICU) 100 ML IV SCH ×9 (01:21→22:12)
[2023-03-16] MEDS: DexMEDEtomidine 250 ML DRIP 250 ML IV SCH ×5 (02:09→20:22)
[2023-03-16] MEDS: MEROPENEM 500 MG in NS (IVPB) 100 ML IV SCH ×4 (02:10→22:04)
[2023-03-16 02:40] VITALS: BP 114/61
[2023-03-16] MEDS: DOBUTamine DRIP 250 ML IV SCH ×2 (03:00→09:31)
[2023-03-16 05:10] LABS: BASOPHILS # (AUTO) 0.1 10^3/uL (0.0-0.1); BASOPHILS % (AUTO) 1 % (0-10); EOSINOPHILS # (AUTO) 0.3 10^3/uL (0.0-0.3); EOSINOPHILS % (AUTO) 4 % (0-10); HEMATOCRIT 39 % (40-54); HEMOGLOBIN 12.7 g/dL (13.3-17.7); LYMPHOCYTES # (AUTO) 1.3 10^3/uL (1.0-4.0); LYMPHOCYTES % (AUTO) 18 % (12-44); MEAN CORPUSCULAR HEMOGLOBIN 30 pg (25-34); MEAN CORPUSCULAR HGB CONC 33 g/dL (32-36); MEAN CORPUSCULAR VOLUME 93 fL (80-99); MEAN PLATELET VOLUME 10.9 fL (9.0-12.2); MONOCYTES # (AUTO) 0.5 10^3/uL (0.0-1.0); MONOCYTES % (AUTO) 7 % (0-12); NEUTROPHILS # (AUTO) 5.2 10^3/uL (1.8-7.8); NEUTROPHILS % (AUTO) 71 % (42-75); PLATELET COUNT 197 10^3/uL (130-400); WHITE BLOOD COUNT 7.4 10^3/uL (4.3-11.0)
[2023-03-16] MEDS: ACETAMINOPHEN 325 MG TABLET PO PRN (05:14)
[2023-03-16] MEDS: ENOXAPARIN 150 MG/ML (LOVENOX) SYR SQ SCH ×2 (05:14→18:45)
[2023-03-16 05:31] LABS: CALCIUM 8.5 MG/DL (8.5-10.1); CREATININE SERUM 1.06 MG/DL (0.60-1.30); MAGNESIUM 1.8 MG/DL (1.6-2.4); POTASSIUM 3.9 MMOL/L (3.6-5.0)
[2023-03-16 05:36] LABS: ABG BASE EXCESS 8.4 MMOL/L (-2.5-2.5); ABG OXYGEN SATURATION 94 % (94-100); ABG PCO2 47 MMHG (35-45); ABG PH 7.46 (7.37-7.43); ABG PO2 76 MMHG (79-93); ABG TCO2 33.6 MMOL/L (21.0-31.0); ALLENS TEST ARTLINE; INSPIRED O2 60%; PATIENT TEMP 38.4; VENTILATOR YES
[2023-03-16] MEDS: MAGNESIUM 1 GM/100 ML IVPB 100 ML IV SCH ×3 (05:41→07:24)
[2023-03-16] MEDS: KCL 20 MEQ TAB (K-DUR) PO SCH (05:41)
[2023-03-16] MEDS: POTASSIUM CL 10MEQ/50ML IVPB 50 ML IV SCH (05:41)
[2023-03-16] MEDS ORDERED: POTASSIUM BICARB 20 MEQ (EFFER-K) TABLET PO ONE (05:45)
--- NOTE | 2023-03-16 06:07 | Diagnostic Imaging Report ---
INDICATION: 52-year-old male with congestive heart failure, pleural effusion follow-up. COMPARISONS: 03/15/2023 FINDINGS: Single view chest shows cardiomegaly with marked improvement in the aeration of left upper lobe. Some 5 lobe alveolar infiltrates persists with confluent consolidation left lower lobe obscuring the left diaphragmatic silhouette. Underlying moderate left effusion may be present. Moderate central venous congestion persists. Support lines including ET tube and NG tube and right IJ central line, which are stable. IMPRESSION: 1. Overall, there has been improvement in the aeration of left lung. 2. Persistent 5 lobe alveolar infiltrates with more confluent consolidation in the left lower lobe with underlying moderate left effusion. 3. Stable support lines include an ET tube, NG tube and right IJ central line. Dictated by: Dictated on workstation # [id number]
[2023-03-16 07:27] VITALS: BP 116/54
[2023-03-16] MEDS: PANTOPRAZOLE 40 MG (PROTONIX) VIAL IV SCH (08:41)
[2023-03-16] MEDS: THIAMINE 100 MG/ML 2 ML (VITAMIN B-1) VIAL IV SCH (08:41)
[2023-03-16] MEDS: DOCUSATE SODIUM 10 MG/ML 10 ML UDC (COLACE) PO SCH ×2 (08:41→22:04)
[2023-03-16] MEDS: METOLAZONE 2.5 MG (ZAROXOLYN) TAB NG SCH (08:42)
[2023-03-16] MEDS: POTASSIUM BICARB 20 MEQ (EFFER-K) TABLET PO SCH ×2 (08:42→22:05)
[2023-03-16] MEDS: VANCOMYCIN 1,750 MG/NS 500 ML IVPB IV SCH ×2 (08:52)
[2023-03-16] MEDS: FUROSEMIDE INJECTION 120 MG in D5W 100 ML IVPB 108 ML IV SCH (08:56)
[2023-03-16] MEDS: meTOprolol TARTRATE 25 MG (LOPRESSOR) TABLET PO SCH ×2 (08:58→22:05)
[2023-03-16] MEDS: NOREPINEPHRINE 8 MG/250 ML 250 ML IV SCH ×2 (09:03→16:14)
--- NOTE | 2023-03-16 09:51 | Diagnostic Imaging Report ---
PROCEDURE: US left lower extremity venous. TECHNIQUE: Multiple real-time grayscale images were obtained over the left lower extremity in various projections. Additional duplex Doppler and color Doppler images were also obtained. INDICATION: Left lower extremity swelling. FINDINGS: There is no evidence of left lower extremity DVT. Left lower extremity deep venous system shows normal compressibility with normal response to augmentation and Valsalva. No fluid collection or mass is detected. IMPRESSION: No evidence of left lower extremity DVT. Dictated by: Dictated on workstation # [id number]
--- NOTE | 2023-03-16 09:53 | Diagnostic Imaging Report ---
INDICATION: History of congestive heart failure. Left-sided pleural effusion seen on previous chest radiograph. COMPARISON: Chest radiograph from earlier same day. FINDINGS: Limited sonographic evaluation of the left chest was performed to assess for pleural effusion. Performing information technology audit manager denotes "some fluid seen." Static images provided are suboptimal and are difficult to delineate substantial pleural effusion. Please note, the interpreting radiologist was not present during the procedure. IMPRESSION: Limited sonographic evaluation of the left chest as above. Dictated by: Dictated on workstation # [id number]
--- NOTE | 2023-03-16 10:00 | Cardiology Progress Note ---
Subjective Date Seen by Provider: Mar 16, 2023 Time Seen by Provider: 09:57 Subjective/Events-last exam Patient is sedated and intubated Review of Systems General: Other (Unable to provide review of system) Focused Exam Lactate Level 03/15/23 08:51: Lactic Acid Level 0.83 Objective-Cardiology Exam Last Set of Vital Signs Vital Signs 03/16/23 03/16/23 03/16/23 07:45 09:00 09:41 Temp 37.6 Pulse 94 Resp 16 B/P (MAP) 130/68 Pulse Ox 98 O2 Delivery Mechanical Ventilator O2 Flow Rate 60.00 I&O Intake and Output 03/16/23 00:00 Intake Total 6467.5 ml Output Total 7975 ml Balance -1507.5 ml Intake Oral 0 ml IV Total 3687.5 ml Tube Feeding 1140 ml Enteral Flush 500 ml Other 1140 ml Output Urine Total 7975 ml General: Moderate Distress, Other (Sedated and intubated) HEENT: Atraumatic, PERRLA Neck: Supple, No JVD Lungs: Normal Air Movement, Other (Bilateral rhonchi) Heart: Normal S1, Normal S2, Other (Atrial fibrillation) Abdomen: Normal Bowel Sounds, Other (Distended abdomen) Extremities: No Clubbing, No Cyanosis Skin: No Rashes, No Breakdown Neuro: Other (Sedated and intubated) Psych/Mental Status: Other (Sedated and intubated) Results Lab Laboratory Tests 03/16/23 05:00 A/P-Cardiology Admission Diagnosis Atrial fibrillation Ascites Acute respiratory insufficiency Acute renal insufficiency Assessment/Plan Acute respiratory failure, pulmonary edema Intubated, ventilator dependent I visited with his mother today then discussed the management plan with Dr. Franz and Dr. Craft. Consider tracheostomy and PEG tube, does not seem to be responding well to weaning Recommend more aggressive weaning trials Hypotensive shock, maintained on dobutamine then Levophed This morning was off pressors. I restarted dobutamine and will monitor Atrial fibrillation, persistent Rate is controlled on Cardizem drip. Continue to monitor Congestive heart failure, acute left ventricular systolic dysfunction, unknown etiology Probably alcoholic heart disease Repeat 2D echo was done on March 10, 2023 showing ejection fraction 15 to 20%. Cardiac catheterization done on March 11, 2023 with slow flow in the coronary system and coronary ectasia, nonobstructive disease Nonischemic cardiomyopathy Ascites and small to moderate-sized pleural effusion Improved, repeat ultrasound showed small ascites CHADVASC score 2, started on Lovenox Morbid obesity, BMI 39 Heavy alcoholism, drinking vodka daily. He has stopped drinking for the past month. Advised to avoid alcohol Acute on chronic renal failure, monitor renal function. Overall poor prognosis, patient is not a suitable candidate for heart transplant Discussed the poor prognosis with the mother and with Dr. Franz. CIRA BROWN MD Mar 16, 2023 10:00
[2023-03-16 11:00] VITALS: BP 116/66
--- NOTE | 2023-03-16 11:00 | Tele-ICU Progress Note ---
Subjective Date Seen by a Provider: Mar 16, 2023 Time Seen by a Provider: 11:00 Subjective/Events-last exam Tele-ICU Physician , Progress Note ) Service provided via interactive audio and video telecommunications [facility] stem to a patient admitted to ICU bed in [facility]. Patient is seen today due to persistent need of ICU care Available chart/ vitals / labs / Images reviewed Video assessment done using teleICU camera, rest of exam as per RN Discussed with RN VENT SETTINGS and ABG reviewed NOT CANDIDATE for SBTreviewed possible contraindications including Cardiovascular Stability /Sedation Score / FI02/PEEP / ABG / CXR/ secretions Sub: events overnight. Hospital course: (03/02) 52M Admitted with PNA, Afib RVR, Abdominal distension, and Ascites. (03/03) INTUBATED after becoming unresponsive 03/04- 100% , PEEP 10 , lasix drip 6mg/hr, levo 0.06 mcg, propofol 30 mcg, precedex 1.0 mcg dobutamine 2.5 mcg 03/05 - AC 18 TV 550, 50 % PEEP 15 , propofol 50 . precedex 1.2 lasix drip , levo OFF , dobutamine 7.5 mcg, cardizem gtt 10 03/06-AC 16 TV 550 30 % PEEP 8 propofol 45 . precedex 1.0 lasix drip 0.5 , dobutamine 7.5 mcg, cardizem gtt 10 03/07 - 03/06-AC 16 TV 550 30 % PEEP 8 propofol 45 . precedex 1.2 RASS -2 , lasix drip OFF , dobutamine 7.5 mcg, cardizem gtt 15 03/10- Unable to SBT 2/2 agitation 03/11- AC 25 % +5 . dobutamine 1.0 mcg, propofol 45 . precedex 1.0 RASS -2 , cardizem gtt 10, plans for paracentesis and card cath 03/16 - 60% peep 10 , levo o.o2 , levo levo o.o2 , back to dobutamine 03/16 , lasix gtt 1 , propofol 45, precedex 1.5 A/P 1. acute hypoxic and hypoxic respiratory failure due to combination of acute and chronic systolic CHF and BRIANDA. - 60% peep 10 - improved -Cont to wean sedation as tolerated - RASS - 2 -NOT CANDIDATE for SBT-plans for tracheostomy being discussed by PCP with mother Severe alcoholic nonischemic cardiomyopathy with LV EF ,10%.=repeated ECHO - EF 15-20 % - card cath 03/11- nonobstructive dz -back to dobutamine 1.0 mcg Shock - cardiogenioc and or septic shock. - levo levo o.o2 , back to dobutamine 03/16 - titration as per cards Afib with RVR -lovenox full dose -cardizem gtt 5 , metoprolol 25 bid po CXR with complete opacification LEFT 03/15 Vanc added03/15 - repeates cxr 03/16 - significant improvement - , possible mucous plug , not effusion ID - possible pneumonia on admission-NOW IS TREATED FOR HAP -Cholelithiasis. There is fluid surrounding the gallbladder, low concern for c holecystitis - Sx follow -?SBP -not enough ascitic fluid for paracentesis- signed off -diarrhoea resolved FEVER 03/15- cx pending - vancpo +MERREM -(ceftriaxone + z max - FINISHED COURSE ETON abuse - reportedly quit 1 m [employer]MENT [employer] - vitamins nitritions - TF at 60 today tolerates well HEP C -chronic , active - Anasarca with all above Lines : R IJ 03/03 left a line , (Central Line Necessity Reviewed) Wright: + OG: Nutrition: tf Analgesia: Anxiety/ delirium VTE Prophylaxis: lovenox full dose Stress Ulcer Prophylaxis: Plans in collaboration with bedside consultants and IM MDs. Discussed with RN to reach out if any questions or concerns Case and care daily discussed on multidisciplinary rounds ( RN, PharmD, Panel Machine Operator , Respiratory Therapy, gas pit worker ) A total of 37 minutes of critical care time was devoted to this patient today, required to treat and/or prevent further deterioration of critical care condition ( as above ) . I am remotely monitoring this patient from another state. I am unable to do the bedside exam, and history/physical and pertinent information is taken from other notes in the computer and bedside staff. Sepsis Event Evaluation Height, Weight, BMI Height: 6'5.00" Weight: 235lbs. 0oz. [id number]; 38.42 BMI Method:Stated Focused Exam Lactate Level 03/15/23 08:51: Lactic Acid Level 0.83 Exam Exam Patient acknowledged, consented, and participated in this virtual visit which was conducted using real time audio/video Vital Signs Date Time Temp Pulse Resp B/P (MAP) Pulse Ox O2 Delivery O2 Flow Rate FiO2 03/16/23 10:39 106 130/62 03/16/23 10:31 94 130/68 03/16/23 10:31 94 130/68 03/16/23 09:41 94 130/68 03/16/23 09:31 89 72/42 03/16/23 09:00 90 16 98 Mechanical Ventilator 60.00 03/16/23 08:59 89 116/54 03/16/23 08:56 89 116/54 03/16/23 08:00 60 03/16/23 08:00 84 16 95 Mechanical Ventilator 60.00 03/16/23 08:00 95 Mechanical Ventilator 60 03/16/23 07:45 37.6 03/16/23 07:27 89 16 94 60 03/16/23 07:00 84 03/16/23 07:00 87 16 93 Mechanical Ventilator 60.00 03/16/23 06:38 108 114/61 03/16/23 06:25 108 114/61 03/16/23 06:09 108 114/61 03/16/23 06:00 108 16 91 Mechanical Ventilator 60.00 03/16/23 06:00 38.2 03/16/23 05:14 38.4 03/16/23 05:00 97 16 99 Mechanical Ventilator 60.00 03/16/23 04:03 60 03/16/23 04:00 99 Mechanical Ventilator 60 03/16/23 04:00 105 16 98 Mechanical Ventilator 60.00 03/16/23 03:48 97 114/61 03/16/23 03:00 97 16 99 Mechanical Ventilator 60.00 03/16/23 02:40 93 16 98 60 03/16/23 02:09 86 121/79 03/16/23 02:00 102 16 97 Mechanical Ventilator 60.00 03/16/23 01:21 86 121/79 03/16/23 01:00 93 16 98 Mechanical Ventilator 60.00 03/16/23 01:00 113 03/16/23 00:09 86 16 96 Mechanical Ventilator 60.00 03/16/23 00:03 60 03/16/23 00:00 96 Mechanical Ventilator 60 03/16/23 00:00 82 16 94 Mechanical Ventilator 60.00 03/15/23 23:00 96 16 97 Mechanical Ventilator 60.00 03/15/23 22:49 107 121/79 03/15/23 22:45 107 121/79 03/15/23 22:27 107 16 97 60 03/15/23 22:00 108 16 97 Mechanical Ventilator 60.00 03/15/23 21:38 98 113/66 03/15/23 21:34 107 121/79 03/15/23 21:06 107 121/79 03/15/23 21:00 84 16 98 Mechanical Ventilator 60.00 03/15/23 20:24 37.8 03/15/23 20:13 98 113/66 03/15/23 20:03 60 03/15/23 20:00 97 Mechanical Ventilator 60 03/15/23 20:00 98 16 97 Mechanical Ventilator 60.00 03/15/23 19:54 38.0 03/15/23 19:18 107 121/79 03/15/23 19:14 38.0 03/15/23 19:00 104 16 98 Mechanical Ventilator 60.00 03/15/23 19:00 104 03/15/23 18:02 98 20 98 60 03/15/23 18:00 95 20 98 Mechanical Ventilator 60.00 03/15/23 17:00 85 18 95 Mechanical Ventilator 60.00 03/15/23 16:12 Mechanical Ventilator 60.00 03/15/23 16:03 60 03/15/23 16:00 93 Mechanical Ventilator 90 03/15/23 16:00 100 20 96 Mechanical Ventilator 75.00 03/15/23 15:47 36.9 03/15/23 15:00 88 17 97 Mechanical Ventilator 75.00 03/15/23 14:27 104 18 96 70 03/15/23 14:00 86 19 97 Mechanical Ventilator 75.00 03/15/23 13:00 100 16 95 Mechanical Ventilator 75.00 03/15/23 12:48 99 03/15/23 12:03 75 03/15/23 12:00 93 Mechanical Ventilator 90 03/15/23 12:00 87 16 96 Mechanical Ventilator 90.00 03/15/23 11:39 37.0 I & O 03/16/23 07:00 Intake Total 6792.5 ml Output Total 6875 ml Balance -82.5 ml Height & Weight Height: 6'5.00" Weight: 235lbs. 0oz. 106.495597kn; 38.42 BMI Method:Stated General Appearance: Chronically ill, Obese HEENT: Other (ET tube) Neck: Normal Inspection, Supple Respiratory: Decreased Breath Sounds; No Rhonci, No Wheezing Cardiovascular: Irregularly Irregular; No Tachycardia Capillary Refill: Less Than 3 Seconds Peripheral Pulses: 2+ Dorsalis Pedis (R), 2+ Left Dors-Pedis (L), 2+ Radial Pulses (R), 2+ Radial Pulses (L) Gastrointestinal: soft, distended (same as yesterday.), other (abdominal pitting edema, rash right abdomen) Extremity: Pedal Edema, Swelling (+1 pitting to calves) Neurologic/Psychiatric: Other (sedated, appears comfortable) Skin: Normal Color, Warm/Dry Lymphatic: No Adenopathy Results Lab Laboratory Tests 03/15/23 03:03 03/16/23 05:00 Assessment/Plan Assessment/Plan 1 FAHAD ARITA MD Mar 16, 2023 11:00
[2023-03-16 14:41] VITALS: BP 96/56
--- NOTE | 2023-03-16 16:04 | Progress Note - Hospitalist ---
Subjective HPI/CC On Admission Date Seen by Provider: Mar 16, 2023 Time Seen by Provider: 09:20 This is a 52 y/o M with PMH untreated HTN and alcohol use disorder who presented to the ED on 03/02 with LLQ abdominal pain and increasing abdominal distension over the past month. He had nausea, vomiting and diarrhea for 3 days 1 month ago and swelling in abdomen has been increasing since. Pt quit drinking 1 month ago when abdominal pain started, previously heavy vodka and beer daily for past 20 years. Reports SOB at baseline that improves with sitting in leaned forward position worsening as distension increases. Smokes 1 ppd. Admitted with AFib with RVR and pneumonia. Started on antibiotics, fluids withheld due to hyp ervolemic status. Requiring minimal oxygen initially, rapidly worsening requiring BiPAP and intubated shortly after. Echo with EF <10%. Case discussed with Dr. Gonzalez, recommended transferring to [facility] for advanced heart failure service. Declined transfer due to not being a candidate for advanced therapies with alcohol and tobacco use. Started on Dobutamine for cardiogenic shock. Low urine output, started on Lasix gtt. Rapidly progressing multi-organ failure. Poor prognosis and goals of care discussed with mother at bedside, she would like to continue full code status at this time. Subjective/Events-last exam Restarting pressors this morning. Ventilator requirements remain high. Discussed goals of care with mother. We discussed the likely course including tracheostomy, PEG, LTAC, then long-term. We discussed that he would still have heart failure and cirrhosis if he was to survive. It is likely that he will not improve to the point of getting out of a long-term. She stated that he would not want to live in a long-term. We discussed palliative care and comf ort measures. She has not told his children, ages 7 and 9, that he is sick in the hospital yet. She would like some time to make a decision. Focused Exam Lactate Level 03/15/23 08:51: Lactic Acid Level 0.83 Objective Exam Vital Signs Vital Signs Date Time Temp Pulse Resp B/P (MAP) Pulse Ox O2 Delivery O2 Flow Rate FiO2 03/16/23 15:52 78 03/16/23 14:55 Mechanical Ventilator 50.00 03/16/23 14:53 50 03/16/23 14:41 16 98 03/16/23 14:00 03/16/23 11:56 36.6 Capillary Refill : Less Than 3 Seconds General Appearance: No Apparent Distress, Chronically ill, Obese Respiratory: No Respiratory Distress, Decreased Breath Sounds, Wheezing Cardiovascular: Regular Rate, Rhythm, No Murmur Gastrointestinal: Normal Bowel Sounds, Soft Extremity: No Inflammation; Pedal Edema, Swelling Neurologic/Psychiatric: Other (sedated) Skin: Normal Color, Warm/Dry Results/Procedures Lab Laboratory Tests 03/16/23 05:00 Patient resulted labs reviewed. Imaging: Reviewed Imaging Films, Reviewed Imaging Report Assessment/Plan Assessment and Plan Assess & Plan/Chief Complaint Cardiogenic shock Acute HFrEF Acute respiratory failure with hypoxia Endotracheally intubated Pneumonia Afib with RVR Cardiology following, case discussed with Dr. Gonzalez EF remains ~10% TeleICU following for vent management Continue lasix gtt and metolazone, decrease free water boluses Cardizem gtt Dobutamine Lovenox for stroke prophylaxis Poor prognosis Goals of care discussion Palliative care following Discussed goals of care with mother, would like time to decide Will need trach and PEG if continued aggressive care is pursued Ascites Cirrhosis Alcohol abuse Hepatitis C Surgery following, not enough ascitic fluid for paracentesis Hep C RNA elevated Outpatient referral to Hepatology for Hep C treatment MALIK, resolved Critical Care Ventilator Management Diagnosis/Problems Diagnosis/Problems (1) Cardiogenic shock Status: Acute (2) Acute HFrEF (heart failure with reduced ejection fraction) Status: Acute (3) Acute respiratory failure with hypoxia and hypercapnia Status: Acute (4) Endotracheally intubated Status: Acute (5) PNA (pneumonia) Status: Acute (6) MALIK (acute kidney injury) Status: Acute (7) Atrial fibrillation with RVR Status: Acute (8) Ascites due to alcoholic cirrhosis Status: Acute (9) Hepatitis C Status: Acute Qualifiers: Viral hepatitis chronicity: acute Hepatic coma status: without hepatic coma Qualified Codes: B17.10 - Acute hepatitis C without hepatic coma (10) HTN (hypertension) Status: Chronic (11) Obesity Status: Chronic (12) Tobacco abuse Status: Chronic (13) Alcohol abuse Status: Chronic (14) Poor prognosis (15) Goals of care, counseling/discussion JOSE NEWBERRY MD Mar 16, 2023 16:04
[2023-03-16 18:56] VITALS: BP 118/69
[2023-03-16] MEDS ORDERED: TROUGH ORDER-PHARMACY XX NR (20:00)
[2023-03-16] MEDS ORDERED: NS IV 1000 ML 1,000 ML ONE (21:10)
[2023-03-16] MEDS ORDERED: NS (IVPB) 100 ML ONE (21:43)
[2023-03-16 22:35] VITALS: BP 99/60
[2023-03-17] MEDS: DexMEDEtomidine 250 ML DRIP 250 ML IV SCH ×5 (00:46→21:37)
[2023-03-17] MEDS: PROPOFOL DRIP (ICU) 100 ML IV SCH ×10 (01:05→23:34)
[2023-03-17] MEDS: NOREPINEPHRINE 8 MG/250 ML 250 ML IV SCH ×3 (01:14→20:05)
[2023-03-17 02:27] VITALS: BP 104/62
[2023-03-17] MEDS: MEROPENEM 500 MG in NS (IVPB) 100 ML IV SCH ×4 (02:55→20:04)
[2023-03-17 04:25] LABS: ABG BASE EXCESS 9.4 MMOL/L (-2.5-2.5); ABG OXYGEN SATURATION 92 % (94-100); ABG PCO2 44 MMHG (35-45); ABG PH 7.49 (7.37-7.43); ABG PO2 61 MMHG (79-93); ABG TCO2 34.8 MMOL/L (21.0-31.0)
[2023-03-17 04:30] LABS: ALLENS TEST ARTLINE; INSPIRED O2 40%; PATIENT TEMP 36.5; VENTILATOR YES
[2023-03-17 04:33] LABS: BASOPHILS % (AUTO) 1 % (0-10); EOSINOPHILS # (AUTO) 0.2 10^3/uL (0.0-0.3); EOSINOPHILS % (AUTO) 5 % (0-10); HEMATOCRIT 40 % (40-54); HEMOGLOBIN 12.8 g/dL (13.3-17.7); LYMPHOCYTES # (AUTO) 0.9 10^3/uL (1.0-4.0); LYMPHOCYTES % (AUTO) 20 % (12-44); MEAN CORPUSCULAR HEMOGLOBIN 30 pg (25-34); MEAN CORPUSCULAR HGB CONC 32 g/dL (32-36); MEAN CORPUSCULAR VOLUME 93 fL (80-99); MEAN PLATELET VOLUME 11.9 fL (9.0-12.2); MONOCYTES # (AUTO) 0.3 10^3/uL (0.0-1.0); MONOCYTES % (AUTO) 6 % (0-12); NEUTROPHILS # (AUTO) 3.1 10^3/uL (1.8-7.8); NEUTROPHILS % (AUTO) 68 % (42-75); PLATELET COUNT 176 10^3/uL (130-400); WHITE BLOOD COUNT 4.6 10^3/uL (4.3-11.0)
[2023-03-17 04:41] LABS: POTASSIUM 3.8 MMOL/L (3.6-5.0)
[2023-03-17 04:42] LABS: CALCIUM 8.8 MG/DL (8.5-10.1)
[2023-03-17 04:46] LABS: CREATININE SERUM 0.85 MG/DL (0.60-1.30); PHOSPHORUS 3.1 MG/DL (2.3-4.7)
[2023-03-17 04:49] LABS: MAGNESIUM 1.6 MG/DL (1.6-2.4)
[2023-03-17] MEDS: KCL 20 MEQ TAB (K-DUR) PO SCH (05:18)
[2023-03-17] MEDS: MAGNESIUM 1 GM/100 ML IVPB 100 ML IV SCH ×3 (05:28→06:29)
[2023-03-17] MEDS: ENOXAPARIN 150 MG/ML (LOVENOX) SYR SQ SCH ×2 (05:33→18:43)
[2023-03-17] MEDS: POTASSIUM CL 10MEQ/50ML IVPB 50 ML IV SCH ×3 (05:55→08:04)
[2023-03-17] MEDS: DOBUTamine DRIP 250 ML IV SCH ×2 (06:16→18:44)
[2023-03-17 07:00] VITALS: BP 107/61
[2023-03-17] MEDS: DOCUSATE SODIUM 10 MG/ML 10 ML UDC (COLACE) PO SCH ×2 (08:05→20:04)
[2023-03-17] MEDS: PANTOPRAZOLE 40 MG (PROTONIX) VIAL IV SCH (08:05)
[2023-03-17] MEDS: METOLAZONE 2.5 MG (ZAROXOLYN) TAB NG SCH (08:05)
[2023-03-17] MEDS: meTOprolol TARTRATE 25 MG (LOPRESSOR) TABLET PO SCH ×2 (08:06→20:05)
[2023-03-17] MEDS: POTASSIUM BICARB 20 MEQ (EFFER-K) TABLET PO SCH ×2 (08:06→20:05)
--- NOTE | 2023-03-17 08:22 | Cardiology Progress Note ---
Subjective Date Seen by Provider: Mar 17, 2023 Time Seen by Provider: 08:21 Subjective/Events-last exam Patient is sedated and intubated Review of Systems General: Other (Unable to provide review of system) Focused Exam Lactate Level 03/15/23 08:51: Lactic Acid Level 0.83 Objective-Cardiology Exam Last Set of Vital Signs Vital Signs 03/17/23 03/17/23 03/17/23 03/17/23 06:00 06:10 07:00 08:00 Temp 36.9 Pulse 98 Resp 17 B/P (MAP) 103/60 Pulse Ox 96 O2 Delivery Mechanical Ventilator O2 Flow Rate 40.00 FiO2 40 I&O Intake and Output 03/17/23 00:00 Intake Total 5953.5 ml Output Total 6175 ml Balance -221.5 ml Intake Oral 0 ml IV Total 3151.5 ml Tube Feeding 1200 ml Enteral Flush 622 ml Other 980 ml Output Urine Total 6175 ml General: Moderate Distress, Other (Sedated and intubated) HEENT: Atraumatic, PERRLA Neck: Supple, No JVD Lungs: Normal Air Movement, Other (Bilateral rhonchi) Heart: Normal S1, Normal S2, Other (Atrial fibrillation) Abdomen: Normal Bowel Sounds, Other (Distended abdomen) Extremities: No Clubbing, No Cyanosis Skin: No Rashes, No Breakdown Neuro: Other (Sedated and intubated) Psych/Mental Status: Other (Sedated and intubated) Results Lab Laboratory Tests 03/17/23 04:12 A/P-Cardiology Admission Diagnosis Atrial fibrillation Ascites Acute respiratory insufficiency Acute renal insufficiency Assessment/Plan Acute respiratory failure, pulmonary edema Intubated, ventilator dependent I visited with his mother today then discussed the management plan with Dr. Franz and Dr. Craft. Consider tracheostomy and PEG tube, does not seem to be responding well to weaning Recommend more aggressive weaning trials Discussed again with his mother the management plan and recommended tracheostomy. She is more agreeable at this point Hypotensive shock, maintained on dobutamine then Levophed This morning was off pressors. Was started back on dobutamine, we will try to wean him off dobutamine and off Cardizem drip Atrial fibrillation, persistent Rate is controlled on Cardizem drip. Continue to monitor Congestive heart failure, acute left ventricular systolic dysfunction, unknown etiology Probably alcoholic heart disease Repeat 2D echo was done on March 10, 2023 showing ejection fraction 15 to 20%. Cardiac catheterization done on March 11, 2023 with slow flow in the coronary system and coronary ectasia, nonobstructive disease Nonischemic cardiomyopathy Ascites and small to moderate-sized pleural effusion Improved, repeat ultrasound showed small ascites CHADVASC score 2, started on Lovenox Morbid obesity, BMI 39 Heavy alcoholism, drinking vodka daily. He has stopped drinking for the past month. Advised to avoid alcohol Acute on chronic renal failure, monitor renal function. Overall poor prognosis, patient is not a suitable candidate for heart transplant Discussed the poor prognosis with the mother and with Dr. Franz. CIRA BROWN MD Mar 17, 2023 08:22
[2023-03-17] MEDS: VANCOMYCIN 1500MG/300ML PREMIX 300 ML IV SCH ×2 (08:31→20:04)
[2023-03-17 10:23] VITALS: BP 116/75
--- NOTE | 2023-03-17 10:34 | Tele-ICU Progress Note ---
Subjective Date Seen by a Provider: Mar 17, 2023 Time Seen by a Provider: 10:05 Subjective/Events-last exam Tele-ICU Physician , Progress Note Service provided via interactive audio and video telecommunications E-CARE ines abernathy to a patient admitted to ICU bed in [facility]. Patient is seen today due to persistent need of ICU care Available chart/ vitals / labs / Images reviewed Video assessment done using teleICU camera, rest of exam as per RN Discussed with RN and bedside physician VENT SETTINGS and ABG reviewed Sub: events overnight. Off pressors and currently on 40% FiO2. Per family discussion would like to pursue more comfort focused care and would not want trach. Discussed palliative extubation with Dr. [facility] course: (03/02) 52M Admitted with PNA, Afib RVR, Abdominal distension, and Ascites. (03/03) INTUBATED after becoming unresponsive 03/04- 100% , PEEP 10 , lasix drip 6mg/hr, levo 0.06 mcg, propofol 30 mcg, precedex 1.0 mcg dobutamine 2.5 mcg 03/05 - AC 18 TV 550, 50 % PEEP 15 , propofol 50 . precedex 1.2 lasix drip , levo OFF , dobutamine 7.5 mcg, cardizem gtt 10 03/06-AC 16 TV 550 30 % PEEP 8 propofol 45 . precedex 1.0 lasix drip 0.5 , dobutamine 7.5 mcg, cardizem gtt 10 03/07 - 03/06-AC 16 TV 550 30 % PEEP 8 propofol 45 . precedex 1.2 RASS -2 , lasix drip OFF , dobutamine 7.5 mcg, cardizem gtt 15 03/10- Unable to SBT 2/2 agitation 03/11- AC 25 % +5 . dobutamine 1.0 mcg, propofol 45 . precedex 1.0 RASS -2 , cardizem gtt 10, plans for paracentesis and card cath 03/16 - 60% peep 10 , levo o.o2 , levo levo o.o2 , back to dobutamine 03/16 , l asix gtt 1 , propofol 45, precedex 1.5 A/P 1. Acute hypoxic respiratory failure due to combination of acute and chronic systolic CHF -Intubated, vent day 14, on minimal sedation. Currently on 40% FiO2% PEEP 10. -Not candidate for SBT given high PEEP, mental status -Given family does want to pursue tracheostomy ok to pursue palliative extubation. Would make patient DNI following extubation. -Cont to wean sedation as tolerated - RASS - 2 -On antibiotics for possible pneumonia 2. Severe alcoholic nonischemic cardiomyopathy with LV EF ,10%.=repeated ECHO - EF 15-20 % - card cath 03/11- nonobstructive dz -Mgmt per cardiology 3. Shock-Resolved, off all meds. -Etiology likely cardiogenioc and or septic shock. 4. Afib with RVR -cardizem gtt 5 , metoprolol 25 bid po --lovenox full dose ID - possible pneumonia on admission-NOW IS TREATED FOR HAP -Cholelithiasis. There is fluid surrounding the gallbladder, low concern for cholecystitis - Sx follow -?SBP -not enough ascitic fluid for paracentesis- signed off -diarrhoea resolved FEVER 03/15- cx NGTD - vanc po + Meropenem -(ceftriaxone + z max - FINISHED COURSE ETOH abuse - reportedly quit 1 month prior to admission - vitamins nuttrition -Hold feeds in prep for palliative extubation -TF at 60 today tolerates well HEP C -chronic , active Anasarca with all above Lines : R IJ 03/03 left a line , (Central Line Necessity Reviewed) Wright: + Nutrition: tf Analgesia: Precedex VTE Prophylaxis: lovenox full dose Stress Ulcer Prophylaxis:PPI Plans in collaboration with bedside consultants and IM MDs. Discussed with RN to reach out if any questions or concerns Case and care daily discussed on multidisciplinary rounds (RN, PharmD, Electrical Inspector , Respiratory Therapy, feed in worker ) A total of 31 minutes of critical care time was devoted to this patient today, required to treat and/or prevent further deterioration of critical care condition ( as above ) . I am remotely monitoring this patient from another state. I am unable to do the bedside exam, and history/physical and pertinent information is taken from other notes in the computer and bedside staff. Sepsis Event Evaluation Height, Weight, BMI Height: 6'5.00" Weight: 235lbs. 0oz. 106.141164xt; 38.42 BMI Method:Stated Focused Exam Lactate Level 03/15/23 08:51: Lactic Acid Level 0.83 Exam Exam Patient acknowledged, consented, and participated in this virtual visit which was conducted using real time audio/video Vital Signs Date Time Temp Pulse Resp B/P (MAP) Pulse Ox O2 Delivery O2 Flow Rate FiO2 03/17/23 08:00 36.9 03/17/23 08:00 92 17 91 Mechanical Ventilator 40.00 03/17/23 07:17 85 03/17/23 07:00 98 17 96 40 03/17/23 07:00 96 23 82 Mechanical Ventilator 40.00 03/17/23 06:10 92 103/60 03/17/23 06:00 78 16 96 Mechanical Ventilator 40.00 03/17/23 05:24 90 109/54 03/17/23 05:13 82 104/54 03/17/23 05:12 93 102/54 03/17/23 05:00 96 15 96 Mechanical Ventilator 40.00 03/17/23 04:30 80 16 97 Mechanical Ventilator 40.00 03/17/23 04:24 97 Mechanical Ventilator 40 03/17/23 04:22 40 03/17/23 04:15 36.5 90 16 97 Mechanical Ventilator 40.00 03/17/23 04:00 84 16 97 Mechanical Ventilator 40.00 03/17/23 03:51 92 110/67 03/17/23 03:00 91 16 96 Mechanical Ventilator 40.00 03/17/23 02:29 99 16 96 Mechanical Ventilator 40.00 03/17/23 02:27 86 22 97 50 03/17/23 02:12 90 95/56 03/17/23 02:00 92 18 97 Mechanical Ventilator 50.00 03/17/23 02:00 95 16 96 Mechanical Ventilator 50.00 03/17/23 01:45 84 16 96 Mechanical Ventilator 50.00 03/17/23 01:30 86 17 96 Mechanical Ventilator 50.00 03/17/23 01:15 90 18 97 Mechanical Ventilator 50.00 03/17/23 01:14 94 96/59 03/17/23 01:07 50 03/17/23 01:05 85 95/59 03/17/23 01:05 85 95/03/17/23 01:00 80 18 97 Mechanical Ventilator 50.00 03/17/23 01:00 94 03/17/23 00:46 78 99/59 03/17/23 00:45 92 18 97 Mechanical Ventilator 50.00 03/17/23 00:30 97 Mechanical Ventilator 50 03/17/23 00:15 35.5 82 16 98 Mechanical Ventilator 50.00 03/17/23 00:03 50 03/17/23 00:00 88 16 97 Mechanical Ventilator 50.00 03/16/23 23:20 77 99/60 03/16/23 23:00 98 16 97 Mechanical Ventilator 50.00 03/16/23 22:35 86 21 97 50 03/16/23 22:12 78 100/63 03/16/23 22:00 77 16 97 Mechanical Ventilator 50.00 03/16/23 21:01 80 16 97 Mechanical Ventilator 50.00 03/16/23 20:57 90 106/62 03/16/23 20:22 80 110/66 03/16/23 20:22 80 113/68 03/16/23 20:00 89 16 98 Mechanical Ventilator 50.00 03/16/23 20:00 97 Mechanical Ventilator 50 03/16/23 20:00 50 03/16/23 19:45 79 16 98 Mechanical Ventilator 50.00 03/16/23 19:30 36.5 77 16 98 Mechanical Ventilator 50.00 03/16/23 19:18 84 110/72 03/16/23 19:15 80 16 98 Mechanical Ventilator 50.00 03/16/23 19:00 81 03/16/23 19:00 84 15 98 Mechanical Ventilator 50.00 03/16/23 18:56 87 16 98 50 03/16/23 18:00 76 17 97 Mechanical Ventilator 50.00 03/16/23 17:00 78 17 96 Mechanical Ventilator 50.00 03/16/23 16:33 82 03/16/23 16:03 50 03/16/23 16:00 78 16 97 Mechanical Ventilator 50.00 03/16/23 16:00 98 Mechanical Ventilator 50 03/16/23 15:52 78 03/16/23 15:13 86 03/16/23 15:13 73 03/16/23 15:00 76 25 95 Mechanical Ventilator 50.00 03/16/23 14:55 Mechanical Ventilator 50.00 03/16/23 14:53 50 03/16/23 14:41 79 16 98 60 03/16/23 14:00 81 16 98 Mechanical Ventilator 60.00 03/16/23 13:36 97 104/56 03/16/23 13:15 97 130/62 03/16/23 13:00 89 16 98 Mechanical Ventilator 60.00 03/16/23 12:54 70 120/60 03/16/23 12:51 98 Mechanical Ventilator 60 03/16/23 12:41 60 03/16/23 12:32 97 03/16/23 12:00 110 24 87 Mechanical Ventilator 60.00 03/16/23 11:56 36.6 03/16/23 11:13 94 130/62 03/16/23 11:13 94 130/62 03/16/23 11:00 120 17 93 60 03/16/23 11:00 94 16 97 Mechanical Ventilator 60.00 03/16/23 10:39 106 130/62 03/16/23 10:31 94 130/68 03/16/23 10:31 94 130/68 I & O 03/17/23 07:00 Intake Total 5033.5 ml Output Total 6450 ml Balance -1416.5 ml Height & Weight Height: 6'5.00" Weight: 235lbs. 0oz. 106.007623qp; 38.42 BMI Method:Stated General Appearance: No Apparent Distress, Chronically ill, Obese HEENT: Other (ET tube) Neck: Normal Inspection, Supple Respiratory: No Respiratory Distress, Decreased Breath Sounds, Wheezing Cardiovascular: Regular Rate, Rhythm, No Murmur Capillary Refill: Less Than 3 Seconds Peripheral Pulses: 2+ Dorsalis Pedis (R), 2+ Left Dors-Pedis (L), 2+ Radial Pulses (R), 2+ Radial Pulses (L) Gastrointestinal: soft, distended (same as yesterday.), other (abdominal pitting edema, rash right abdomen) Extremity: No Inflammation; Pedal Edema, Swelling Neurologic/Psychiatric: Other (sedated) Skin: Normal Color, Warm/Dry Lymphatic: No Adenopathy Results Lab Laboratory Tests 03/16/23 05:00 03/17/23 04:12 Assessment/Plan Assessment/Plan . FILIPE RUFFIN MD Mar 17, 2023 10:34
[2023-03-17 14:25] VITALS: BP 85/64
[2023-03-17] MEDS: dilTIAZem DRIP PRE-MIX 125 ML IV SCH (15:31)
--- NOTE | 2023-03-17 15:59 | Progress Note - Hospitalist ---
Subjective HPI/CC On Admission Date Seen by Provider: Mar 17, 2023 Time Seen by Provider: 09:40 This is a 52 y/o M with PMH untreated HTN and alcohol use disorder who presented to the ED on 03/02 with LLQ abdominal pain and increasing abdominal distension over the past month. He had nausea, vomiting and diarrhea for 3 days 1 month ago and swelling in abdomen has been increasing since. Pt quit drinking 1 month ago when abdominal pain started, previously heavy vodka and beer daily for past 20 years. Reports SOB at baseline that improves with sitting in leaned forward position worsening as distension increases. Smokes 1 ppd. Admitted with AFib with RVR and pneumonia. Started on antibiotics, fluids withheld due to hyp ervolemic status. Requiring minimal oxygen initially, rapidly worsening requiring BiPAP and intubated shortly after. Echo with EF <10%. Case discussed with Dr. Gonzalez, recommended transferring to [facility] for advanced heart failure service. Declined transfer due to not being a candidate for advanced therapies with alcohol and tobacco use. Started on Dobutamine for cardiogenic shock. Low urine output, started on Lasix gtt. Rapidly progressing multi-organ failure. Poor prognosis and goals of care discussed with mother at bedside, she would like to continue full code status at this time. Subjective/Events-last exam He remains intubated and sedated. His mother is at the bedside. We had a lengthy discussion with palliative care and RN present. She says that she does not think he would want a tracheostomy and feeding tube. He would not want to live his life in a jail. We discussed that he would need those things to help him survive this acute illness, but he would still have heart failure and cirrhosis. She is not ready to discuss comfort measures. She would like to take the day to discuss the situation with her loved ones. Focused Exam Lactate Level 03/15/23 08:51: Lactic Acid Level 0.83 Objective Exam Vital Signs Vital Signs Date Time Temp Pulse Resp B/P (MAP) Pulse Ox O2 Delivery O2 Flow Rate FiO2 03/17/23 15:10 97 Mechanical Ventilator 40 03/17/23 15:00 110 23 106/80 (92) 40.00 03/17/23 08:00 36.9 Capillary Refill : Less Than 3 Seconds General Appearance: No Apparent Distress, Obese, Other (intubated and sedated) Respiratory: No Respiratory Distress, Decreased Breath Sounds, Other (intubated and mechanically ventilated) Cardiovascular: Regular Rate, Rhythm, No Murmur Gastrointestinal: Normal Bowel Sounds, Soft Extremity: No Inflammation; Pedal Edema Neurologic/Psychiatric: Other (sedated) Skin: Normal Color, Warm/Dry Results/Procedures Lab Laboratory Tests 03/17/23 04:12 Patient resulted labs reviewed. Imaging: Reviewed Imaging Films, Reviewed Imaging Report Assessment/Plan Assessment and Plan Assess & Plan/Chief Complaint Cardiogenic shock Acute HFrEF Acute respiratory failure with hypoxia Endotracheally intubated Pneumonia Afib with RVR Cardiology following EF remains ~10% Continue lasix gtt and metolazone Cardizem gtt Off Dobutamine Ventilator requirements down slightly from yesterday Lovenox for stroke prophylaxis TeleICU following, case discussed with Dr. Sosa Poor prognosis Goals of care discussion Palliative care following Discussed goals of care again with mother, does not want trach/PEG, will discuss other options with family Ascites Cirrhosis Alcohol abuse Hepatitis C Surgery following, not enough ascitic fluid for paracentesis Hep C RNA elevated Outpatient referral to Hepatology for Hep C treatment MALIK, resolved Critical Care Critically Ill Patient Diagnosis/Problems Diagnosis/Problems (1) Cardiogenic shock Status: Acute (2) Acute HFrEF (heart failure with reduced ejection fraction) Status: Acute (3) Acute respiratory failure with hypoxia and hypercapnia Status: Acute (4) Endotracheally intubated Status: Acute (5) PNA (pneumonia) Status: Acute (6) MALIK (acute kidney injury) Status: Acute (7) Atrial fibrillation with RVR Status: Acute (8) Ascites due to alcoholic cirrhosis Status: Acute (9) Hepatitis C Status: Acute Qualifiers: Viral hepatitis chronicity: acute Hepatic coma status: without hepatic coma Qualified Codes: B17.10 - Acute hepatitis C without hepatic coma (10) HTN (hypertension) Status: Chronic (11) Obesity Status: Chronic (12) Tobacco abuse Status: Chronic (13) Alcohol abuse Status: Chronic (14) Poor prognosis (15) Goals of care, counseling/discussion JOSE NEWBERRY MD Mar 17, 2023 15:59
[2023-03-17 18:47] VITALS: BP 85/62
[2023-03-17 23:15] VITALS: BP 93/64
[2023-03-18] MEDS: DexMEDEtomidine 250 ML DRIP 250 ML IV SCH ×6 (01:18→22:38)
[2023-03-18] MEDS: PROPOFOL DRIP (ICU) 100 ML IV SCH ×10 (01:52→23:53)
[2023-03-18 02:37] VITALS: BP 94/68
[2023-03-18] MEDS: MEROPENEM 500 MG in NS (IVPB) 100 ML IV SCH ×4 (02:59→20:51)
[2023-03-18 03:22] LABS: ABG BASE EXCESS 8.9 MMOL/L (-2.5-2.5); ABG OXYGEN SATURATION 94 % (94-100); ABG PCO2 45 MMHG (35-45); ABG PH 7.48 (7.37-7.43); ABG PO2 71 MMHG (79-93); ABG TCO2 34.3 MMOL/L (21.0-31.0); BASOPHILS % (AUTO) 1 % (0-10); EOSINOPHILS # (AUTO) 0.2 10^3/uL (0.0-0.3); EOSINOPHILS % (AUTO) 5 % (0-10); HEMATOCRIT 40 % (40-54); HEMOGLOBIN 12.8 g/dL (13.3-17.7); LYMPHOCYTES # (AUTO) 1.2 10^3/uL (1.0-4.0); LYMPHOCYTES % (AUTO) 24 % (12-44); MEAN CORPUSCULAR HEMOGLOBIN 30 pg (25-34); MEAN CORPUSCULAR HGB CONC 32 g/dL (32-36); MEAN CORPUSCULAR VOLUME 93 fL (80-99); MEAN PLATELET VOLUME 12.1 fL (9.0-12.2); MONOCYTES # (AUTO) 0.4 10^3/uL (0.0-1.0); MONOCYTES % (AUTO) 7 % (0-12); NEUTROPHILS # (AUTO) 3.3 10^3/uL (1.8-7.8); NEUTROPHILS % (AUTO) 64 % (42-75); PLATELET COUNT 199 10^3/uL (130-400); WHITE BLOOD COUNT 5.2 10^3/uL (4.3-11.0)
[2023-03-18 03:23] LABS: ALLENS TEST ARTLINE; PATIENT TEMP 37; VENTILATOR YES
[2023-03-18 03:31] LABS: POTASSIUM 3.8 MMOL/L (3.6-5.0)
[2023-03-18 03:32] LABS: CALCIUM 8.6 MG/DL (8.5-10.1)
[2023-03-18 03:36] LABS: PHOSPHORUS 3.1 MG/DL (2.3-4.7)
[2023-03-18 03:37] LABS: CREATININE SERUM 0.86 MG/DL (0.60-1.30)
[2023-03-18 03:39] LABS: MAGNESIUM 1.5 MG/DL (1.6-2.4)
[2023-03-18] MEDS: NOREPINEPHRINE 8 MG/250 ML 250 ML IV SCH ×3 (04:11→21:18)
[2023-03-18] MEDS: MAGNESIUM 1 GM/100 ML IVPB 100 ML IV SCH ×5 (05:30→08:32)
[2023-03-18] MEDS: POTASSIUM CL 10MEQ/50ML IVPB 50 ML IV SCH ×3 (05:30→05:31)
[2023-03-18] MEDS: ENOXAPARIN 150 MG/ML (LOVENOX) SYR SQ SCH ×2 (05:30→17:12)
[2023-03-18] MEDS: KCL 20 MEQ TAB (K-DUR) PO SCH (05:31)
[2023-03-18 06:52] VITALS: BP 90/64
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
[2023-03-18] MEDS: DOCUSATE SODIUM 10 MG/ML 10 ML UDC (COLACE) PO SCH ×2 (07:57→20:51)
[2023-03-18] MEDS: POTASSIUM BICARB 20 MEQ (EFFER-K) TABLET PO SCH ×2 (07:57→20:51)
[2023-03-18] MEDS: PANTOPRAZOLE 40 MG (PROTONIX) VIAL IV SCH (07:58)
[2023-03-18] MEDS: meTOprolol TARTRATE 25 MG (LOPRESSOR) TABLET PO SCH ×2 (07:58→20:51)
[2023-03-18] MEDS: METOLAZONE 2.5 MG (ZAROXOLYN) TAB PO SCH (07:58)
[2023-03-18] MEDS ORDERED: TROUGH ORDER-PHARMACY XX ONE (08:00)
[2023-03-18] MEDS: FUROSEMIDE INJECTION 120 MG in D5W 100 ML IVPB 108 ML IV SCH ×2 (08:21→08:36)
--- NOTE | 2023-03-18 08:25 | Diagnostic Imaging Report ---
INDICATION: 52-year-old male, congestive heart failure, intubated, follow-up. TECHNIQUE: Single view chest 7:37 AM. CORRELATION STUDY: 03/16/2023 FINDINGS: Endotracheal tube, gastric tube, and right IJ central line all remain in place. Heart size and mediastinum remain enlarged and prominent. Vasculature is prominent but overall decreased from prior. Multifocal pulmonary opacities again demonstrated. Most pronounced in the right lung base which appears increased. Probable pleural effusion along with this opacity. IMPRESSION: 1. Stable support lines and tubes. 2. The overall severity of edema does appear to be slightly improved from prior. 3. However, bilateral pulmonary opacities overall appear increased particularly at the right lung base. Dictated by: Dictated on workstation # [id number]
--- NOTE | 2023-03-18 09:07 | Cardiology Progress Note ---
Subjective Date Seen by Provider: Mar 18, 2023 Time Seen by Provider: 09:06 Subjective/Events-last exam Patient was seen at bedside, sedated and intubated Review of Systems General: Other (Unable to provide review of system) Objective-Cardiology Exam Last Set of Vital Signs Vital Signs 03/18/23 03/18/23 03/18/23 03/18/23 06:52 07:35 08:15 08:33 Temp 36.0 Pulse 93 Resp 18 B/P (MAP) 107/72 Pulse Ox 96 O2 Delivery Mechanical Ventilator O2 Flow Rate 55.00 FiO2 55 I&O Intake and Output 03/18/23 00:00 Intake Total 4950 ml Output Total 6675 ml Balance -1725 ml IV Total 2757 ml Tube Feeding 1693 ml Enteral Flush 210 ml Other 290 ml Output Urine Total 6675 ml General: Moderate Distress, Other (Sedated and intubated) HEENT: Atraumatic, PERRLA Neck: Supple, No JVD Lungs: Normal Air Movement, Other (Bilateral rhonchi) Heart: Normal S1, Normal S2, Other (Atrial fibrillation) Abdomen: Normal Bowel Sounds, Other (Distended abdomen) Extremities: No Clubbing, No Cyanosis Skin: No Rashes, No Breakdown Neuro: Other (Sedated and intubated) Psych/Mental Status: Other (Sedated and intubated) Results Lab Laboratory Tests 03/18/23 03:12 A/P-Cardiology Admission Diagnosis Atrial fibrillation Ascites Acute respiratory insufficiency Acute renal insufficiency Assessment/Plan Ventilator dependent respiratory failure, pulmonary edema and multifocal pneumonia Intubated, ventilator dependent Mother is at bedside, I have discussed with her the possibility of tracheostomy over the past 2 days and she decided not to proceed with it. Managed by medical team. Hypotensive shock, maintained on inotropes Continue to try to wean him off and monitor tolerance and response Atrial fibrillation, persistent Rate is controlled on Cardizem drip. Continue to monitor Congestive heart failure, acute left ventricular systolic dysfunction, unknown etiology Probably alcoholic heart disease Repeat 2D echo was done on March 10, 2023 showing ejection fraction 15 to 20%. Cardiac catheterization done on March 11, 2023 with slow flow in the coronary system and coronary ectasia, nonobstructive disease Nonischemic cardiomyopathy Ascites and small to moderate-sized pleural effusion Improved, repeat ultrasound showed small ascites CHADVASC score 2, started on Lovenox Morbid obesity, BMI 39 Heavy alcoholism, drinking vodka daily. He has stopped drinking for the past month. Advised to avoid alcohol Acute on chronic renal failure, monitor renal function. Overall poor prognosis, patient is not a suitable candidate for heart transplant Discussed the poor prognosis with the mother and with Dr. Franz. CIRA BROWN MD Mar 18, 2023 09:07
[2023-03-18] MEDS: DOBUTamine DRIP 250 ML IV SCH ×2 (10:05→23:55)
[2023-03-18 10:36] VITALS: BP 90/61
[2023-03-18] MEDS: dilTIAZem DRIP PRE-MIX 125 ML IV SCH (14:22)
[2023-03-18 14:46] VITALS: BP 100/68
--- NOTE | 2023-03-18 18:14 | Progress Note - Hospitalist ---
Subjective HPI/CC On Admission Date Seen by Provider: Mar 18, 2023 Time Seen by Provider: 10:20 This is a 52 y/o M with PMH untreated HTN and alcohol use disorder who presented to the ED on 03/02 with LLQ abdominal pain and increasing abdominal distension over the past month. He had nausea, vomiting and diarrhea for 3 days 1 month ago and swelling in abdomen has been increasing since. Pt quit drinking 1 month ago when abdominal pain started, previously heavy vodka and beer daily for past 20 years. Reports SOB at baseline that improves with sitting in leaned forward position worsening as distension increases. Smokes 1 ppd. Admitted with AFib with RVR and pneumonia. Started on antibiotics, fluids withheld due to hyp ervolemic status. Requiring minimal oxygen initially, rapidly worsening requiring BiPAP and intubated shortly after. Echo with EF <10%. Case discussed with Dr. Gonzalez, recommended transferring to [facility] for advanced heart failure service. Declined transfer due to not being a candidate for advanced therapies with alcohol and tobacco use. Started on Dobutamine for cardiogenic shock. Low urine output, started on Lasix gtt. Rapidly progressing multi-organ failure. Poor prognosis and goals of care discussed with mother at bedside, she would like to continue full code status at this time. Subjective/Events-last exam He remains intubated and sedated. I again discussed goals of care with his mother who consistently states that he would not want a tracheostomy or feeding tube. He also would not want to be in a correction nursing home. She has not yet spoken with any other family members. Objective Exam Vital Signs Vital Signs Date Time Temp Pulse Resp B/P (MAP) Pulse Ox O2 Delivery O2 Flow Rate FiO2 03/18/23 18:00 88 18 109/70 (83) 100 Mechanical Ventilator 55.00 03/18/23 16:00 55 03/18/23 15:51 36.4 Capillary Refill : Less Than 3 Seconds General Appearance: No Apparent Distress, Obese Respiratory: No Respiratory Distress, Decreased Breath Sounds, Other (intubated and mechanically ventilated) Cardiovascular: No Murmur, Irregularly Irregular, Tachycardia Gastrointestinal: Normal Bowel Sounds, Soft Extremity: No Inflammation; Pedal Edema Neurologic/Psychiatric: Other (sedated) Results/Procedures Lab Laboratory Tests 03/18/23 03:12 Patient resulted labs reviewed. Imaging: Reviewed Imaging Films, Reviewed Imaging Report Assessment/Plan Assessment and Plan Assess & Plan/Chief Complaint Cardiogenic shock Acute HFrEF Acute respiratory failure with hypoxia Endotracheally intubated Pneumonia Afib with RVR Cardiology following EF remains ~10% Continue lasix gtt and metolazone Cardizem gtt Off Dobutamine Ventilator requirements increased slightly Lovenox for stroke prophylaxis TeleICU following Poor prognosis Goals of care discussion Palliative care following Discussed goals of care again with mother, does not want trach/PEG, encouraged to discuss other options with family Ascites Cirrhosis Alcohol abuse Hepatitis C Surgery following, not enough ascitic fluid for paracentesis Hep C RNA elevated Outpatient referral to Hepatology for Hep C treatment MALIK, resolved Critical Care Critically Ill Patient Diagnosis/Problems Diagnosis/Problems (1) Cardiogenic shock Status: Acute (2) Acute HFrEF (heart failure with reduced ejection fraction) Status: Acute (3) Acute respiratory failure with hypoxia and hypercapnia Status: Acute (4) Endotracheally intubated Status: Acute (5) PNA (pneumonia) Status: Acute (6) MALIK (acute kidney injury) Status: Acute (7) Atrial fibrillation with RVR Status: Acute (8) Ascites due to alcoholic cirrhosis Status: Acute (9) Hepatitis C Status: Acute Qualifiers: Viral hepatitis chronicity: acute Hepatic coma status: without hepatic coma Qualified Codes: B17.10 - Acute hepatitis C without hepatic coma (10) HTN (hypertension) Status: Chronic (11) Obesity Status: Chronic (12) Tobacco abuse Status: Chronic (13) Alcohol abuse Status: Chronic (14) Poor prognosis (15) Goals of care, counseling/discussion JOSE NEWBERRY MD Mar 18, 2023 18:14
[2023-03-18 18:50] VITALS: BP 109/70
[2023-03-18 22:17] VITALS: BP 92/66
[2023-03-19] MEDS: PROPOFOL DRIP (ICU) 100 ML IV SCH ×10 (01:58→23:31)
[2023-03-19 02:35] VITALS: BP 98/75
[2023-03-19] MEDS: MEROPENEM 500 MG in NS (IVPB) 100 ML IV SCH ×4 (02:55→20:49)
[2023-03-19] MEDS: DexMEDEtomidine 250 ML DRIP 250 ML IV SCH ×6 (02:55→23:31)
[2023-03-19 03:35] LABS: BASOPHILS # (AUTO) 0.1 10^3/uL (0.0-0.1); BASOPHILS % (AUTO) 1 % (0-10); EOSINOPHILS # (AUTO) 0.2 10^3/uL (0.0-0.3); EOSINOPHILS % (AUTO) 4 % (0-10); HEMATOCRIT 39 % (40-54); HEMOGLOBIN 12.7 g/dL (13.3-17.7); LYMPHOCYTES # (AUTO) 1.3 10^3/uL (1.0-4.0); LYMPHOCYTES % (AUTO) 24 % (12-44); MEAN CORPUSCULAR HEMOGLOBIN 31 pg (25-34); MEAN CORPUSCULAR HGB CONC 33 g/dL (32-36); MEAN CORPUSCULAR VOLUME 93 fL (80-99); MEAN PLATELET VOLUME 12.1 fL (9.0-12.2); MONOCYTES # (AUTO) 0.4 10^3/uL (0.0-1.0); MONOCYTES % (AUTO) 7 % (0-12); NEUTROPHILS # (AUTO) 3.4 10^3/uL (1.8-7.8); NEUTROPHILS % (AUTO) 64 % (42-75); PLATELET COUNT 213 10^3/uL (130-400); WHITE BLOOD COUNT 5.3 10^3/uL (4.3-11.0)
[2023-03-19 03:36] LABS: ABG BASE EXCESS 8.9 MMOL/L (-2.5-2.5); ABG OXYGEN SATURATION 91 % (94-100); ABG PCO2 47 MMHG (35-45); ABG PH 7.46 (7.37-7.43); ABG PO2 60 MMHG (79-93); ABG TCO2 34.5 MMOL/L (21.0-31.0); ALLENS TEST ART LINE; PATIENT TEMP 36.7; VENTILATOR YES
[2023-03-19 03:43] LABS: POTASSIUM 3.7 MMOL/L (3.6-5.0)
[2023-03-19 03:44] LABS: CALCIUM 8.7 MG/DL (8.5-10.1)
[2023-03-19 03:48] LABS: PHOSPHORUS 3.4 MG/DL (2.3-4.7)
[2023-03-19 03:49] LABS: CREATININE SERUM 0.85 MG/DL (0.60-1.30)
[2023-03-19 03:51] LABS: MAGNESIUM 1.6 MG/DL (1.6-2.4)
[2023-03-19] MEDS: ENOXAPARIN 150 MG/ML (LOVENOX) SYR SQ SCH ×2 (05:05→17:24)
[2023-03-19] MEDS: MAGNESIUM 1 GM/100 ML IVPB 100 ML IV SCH ×4 (05:05→08:16)
[2023-03-19] MEDS: POTASSIUM CL 10MEQ/50ML IVPB 50 ML IV SCH (05:06)
[2023-03-19] MEDS: KCL 20 MEQ TAB (K-DUR) PO SCH (05:06)
[2023-03-19] MEDS ORDERED: POTASSIUM BICARB 20 MEQ (EFFER-K) TABLET PO ONE (05:30)
[2023-03-19] MEDS: NOREPINEPHRINE 8 MG/250 ML 250 ML IV SCH ×3 (06:14→23:46)
[2023-03-19 06:54] VITALS: BP 88/67
--- NOTE | 2023-03-19 08:07 | Diagnostic Imaging Report ---
INDICATION: Respiratory distress Frontal chest obtained at 306 a.m. COMPARISON: 03/18/2023 ET tube and NG tube and right IJ catheter are all unchanged. There is cardiomegaly. There is central vascular congestion with some bibasilar infiltrate versus atelectasis similar to the prior study. There is relatively poor inspiration. There are bilateral pleural effusions. IMPRESSION: Stable life support lines. Unchanged cardiomegaly with vascular congestion and bibasilar infiltrate versus atelectasis and bilateral pleural effusions. Dictated by: Dictated on workstation # [id number]
[2023-03-19] MEDS: FUROSEMIDE INJECTION 120 MG in D5W 100 ML IVPB 108 ML IV SCH (08:15)
--- NOTE | 2023-03-19 08:18 | Cardiology Progress Note ---
Subjective Date Seen by Provider: Mar 19, 2023 Time Seen by Provider: 08:17 Subjective/Events-last exam Patient is sedated and intubated. Review of Systems General: Other (Unable to provide review of system) Objective-Cardiology Exam Last Set of Vital Signs Vital Signs 03/19/23 03/19/23 06:54 08:00 Temp 36.3 Pulse 94 Resp 16 B/P (MAP) 103/78 (86) Pulse Ox 96 O2 Delivery Mechanical Ventilator O2 Flow Rate 55.00 FiO2 55 I&O Intake and Output 03/19/23 00:00 Intake Total 5377 ml Output Total 5775 ml Balance -398 ml Intake Oral 0 ml IV Total 3547 ml Tube Feeding 1440 ml Enteral Flush 90 ml Other 300 ml Output Urine Total 5775 ml # Bowel Movements 1 General: Moderate Distress, Other (Sedated and intubated) HEENT: Atraumatic, PERRLA Neck: Supple, No JVD Lungs: Normal Air Movement, Other (Bilateral rhonchi) Heart: Normal S1, Normal S2, Other (Atrial fibrillation) Abdomen: Normal Bowel Sounds, Other (Distended abdomen) Extremities: No Clubbing, No Cyanosis Skin: No Rashes, No Breakdown Neuro: Other (Sedated and intubated) Psych/Mental Status: Other (Sedated and intubated) Results Lab Laboratory Tests 03/19/23 03:20 A/P-Cardiology Admission Diagnosis Atrial fibrillation Ascites Acute respiratory insufficiency Acute renal insufficiency Assessment/Plan Ventilator dependent respiratory failure, pulmonary edema and multifocal pneumonia Intubated, ventilator dependent Mother is at bedside, I have discussed with her the possibility of tracheostomy over the past 2 days and she decided not to proceed with it. Managed by medical team. Hypotensive shock, maintained on inotropes Continue to try to wean him off and monitor tolerance and response Atrial fibrillation, persistent Rate is controlled on Cardizem drip. Continue to monitor Congestive heart failure, acute left ventricular systolic dysfunction, unknown etiology Probably alcoholic heart disease Repeat 2D echo was done on March 10, 2023 showing ejection fraction 15 to 20%. Cardiac catheterization done on March 11, 2023 with slow flow in the coronary system and coronary ectasia, nonobstructive disease Nonischemic cardiomyopathy Ascites and small to moderate-sized pleural effusion Improved, repeat ultrasound showed small ascites CHADVASC score 2, started on Lovenox Morbid obesity, BMI 39 Heavy alcoholism, drinking vodka daily. He has stopped drinking for the past month. Advised to avoid alcohol Acute on chronic renal failure, monitor renal function. Overall poor prognosis, patient is not a suitable candidate for heart transplant Discussed the poor prognosis with the mother and with Dr. Franz. CIRA BROWN MD Mar 19, 2023 08:18
[2023-03-19] MEDS: meTOprolol TARTRATE 25 MG (LOPRESSOR) TABLET PO SCH ×2 (09:36→20:49)
[2023-03-19 10:51] VITALS: BP 97/85
[2023-03-19] MEDS: METOLAZONE 2.5 MG (ZAROXOLYN) TAB PO SCH (10:57)
[2023-03-19] MEDS: POTASSIUM BICARB 20 MEQ (EFFER-K) TABLET PO SCH ×2 (10:57→20:49)
[2023-03-19] MEDS: DOCUSATE SODIUM 10 MG/ML 10 ML UDC (COLACE) PO SCH ×2 (10:57→20:49)
[2023-03-19] MEDS: PANTOPRAZOLE 40 MG (PROTONIX) VIAL IV SCH (10:58)
--- NOTE | 2023-03-19 11:56 | Tele-ICU Progress Note ---
Subjective Date Seen by a Provider: Mar 19, 2023 Time Seen by a Provider: 11:55 Subjective/Events-last exam Tele-ICU Physician , Progress Note ) Service provided via interactive audio and video telecommunications [facility] stem to a patient admitted to ICU bed in [facility]. Patient is seen today due to persistent need of ICU care Available chart/ vitals / labs / Images reviewed Video assessment done using teleICU camera, rest of exam as per RN Discussed with RN VENT SETTINGS and ABG reviewed NOT CANDIDATE for SBTreviewed possible contraindications including Cardiovascular Stability /Sedation Score / FI02/PEEP / ABG / CXR/ secretions Sub: events overnight. Hospital course: (03/02) 52M Admitted with PNA, Afib RVR, Abdominal distension, and Ascites. (03/03) INTUBATED after becoming unresponsive 03/04- 100% , PEEP 10 , lasix drip 6mg/hr, levo 0.06 mcg, propofol 30 mcg, precedex 1.0 mcg dobutamine 2.5 mcg 03/05 - AC 18 TV 550, 50 % PEEP 15 , propofol 50 . precedex 1.2 lasix drip , levo OFF , dobutamine 7.5 mcg, cardizem gtt 10 03/06-AC 16 TV 550 30 % PEEP 8 propofol 45 . precedex 1.0 lasix drip 0.5 , dobutamine 7.5 mcg, cardizem gtt 10 03/07 - 03/06-AC 16 TV 550 30 % PEEP 8 propofol 45 . precedex 1.2 RASS -2 , lasix drip OFF , dobutamine 7.5 mcg, cardizem gtt 15 03/10- Unable to SBT 2/2 agitation 03/11- AC 25 % +5 . dobutamine 1.0 mcg, propofol 45 . precedex 1.0 RASS -2 , cardizem gtt 10, plans for paracentesis and card cath 03/16 - 60% peep 10 , levo o.o2 , levo levo o.o2 , back to dobutamine 03/16 , lasix gtt 1 , propofol 45, precedex 1.5 03/19- AC off dobs, peep 6 , MV 13L 55% A/P 1. acute hypoxic and hypoxic respiratory failure due to combination of acute and chronic systolic CHF and BRIANDA. - 55% peep8 - improved -Cont to wean sedation as tolerated - RASS - 2 -NOT CANDIDATE for SBT-plans for tracheostomy being discussed by PCP with mo ther Severe alcoholic nonischemic cardiomyopathy with LV EF ,10%.=repeated ECHO - EF 15-20 % - card cath 03/11- nonobstructive dz -back to dobutamine 1.0 mcg Shock - cardiogenioc and or septic shock. - off dubutamine Afib with RVR -lovenox full dose -cardizem gtt 5 , metoprolol 25 bid po CXR with complete opacification LEFT 03/15 Vanc added03/15 - repeates cxr 03/16 - significant improvement - , possible mucous plug , not effusion ID - possible pneumonia on admission-NOW IS TREATED FOR HAP -Cholelithiasis. There is fluid surrounding the gallbladder, low concern for cholecystitis - Sx follow -?SBP -not enough ascitic fluid for paracentesis- signed off -diarrhoea resolved FEVER 03/15- cx pending - vancpo +MERREM -(ceftriaxone + z max - FINISHED COURSE ETON abuse - reportedly quit 1 m [employer] - vitamins nitritions - TF at 60 today tolerates well HEP C -chronic , active Anasarca with all above - on lasix gtt discussions regarding goals of care are ongoing , poor prognosis, support recommendations to do compassionate withdrawal with comfort measures Lines : R IJ 03/03 left a line , (Central Line Necessity Reviewed) Wright: + OG: Nutrition: tf Analgesia: Anxiety/ delirium VTE Prophylaxis: lovenox full dose Stress Ulcer Prophylaxis: PPI Plans in collaboration with bedside consultants and IM MDs. Discussed with RN to reach out if any questions or concerns Case and care daily discussed on multidisciplinary rounds ( RN, PharmD, Cash Applications Associate , Respiratory Therapy, take off worker ) A total of 37 minutes of critical care time was devoted to this patient today, required to treat and/or prevent further deterioration of critical care con dition ( as above ) . I am remotely monitoring this patient from another state. I am unable to do the bedside exam, and history/physical and pertinent information is taken from other notes in the computer and bedside staff. Sepsis Event Evaluation Height, Weight, BMI Height: 6'5.00" Weight: 235lbs. 0oz. 106.833865is; 38.18 BMI Method:Stated Exam Exam Patient acknowledged, consented, and participated in this virtual visit which was conducted using real time audio/video Vital Signs Date Time Temp Pulse Resp B/P (MAP) Pulse Ox O2 Delivery O2 Flow Rate FiO2 03/19/23 11:00 89 13 113/79 (90) 98 Mechanical Ventilator 55.00 03/19/23 10:51 108 16 98 55 03/19/23 10:00 105 18 97/85 (89) 96 Mechanical Ventilator 55.00 03/19/23 09:00 85 20 111/69 (83) 95 Mechanical Ventilator 55.00 03/19/23 08:00 36.3 03/19/23 08:00 94 16 103/78 (86) 96 Mechanical Ventilator 55.00 03/19/23 07:19 105 03/19/23 07:00 85 17 88/67 (74) 96 Mechanical Ventilator 55.00 03/19/23 06:55 91 107/72 03/19/23 06:54 96 18 96 55 03/19/23 06:42 91 107/72 03/19/23 06:41 91 107/72 03/19/23 06:00 91 18 107/72 (84) 96 Mechanical Ventilator 55.00 03/19/23 05:58 96 127/83 03/19/23 05:00 96 16 127/83 (98) 97 Mechanical Ventilator 55.00 03/19/23 04:28 90 98/75 03/19/23 04:00 96 16 109/82 (91) 97 Mechanical Ventilator 55.00 03/19/23 03:53 90 98/75 03/19/23 03:40 97 Mechanical Ventilator 55 03/19/23 03:39 36.7 03/19/23 03:39 55 03/19/23 03:00 93 18 100/75 (83) 96 Mechanical Ventilator 55.00 03/19/23 02:55 90 98/75 03/19/23 02:38 90 98/75 03/19/23 02:35 90 17 97 55 03/19/23 02:00 98 19 98/75 (83) 97 Mechanical Ventilator 55.00 03/19/23 01:58 108 102/75 03/19/23 01:58 108 102/75 03/19/23 01:00 114 17 99/82 (88) 97 Mechanical Ventilator 55.00 03/19/23 01:00 109 03/19/23 00:04 55 03/19/23 00:00 98 Mechanical Ventilator 55 03/19/23 00:00 108 18 102/75 (84) 98 Mechanical Ventilator 55.00 03/18/23 23:56 37.0 03/18/23 23:53 112 92/66 03/18/23 23:23 112 92/66 03/18/23 23:00 97 16 98/76 (83) 97 Mechanical Ventilator 55.00 03/18/23 22:46 112 92/66 03/18/23 22:38 112 92/66 03/18/23 22:17 112 24 96 55 03/18/23 22:00 94 20 92/66 (75) 97 Mechanical Ventilator 55.00 03/18/23 21:54 88 103/91 03/18/23 21:18 88 103/91 03/18/23 21:12 88 103/91 03/18/23 21:00 88 16 103/91 (95) 99 Mechanical Ventilator 55.00 03/18/23 20:00 84 16 114/85 (95) 98 Mechanical Ventilator 55.00 03/18/23 19:50 99 Mechanical Ventilator 55 03/18/23 19:50 55 03/18/23 19:23 87 109/70 03/18/23 19:22 36.7 03/18/23 19:00 93 23 103/85 (91) 95 Mechanical Ventilator 55.00 03/18/23 19:00 115 03/18/23 18:50 87 24 99 55 03/18/23 18:46 88 109/70 03/18/23 18:36 88 109/70 03/18/23 18:36 88 109/70 03/18/23 18:00 88 18 109/70 (83) 100 Mechanical Ventilator 55.00 03/18/23 17:12 93 102/89 03/18/23 17:06 93 102/89 03/18/23 17:00 101 17 97/77 (84) 97 Mechanical Ventilator 55.00 03/18/23 16:00 96 Mechanical Ventilator 55 03/18/23 16:00 55 03/18/23 16:00 93 31 102/89 (93) 99 Mechanical Ventilator 55.00 03/18/23 15:51 36.4 03/18/23 15:00 93 34 87/71 (76) 98 Mechanical Ventilator 55.00 03/18/23 14:46 98 17 98 55 03/18/23 14:19 85 102/74 03/18/23 14:18 85 102/74 03/18/23 14:00 85 16 102/74 (83) 99 Mechanical Ventilator 55.00 03/18/23 13:51 73 95/61 03/18/23 13:51 73 95/61 03/18/23 13:07 73 03/18/23 13:00 96 17 113/77 (89) 98 Mechanical Ventilator 55.00 03/18/23 12:00 96 Mechanical Ventilator 55 03/18/23 12:00 36.3 03/18/23 12:00 90 24 102/83 (89) 97 Mechanical Ventilator 55.00 I & O 03/19/23 07:00 Intake Total 5437 ml Output Total 5775 ml Balance -338 ml Height & Weight Height: 6'5.00" Weight: 235lbs. 0oz. 106.199174ab; 38.18 BMI Method:Stated General Appearance: No Apparent Distress, Obese HEENT: Other (ET tube) Neck: Normal Inspection, Supple Respiratory: No Respiratory Distress, Decreased Breath Sounds, Other (intubated and mechanically ventilated) Cardiovascular: No Murmur, Irregularly Irregular, Tachycardia Capillary Refill: Less Than 3 Seconds Peripheral Pulses: 2+ Dorsalis Pedis (R), 2+ Left Dors-Pedis (L), 2+ Radial Pulses (R), 2+ Radial Pulses (L) Gastrointestinal: soft, distended (same as yesterday.), other (abdominal pitting edema, rash right abdomen) Extremity: No Inflammation; Pedal Edema Neurologic/Psychiatric: Other (sedated) Skin: Normal Color, Warm/Dry Lymphatic: No Adenopathy Results Lab Laboratory Tests 03/18/23 03:12 03/19/23 03:20 Assessment/Plan Assessment/Plan 1 FAHAD ARITA MD Mar 19, 2023 11:56
--- NOTE | 2023-03-19 12:21 | Progress Note - Hospitalist ---
Subjective HPI/CC On Admission Date Seen by Provider: Mar 19, 2023 Time Seen by Provider: 10:10 This is a 52 y/o M with PMH untreated HTN and alcohol use disorder who presented to the ED on 03/02 with LLQ abdominal pain and increasing abdominal distension over the past month. He had nausea, vomiting and diarrhea for 3 days 1 month ago and swelling in abdomen has been increasing since. Pt quit drinking 1 month ago when abdominal pain started, previously heavy vodka and beer daily for past 20 years. Reports SOB at baseline that improves with sitting in leaned forward position worsening as distension increases. Smokes 1 ppd. Admitted with AFib with RVR and pneumonia. Started on antibiotics, fluids withheld due to hyp ervolemic status. Requiring minimal oxygen initially, rapidly worsening requiring BiPAP and intubated shortly after. Echo with EF <10%. Case discussed with Dr. Gonzalez, recommended transferring to [facility] for advanced heart failure service. Declined transfer due to not being a candidate for advanced therapies with alcohol and tobacco use. Started on Dobutamine for cardiogenic shock. Low urine output, started on Lasix gtt. Rapidly progressing multi-organ failure. Poor prognosis and goals of care discussed with mother at bedside, she would like to continue full code status at this time. Subjective/Events-last exam He remains intubated and sedated. His mother is at the bedside. She wants to pursue palliative extubation and comfort measures, but is not ready at this moment. She is still processing the situation. Objective Exam Vital Signs Vital Signs Date Time Temp Pulse Resp B/P (MAP) Pulse Ox O2 Delivery O2 Flow Rate FiO2 03/19/23 11:00 89 13 113/79 (90) 98 Mechanical Ventilator 55.00 03/19/23 10:51 55 03/19/23 08:00 36.3 Capillary Refill : Less Than 3 Seconds General Appearance: No Apparent Distress, Obese Respiratory: Decreased Breath Sounds, Other (intubated and mechanically ventilated) Cardiovascular: No Murmur, Irregularly Irregular Gastrointestinal: Normal Bowel Sounds, Soft Extremity: Normal Inspection, Pedal Edema Neurologic/Psychiatric: Other (sedated) Results/Procedures Lab Laboratory Tests 03/19/23 03:20 Patient resulted labs reviewed. Imaging: Reviewed Imaging Films, Reviewed Imaging Report Assessment/Plan Assessment and Plan Assess & Plan/Chief Complaint Cardiogenic shock Acute HFrEF Acute respiratory failure with hypoxia Endotracheally intubated Pneumonia Afib with RVR Cardiology following EF remains ~10% Continue lasix gtt and metolazone Cardizem gtt Ventilator requirements stable, 55% FiO2 Lovenox for stroke prophylaxis TeleICU following Poor prognosis Goals of care discussion Palliative care following Discussed goals of care again with mother, does not want trach/PEG, plans to pursue comfort measures but not ready this morning Ascites Cirrhosis Alcohol abuse Hepatitis C Surgery following, not enough ascitic fluid for paracentesis Hep C RNA elevated Outpatient referral to Hepatology for Hep C treatment MALIK, resolved Critical Care Critically Ill Patient Diagnosis/Problems Diagnosis/Problems (1) Cardiogenic shock Status: Acute (2) Acute HFrEF (heart failure with reduced ejection fraction) Status: Acute (3) Acute respiratory failure with hypoxia and hypercapnia Status: Acute (4) Endotracheally intubated Status: Acute (5) PNA (pneumonia) Status: Acute (6) MALIK (acute kidney injury) Status: Acute (7) Atrial fibrillation with RVR Status: Acute (8) Ascites due to alcoholic cirrhosis Status: Acute (9) Hepatitis C Status: Acute Qualifiers: Viral hepatitis chronicity: acute Hepatic coma status: without hepatic coma Qualified Codes: B17.10 - Acute hepatitis C without hepatic coma (10) HTN (hypertension) Status: Chronic (11) Obesity Status: Chronic (12) Tobacco abuse Status: Chronic (13) Alcohol abuse Status: Chronic (14) Poor prognosis (15) Goals of care, counseling/discussion JOSE NEWBERRY MD Mar 19, 2023 12:21
[2023-03-19] MEDS: DOBUTamine DRIP 250 ML IV SCH (12:42)
[2023-03-19 15:35] VITALS: BP 103/75
[2023-03-19] MEDS: dilTIAZem DRIP PRE-MIX 125 ML IV SCH (16:56)
[2023-03-19] MEDS: fentaNYL INJ 100 MCG/2 ML AMP IVP PRN (17:24)
[2023-03-19 18:45] VITALS: BP 102/66
[2023-03-19 22:22] VITALS: BP 94/70
[2023-03-20] MEDS: fentaNYL INJ 100 MCG/2 ML AMP IVP PRN ×2 (00:37→06:08)
[2023-03-20] MEDS: PROPOFOL DRIP (ICU) 100 ML IV SCH ×5 (01:11→10:12)
[2023-03-20] MEDS: DOBUTamine DRIP 250 ML IV SCH (01:41)
[2023-03-20] MEDS: MEROPENEM 500 MG in NS (IVPB) 100 ML IV SCH (02:34)
[2023-03-20 02:36] VITALS: BP 103/80
[2023-03-20] MEDS: DexMEDEtomidine 250 ML DRIP 250 ML IV SCH ×5 (03:15→21:27)
[2023-03-20 03:23] LABS: ABG BASE EXCESS 9.8 MMOL/L (-2.5-2.5); ABG OXYGEN SATURATION 94 % (94-100); ABG PCO2 48 MMHG (35-45); ABG PH 7.47 (7.37-7.43); ABG PO2 69 MMHG (79-93); ABG TCO2 35.3 MMOL/L (21.0-31.0)
[2023-03-20 03:25] LABS: BASOPHILS # (AUTO) 0.1 10^3/uL (0.0-0.1); BASOPHILS % (AUTO) 1 % (0-10); EOSINOPHILS # (AUTO) 0.2 10^3/uL (0.0-0.3); EOSINOPHILS % (AUTO) 3 % (0-10); HEMATOCRIT 39 % (40-54); HEMOGLOBIN 12.8 g/dL (13.3-17.7); LYMPHOCYTES # (AUTO) 1.5 10^3/uL (1.0-4.0); LYMPHOCYTES % (AUTO) 26 % (12-44); MEAN CORPUSCULAR HEMOGLOBIN 30 pg (25-34); MEAN CORPUSCULAR HGB CONC 33 g/dL (32-36); MEAN CORPUSCULAR VOLUME 92 fL (80-99); MEAN PLATELET VOLUME 11.8 fL (9.0-12.2); MONOCYTES # (AUTO) 0.4 10^3/uL (0.0-1.0); MONOCYTES % (AUTO) 7 % (0-12); NEUTROPHILS # (AUTO) 3.7 10^3/uL (1.8-7.8); NEUTROPHILS % (AUTO) 64 % (42-75); PLATELET COUNT 254 10^3/uL (130-400); WHITE BLOOD COUNT 5.8 10^3/uL (4.3-11.0)
[2023-03-20 03:28] LABS: ALLENS TEST YES-POS; PATIENT TEMP 37.5; VENTILATOR YES
[2023-03-20 03:36] LABS: POTASSIUM 3.8 MMOL/L (3.6-5.0)
[2023-03-20 03:37] LABS: CALCIUM 8.9 MG/DL (8.5-10.1)
[2023-03-20 03:41] LABS: PHOSPHORUS 3.5 MG/DL (2.3-4.7)
[2023-03-20 03:42] LABS: CREATININE SERUM 0.87 MG/DL (0.60-1.30)
[2023-03-20 03:44] LABS: MAGNESIUM 1.6 MG/DL (1.6-2.4)
[2023-03-20] MEDS: MAGNESIUM 1 GM/100 ML IVPB 100 ML IV SCH ×4 (05:32→07:57)
[2023-03-20] MEDS: POTASSIUM CL 10MEQ/50ML IVPB 50 ML IV SCH (05:32)
[2023-03-20] MEDS: KCL 20 MEQ TAB (K-DUR) PO SCH (05:33)
[2023-03-20] MEDS: ENOXAPARIN 150 MG/ML (LOVENOX) SYR SQ SCH (05:33)
[2023-03-20 07:28] VITALS: BP 97/62
[2023-03-20] MEDS ORDERED: POTASSIUM BICARB 20 MEQ (EFFER-K) TABLET PO ONE (08:00)
[2023-03-20] MEDS: DOCUSATE SODIUM 10 MG/ML 10 ML UDC (COLACE) PO SCH (09:27)
[2023-03-20] MEDS: POTASSIUM BICARB 20 MEQ (EFFER-K) TABLET PO SCH (09:27)
[2023-03-20] MEDS: meTOprolol TARTRATE 25 MG (LOPRESSOR) TABLET PO SCH (09:27)
[2023-03-20] MEDS: METOLAZONE 2.5 MG (ZAROXOLYN) TAB PO SCH (09:27)
[2023-03-20] MEDS: PANTOPRAZOLE 40 MG (PROTONIX) VIAL IV SCH (09:28)
--- NOTE | 2023-03-20 09:40 | Cardiology Progress Note ---
Subjective Date Seen by Provider: Mar 20, 2023 Time Seen by Provider: 09:40 Subjective/Events-last exam Patient is sedated and intubated Objective-Cardiology Exam Last Set of Vital Signs Vital Signs 03/20/23 03/20/23 03/20/23 04:03 07:28 09:00 Temp 37.5 Pulse 93 Resp 16 B/P (MAP) 101/81 (89) Pulse Ox 98 O2 Delivery Mechanical Ventilator O2 Flow Rate 55.00 FiO2 55 I&O Intake and Output 03/20/23 00:00 Intake Total 4900 ml Output Total 5150 ml Balance -250 ml Intake Oral 0 ml IV Total 2900 ml Tube Feeding 1440 ml Enteral Flush 120 ml Other 440 ml Output Urine Total 5150 ml General: Moderate Distress, Other (Sedated and intubated) HEENT: Atraumatic, PERRLA Neck: Supple, No JVD Lungs: Normal Air Movement, Other (Bilateral rhonchi) Heart: Normal S1, Normal S2, Other (Atrial fibrillation) Abdomen: Normal Bowel Sounds, Other (Distended abdomen) Extremities: No Clubbing, No Cyanosis Skin: No Rashes, No Breakdown Neuro: Other (Sedated and intubated) Psych/Mental Status: Other (Sedated and intubated) Results Lab Laboratory Tests 03/20/23 03:10 A/P-Cardiology Admission Diagnosis Atrial fibrillation Ascites Acute respiratory insufficiency Acute renal insufficiency Assessment/Plan Ventilator dependent respiratory failure, pulmonary edema and multifocal pneumonia Intubated, ventilator dependent Mother is at bedside, I visited with her and she is considering proceeding with palliative care at this point. Managed by medical team. Hypotensive shock, maintained on inotropes Atrial fibrillation, persistent Rate is controlled on Cardizem drip. Continue to monitor Congestive heart failure, acute left ventricular systolic dysfunction, unknown etiology Probably alcoholic heart disease Repeat 2D echo was done on March 10, 2023 showing ejection fraction 15 to 20%. Cardiac catheterization done on March 11, 2023 with slow flow in the coronary system and coronary ectasia, nonobstructive disease Nonischemic cardiomyopathy Ascites and small to moderate-sized pleural effusion Improved, repeat ultrasound showed small ascites CHADVASC score 2, started on Lovenox Morbid obesity, BMI 39 Heavy alcoholism, drinking vodka daily. He has stopped drinking for the past month. Advised to avoid alcohol Acute on chronic renal failure, monitor renal function. Overall poor prognosis, patient is not a suitable candidate for heart transplant CIRA BROWN MD Mar 20, 2023 09:40
[2023-03-20] MEDS ORDERED: BISACODYL 10 MG SUPP (DULCOLAX) PR PRN (10:30)
[2023-03-20] MEDS ORDERED: RT-ALBUTEROL/IPRATROPIUM 3 ML (DUONEB) VIAL INH PRN (10:30)
[2023-03-20] MEDS ORDERED: ONDANSETRON 4 MG/2 ML (SDV) Z0FRAN IVP PRN (10:30)
[2023-03-20] MEDS ORDERED: ACETAMINOPHEN 650 MG SUPP (TYLENOL) PR PRN (10:30)
[2023-03-20] MEDS ORDERED: PROMETHAZINE INJ 25 MG/ML (PHENERGAN) AMP IVP PRN (10:30)
[2023-03-20] MEDS ORDERED: LORazepam 1 MG (ATIVAN) TAB SL PRN (10:30)
[2023-03-20] MEDS ORDERED: SALIVA SUBSTITUTE 60 ML SPRAY(MOUTHKOTE) MM PRN (10:30)
[2023-03-20] MEDS ORDERED: ARTIFICAL TEARS 0.4 ML UNIT DOSE (REFRESH PLUS) OU PRN (10:30)
--- NOTE | 2023-03-20 10:32 | Tele-ICU Progress Note ---
Subjective Date Seen by a Provider: Mar 20, 2023 Time Seen by a Provider: 10:31 Subjective/Events-last exam Tele-ICU Physician , Progress Note ) Service provided via interactive audio and video telecommunications [facility] to a patient admitted to ICU bed in [facility]. Patient is seen today due to persistent need of ICU care Available chart/ vitals / labs / Images reviewed Video assessment done using teleICU camera, rest of exam as per RN Discussed with RN VENT SETTINGS and ABG reviewed NOT CANDIDATE for SBTreviewed possible contraindications including Cardiovascular Stability /Sedation Score / FI02/PEEP / ABG / CXR/ secretions Sub: events overnight. Hospital course: (03/02) 52M Admitted with PNA, Afib RVR, Abdominal distension, and Ascites. (03/03) INTUBATED after becoming unresponsive 03/04- 100% , PEEP 10 , lasix drip 6mg/hr, levo 0.06 mcg, propofol 30 mcg, precedex 1.0 mcg dobutamine 2.5 mcg 03/05 - AC 18 TV 550, 50 % PEEP 15 , propofol 50 . precedex 1.2 lasix drip , levo OFF , dobutamine 7.5 mcg, cardizem gtt 10 03/06-AC 16 TV 550 30 % PEEP 8 propofol 45 . precedex 1.0 lasix drip 0.5 , dobutamine 7.5 mcg, cardizem gtt 10 03/07 - 03/06-AC 16 TV 550 30 % PEEP 8 propofol 45 . precedex 1.2 RASS -2 , lasix drip OFF , dobutamine 7.5 mcg, cardizem gtt 15 03/10- Unable to SBT 2/2 agitation 03/11- AC 25 % +5 . dobutamine 1.0 mcg, propofol 45 . precedex 1.0 RASS -2 , cardizem gtt 10, plans for paracentesis and card cath 03/16 - 60% peep 10 , levo o.o2 , levo levo o.o2 , back to dobutamine 03/16 , lasix gtt 1 , propofol 45, precedex 1.5 03/19- AC off dobs, peep 6 , MV 13L 55% A/P as per notes, mother does not want trach/PEG, plans to pursue comfort measures discussed with RN extubation plans , sedation ect will await for mother arrival 1. acute hypoxic and hypoxic respiratory failure due to combination of acute and chronic systolic CHF and BRIANDA. - 55% peep8 - improved -Cont to wean sedation as tolerated - RASS - 2 -NOT CANDIDATE for SBT-plans for tracheostomy being discussed by PCP with mother Severe alcoholic nonischemic cardiomyopathy with LV EF ,10%.=repeated ECHO - EF 15-20 % - card cath 03/11- nonobstructive dz -back to dobutamine 1.0 mcg Shock - cardiogenioc and or septic shock. - off dubutamine Afib with RVR -lovenox full dose -cardizem gtt 5 , metoprolol 25 bid po CXR with complete opacification LEFT 03/15 Vanc added03/15 - repeates cxr 03/16 - significant improvement - , possible mucous plug , not effusion ID - possible pneumonia on admission-NOW IS TREATED FOR HAP -Cholelithiasis. There is fluid surrounding the gallbladder, low concern for cholecystitis - Sx follow -?SBP -not enough ascitic fluid for paracentesis- signed off -diarrhoea resolved FEVER 03/15- cx pending - vancpo +MERREM -(ceftriaxone + z max - FINISHED COURSE ETON abuse - reportedly quit 1 m [employer] - vitamins nitritions - TF at 60 today tolerates well HEP C -chronic , active Anasarca with all above - on lasix gtt discussions regarding goals of care are ongoing , poor prognosis, support recommendations to do compassionate withdrawal with comfort measures as per notes, mother does not want trach/PEG, plans to pursue comfort measures Lines : R IJ 03/03 left a line , (Central Line Necessity Reviewed) Wright: + OG: Nutrition: tf Analgesia: Anxiety/ delirium VTE Prophylaxis: lovenox full dose Stress Ulcer Prophylaxis: PPI Plans in collaboration with bedside consultants and IM MDs. Discussed with RN to reach out if any questions or concerns Case and care daily discussed on multidisciplinary rounds ( RN, PharmD, Fire Extinguisher Mechanic , Respiratory Therapy, door worker ) A total of 10 minutes of critical care time was devoted to this patient today, required to treat and/or prevent further deterioration of critical care condition ( as above ) . I am remotely monitoring this patient from another state. I am unable to do the bedside exam, and history/physical and pertinent information is taken from other notes in the computer and bedside staff. Sepsis Event Evaluation Height, Weight, BMI Height: 6'5.00" Weight: 235lbs. 0oz. 106.934208ky; 38.00 BMI Method:Stated Exam Exam Patient acknowledged, consented, and participated in this virtual visit which was conducted using real time audio/video Vital Signs Date Time Temp Pulse Resp B/P (MAP) Pulse Ox O2 Delivery O2 Flow Rate FiO2 03/20/23 10:12 90 95/78 03/20/23 10:00 90 16 95/78 (86) 98 Mechanical Ventilator 55.00 03/20/23 09:00 93 16 101/81 (89) 98 Mechanical Ventilator 55.00 03/20/23 08:00 90 16 116/71 (87) 98 Mechanical Ventilator 55.00 03/20/23 08:00 55 03/20/23 08:00 99 Mechanical Ventilator 55 03/20/23 07:56 81 97/62 03/20/23 07:56 81 97/62 03/20/23 07:28 81 16 97 55 03/20/23 07:15 81 97/62 03/20/23 07:15 81 97/62 03/20/23 07:00 90 16 112/98 (106) 96 Mechanical Ventilator 55.00 03/20/23 07:00 88 03/20/23 06:00 110 16 119/95 (103) 98 Mechanical Ventilator 55.00 03/20/23 05:31 100 108/92 03/20/23 05:11 100 108/92 03/20/23 05:00 114 19 102/91 (95) 98 Mechanical Ventilator 55.00 03/20/23 04:03 55 03/20/23 04:03 37.5 03/20/23 04:00 100 16 108/92 (97) 98 Mechanical Ventilator 55.00 03/20/23 04:00 99 Mechanical Ventilator 55 03/20/23 03:31 101 103/80 03/20/23 03:31 101 103/80 03/20/23 03:15 101 103/80 03/20/23 03:15 101 103/80 03/20/23 03:00 89 16 120/83 (95) 99 Mechanical Ventilator 55.00 03/20/23 02:36 101 16 99 55 03/20/23 02:00 81 16 103/80 (88) 99 Mechanical Ventilator 55.00 03/20/23 01:41 108 109/74 03/20/23 01:11 108 109/74 03/20/23 01:11 108 109/74 03/20/23 01:00 94 03/20/23 01:00 96 16 106/80 (89) 98 Mechanical Ventilator 55.00 03/20/23 00:00 108 21 109/74 (86) 98 Mechanical Ventilator 55.00 03/19/23 23:46 37.6 03/19/23 23:42 99 Mechanical Ventilator 55 03/19/23 23:36 55 03/19/23 23:32 94 101/79 03/19/23 23:32 94 101/79 03/19/23 23:31 94 101/79 03/19/23 23:31 94 101/79 03/19/23 23:00 94 17 101/79 (86) 99 Mechanical Ventilator 55.00 03/19/23 22:22 98 17 98 55 03/19/23 22:00 89 17 111/69 (83) 98 Mechanical Ventilator 55.00 03/19/23 21:44 92 95/77 03/19/23 21:12 92 95/77 03/19/23 21:00 98 17 102/77 (85) 99 Mechanical Ventilator 55.00 03/19/23 20:03 55 03/19/23 20:00 92 16 101/81 (88) 99 Mechanical Ventilator 55.00 03/19/23 20:00 99 Mechanical Ventilator 55 03/19/23 19:40 37.6 03/19/23 19:33 92 95/77 03/19/23 19:32 92 95/77 03/19/23 19:32 92 95/77 03/19/23 19:32 92 95/77 03/19/23 19:07 92 03/19/23 19:00 117 19 95/77 (83) 94 Mechanical Ventilator 55.00 03/19/23 18:45 79 16 98 55 03/19/23 18:00 96 16 93/68 (76) 97 Mechanical Ventilator 55.00 03/19/23 17:00 96 18 105/85 (92) 96 Mechanical Ventilator 55.00 03/19/23 16:56 130 100/67 03/19/23 16:03 55 03/19/23 16:00 109 16 87/64 (72) 94 Mechanical Ventilator 55.00 03/19/23 16:00 97 Mechanical Ventilator 55 03/19/23 15:56 37.0 03/19/23 15:35 106 17 93 55 03/19/23 15:00 105 6 98/81 (87) 97 Mechanical Ventilator 55.00 03/19/23 14:00 113 16 95/75 (82) 99 Mechanical Ventilator 55.00 03/19/23 13:00 105 23 95/74 (81) 98 Mechanical Ventilator 55.00 03/19/23 12:34 124 03/19/23 12:03 55 03/19/23 12:00 105 19 94/76 (82) 96 Mechanical Ventilator 55.00 03/19/23 12:00 97 Mechanical Ventilator 55 03/19/23 12:00 36.4 03/19/23 11:00 89 13 113/79 (90) 98 Mechanical Ventilator 55.00 03/19/23 10:51 108 16 98 55 I & O 03/20/23 07:00 Intake Total 4620 ml Output Total 5400 ml Balance -780 ml Height & Weight Height: 6'5.00" Weight: 235lbs. 0oz. 106.719372ra; 38.00 BMI Method:Stated General Appearance: No Apparent Distress, Obese HEENT: Other (ET tube) Neck: Normal Inspection, Supple Respiratory: Decreased Breath Sounds, Other (intubated and mechanically ventilated) Cardiovascular: No Murmur, Irregularly Irregular Capillary Refill: Less Than 3 Seconds Peripheral Pulses: 2+ Dorsalis Pedis (R), 2+ Left Dors-Pedis (L), 2+ Radial Pulses (R), 2+ Radial Pulses (L) Gastrointestinal: soft, distended (same as yesterday.), other (abdominal pitting edema, rash right abdomen) Extremity: Normal Inspection, Pedal Edema Neurologic/Psychiatric: Other (sedated) Skin: Normal Color, Warm/Dry Lymphatic: No Adenopathy Results Lab Laboratory Tests 03/19/23 03:20 03/20/23 03:10 Assessment/Plan Assessment/Plan 1 FAHAD ARITA MD Mar 20, 2023 10:32
[2023-03-20 10:38] VITALS: BP 98/68
[2023-03-20] MEDS: GLYCOPYRROLATE 0.2 MG/ML (ROBINUL) 2 ML VIAL IV PRN ×2 (10:41→17:17)
[2023-03-20] MEDS: morphine INJ 4 MG/ML 1 ML (VIAL/SYRINGE) IV PRN ×4 (10:42→23:17)
[2023-03-20] MEDS ORDERED: SALIVA STIMULANT GEL 1.5 OZ (BIOTENE) TUBE MM PRN (10:45)
[2023-03-20] MEDS: LORazepam INJ 2 MG/ML (ATIVAN) VIAL IVP PRN ×2 (12:18→17:17)
[2023-03-20] MEDS ORDERED: meTOprolol 5 MG/5 ML (LOPRESSOR) VIAL IV ONE (14:00)
--- NOTE | 2023-03-20 15:00 | Progress Note - Hospitalist ---
Subjective HPI/CC On Admission Date Seen by Provider: Mar 20, 2023 Time Seen by Provider: 10:05 This is a 52 y/o M with PMH untreated HTN and alcohol use disorder who presented to the ED on 03/02 with LLQ abdominal pain and increasing abdominal distension over the past month. He had nausea, vomiting and diarrhea for 3 days 1 month ago and swelling in abdomen has been increasing since. Pt quit drinking 1 month ago when abdominal pain started, previously heavy vodka and beer daily for past 20 years. Reports SOB at baseline that improves with sitting in leaned forward position worsening as distension increases. Smokes 1 ppd. Admitted with AFib with RVR and pneumonia. Started on antibiotics, fluids withheld due to hyp ervolemic status. Requiring minimal oxygen initially, rapidly worsening requiring BiPAP and intubated shortly after. Echo with EF <10%. Case discussed with Dr. Gonzalez, recommended transferring to [facility] for advanced heart failure service. Declined transfer due to not being a candidate for advanced therapies with alcohol and tobacco use. Started on Dobutamine for cardiogenic shock. Low urine output, started on Lasix gtt. Rapidly progressing multi-organ failure. Poor prognosis and goals of care discussed with mother at bedside, she would like to continue full code status at this time. Subjective/Events-last exam He remains intubated and sedated. His mother is at the bedside. She is ready to transition to comfort measures only. Objective Exam Vital Signs Vital Signs Date Time Temp Pulse Resp B/P (MAP) Pulse Ox O2 Delivery O2 Flow Rate FiO2 03/20/23 12:32 104 98/68 03/20/23 11:32 36.7 03/20/23 10:38 17 99 55 03/20/23 10:00 Mechanical Ventilator 55.00 Capillary Refill : Less Than 3 Seconds General Appearance: No Apparent Distress, Obese Respiratory: No Respiratory Distress, Decreased Breath Sounds, Other (intubated and sedated) Cardiovascular: Irregularly Irregular, Tachycardia Gastrointestinal: Normal Bowel Sounds, Soft Extremity: No Inflammation; Pedal Edema Skin: Normal Color, Warm/Dry Results/Procedures Lab Laboratory Tests 03/20/23 03:10 Patient resulted labs reviewed. Imaging: Reviewed Imaging Films, Reviewed Imaging Report Assessment/Plan Assessment and Plan Assess & Plan/Chief Complaint Cardiogenic shock Acute HFrEF Acute respiratory failure with hypoxia Endotracheally intubated Pneumonia Afib with RVR Ascites Cirrhosis Alcohol abuse Hepatitis C MALIK, resolved Poor prognosis Goals of care discussion Transition to comfort measures only Palliative care following Critical Care Critically Ill Patient Diagnosis/Problems Diagnosis/Problems (1) Cardiogenic shock Status: Acute (2) Acute HFrEF (heart failure with reduced ejection fraction) Status: Acute (3) Acute respiratory failure with hypoxia and hypercapnia Status: Acute (4) Endotracheally intubated Status: Acute (5) PNA (pneumonia) Status: Acute (6) MALIK (acute kidney injury) Status: Acute (7) Atrial fibrillation with RVR Status: Acute (8) Ascites due to alcoholic cirrhosis Status: Acute (9) Hepatitis C Status: Acute Qualifiers: Viral hepatitis chronicity: acute Hepatic coma status: without hepatic coma Qualified Codes: B17.10 - Acute hepatitis C without hepatic coma (10) HTN (hypertension) Status: Chronic (11) Obesity Status: Chronic (12) Tobacco abuse Status: Chronic (13) Alcohol abuse Status: Chronic (14) Poor prognosis (15) Goals of care, counseling/discussion JSOE NEWBERRY MD Mar 20, 2023 15:00
[2023-03-20] MEDS ORDERED: meTOprolol 5 MG/5 ML (LOPRESSOR) VIAL IV NR (18:45)
[2023-03-21] MEDS: DexMEDEtomidine 250 ML DRIP 250 ML IV SCH ×4 (02:11→16:50)
[2023-03-21] MEDS: morphine INJ 4 MG/ML 1 ML (VIAL/SYRINGE) IV PRN ×7 (02:26→19:42)
[2023-03-21] MEDS: LORazepam INJ 2 MG/ML (ATIVAN) VIAL IVP PRN ×5 (09:13→19:41)
[2023-03-21] MEDS: GLYCOPYRROLATE 0.2 MG/ML (ROBINUL) 2 ML VIAL IV PRN ×2 (09:44→18:35)
--- NOTE | 2023-03-21 15:04 | Progress Note - Hospitalist ---
Subjective HPI/CC On Admission Date Seen by Provider: Mar 21, 2023 Time Seen by Provider: 09:25 This is a 52 y/o M with PMH untreated HTN and alcohol use disorder who presented to the ED on 03/02 with LLQ abdominal pain and increasing abdominal distension over the past month. He had nausea, vomiting and diarrhea for 3 days 1 month ago and swelling in abdomen has been increasing since. Pt quit drinking 1 month ago when abdominal pain started, previously heavy vodka and beer daily for past 20 years. Reports SOB at baseline that improves with sitting in leaned forward position worsening as distension increases. Smokes 1 ppd. Admitted with AFib with RVR and pneumonia. Started on antibiotics, fluids withheld due to hypervolemic status. Requiring minimal oxygen initially, rapidly worsening requiring BiPAP and intubated shortly after. Echo with EF <10%. Case discussed with Dr. Gonzalez, recommended transferring to [facility] for advanced heart failure service. Declined transfer due to not being a candidate for advanced therapies with alcohol and tobacco use. Started on Dobutamine for cardiogenic shock. Low urine output, started on Lasix gtt. Rapidly progressing multi-organ failure. Poor prognosis and goals of care discussed with mother at bedside, she would like to continue full code status at this time. Subjective/Events-last exam He is sleeping. He appears comfortable. His mother is at the bedside. Objective Exam Vital Signs Vital Signs Date Time Temp Pulse Resp B/P (MAP) Pulse Ox O2 Delivery O2 Flow Rate FiO2 03/21/23 15:01 36.8 03/21/23 12:00 Nasal Cannula 2.00 03/21/23 11:26 144 98/68 03/21/23 00:00 23 96 03/20/23 10:38 55 Capillary Refill : Less Than 3 Seconds General Appearance: No Apparent Distress, Chronically ill, Obese Respiratory: Lungs Clear, No Respiratory Distress Cardiovascular: Irregularly Irregular, Tachycardia Gastrointestinal: Soft; No Distended Extremity: No Inflammation; Pedal Edema Results/Procedures Lab Patient resulted labs reviewed. Imaging: Reviewed Imaging Films, Reviewed Imaging Report Assessment/Plan Assessment and Plan Assess & Plan/Chief Complaint Cardiogenic shock Acute HFrEF Acute respiratory failure with hypoxia Endotracheally intubated Pneumonia Afib with RVR Ascites Cirrhosis Alcohol abuse Hepatitis C MALIK, resolved Poor prognosis Goals of care discussion Comfort measures only Palliative care following Diagnosis/Problems Diagnosis/Problems (1) Cardiogenic shock Status: Acute (2) Acute HFrEF (heart failure with reduced ejection fraction) Status: Acute (3) Acute respiratory failure with hypoxia and hypercapnia Status: Acute (4) Endotracheally intubated Status: Acute (5) PNA (pneumonia) Status: Acute (6) MALIK (acute kidney injury) Status: Acute (7) Atrial fibrillation with RVR Status: Acute (8) Ascites due to alcoholic cirrhosis Status: Acute (9) Hepatitis C Status: Acute Qualifiers: Viral hepatitis chronicity: acute Hepatic coma status: without hepatic coma Qualified Codes: B17.10 - Acute hepatitis C without hepatic coma (10) HTN (hypertension) Status: Chronic (11) Obesity Status: Chronic (12) Tobacco abuse Status: Chronic (13) Alcohol abuse Status: Chronic (14) Poor prognosis Status: Acute (15) Goals of care, counseling/discussion Status: Acute JOSE NEWBERRY MD Mar 21, 2023 15:04
[2023-03-21 16:50] VITALS: BP 98/68
--- NOTE | 2023-03-23 12:48 | Physician Query Clarification ---
PQ-Uncertain Diagnosis Admission/Discharge Admission Date: March 02, 2023 at 17:00 Discharge Date: Mar 21, 2023 at 20:24 Dr. Newberry, The medical record reflects the following clinical scenario: History/Risk Factors: acute respiratory failure w/hypoxia/hypercapnia, acute on chronic systolic CHF, pneumonia, MALIK Clinical Findings: T 36.8, P 106, R 24 min, WBC 11.8, Lactic acid 1.07 Treatment: IV Vancomycin Question: Is Sepsis a clinically valid diagnosis? Sepsis was documented in the ER record with no further documentation in the medical record. Please document a response in Progress Note or Discharge Summary. 1. Yes, clinically valid, condition resolved. 2. No, condition ruled out. 3. Other, with explanation of clinical findings. 4. Undetermined, no explanation for clinical findings. PHYSICIAN RESPONSE Diagnosis clinically valid: No, conditon ruled out In responding to this query, please exercise your independent professional judgment. The purpose of this communication is to more accurately reflect the complexity of your patients condition. The fact that a question is asked does not imply that any particular answer is desired or expected. Thank you for your timely response to this clarification. Requestors name: Philip THIS PHYSICIAN QUERY FORM IS A PERMANENT PART OF THE MEDICAL RECORD PHILIP CARDENAS Mar 23, 2023 12:48 JOSE NEWBERRY MD Mar 24, 2023 18:36
== END 2023-03-21 20:24 | disposition expired | DRG 207 ==
LOC: EDUNIT# 13:39 → ER FS 13:41 → ICU 17:00
PROVIDERS: ADMIT Internal Medicine; ATTEND Internal Medicine
PROC: 5A1955Z Respiratory Ventilation, Greater than 96 Consecutive Hours (ICD-10-PCS; principal; 2023-03-03)
PROC: 0BH17EZ Insertion of Endotracheal Airway into Trachea, Via Natural or Artificial Opening (ICD-10-PCS; 2023-03-03)
PROC: 5A09357 Assistance with Respiratory Ventilation, Less than 24 Consecutive Hours, Continuous Positive Airway Pressure (ICD-10-PCS; 2023-03-03)
PROC: 4A023N7 Measurement of Cardiac Sampling and Pressure, Left Heart, Percutaneous Approach (ICD-10-PCS; 2023-03-11)
PROC: B2111ZZ Fluoroscopy of Multiple Coronary Arteries using Low Osmolar Contrast (ICD-10-PCS; 2023-03-11)
PROC: B3101ZZ Fluoroscopy of Thoracic Aorta using Low Osmolar Contrast (ICD-10-PCS; 2023-03-11)
DX: J96.02 Acute respiratory failure with hypercapnia (principal); I50.23 Acute on chronic systolic (congestive) heart failure; J18.9 Pneumonia, unspecified organism; I13.0 Hypertensive heart and chronic kidney disease with heart failure and stage 1 through stage 4 chronic kidney disease, or unspecified chronic kidney disease; I48.19 Other persistent atrial fibrillation; N17.9 Acute kidney failure, unspecified; E66.2 Morbid (severe) obesity with alveolar hypoventilation; Z66 Do not resuscitate; Z51.5 Encounter for palliative care; Z68.41 Body mass index [BMI] 40.0-44.9, adult; I42.6 Alcoholic cardiomyopathy; J96.01 Acute respiratory failure with hypoxia; K70.31 Alcoholic cirrhosis of liver with ascites; R57.0 Cardiogenic shock; R57.8 Other shock; N18.9 Chronic kidney disease, unspecified; F10.20 Alcohol dependence, uncomplicated; F17.210 Nicotine dependence, cigarettes, uncomplicated; R21 Rash and other nonspecific skin eruption; K80.20 Calculus of gallbladder without cholecystitis without obstruction; B19.20 Unspecified viral hepatitis C without hepatic coma; N50.89 Other specified disorders of the male genital organs; Y90.0 Blood alcohol level of less than 20 mg/100 ml; Z87.820 Personal history of traumatic brain injury; Z79.899 Other long term (current) drug therapy
CPT/HCPCS: 36221; 36415; 36600; 71045; 74177; 76604; 76700; 76705; 80048; 80053; 80074; 80202; 80320; 81000; 82140; 82805; 82947; 83605; 83690; 83735; 83880; 84100; 84132; 84478; 84484; 85007; 85025; 85027; 85610; 85730; 87040; 87070; 87081; 87088; 87205; 87522; 93005; 93306; 93458; 94002; 94003; 94660; 94799; 96365; 96366; 96367; 96368; 96375